=== PATIENT | male | born 1965 | race Caucasian/White ===

== ENCOUNTER → 2020-05-03 14:05 | Outpatient (BNVA) | payer OTHER, SELFPAY | PROVIDERS: PCP Internal Medicine; Visit Provider Internal Medicine Pulmonary Disease | DX: J44.9 Chronic obstructive pulmonary disease, unspecified (principal); R06.00 Dyspnea, unspecified | CPT/HCPCS: 99202 ==

== ENCOUNTER → 2020-05-24 13:16 | Outpatient (BNVA) | payer OTHER, SELFPAY | PROVIDERS: PCP Internal Medicine; Visit Provider Internal Medicine Pulmonary Disease ==

== ENCOUNTER 2020-05-26 11:11 | Inpatient (IN) | payer OTHER, SELFPAY ==
[2020-05-26] VITALS (12 sets, daily range): BP systolic 114–168; BP diastolic 70–89; PULSE 123–139; RESP 18–25; TEMP 36.4–36.7; O2SAT 94–95; BMI 34.8
--- NOTE | ~2020-05-26 | XR_ITS ---
EXAMINATION: XR CHEST CLINICAL INFORMATION: Shortness of breath COMPARISON: US radiograph from 11/28/2019 TECHNIQUE: Frontal view of the chest was obtained. FINDINGS: Bibasilar atelectasis versus scarring. Very mild prominence of the pulmonary vasculature. There is no pneumothorax. Trachea is midline. Cardiomediastinal silhouette is stable. Aorta demonstrates tortuosity. There is no pleural effusion. Degenerative changes of the thoracolumbar spine and glenohumeral joint. XR/XR chest 1V IMPRESSION: 1. Bibasilar atelectasis versus scarring. 2. Very mild prominence of the pulmonary vasculature.
[2020-05-26] MEDS: Adenosine 6 MG/2 ML VIAL IVPUSH (11:20)
[2020-05-26] MEDS: Adenosine 6 MG/2 ML VIAL 12 MG IVPUSH (11:30)
[2020-05-26] MEDS: dilTIAZem HCL 50 MG/10 ML VIAL 20 MG IVPUSH ×2 (11:35→11:52)
--- NOTE | 2020-05-26 11:48 | ECG_ITS ---
Test Reason : tachycardia Blood Pressure : / mmHG Vent. Rate : 261 BPM Atrial Rate : 258 BPM P-R Int : 000 ms QRS Dur : 166 ms QT Int : 162 ms P-R-T Axes : 000 121 000 degrees QTc Int : 337 ms Atrial flutter with 1:[address] depression, consider subendocardial injury or digitalis effect Anterolateral infarct , age undetermined Abnormal ECG When compared with ECG of 22-FEB-2019 15:31, Atrial flutter with 1:1 conduction has replaced Sinus rhythm Vent. rate has increased BY 161 BPM Referred By: Emanuel Bojorquez Electronically Signed By:ELLY LENNON MD
[2020-05-26] MEDS: 0.9 % Sodium Chloride 1,000 ML 999 ML IVCONT (11:50)
[2020-05-26 12:10] LABS: MANUAL DIFF FLAG NO
--- NOTE | 2020-05-26 12:11 | ED_ITS ---
HPI - Arrhythmia/Palpitations General Chief Complaint: Arrhythmia/Palpitations Stated Complaint: CHEST PAIN Time Seen by Provider: 05/26/20 11:28 Source: patient Mode of arrival: ambulatory Limitations: no limitations History of Present Illness HPI narrative: 54-year-old male walked into the emergency department for evaluation of shortness of breath and rapid heartbeat. Patient initially did not look well with diaphoresis and apparent difficulty breathing patient was taken to room 1., heart rate was above 240s, patient was diaphoretic and tachypneic satting 98% on room air, after trying Valsalva maneuver, patient was given adenosine 6 mg/6 mg/12 mg with no effect. Patient started to become more diaphoretic blood pressure started to drop down and patient became hypotensive, at this point I considered to cardiovert the patient since a showing sign of instability, then of the sudden heart rate drop down to 139 per minutes, and patient's symptoms start to improve, and and blood pressure normalized. Patient stated that his difficulty breathing is getting better. Related Data Home Medications Medication Instructions Recorded Confirmed albuterol sulfate 90 mcg/actuation 2 puff INHALATION Q6H PRN 03/14/20 05/26/20 aerosol inhaler Previous Rx's Medication Instructions Recorded fluticasone fur. 100 mcg-umeclid 1 inh INHALATION DAILY 30 Days #1 05/03/20 62.5 mcg-vilant 25 mcg ea inhalat.powder furosemide 40 mg tablet 40 mg PO DAILY 30 Days #30 tab 05/03/20 umeclidinium 62.5 mcg/actuation 1 inh INHALATION DAILY 30 Days #1 05/11/20 blister powder for inhalation ea Allergies Allergy/AdvReac Type Severity Reaction Status Date / Time No Known Allergies Allergy Verified 05/07/20 07:57 Review of Systems 2 Review of Systems: All other systems are reviewed and are negative Constitutional: Reports as per HPI and Reports no additional constitutional complaints Eyes: Reports as per HPI and Reports no additional eye complaints Reports system reviewed and no additional complaints, except as documented Cardiovascular: Reports as per HPI and Reports no additional cardiovascular complaints Respiratory: Reports as per HPI and Reports no additional respiratory complaints Gastrointestinal: Reports as per HPI and Reports no additional gastrointestinal complaints Genitourinary: Reports no additional female genitourinary complaints Musculoskeletal: Reports no additional musculoskeletal complaints Skin/Breast: Reports system reviewed and no additional complaints, except as docu Psychiatric: Reports no additional psychiatric complaints Endocrine: Reports no additional endocrine complaints Hematologic/Lymphatic: Reports no additional hematologic/lymphatic complaints Allergic/Immunologic: Reports no additional allergic/immunologic complaints Reports system reviewed and no additional complaints, except as documented and Reports Abnormal speech present [facility] Past Medical History Medical History (Updated 05/26/20 @ 15:05 by Emanuel Bojorquez MD) Atrial flutter with rapid ventricular response COPD (chronic obstructive pulmonary disease) HTN (hypertension) Surgical History No pertinent past surgical history Family History Family History Father Cancer Mother Diabetes Hypertension Brother In good health Sister In good health Son In good health Daughter In good health Social History Social History Alcohol intake: current Alcohol intake frequency: 3 or more drinks per day Alcohol type: beer Smoking Status: Current every day smoker Smoked in Last 30 Days: Yes Use of substances other than those prescribed or required for medical reasons: Yes Substance Use Type: Marijuana Substance Use Frequency: Daily Advance Directives: No Advance Directives Information Provided: No Physical Exam Vital Signs: Vital Signs: Last Vital Signs Temp 98.0 F 05/26/20 11:54 Pulse 137 H 05/26/20 14:00 Resp 19 05/26/20 14:00 BP 136/89 05/26/20 14:00 Pulse Ox 94 05/26/20 14:00 Body Mass Index 34.8 Vital signs have been reviewed as appeared to be correct. Blood pressure normal. Heart rate normal. Respiration rate normal. Temperature normal. Oxygen saturation normal. Appearance: Alert. Oriented X3. Mild acute respiratory distress. Appear anxious Head: Normal external exam. Normocephalic. Atraumatic. No Hartman signs noted. No raccoon eyes noted Eyes: PERRLA. EOMI. Conjunctiva and sclera normal. Eyelids normal. ENT: TM's Normal. Pharynx normal. Uvula midline. Moist mucous membranes. No trismus noted. No drooling noted. No muffled voice noted. Neck: Normal inspection. Neck supple. FROM. No adenopathy. Thyroid Normal. No meningeal signs. No neck mass noted. CVS: Rapid heart rate and rhythm. Heart sound normal. No murmurs noted. Pulses normal throughout. Respiratory: Mild respiratory distress. Painless inspiration. Breath sounds normal. No wheezes/rales/rhonchi noted. Chest nontender. No accessory muscle usage noted or decreased air movement noted. Abdomen: Soft and nontender. Bowel sounds normal in all 4 quadrants. No distention noted. No organomegaly noted. No visible injury noted. Back: No CVA tenderness. Full range of motion noted. Skin: Skin warm and dry. Normal skin color. Normal skin turgor. No rashes/lesions/lacerations noted. Extremities: No lower extremity edema. Extremities exhibit normal range of motion. Extremities nontender. Neuro: Oriented X 3. No motor deficit. No sensory deficit. Reflexes normal. Course Course Course Narrative: Assessment and plan. 54-year-old male came in with rapid SVT, with shortness of breath, at some point was hypotensive, patient was about to get cardioverted in the emerged department, but likely patient's heart rate slowed down its own and symptoms improved, Dr. Waddell cardiology consult was requested in the ED patient was seen and evaluated by Dr. Waddell. Reevaluation(s) Reevaluation #1: Patient appeared more stable on Cardizem drip heart rate is 138 patient now is asymptomatic. Time: 14:12 Reevaluation #2: Patient appear stable, heart rate is 138 per minute, patient remained asymptomatic, Dr. Waddell was reviewing the echocardiogram with decrease LV F, will DC Cardizem drip, load him up with digoxin, and start on amiodarone drip IV. Patient is known every day alcohol drinker started to have some symptoms of withdrawal will start the patient on phenobarb protocol. MDM - Arrhythmia/Palpitations Lab Data Attestation: I reviewed the patient's lab results. Result diagrams: 05/26/20 12:04 05/26/20 12:04 Labs: Lab Results 05/26/20 05/26/20 05/26/20 Range/Units 12:02 12:04 12:04 WBC 7.4 (4.8-10.8) X10*3/uL RBC 4.53 L (4.60-5.80) X10*6/uL Hgb 14.3 (14.0-18.0) g/dl Hct 43.5 (42-52) % MCV 96.0 (80-98) fL MCH 31.6 (27.0-33.0) pg MCHC 32.9 (31.0-36.0) g/dl RDW 13.1 (11.0-16.0) % Plt Count 208 (160-400) X10*3/uL MPV 9.4 (9.4-12.4) fL Immature Gran % (Auto) 0.9 H (0.0-0.4) % Neut % (Auto) 64.9 (45-73) % Lymph % (Auto) 26.9 (20-40) % Ventura % (Auto) 6.2 (2-11) % Eos % (Auto) 0.7 (0-4) % Baso % (Auto) 0.4 (0-2) % Lymph # (Auto) 2.0 (1.2-4.9) X10*3/uL Ventura # (Auto) 0.5 (0.1-1.2) X10*3/uL Eos # (Auto) 0.1 (0.0-0.4) X10*3/uL Baso # (Auto) 0.0 (0.0-0.2) X10*3/uL Abs Immat Gran (auto) 0.07 H (0.00-0.03) X10*3/uL Absolute Neuts (auto) 4.8 (2.0-8.3) X10*3/uL Absolute Nucleated RBC 0.000 (0.0-0.012) X10*3/uL Nucleated RBC % (auto) 0.0 (0.0-0.2) /100WBC PT (10.8-13.0) SEC INR (0.9-1.1) APTT (24.1-38.0) SEC Hold Blue Top Sodium 139 (135-145) mmol/L Potassium 4.5 (3.3-5.1) mmol/L Chloride 101 (96-108) mmol/L Carbon Dioxide 24 (22-29) mmol/L Anion Gap 19 (12-20) BUN 12 (9-16) mg/dL Creatinine 1.20 (0.5-1.4) mg/dL Estim Creat Clear Calc 90.1 Estimated GFR > 60 Random Glucose 280 H (60-115) mg/dL Calcium 8.8 (8.4-10.2) mg/dL Phosphorus 4.3 (2.7-4.5) mg/dL Magnesium 1.8 (1.6-2.6) mg/dL Total Bilirubin 0.6 (0.0-1.0) mg/dL Direct Bilirubin 0.5 (0.0-0.5) mg/dL AST 194 H (5-37) U/L ALT 231 H (0-40) U/L Alkaline Phosphatase 117 (39-117) U/L Troponin I High Sens (<3.5-35.0) ng/L B-Natriuretic Peptide (<100) pg/mL Total Protein 6.4 L (6.5-8.0) g/dL Albumin 4.0 (3.5-5.0) g/dL Lipase 26 (8-78) U/L COVID-19 ([facility]) Negative (Negative) COVID-19 Clin Com See Note 05/26/20 05/26/20 Range/Units 12:04 12:05 WBC (4.8-10.8) X10*3/uL RBC (4.60-5.80) X10*6/uL Hgb (14.0-18.0) g/dl Hct (42-52) % MCV (80-98) fL MCH (27.0-33.0) pg MCHC (31.0-36.0) g/dl RDW (11.0-16.0) % Plt Count (160-400) X10*3/uL MPV (9.4-12.4) fL Immature Gran % (Auto) (0.0-0.4) % Neut % (Auto) (45-73) % Lymph % (Auto) (20-40) % Ventura % (Auto) (2-11) % Eos % (Auto) (0-4) % Baso % (Auto) (0-2) % Lymph # (Auto) (1.2-4.9) X10*3/uL Ventura # (Auto) (0.1-1.2) X10*3/uL Eos # (Auto) (0.0-0.4) X10*3/uL Baso # (Auto) (0.0-0.2) X10*3/uL Abs Immat Gran (auto) (0.00-0.03) X10*3/uL Absolute Neuts (auto) (2.0-8.3) X10*3/uL Absolute Nucleated RBC (0.0-0.012) X10*3/uL Nucleated RBC % (auto) (0.0-0.2) /100WBC PT 11.2 (10.8-13.0) SEC INR 0.9 (0.9-1.1) APTT 39.0 H (24.1-38.0) SEC Hold Blue Top SEE NOTE Sodium (135-145) mmol/L Potassium (3.3-5.1) mmol/L Chloride (96-108) mmol/L Carbon Dioxide (22-29) mmol/L Anion Gap (12-20) BUN (9-16) mg/dL Creatinine (0.5-1.4) mg/dL Estim Creat Clear Calc Estimated GFR Random Glucose (60-115) mg/dL Calcium (8.4-10.2) mg/dL Phosphorus (2.7-4.5) mg/dL Magnesium (1.6-2.6) mg/dL Total Bilirubin (0.0-1.0) mg/dL Direct Bilirubin (0.0-0.5) mg/dL AST (5-37) U/L ALT (0-40) U/L Alkaline Phosphatase (39-117) U/L Troponin I High Sens 15.6 (<3.5-35.0) ng/L B-Natriuretic Peptide 322 H (<100) pg/mL Total Protein (6.5-8.0) g/dL Albumin (3.5-5.0) g/dL Lipase (8-78) U/L COVID-19 ([facility]) (Negative) COVID-19 Clin Com Imaging Data Chest x-ray: Radiologist's impression: 1. Bibasilar atelectasis versus scarring. 2. Very mild prominence of the pulmonary vasculature. ECG Data Interpretation: EKG 1. SVT at 240/m with narrow QRS complex. EKG 2. Atrial flutter at 138 beats per minutes with 2-1 av conduction, otherwise unremarkable intervals, ST segment depression in the inferior leads concern of ischemia. Critical Care Time Critical Care Time Total Critical Care Time: 60 Attestation: I spent 60 minutes providing critical care service to the patient, this including time spent at the bedside to evaluate the patient, reassess the patient, monitoring vital signs, review labs, and radiographic studies, counseling the patient/family, discussing the case with consultants, disposition the patient. Discharge Plan Discharge Clinical Impression: COPD (chronic obstructive pulmonary disease), Atrial flutter with rapid ventricular response, Alcohol withdrawal Patient Disposition: Admitted As Inpatient
--- NOTE | 2020-05-26 12:13 | CA_ITS ---
Transthoracic Echocardiogram Patient (Last, First, Middle): Magdi Carson, Gender: Male Date of : 1965 Age: 54 Procedure Date: 05/26/2020 Procedure Type: Transthoracic Echocardiogram Location: ER Height: 180.34 cm Weight: 113.4 kg BSA: 2.32 m2 Heart Rate: bpm BP: 114 / 84 mmHg Shell Sorter: Referring MD: Greyson Waddell MD Carbonating Stone Cleaner: Greyson Waddell MD Symptoms: Atrial flutter, chest pain Study Quality: Technically Difficult ECG Rhythm: Atrial flutter Conclusions: - 1. Severe LV systolic dysfunction with LVEF of 25-30%, with mild LVH 2. Moderate RV enlargement with low normal RV systolic pressure 3. Moderately enlarged left atrium 4. Normal cardiac valvular Doppler 5. Normal calculated RV systolic pressure 6. No gross pericardial effusion Findings Procedure Information Contrast agent, definity, is being given per protocol without apparent complications. Left Ventricle Normal left ventricular cavity size. There is mildly increased left ventricular wall thickness. The left ventricular systolic function is severely decreased. The visually estimated ejection fraction is between 25 30%. Diastolic function is indeterminate on the basis of available data. Right Ventricle Moderately increased right ventricular cavity size. There is mildly decreased right ventricular systolic function. Atria The left atrium is moderately dilated. Interatrial shunt cannot be excluded. The right atrium was not well visualized. Aortic Valve The aortic valve structure and function is likely normal. There is no aortic valve stenosis. There is no aortic valve regurgitation. Mitral Valve Likely normal mitral valve structure and function. There is no mitral valve regurgitation. There is no mitral valve stenosis. Pulmonic Valve The pulmonic valve was not well visualized. Tricuspid Valve The tricuspid valve was not well visualized. There is trace tricuspid valve regurgitation. The right ventricular systolic pressure is normal. Great Vessels The aorta was not well visualized. The pulmonary artery was not well visualized. Venous The inferior vena cava was not well visualized. Pericardium/Pleural There is no evidence of pericardial effusion. Prior Study Comparison No prior study available for comparison. Measurements 2D Linear Measurements IVSd: 1.28 0.6-0.9/0.6-1.0 cm LVIDd: 6.18 3.9-5.3/4.2-5.9 cm LVIDd Index: 2.66 2.4-3.2/2.2-3.1 cm/m2 LVIDs: 5.19 2.0-3.6 cm LVPWd: 1.27 0.7-1.1 cm Ao Root: 3.80 2.1-3.5 cm LA Diam: 4.60 2.7-3.8/3.0-4.0 cm LAIDs Index: 1.98 1.5-2.3 cm/m2 LV Mass: 446.48 67-162/88-224 g LV Mass Index: 192.45 43-95/49-115 g/m2 LVOT Diam: 2.00 3.0+(-)1.3 cm 2D Systolic Function EF 4C: 33.20 >55% EF 2C: 12.70 >55% EF BiP: 25.80 >55% Mitral Valve MV Pk E: 0.93 MV Decel Time: 113.00 E'Lateral: 7.16 E'Medial: 3.96 E/E' Med: 23.40 E/E' Lat: 12.90 PHT: 33.00 MVA PHT: 6.67 Decel [place]: 8.22 Aortic Valve AoV Pk Dawit: 0.94 AoV Mn Dawit: 0.67 AoV VTI: 0.16 AoV Pk Grad: 4.00 Aov Mn Grad: 2.00 LANCE Cont.VTI: 2.39 LVOT LVOT Pk Dawit: 0.78 LVOT Mn Dawit: 0.54 LVOT VTI: 0.12 LVOT Pk Grad: 2.00 LVOT Mn Grad: 1.00 LVOT Diam: 2.00 LVOT Area: 3.14 Diastolic Function MV Pk E: 0.93 E'Medial: 3.96 E/E' Med: 23.40 E' Laterial: 7.16 E/E' Lat: 12.90 Tricuspid Valve TR Pk Dawit: 2.08 TR Pk Grad: 17.00 RA Press: 3.00 RVSP: 20.00 Great Vessels Aorta Ao Root-2D: 3.80 2.0-3.7 cm Ao Asc: 3.70 2.1-3.4 cm Pulmonary Valve PV Pk Dawit: 0.79 Peak PV Grad: 2.00 Updated in Other Vendor System with Status of Final Greyson Waddell MD electronically signed on 05/26/2020 3:04:06 PM with status of Final
[2020-05-26 12:15] LABS: Basophils Percent Auto 0.4 % (0-2); Eosinophils Absolute Auto 0.1 X10*3/uL (0.0-0.4); Eosinophils Percent Auto 0.7 % (0-4); Hematocrit 43.5 % (42-52); Hemoglobin 14.3 g/dl (14.0-18.0); Imm Gran Abs Auto 0.07 X10*3/uL (0.00-0.03); Imm Gran Pct Auto 0.9 % (0.0-0.4); Lymphocytes Percent Auto 26.9 % (20-40); Mean Corpuscular HGB Conc 32.9 g/dl (31.0-36.0); Mean Corpuscular Hemoglobin 31.6 pg (27.0-33.0); Mean Platelet Volume 9.4 fL (9.4-12.4); Monocytes Absolute Auto 0.5 X10*3/uL (0.1-1.2); Monocytes Percent Auto 6.2 % (2-11); Neutrophils Absolute Auto 4.8 X10*3/uL (2.0-8.3); Neutrophils Percent Auto 64.9 % (45-73); Platelet Count 208 X10*3/uL (160-400); Red Blood Count 4.53 X10*6/uL (4.60-5.80); Red Cell Distribution Width 13.1 % (11.0-16.0); White Blood Count 7.4 X10*3/uL (4.8-10.8)
--- NOTE | 2020-05-26 12:19 | PM.CNCAR ---
History of Present Illness History of Present Illness Date of Service: 05/26/20 Requesting physician: Emanuel Bojorquez Consult reason: other (Atrial flutter) Chief complaint: CHEST PAIN Narrative: We were asked to see Magdi in cardiology consultation today for rapid hemodynamically unstable tachyarrhythmia. Initially when he presented he was noted to be in narrow complex tachycardia at about 270 beats per minute with marked ST T wave changes. Initially given adenosine x3 and subsequently Cardizem. He was hypertensive, diaphoretic and very short of breath with chest discomfort. Plan was to perform an urgent cardioversion, however patient slow down and revealed that he was in atrial flutter with 1 is to 1 conduction initially and now atrial flutter with 2 is to 1 conduction. His blood pressure is improved now. He is feeling a lot better. Not diaphoretic. Not having any chest tightness. No significant ST depression at this point time. Lab work is pending. Symptoms started this [place] Prior to that he was feeling fine he his usual shortness of breath related to COPD. By the time he got to the car he started noticing significantly sudden onset severe shortness of breath, lightheadedness and chest tightness and started getting diaphoretic. He then said inside the car turned on his AC and said that he felt better and started driving to go home, however he said that he continued to feel poorly and therefore came to the emergency room. He has never had prior episodes like these in the past. 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 Garcia. He takes inhalers. He also has history of hypertension but currently not on any treatment. He drinks about 10 beers a day. Also continues to smoke. Not on any home oxygen at this point in time. Review of Systems Constitutional: Constitutional: Denies chills, Denies fever(s), Denies lethargy and Denies malaise Cardiovascular: Cardiovascular: Reports chest pain, Reports diaphoresis, Reports lightheadedness, Reports palpitations, Reports dyspnea and Reports dyspnea on exertion (Chronically) Respiratory: Respiratory: Reports dyspnea, Reports dyspnea on exertion (Chronically) and Reports wheezing (Chronically) Gastrointestinal: Gastrointestinal: Reports no additional gastrointestinal complaints Genitourinary: Genitourinary: Reports no additional male genitourinary complaints Musculoskeletal: Musculoskeletal: Reports no additional musculoskeletal complaints Integumentary/Breasts: Skin/Breast: Reports system reviewed and no additional complaints, except as docu Neurologic: Reports system reviewed and no additional complaints, except as documented Psychiatric: Psychiatric: Reports no additional psychiatric complaints Endocrine: Endocrine: Reports no additional endocrine complaints and Reports palpitations Allergic/Immunologic: Allergic/Immunologic: Reports wheezing (Chronically) [facility] Past Medical History Medical History (Updated 05/26/20 @ 12:25 by Greyson Waddell MD) Atrial flutter with rapid ventricular response COPD (chronic obstructive pulmonary disease) HTN (hypertension) Family History Family History Father Cancer Mother Diabetes Hypertension Brother In good health Sister In good health Son In good health Daughter In good health Surgical History Surgical History No pertinent past surgical history Social History Social History Alcohol intake: current Alcohol intake frequency: 3 or more drinks per day Alcohol type: beer Smoking Status: Current every day smoker Smoked in Last 30 Days: Yes Use of substances other than those prescribed or required for medical reasons: Yes Substance Use Type: Marijuana Substance Use Frequency: Daily Meds Allergies Allergy/AdvReac Type Severity Reaction Status Date / Time No Known Allergies Allergy Verified 05/07/20 07:57 Active Medications: Current Medications Generic Name Dose Route Start Last Admin Trade Name Freq PRN Reason Stop Dose Admin Sodium Chloride 1,000 mls @ 999 mls/hr 05/26/20 11:45 Ns IVCONT 05/26/20 12:45 .[id number] [facility] Home Medications Medication Instructions Recorded Confirmed Last Taken Type albuterol sulfate 90 mcg/actuation 2 puff INHALATION Q6H PRN 03/14/20 Unknown History aerosol inhaler Physical Exam Vital Signs: Vital Signs: Last Vital Signs Temp 98.0 F 05/26/20 11:54 Pulse 138 H 05/26/20 11:35 Resp 19 05/26/20 11:35 BP 114/84 05/26/20 11:35 Pulse Ox 95 05/26/20 11:35 Body Mass Index 34.8 Const: General: cooperative, alert, awake and acute distress mild and respiratory Nutritional Appearance: obese Orientation/consciousness: patient oriented x3 HENMT: Head: Yes normocephalic and Yes atraumatic Neck: Neck: Yes trachea midline, Yes supple and Yes no JVD Resp: Effort & Inspection: normal respiratory effort Auscultation: no rales, wheezes and diminished lung sounds Cardio: Rate: tachycardic Rhythm: regular rhythm Heart sounds: S1 normal heart sound present and S2 normal heart sound present GI: Inspection: Yes obesity Auscultation: normal bowel sounds Skin: General skin exam: no rashes or lesions noted Neuro: General: patient oriented x3 and no focal motor deficits Extrem: General: Yes no clubbing, cyanosis or edema Psych: Appearance: grossly normal Results Labs and Meds Result diagrams: 05/26/20 12:04 05/26/20 12:04 Lab results: Laboratory Results - last 24 hr 05/26/20 12:05 Hold Blue Top SEE NOTE EKG initially shows rapid narrow complex tachycardia at about 270 beats per minute with marked ST T wave changes suggestive of rate-related ischemia, appears to be atrial flutter with one-to-one conduction, no evidence of pre-excitation 2. EKG repeat shows atrial flutter with 2 is to 1 conduction at 138 beats per minute with much improved ST T wave changes with no pre-excitation Assessment and Plan (1) Atrial flutter with rapid ventricular response: Status: Acute Extremely rapid atrial flutter with one-to-one conduction without pre-excitation with hemodynamic compromise on presentation. With rate control his hemodynamics and symptoms have significantly improved. At this point time given that his atrial flutter is of very recent onset this morning and he has no prior history of any arrhythmias or similar symptoms in the past can try to do chemical cardioversion if his labs are within normal limits. Will check potassium magnesium and troponins. If these are within acceptable limits will pursue flecainide 150 mg p.o.. Start IV Cardizem drip and maximized to control his heart rate to below 100 beats per minute. Also anticoagulate him with 1 milligram/kg subQ q.12 hours of Lovenox. Will obtain echocardiogram later today. He is strongly recommend to abstain from alcohol and smoking. He shows understanding. He is also currently diffusely wheezing and should consider bronchodilator treatment with Xopenex. He will require hospitalization. If his rate remains difficult to control and he does not chemically cardiovert by tomorrow, will pursue elective synchronized cardioversion. This was discussed with him. Will continue to follow with the patient.
[2020-05-26] MEDS: Enoxaparin Sodium 100 MG/ML SYRINGE 70 MG SUBCUT (12:20)
[2020-05-26 12:23] LABS: INTERNATIONAL NORM RATIO 0.9 (0.9-1.1); Prothrombin Time 11.2 SEC (10.8-13.0)
[2020-05-26 12:36] LABS: Alanine Aminotransferase 231 U/L (0-40); Alkaline Phosphatase 117 U/L (39-117); Anion Gap 19 (12-20); Aspartate Amino Transferase 194 U/L (5-37); B Type Natriuretic Peptide 322 pg/mL (<100); Bilirubin Direct 0.5 mg/dL (0.0-0.5); Bilirubin Total 0.6 mg/dL (0.0-1.0); Blood Urea Nitrogen 12 mg/dL (9-16); Calcium 8.8 mg/dL (8.4-10.2); Carbon Dioxide 24 mmol/L (22-29); Chloride 101 mmol/L (96-108); Creatinine Clr Calc Pharmacy 90.1; Estimated Glomerular Filt Rate > 60; Glucose Random 280 mg/dL (60-115); Lipase 26 U/L (8-78); Potassium 4.5 mmol/L (3.3-5.1); Sodium 139 mmol/L (135-145); Total Protein 6.4 g/dL (6.5-8.0); Troponin-I High Sensitivity 15.6 ng/L (<3.5-35.0)
[2020-05-26 12:39] LABS: COVID-19 Test Negative (Negative); IDNOW Serial# 9DD0AD1C
[2020-05-26] MEDS: dilTIAZem HCL 125 MG in 0.9 % Sodium Chloride 100 ML 10 MG IVCONT (12:40)
[2020-05-26 12:45] LABS: Magnesium 1.8 mg/dL (1.6-2.6); Phosphorus 4.3 mg/dL (2.7-4.5)
--- NOTE | 2020-05-26 13:46 | PC.NURSE ---
Pt states he doesn't like hospitals...I'm not going to stay overnight . Pt advised on risks associated and possible if he leaves, verbalized understanding. Dr. Bojorquez aware.
--- NOTE | 2020-05-26 13:56 | PC.NURSE ---
Dr. Bojorquez at bedside- pt agreeable to admission. Echo at bedside.
--- NOTE | 2020-05-26 15:05 | PC.NURSE ---
Per Dr. Maryellen marte/ross mayes at this time.
--- NOTE | 2020-05-26 15:15 | P.HPHOSP_ITS ---
History of Present Illness Chief Complaint: Chest pain [place] and as he was walking out felt dizzy, sweaty and shaky. He had shortness of breath with chest tightness. He leaned against a car and rested and then proceeded to walk to his car and drove himself home. His symptoms persisted and he drove himself to the [facility] [facility] Medical History (Updated 05/26/20 @ 15:05 by Emanuel Bojorquez MD) Atrial flutter with rapid ventricular response COPD (chronic obstructive pulmonary disease) HTN (hypertension) Family History Father Cancer Mother Diabetes Hypertension Brother In good health Sister In good health Son In good health Daughter In good health Surgical History No pertinent past surgical history Social History (Updated 05/26/20 @ 15:18 by Linda Morton NP) Alcohol intake: current Alcohol intake frequency: 3 or more drinks per day Alcohol type: beer Smoking Status: Current every day smoker Smoked in Last 30 Days: Yes Use of substances other than those prescribed or required for medical reasons: Yes Substance Use Type: Marijuana Substance Use Frequency: Daily Advance Directives: No Advance Directives Information Provided: No Meds Allergies Allergy/AdvReac Type Severity Reaction Status Date / Time No Known Allergies Allergy Verified 05/07/20 07:57 Active Medications: Current Medications Generic Name Dose Route Start Last Admin Trade Name Freq PRN Reason Stop Dose Admin Diltiazem HCl 125 mg/ Sodium 125 mls @ 0 mls/hr 05/26/20 12:30 05/26/20 15:05 Chloride IVCONT 0 mg/hr .Q0M KELSEA 0 mls/hr Titration Protocol Per Protocol Pharmacy Consult 1 each 05/26/20 14:02 Consult Rx Perform Med Rec MISCELLANE ONCE PRN Consult order Pharmacy Consult 1 each 05/26/20 15:05 Consult Rx Etoh Phenob Dosing MISCELLANE 05/26/20 15:06 ONCE ONE Protocol Home Medications Medication Instructions Recorded Confirmed Last Taken Type albuterol sulfate 90 mcg/actuation 2 puff INHALATION Q6H PRN 03/14/20 05/26/20 05/26/20 10:30 History aerosol inhaler Physical Exam Vital Signs and Narrative: Vital Signs: Last Vital Signs Temp 98.0 F 05/26/20 11:54 Pulse 137 H 05/26/20 14:00 Resp 19 05/26/20 14:00 BP 136/89 05/26/20 14:00 Pulse Ox 94 05/26/20 14:00 Body Mass Index 34.8 Appearing in no acute distress head is normocephalic atraumatic eyes pupils are PERRLA sclera is anicteric mouth throat mucous membranes are intact and moist neck is supple no lymphadenopathy, no JVD noted lung sounds are clear to auscultation heart regular rate rhythm, clear S1, S2 positive bowel sounds, abdomen is soft, nontender neuro patient is alert x3, no focal deficits Results Labs CBC and Chem 7: 05/26/20 12:04 05/26/20 12:04 Labs: Laboratory Results - last 24 hr 05/26/20 05/26/20 05/26/20 12:02 12:04 12:04 MCV 96.0 MCH 31.6 MCHC 32.9 RDW 13.1 Plt Count 208 MPV 9.4 Immature Gran % (Auto) 0.9 H Neut % (Auto) 64.9 Lymph % (Auto) 26.9 [place] % (Auto) 6.2 Eos % (Auto) 0.7 Baso % (Auto) 0.4 Lymph # (Auto) 2.0 [place] # (Auto) 0.5 Eos # (Auto) 0.1 Baso # (Auto) 0.0 Abs Immat Gran (auto) 0.07 H Absolute Neuts (auto) 4.8 Absolute Nucleated RBC 0.000 Nucleated RBC % (auto) 0.0 PT INR APTT Hold Blue Top Anion Gap 19 Estim Creat Clear Calc 90.1 Estimated GFR > 60 Random Glucose 280 H Calcium 8.8 Phosphorus 4.3 Magnesium 1.8 Total Bilirubin 0.6 Direct Bilirubin 0.5 AST 194 H ALT 231 H Alkaline Phosphatase 117 Troponin I High Sens B-Natriuretic Peptide Total Protein 6.4 L Albumin 4.0 Lipase 26 COVID-19 ([facility]Y) Negative COVID-19 Clin Com See Note 05/26/20 05/26/20 12:04 12:05 MCV MCH MCHC RDW Plt Count MPV Immature Gran % (Auto) Neut % (Auto) Lymph % (Auto) [place] % (Auto) Eos % (Auto) Baso % (Auto) Lymph # (Auto) [place] # (Auto) Eos # (Auto) Baso # (Auto) Abs Immat Gran (auto) Absolute Neuts (auto) Absolute Nucleated RBC Nucleated RBC % (auto) PT 11.2 INR 0.9 APTT 39.0 H Hold Blue Top SEE NOTE Anion Gap Estim Creat Clear Calc Estimated GFR Random Glucose Calcium Phosphorus Magnesium Total Bilirubin Direct Bilirubin AST ALT Alkaline Phosphatase Troponin I High Sens 15.6 B-Natriuretic Peptide 322 H Total Protein Albumin Lipase COVID-19 (SHERRY) COVID-19 Clin Com Imaging Radiologist's Impressions: Impressions Chest X-Ray 05/26/20 12:00 IMPRESSION: 1. Bibasilar atelectasis versus scarring. 2. Very mild prominence of the pulmonary vasculature. Assessment and Plan (1) Alcohol withdrawal: Status: Acute (2) Atrial flutter with rapid ventricular response: Status: Acute Atrial flutter Amiodarone, digoxin, Lovenox. May need cardioversion Alcoholic cardiomyoapthy -Phenobarbitol protocol -SWAT team -Thiamine, folic acid, MVI COPD. Levalbuterol as needed. DVT prophylaxis with Lovenox.
[2020-05-26] MEDS: Digoxin 0.5 MG/2 ML AMPUL IVPUSH (15:21)
--- NOTE | 2020-05-26 15:25 | PM.EVENT ---
Event Note Date of Service: 05/26/20 Event Note: Patient seen and examined independently and was present during boles portion of E/M service. Agree with midlevel's history, physical, assessment, and plan. 54M presented with sob and chest pain aflutter with rvr complicated by alcohol withdrawl and cardiomyopathy lovenox, amio, dig, cardio following phenobarb
--- NOTE | 2020-05-26 15:58 | PC.NURSE ---
verified with pharmacy ok to give lovonox 2nd dose- states it is approrpriate for pt weight
[2020-05-26] MEDS: Flecainide Acetate 50 MG TABLET 100 MG PO (16:04)
[2020-05-26] MEDS: PHENobarbitaL sodium 130 MG/ML VIAL 360 MG IM (16:47)
[2020-05-26] MEDS: Enoxaparin Sodium 60 MG/0.6 ML SYRINGE 45 MG SUBCUT (16:47)
[2020-05-26 17:54] LABS: Glucose Urine UA 100 MG/DL (NEG); Leukocyte Esterase Urine NEG (NEG); Nitrite Urine NEG (NEG); Specific Gravity - Urine 1.025 (1.005-1.025); Urine Blood 1+ (NEG); Urine Ketones NEG (NEG); Urine Protein NEG (NEG-TRACE)
[2020-05-26 17:56] LABS: Appearance Urine CLEAR; Color Urine YELLOW
[2020-05-26 18:45] LABS: Mucus Urine 2+ /LPF; Squamous Epithelial Cell Urine TRACE /LPF; WBC Urine 0-2 /HPF (0-4)
--- NOTE | 2020-05-26 19:39 | PC.NURSE ---
Pt verbalized he was upset about not being able to smoke- pt offered and declined patch and nicotine gum. Approx 20 mins later pt emerged from room asking this rn to remove his IV or ill take it out myself , attempted to encourage pt to stay, quickly discussed risks and possible if leaving ama.Pt verbalized understanding. Pt refuses to stay and wait for hospitalst. Hospitalist notified. Pt ambulated out of ED w/ steady, aguirre gait, skin pale/warm/dry, rr even and unlabored
--- NOTE | 2020-05-27 09:12 | PM.DS ---
DS: Providers Provider Date of Service: 05/27/20 Date of admission: 05/26/20 16:31 Primary care physician: Manny Randolph MD Consults: 05/26/20 11:52 Consult to Cardiology Stat Consulting Provider: Greyson Waddell Reason for consultation: unstable tachycardia 05/26/20 15:20 Consult to Cardiology Routine Consulting Provider: Greyson Waddell Reason for consultation: aflutter Has provider been notified: No DS: Diagnosis Discharge Diagnosis (1) Alcohol withdrawal: Status: Acute (2) Atrial flutter with rapid ventricular response: Status: Acute DS: Medications Discharge Medications Home Medications: Home Medications Medication Instructions Recorded Confirmed albuterol sulfate 90 mcg/actuation 2 puff INHALATION Q6H PRN 03/14/20 05/26/20 aerosol inhaler budesonide-formoterol 2 puff INHALATION DAILY 05/27/20 05/27/20 Previous Rx's Medication Instructions Recorded furosemide 40 mg tablet 40 mg PO DAILY 30 Days #30 tab 05/03/20 umeclidinium 62.5 mcg/actuation 1 inh INHALATION DAILY 30 Days #1 05/11/20 blister powder for inhalation ea DS: Summary Hospital Course Hospital Course: Patient was admitted for a flutter, alcoholic cardiomyopathy, alcohol withdrawal. Plan was for cardioversion. However, was informed that overnight patient decided to leave against medical advice. Time Spent with Patient Time attestation: Total time spent providing and/or coordinating discharge services: Discharge coordination time: Greater than 30 minutes Physical Exam Vital Signs: Vital Signs: Last Vital Signs Temp 97.6 F 05/26/20 17:45 Pulse 123 H 05/26/20 17:45 Resp 22 H 05/26/20 17:45 BP 130/88 05/26/20 17:45 Pulse Ox 95 05/26/20 17:45 Body Mass Index 34.8 General: AO X 3, no acute distress Resp: CTA bilateral CVS: S1,S2,irregular rapid GI: soft, non tender, non distended Neuro: motor grossly intact Psych: appropriate affect DS: Data Data Completed and Pending Labs on day of discharge: Laboratory Results - last 24 hr 05/26/20 05/26/20 05/26/20 12:02 12:04 12:04 WBC 7.4 RBC 4.53 L Hgb 14.3 Hct 43.5 MCV 96.0 MCH 31.6 MCHC 32.9 RDW 13.1 Plt Count 208 MPV 9.4 Immature Gran % (Auto) 0.9 H Neut % (Auto) 64.9 Lymph % (Auto) 26.9 [place] % (Auto) 6.2 Eos % (Auto) 0.7 Baso % (Auto) 0.4 Lymph # (Auto) 2.0 [place] # (Auto) 0.5 Eos # (Auto) 0.1 Baso # (Auto) 0.0 Abs Immat Gran (auto) 0.07 H Absolute Neuts (auto) 4.8 Absolute Nucleated RBC 0.000 Nucleated RBC % (auto) 0.0 PT INR APTT Hold Blue Top Sodium 139 Potassium 4.5 Chloride 101 Carbon Dioxide 24 Anion Gap 19 BUN 12 Creatinine 1.20 Estim Creat Clear Calc 90.1 Estimated GFR > 60 Random Glucose 280 H Calcium 8.8 Phosphorus 4.3 Magnesium 1.8 Total Bilirubin 0.6 Direct Bilirubin 0.5 AST 194 H ALT 231 H Alkaline Phosphatase 117 Troponin I High Sens B-Natriuretic Peptide Total Protein 6.4 L Albumin 4.0 Lipase 26 Urine Color Urine Appearance Urine pH Ur Specific [place] Urine Protein Urine Glucose (UA) Urine Ketones Urine Blood Urine Nitrite Ur Leukocyte Esterase Urine RBC Urine WBC Ur Squamous Epith Cells Urine Bacteria Urine Mucus COVID-19 ([facility]Y) Negative COVID-19 Clin Com See Note 05/26/20 05/26/20 05/26/20 12:04 12:05 17:47 WBC RBC Hgb Hct MCV MCH MCHC RDW Plt Count MPV Immature Gran % (Auto) Neut % (Auto) Lymph % (Auto) [place] % (Auto) Eos % (Auto) Baso % (Auto) Lymph # (Auto) [place] # (Auto) Eos # (Auto) Baso # (Auto) Abs Immat Gran (auto) Absolute Neuts (auto) Absolute Nucleated RBC Nucleated RBC % (auto) PT 11.2 INR 0.9 APTT 39.0 H Hold Blue Top SEE NOTE Sodium Potassium Chloride Carbon Dioxide Anion Gap BUN Creatinine Estim Creat Clear Calc Estimated GFR Random Glucose Calcium Phosphorus Magnesium Total Bilirubin Direct Bilirubin AST ALT Alkaline Phosphatase Troponin I High Sens 15.6 B-Natriuretic Peptide 322 H Total Protein Albumin Lipase Urine Color YELLOW Urine Appearance CLEAR Urine pH 6.0 Ur Specific [place] 1.025 Urine Protein NEG Urine Glucose (UA) 100 H Urine Ketones NEG Urine Blood 1+ H Urine Nitrite NEG Ur Leukocyte Esterase NEG Urine RBC 5-9 H Urine WBC 0-2 Ur Squamous Epith Cells TRACE Urine Bacteria NONE Urine Mucus 2+ COVID-19 ([facility]) COVID-19 Clin Com Discharge Plan Discharge Patient Disposition: Left Against Medical Advice Referrals: Manny Randolph MD [Primary Care Provider] - Discharge Medications: No Action Incruse Ellipta 62.5 mcg/actuation blister with device 1 inh inhalation DAILY 30 Days Qty: 1 RF: 6 budesonide-formoterol 160-4.5 mcg/actuation HFA aerosol inhaler 2 puff inhalation DAILY RF: 0 furosemide [Lasix] 40 mg tablet 40 mg PO DAILY 30 Days Qty: 30 RF: 0 Discharge Orders: Discharge Order (Routine); Ordered 05/27/20 Ordered By: Marc Orellana Care Plan Goals: recovery Health Concerns: aflutter, etoh Plan of Treatment: come back to hospital
--- NOTE | 2020-05-28 | ECG_ITS ---
Test Reason : tachycardia Blood Pressure : / mmHG Vent. Rate : 138 BPM Atrial Rate : 276 BPM P-R Int : 000 ms QRS Dur : 084 ms QT Int : 368 ms P-R-T Axes : 260 084 226 degrees QTc Int : 557 ms Artifact in tracing Atrial flutter with 2:1 A-V conduction cannot exclude Septal infarct , age undetermined Abnormal ECG When compared with ECG of 26-MAY-2020 11:19, Vent. rate has decreased BY 123 BPM Referred By: Emanuel Bojorquez Electronically Signed By:MAULIK MOHAMUD
--- NOTE | 2020-05-28 13:47 | HP_ITS ---
DATE OF SERVICE: 05/26/2020 CHIEF COMPLAINT: Palpitations. HISTORY OF PRESENT ILLNESS: A 54-year-old man presenting to the ER after having an episode of rapid heart rate and diaphoresis. He [place] and as he was [place], he started to feel his heart rapidly beating. He felt sweaty and short of breath. He leaned his hands on his knees on to a car and rested up enough until he was able to go, get into his car. The air conditioner, he reports he felt a little bit better, however, continued to feel unwell and decided to come to the ER to be further evaluated. In the ER, EKG showed narrow complex tachycardia at 270 beats per minute with ST change abnormalities. Initially, he was given adenosine x3 and then started on IV Cardizem drip. The patient's heart rate did slow and showed atrial flutter with 1:1 and then converted to 2:1. His symptoms did improve and he did feel better and denied any chest tightness at that time. He does report history of heavy drinking, 8 to 10 beers a day. He also smokes cigarettes. In the ER, besides the adenosine and IV Cardizem, he was also given a dose of digoxin and flecainide. He will be admitted for further management and treatment of new onset symptomatic atrial flutter. PAST MEDICAL HISTORY: 1. Alcohol abuse. 2. COPD. 3. Leg edema. FAMILY HISTORY: Father had cancer. Mother had diabetes and hypertension. SURGICAL HISTORY: Denies. SOCIAL HISTORY: Smokes cigarettes. Drinks 8 to 10 beers a day. Denies any illicit drug use. LABORATORY DATA: WBC 7.4, hemoglobin 14.3, hematocrit 43.5, platelets 208. Sodium is 139, potassium is 4.5, chloride is 101, bicarb is 24, BUN is 12, creatinine is 1.20. AST is 194, ALT is 231. BNP is 322. REVIEW OF SYSTEMS: CONSTITUTIONAL: Denies recent fever, chills, decrease in appetite. RESPIRATORY: See HPI. CARDIOVASCULAR: See HPI. GASTROINTESTINAL: Denies any dysphagia, abdominal pain, nausea, vomiting, or diarrhea. GENITOURINARY: Denies any dysuria, frequency, hematuria. MUSCULOSKELETAL: Denies any joint pain or swelling. NEUROPSYCH: Denies any weakness or seizures. All other systems are reviewed and are negative. PHYSICAL EXAMINATION: CONSTITUTIONAL: Resting in bed. No acute distress. VITAL SIGNS: 97.6, 132, 22, , 95% on room air. SKIN: Intact without rash or open sores. HEENT: Head is normocephalic, atraumatic. Eyes, pupils are PERRLA. Sclerae anicteric. Mouth and Throat: Mucous membranes are intact and moist. NECK: Supple. No lymphadenopathy. No JVD noted. CHEST: Clear to auscultation without wheezes, rhonchi, or rales. HEART: Irregularly irregular. ABDOMEN: Positive bowel sounds. NEURO: Patient is alert and oriented x3. Cranial nerves II through XII are grossly intact without focal deficits. ASSESSMENT AND PLAN: A 54-year-old man admitted with new onset atrial flutter with initial heart rate of 270s, treated with adenosine, then showed to be in atrial flutter. He was initially to have an emergent cardioversion, however, heart rate did slow down and the patient did have some relief. He does have history of heavy alcohol drinking, which is likely what exacerbated this issue. His echocardiogram showed ejection fraction of 25% to 30% with left ventricular hypertrophy, moderate right ventricular enlargement. 1. New onset atrial flutter with rapid response. Likely exacerbated by heavy alcohol drinking and minimal sleep. a. Cardiology to follow, echocardiogram done, may need cardioversion. b. Anticoagulation, amiodarone 400 b.i.d., digoxin. 2. Alcohol abuse. a. Explained that the atrial flutter was likely exacerbated by his alcohol use. b. consultation, encouraged to attempt to cessate from alcohol. 3. Chronic obstructive pulmonary disease. No exacerbation. Nebs as needed. 4. Transaminitis. Likely related to alcohol abuse. a. Trend LFTs. 5. DVT prophylaxis. Lovenox. 6. Attending, . 7. Full code. NYLA King MD JR/MAGGIL / [id number]
[2020-05-30 16:43] LABS: Amiodarone, Serum <0.1 mcg/mL (1.5-2.5)
== END 2020-05-26 19:52 | disposition left against medical advice (07) | DRG 201 ==
LOC: HO.ED 15:05 → HO.EDOVER 16:39 → HO.IMC 19:05 → HO.EDOVER 05-27 09:15
PROVIDERS: Internal Medicine Cardiovascular Disease; Nurse Practitioner Acute Care; Admitting Provider Internal Medicine; Emergency Provider Emergency Medicine; PCP Internal Medicine; Visit Provider Internal Medicine
DX: I48.92 Unspecified atrial flutter (principal); I42.6 Alcoholic cardiomyopathy; F10.139 Alcohol abuse with withdrawal, unspecified; F17.210 Nicotine dependence, cigarettes, uncomplicated; J44.9 Chronic obstructive pulmonary disease, unspecified; Z71.6 Tobacco abuse counseling; Z20.822 Contact with and (suspected) exposure to COVID-19; Z79.899 Other long term (current) drug therapy
CPT/HCPCS: 36415; 71045; 80048; 80076; 80151; 81001; 83690; 83735; 83880; 84100; 84484; 85025; 85610; 85730; 87635; 93005; 93306; 96372; 96374; 96375; 99285; 99291; J0153; J1160; J1650; J2560; Q9957

== ENCOUNTER 2020-06-07 14:24 | Inpatient (IN) | payer OTHER, SELFPAY ==
[2020-06-07] VITALS (7 sets, daily range): BP systolic 113–142; BP diastolic 75–99; PULSE 82–102; RESP 14–18; TEMP 36.2–36.6; O2SAT 93–99; BMI 36.1
--- NOTE | 2020-06-07 | ECG_ITS ---
Test Reason : POST CARDIOVESION Blood Pressure : / mmHG Vent. Rate : 100 BPM Atrial Rate : 100 BPM P-R Int : 162 ms QRS Dur : 088 ms QT Int : 372 ms P-R-T Axes : 000 144 151 degrees QTc Int : 479 ms Suspect limb lead reversal, interpretation assumes no reversal Normal sinus rhythm Lateral infarct , age undetermined Abnormal ECG When compared with ECG of 26-MAY-2020 11:32, Sinus rhythm has replaced Atrial flutter Lateral infarct is now Present ST no longer depressed in Inferior leads ST no longer depressed in Lateral leads Nonspecific T wave abnormality has replaced inverted T waves in Inferior leads Please repeat EKG with correct lead positioning Referred By: Tyshawn Davila Electronically Signed By:ELLY LENNON MD
--- NOTE | ~2020-06-07 | XR_ITS ---
EXAMINATION: XR CHEST CLINICAL INFORMATION: Chest pain. Rhonchi. Rule out pneumonia. COMPARISON: 05/26/2020 TECHNIQUE: Frontal view of the chest was obtained. FINDINGS: Cardiac leads overlie the chest. Left chest wall defibrillator. The lungs are well expanded. There is no focal consolidation, edema, or effusion. Mild bronchial wall thickening. No pneumothorax. The cardiomediastinal silhouette is within normal limits. No acute osseous abnormality. XR/XR chest 1V IMPRESSION: No dense consolidation. Bronchial wall thickening can be seen with a small airways process such as asthma or atypical/viral infection.
--- NOTE | 2020-06-07 14:44 | ECG_ITS ---
Test Reason : POST CARDIOVERION Blood Pressure : / mmHG Vent. Rate : 098 BPM Atrial Rate : 098 BPM P-R Int : 170 ms QRS Dur : 084 ms QT Int : 382 ms P-R-T Axes : 065 074 087 degrees QTc Int : 487 ms Normal sinus rhythm Possible Left atrial enlargement Septal infarct , age undetermined Abnormal ECG When compared with ECG of 07-JUN-2020 14:40, Nonspecific T wave abnormality no longer evident in Inferior leads Referred By: Tyshawn Davila Electronically Signed By:ELLY LENNON MD
[2020-06-07] MEDS: Nicotine 21 MG PATCH.TD24 TRANSDERMA (15:41)
[2020-06-07] MEDS: LORazepam 1 MG TABLET 2 MG PO (15:42)
[2020-06-07] MEDS: dilTIAZem HCL CD 180 MG CAP.ER.24H PO (15:43)
[2020-06-07 15:44] LABS: MANUAL DIFF FLAG NO
[2020-06-07 15:47] LABS: Basophils Percent Auto 0.3 % (0-2); Eosinophils Percent Auto 0.3 % (0-4); Hematocrit 43.8 % (42-52); Hemoglobin 14.5 g/dl (14.0-18.0); Imm Gran Abs Auto 0.08 X10*3/uL (0.00-0.03); Imm Gran Pct Auto 0.8 % (0.0-0.4); Lymphocytes Absolute Auto 1.2 X10*3/uL (1.2-4.9); Lymphocytes Percent Auto 11.8 % (20-40); Mean Corpuscular HGB Conc 33.1 g/dl (31.0-36.0); Mean Corpuscular Hemoglobin 31.5 pg (27.0-33.0); Mean Corpuscular Volume 95.2 fL (80-98); Mean Platelet Volume 9.5 fL (9.4-12.4); Monocytes Absolute Auto 0.5 X10*3/uL (0.1-1.2); Monocytes Percent Auto 4.9 % (2-11); Neutrophils Absolute Auto 8.4 X10*3/uL (2.0-8.3); Neutrophils Percent Auto 81.9 % (45-73); Platelet Count 222 X10*3/uL (160-400); Red Cell Distribution Width 13.6 % (11.0-16.0); White Blood Count 10.2 X10*3/uL (4.8-10.8)
[2020-06-07 15:55] LABS: Prothrombin Time 11.8 SEC (10.8-13.0)
[2020-06-07 15:58] LABS: Partial Thromboplastin Time 31.7 SEC (24.1-38.0)
[2020-06-07 16:23] LABS: Ethanol < 10 mg/dL
--- NOTE | 2020-06-07 16:23 | ED_ITS ---
HPI - General Adult General Chief complaint: Arrhythmia/Palpitations Stated complaint: SVT,SOB, HR 260 Time Seen by Provider: 06/07/20 15:13 Source: patient and EMS (Medical control consult prior to arrival) Mode of arrival: EMS Limitations: no limitations History of Present Illness HPI narrative: 54-year-old male who presents emergency department for evaluation of supraventricular tachycardia,, weakness and diaphoresis. The patient states that his son text him and asked for money. Patient states that he was going to meet his son but had to ?run around in his house in order to get things to go meet his son. He states that he then walked 15 yd to his car and when he got to his car he had a sudden onset of shortness of breath. He states that he also became very diaphoretic. The patient states that he sat in his car and turned on his air conditioning, he became diaphoretic, his heart was racing, and he felt weak. The patient's symptoms got worse any as his to call an ambulance. When the paramedics arrived and found the patient to be in an SVT with a rate of 204 beats per minute. The patient was given adenosine 6 mg, 12 mg and 12 mg with no change in his rate. The patient's blood pressure began to drop, he appeared to be weak, became more diaphoretic. The paramedics contacted me for medical control. I ordered Versed 4 mg IV, fentanyl 50 mcg IV and cardioversion with 120 joules. The paramedics gave the patient the medications and cardioverted him and the patient went back into a normal sinus rhythm. The patient states that he had a similar event occur to him on 05/26/2020. He was evaluated in the emergency department for similar SVT which did not respond to 3 doses of adenosine. He then spontaneously converted to what appeared to be in atrial flutter. The patient was admitted to the hospital but he states that he spent 5 hours in the emergency department waiting for a bed any signed out against medical advice. 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 The patient did not leave the hospital with any medications to treat his cardiomyopathy and he did not follow- up with any providers since leaving against medical advice. 1715: I did discuss the patient's presentation with the covering mineral surveying technician, Dr. Hassan. He was able to review the corn chip maker rhythm strips and he felt that the patient may have ventricular tachycardia versus atrial flutter with one-to-one conduction. He stated that calcium channel blockers would not be the 1st drug of choice given his low ejection fraction and he recommended that the patient be started on metoprolol 25 mg twice a day. He recommended admission to the hospital service for further management and treatment. I did discuss this with Dr. Alvarez and the patient will be admitted for further treatment. Related Data Home Medications Medication Instructions Recorded Confirmed albuterol sulfate 90 mcg/actuation 2 puff INHALATION Q6H PRN 03/14/20 06/07/20 aerosol inhaler budesonide-formoterol 2 puff INHALATION BID 05/27/20 06/07/20 Previous Rx's Medication Instructions Recorded umeclidinium 62.5 mcg/actuation 1 inh INHALATION DAILY 30 Days #1 05/11/20 blister powder for inhalation ea furosemide 40 mg tablet 40 mg PO DAILY #30 tab 05/28/20 Allergies Allergy/AdvReac Type Severity Reaction Status Date / Time No Known Allergies Allergy Verified 05/07/20 07:57 Review of Systems Review of Systems: Yes all other systems are reviewed and are negative [facility] Past Medical History [facility], [facility] Narrative: The patient smokes 1/2 pack of cigarettes per day times 34 years, he drinks 12 beers per day, he states that he vapes marijuana 2 to 3 times a day. Medical History Atrial flutter with rapid ventricular response COPD (chronic obstructive pulmonary disease) HTN (hypertension) Surgical History No pertinent past surgical history Family History Family History Father Cancer Mother Diabetes Hypertension Brother In good health Sister In good health Son In good health Daughter In good health Social History Social History Alcohol intake: current Alcohol intake frequency: 3 or more drinks per day Alcohol type: beer Smoking Status: Current every day smoker Smoked in Last 30 Days: Yes Use of substances other than those prescribed or required for medical reasons: Yes Substance Use Type: Marijuana Advance Directives: No Advance Directives Information Provided: Yes Physical Exam Vital Signs: Vital Signs: Last Vital Signs Temp 97.9 F 06/07/20 16:00 Pulse 98 06/07/20 16:00 Resp 18 06/07/20 16:00 BP 142/99 H 06/07/20 16:00 Pulse Ox 99 06/07/20 16:00 Body Mass Index 36.1 Const: General: cooperative Orientation/consciousness: oriented to person and oriented to place Limitations: no limitations HENMT: Head: Yes normal to inspection, Yes normocephalic and Yes atraumatic Ears: external ears normal General nose exam: Normal external nose present Face and sinus: Yes normal facial exam Mouth: Normal oral and palatal mucosa present Throat: Yes posterior oropharynx normal Eyes: Periorbital: periorbital findings normal Eyelids: Yes eyelids normal Conjunctivae: conjunctivae normal Sclerae: sclerae normal Corneas: corneas normal Pupils: Equal, round and reactive pupils present Direct Oph thalmoscopy: normal light reflex Neck: Neck: Yes full ROM, Yes no lymphadenopathy, Yes no meningeal signs, Yes trachea midline and Yes supple Chest: Chest palpation & inspection: normal inspection of the chest and normal palpation of entire chest wall Resp: Effort & Inspection: normal respiratory effort and able to speak in complete sentences Auscultation: clear to auscultation bilaterally Cardio: Rate: tachycardic Rhythm: regular rhythm Heart sounds: S1 normal heart sound present, S2 normal heart sound present and no murmurs GI: Inspection: Yes normal to inspection Palpation (GI): Soft to palpation, nontender, no guarding, not rigid and No hepatosplenomegaly present : General: Yes no CVA tenderness Back/Spine/Pelvis: Back: no CVA tenderness Cervical Spine: normal cervical lordosis Thoracic/Lumbar Spine: thoracic and lumbar spine normal to inspection Skin: Lesions: no lesions Rashes: no rashes Wounds: no wounds Neuro: General: oriented to person, oriented to place and no meningeal signs Cranial nerves: Yes CN's II-XII intact bilaterally and Yes Equal, round and reactive pupils present Cognition (Neuro): normal cognition Motor exam (neuro): 5/5 motor strength present throughout Extrem: General: Yes normal to inspection and Yes full ROM Psych: Appearance: well kempt Mental Status: mental status grossly normal Speech and movement: Normal speech and movement present Affect: normal affect Attitude: cooperative Thought process: Normal thought process present Thought content: Normal thought content present Course Course Course Narrative: 54-year-old male was recently diagnosed with atrial flutter and cardiomyopathy with an LVEF of 25-30% when he presented to the emergency department on 05/26/2020 presents emergency department for evaluation of unstable SVT up to 100 beats per minute, he was cardioverted by the paramedics prior to arrival under my medical control. On examination, the patient does have a tachycardia and is 12 EKG revealed a sinus rhythm with a rate of 98 with poor R-wave progression with no ST segment elevation or depression. I did order a CBC, CMP, troponin, PT/INR, PTT, chest x-ray and EKG on the patient. He was ordered to get Cardizem CD 120 mg orally and Ativan 2 mg orally for possible alcohol withdrawal. 165: The patient's laboratory evaluation did reveal a detectable troponin at 16.8 I ordered a 3 hour troponin to be done at 6:35 p.m. The patient's LFTs are elevated consistent with alcoholic hepatitis, he has had similar elevations in the past. The patient does agree to be admitted to the hospital for further wo rkup and treatment of his cardiomyopathy and SVT/atrial flutter. I did discuss the patient's presentation with the covering hospitalist, Dr. Alvarez. The patient will be placed on the phenobarbital protocol, given his COPD he does have some risk for respiratory suppression therefore he will be treated with the 12 milligrams/kilogram dose. Medical Decision Making Lab Data Result diagrams: 06/07/20 15:34 06/07/20 15:34 Labs: Lab Results 06/07/20 06/07/20 06/07/20 Range/Units 15:34 15:34 15:34 WBC 10.2 (4.8-10.8) X10*3/uL RBC 4.60 (4.60-5.80) X10*6/uL Hgb 14.5 (14.0-18.0) g/dl Hct 43.8 (42-52) % MCV 95.2 (80-98) fL MCH 31.5 (27.0-33.0) pg MCHC 33.1 (31.0-36.0) g/dl RDW 13.6 (11.0-16.0) % Plt Count 222 (160-400) X10*3/uL MPV 9.5 (9.4-12.4) fL Immature Gran % (Auto) 0.8 H (0.0-0.4) % Neut % (Auto) 81.9 H (45-73) % Lymph % (Auto) 11.8 L (20-40) % Cotton % (Auto) 4.9 (2-11) % Eos % (Auto) 0.3 (0-4) % Baso % (Auto) 0.3 (0-2) % Lymph # (Auto) 1.2 (1.2-4.9) X10*3/uL Cotton # (Auto) 0.5 (0.1-1.2) X10*3/uL Eos # (Auto) 0.0 (0.0-0.4) X10*3/uL Baso # (Auto) 0.0 (0.0-0.2) X10*3/uL Abs Immat Gran (auto) 0.08 H (0.00-0.03) X10*3/uL Absolute Neuts (auto) 8.4 H (2.0-8.3) X10*3/uL Absolute Nucleated RBC 0.000 (0.0-0.012) X10*3/uL Nucleated RBC % (auto) 0.0 (0.0-0.2) /100WBC PT 11.8 (10.8-13.0) SEC INR 1.0 (0.9-1.1) APTT 31.7 (24.1-38.0) SEC Sodium 140 (135-145) mmol/L Potassium 4.1 (3.3-5.1) mmol/L Chloride 97 (96-108) mmol/L Carbon Dioxide 34 H (22-29) mmol/L Anion Gap 13 (12-20) BUN 12 (9-16) mg/dL Creatinine 1.12 (0.5-1.4) mg/dL Estim Creat Clear Calc 98.2 Estimated GFR > 60 Random Glucose 185 H (60-115) mg/dL Calcium 8.8 (8.4-10.2) mg/dL Total Bilirubin 0.9 (0.0-1.0) mg/dL AST 155 H (5-37) U/L ALT 197 H (0-40) U/L Alkaline Phosphatase 86 D (39-117) U/L Total Creatine Kinase 105 (38-174) U/L Troponin I High Sens (<3.5-35.0) ng/L Total Protein 6.6 (6.5-8.0) g/dL Albumin 4.1 (3.5-5.0) g/dL Lipase 13 (8-78) U/L Ethyl Alcohol mg/dL 06/07/20 06/07/20 Range/Units 15:34 15:34 WBC (4.8-10.8) X10*3/uL RBC (4.60-5.80) X10*6/uL Hgb (14.0-18.0) g/dl Hct (42-52) % MCV (80-98) fL MCH (27.0-33.0) pg MCHC (31.0-36.0) g/dl RDW (11.0-16.0) % Plt Count (160-400) X10*3/uL MPV (9.4-12.4) fL Immature Gran % (Auto) (0.0-0.4) % Neut % (Auto) (45-73) % Lymph % (Auto) (20-40) % Cotton % (Auto) (2-11) % Eos % (Auto) (0-4) % Baso % (Auto) (0-2) % Lymph # (Auto) (1.2-4.9) X10*3/uL Cotton # (Auto) (0.1-1.2) X10*3/uL Eos # (Auto) (0.0-0.4) X10*3/uL Baso # (Auto) (0.0-0.2) X10*3/uL Abs Immat Gran (auto) (0.00-0.03) X10*3/uL Absolute Neuts (auto) (2.0-8.3) X10*3/uL Absolute Nucleated RBC (0.0-0.012) X10*3/uL Nucleated RBC % (auto) (0.0-0.2) /100WBC PT (10.8-13.0) SEC INR (0.9-1.1) APTT (24.1-38.0) SEC Sodium (135-145) mmol/L Potassium (3.3-5.1) mmol/L Chloride (96-108) mmol/L Carbon Dioxide (22-29) mmol/L Anion Gap (12-20) BUN (9-16) mg/dL Creatinine (0.5-1.4) mg/dL Estim Creat Clear Calc Estimated GFR Random Glucose (60-115) mg/dL Calcium (8.4-10.2) mg/dL Total Bilirubin (0.0-1.0) mg/dL AST (5-37) U/L ALT (0-40) U/L Alkaline Phosphatase (39-117) U/L Total Creatine Kinase (38-174) U/L Troponin I High Sens 16.8 (<3.5-35.0) ng/L Total Protein (6.5-8.0) g/dL Albumin (3.5-5.0) g/dL Lipase (8-78) U/L Ethyl Alcohol < 10 mg/dL ECG Data Interpretation: 1410: Saddle Stitching Machine Operator rhythm strip reveals SVT 256 beats per minute, cardioversion and then the patient returns with a normal sinus rhythm with a rate of 120 beats per minute. 1444: EKG done here in the emergency department revealed a normal sinus rhythm with a rate of 98, prolonged QTC of 487 milliseconds, poor R-wave progression V1 to V2, no ST segment elevation or depression. Critical Care Time Critical Care Time Critical Care Time: Yes Total Critical Care Time: 30 Attestation: Critical Care: The patient was critically ill with a high probability of imminent or life threatening deterioration. I spent greater than 30 minutes of discontinuous time evaluating the patient,delivering critical care at the bedside, discussing and evaluating pertinent data with consultants. Critical care time does not include time spent performing separately billable procedures or teaching. Total time spent performing critical care was 30 minutes. Discharge Plan Discharge Clinical Impression: SVT (supraventricular tachycardia) Patient Disposition: Admitted As Inpatient
[2020-06-07 16:24] LABS: Alanine Aminotransferase 197 U/L (0-40); Albumin Level 4.1 g/dL (3.5-5.0); Alkaline Phosphatase 86 U/L (39-117); Anion Gap 13 (12-20); Aspartate Amino Transferase 155 U/L (5-37); Bilirubin Total 0.9 mg/dL (0.0-1.0); Blood Urea Nitrogen 12 mg/dL (9-16); Calcium 8.8 mg/dL (8.4-10.2); Carbon Dioxide 34 mmol/L (22-29); Chloride 97 mmol/L (96-108); Creatinine Clr Calc Pharmacy 98.2; Estimated Glomerular Filt Rate > 60; Glucose Random 185 mg/dL (60-115); Lipase 13 U/L (8-78); Potassium 4.1 mmol/L (3.3-5.1); Sodium 140 mmol/L (135-145); Total Protein 6.6 g/dL (6.5-8.0)
[2020-06-07 16:30] LABS: Troponin-I High Sensitivity 16.8 ng/L (<3.5-35.0)
[2020-06-07] MEDS: PHENobarbitaL sodium 130 MG/ML VIAL 361 MG IM (17:29)
[2020-06-07 18:14] LABS: Magnesium 1.9 mg/dL (1.6-2.6)
--- NOTE | 2020-06-07 18:34 | PM.IMHP ---
History of Present Illness Date of Service: 06/07/20 Chief Complaint: Shortness of breath, palpitation. 54-year-old male with history of SVT, added flutter, alcohol abuse, COPD: Patient was outside when he he felt like he was feeling lot of short of breath and also palpitations and then she he went back to his car and sat there The patient states that his son text him and asked for money, but when he got to his car he had a sudden onset of shortness of breath. He states that he also became very diaphoretic. Subsequently patient's called the ambulance -as per ED physician: When the paramedics arrived and found the patient to be in an SVT with a rate of 200 beats per minute. The patient was given adenosine 6 mg, 12 mg and 12 mg with no change in his rate. The patient's blood pressure began to drop, he appeared to be weak, became more diaphoretic. Subsequently as per ED physician: Patient also received Versed 4 mg IV, fentanyl 50 mcg IV and cardioversion with 120 joules. And afterward patient went into normal sinus rhythm. As per ED physician: Recently patient was in ED- he had a similar event occur to him on 05/26/2020. He was evaluated in the emergency department for similar SVT which did not respond to 3 doses of adenosine. He then spontaneously converted to what appeared to be in atrial flutter-after admitting the hospital briefly for few hours in ED waiting for a bed any signed out against medical advice. 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 Was on rate control medications in the hospital but left against the medical so advised that time without any medication As per patient. In the ED patient was started on Cardizem butED reviewed the case with manager commission, Dr. Hassan. He was able to review the gate technician rhythm strips and he felt that the patient may have ventricular tachycardia versus atrial flutter . Cardio recommended to use beta-shauna instead of Cardizem. Currently says his palpitation and shortness of breath improved significantly. PAST MEDICAL HISTORY: 1. Alcohol abuse. 2. COPD. 3. Leg edema. FAMILY HISTORY: Father had cancer. Mother had diabetes and hypertension. SURGICAL HISTORY: Denies. SOCIAL HISTORY: Smokes cigarettes-still smokes half pack a day used to smoke 1 and half pack for last. Drinks 8 to 10 beers a day. Uses marijuana, denies any illicit other drug use. Review of Systems Review of Systems: CONSTITUTIONAL: Denies recent fever, chills, decrease in appetite. RESPIRATORY: Short of breath says initially but improving significantly after converted back to the sinus. CARDIOVASCULAR: Denies any chest pain or palpitation currently. GASTROINTESTINAL: Denies any dysphagia, abdominal pain, nausea, vomiting, or diarrhea. GENITOURINARY: Denies any dysuria, frequency, hematuria. MUSCULOSKELETAL: Denies any joint pain or swelling. NEUROPSYCH: Denies any weakness or seizures. [facility] Medical History Atrial flutter with rapid ventricular response COPD (chronic obstructive pulmonary disease) HTN (hypertension) Family History Father Cancer Mother Diabetes Hypertension Brother In good health Sister In good health Son In good health Daughter In good health Surgical History No pertinent past surgical history Social History Household Members: Family Housing: House Alcohol intake: current Alcohol intake frequency: 3 or more drinks per day Alcohol type: beer Smoking Status: Current every day smoker Tobacco Type: Cigarette Packs Per Day: 0.5 Cigarettes Per Day: 10.0 Second Hand Smoke Exposure: Yes Substance Use Type: Marijuana service: No Meds Allergies Allergy/AdvReac Type Severity Reaction Status Date / Time No Known Allergies Allergy Verified 05/07/20 07:57 Active Medications: Current Medications Generic Name Dose Route Start Last Admin Trade Name Freq PRN Reason Stop Dose Admin Medication 1 each 06/07/20 17:30 No Benzodiazepines MISCELLANE DAILY [facility] Pharmacy Consult 1 each 06/07/20 16:41 Consult Rx Perform Med Rec MISCELLANE ONCE PRN Consult order Phenobarbital 60 mg 06/08/20 09:00 Phenobarbital 30 Mg Tablet PO 06/09/20 21:01 BID [facility] Phenobarbital 30 mg 06/10/20 09:00 Phenobarbital 30 Mg Tablet PO 06/11/20 21:01 BID [facility] Phenobarbital 30 mg 06/12/20 09:00 Phenobarbital 30 Mg Tablet PO 06/13/20 09:01 DAILY [place]ELSEA Phenobarbital Sodium 271 mg 06/07/20 20:00 Phenobarbital Sodium 130 Mg/Ml Vial IM 06/07/20 23:01 Q3H [facility] Home Medications Medication Instructions Recorded Confirmed Last Taken Type albuterol sulfate 90 mcg/actuation 2 puff INHALATION Q6H PRN 03/14/20 06/07/20 06/07/20 History aerosol inhaler budesonide-formoterol 2 puff INHALATION BID 05/27/20 06/07/20 06/07/20 History Physical Exam Vital Signs and Narrative: Vital Signs: Last Vital Signs Temp 97.9 F 06/07/20 16:00 Pulse 98 06/07/20 16:00 Resp 18 06/07/20 16:00 BP 142/99 H 06/07/20 16:00 Pulse Ox 99 06/07/20 16:00 Body Mass Index 36.1 Constitutional: Not in acute distress, shortness of breath seems improving. SKIN: Intact without rash or open sores. HEENT: Head is normocephalic, atraumatic. Eyes, pupils are PERRLA. Sclerae anicteric. Mouth and Throat: Mucous membranes are intact and moist. NECK: Supple. No lymphadenopathy. No JVD noted. CHEST: Clear to auscultation without wheezes or rales. Few rhonchi scattered. HEART: Regular rhythm, S1-S2 heard. ABDOMEN: Positive bowel sounds. NEURO: Patient is alert and oriented x3. Cranial nerves II through XII are grossly intact without focal deficit Seems somewhat anxious and has tremors Results Labs CBC and Chem 7: 06/08/20 06:37 06/09/20 05:39 Labs: Laboratory Results - last 24 hr 06/07/20 06/07/20 06/07/20 15:34 15:34 15:34 MCV 95.2 MCH 31.5 MCHC 33.1 RDW 13.6 Plt Count 222 MPV 9.5 Immature Gran % (Auto) 0.8 H Neut % (Auto) 81.9 H Lymph % (Auto) 11.8 L Hancock % (Auto) 4.9 Eos % (Auto) 0.3 Baso % (Auto) 0.3 Lymph # (Auto) 1.2 Hancock # (Auto) 0.5 Eos # (Auto) 0.0 Baso # (Auto) 0.0 Abs Immat Gran (auto) 0.08 H Absolute Neuts (auto) 8.4 H Absolute Nucleated RBC 0.000 Nucleated RBC % (auto) 0.0 PT 11.8 INR 1.0 APTT 31.7 Anion Gap 13 Estim Creat Clear Calc 98.2 Estimated GFR > 60 Random Glucose 185 H Calcium 8.8 Magnesium 1.9 Total Bilirubin 0.9 AST 155 H ALT 197 H Alkaline Phosphatase 86 D Total Creatine Kinase 105 Troponin I High Sens Total Protein 6.6 Albumin 4.1 Lipase 13 Ethyl Alcohol 06/07/20 06/07/20 15:34 15:34 MCV MCH MCHC RDW Plt Count MPV Immature Gran % (Auto) Neut % (Auto) Lymph % (Auto) Hancock % (Auto) Eos % (Auto) Baso % (Auto) Lymph # (Auto) Hancock # (Auto) Eos # (Auto) Baso # (Auto) Abs Immat Gran (auto) Absolute Neuts (auto) Absolute Nucleated RBC Nucleated RBC % (auto) PT INR APTT Anion Gap Estim Creat Clear Calc Estimated GFR Random Glucose Calcium Magnesium Total Bilirubin AST ALT Alkaline Phosphatase Total Creatine Kinase Troponin I High Sens 16.8 Total Protein Albumin Lipase Ethyl Alcohol < 10 Imaging Radiologist's Impressions: Impressions Chest X-Ray 06/07/20 15:15 IMPRESSION: No dense consolidation. Bronchial wall thickening can be seen with a small airways process such as asthma or atypical/viral infection. Assessment and Plan (1) SVT (supraventricular tachycardia): Status: Acute (2) Alcohol withdrawal: Status: Acute (3) Dyspnea on exertion: Status: Acute 54-year-old man admitted with new onset atrial flutter with initial heart rate of 200's, treated with adenosine, then showed to be in atrial flutter. He was initially to have an emergent cardioversion, however, heart rate did slow down and the patient did have some relief. He does have history of heavy alcohol drinking, which is likely what exacerbated this issue. His echocardiogram showed ejection fraction of 25% to 30% with left ventricular hypertrophy, moderate right ventricular enlargement. 1. svt vs ventricular tachy. Likely exacerbated by heavy alcohol drinking , cardiomyopathy. Patient was initially started on Cardizem, but Cardiology recommended metoprolol. cardio EVAL 2. Alcohol abuse/alcohol withdrawal: Phenobarb protocol started. Folic acid thiamine 3. Chronic obstructive pulmonary disease. Has some bilateral scattered rhonchi We will start him on some Xopenex nebs rodriguez. Continue to monitor. 4. Transaminitis. Likely related to alcohol abuse. Trend LFTs. Probably related to alcohol use 5. DVT prophylaxis. Lovenox.
[2020-06-07 18:46] LABS: COVID-19 Test Negative (Negative)
[2020-06-07 19:03] LABS: Troponin-I High Sensitivity 23.6 ng/L (<3.5-35.0)
--- NOTE | 2020-06-07 19:39 | PC.NURSE ---
per md fisher okrenae to give 7pm meds at 8pm for patient comfort.
--- NOTE | 2020-06-07 19:40 | PC.NURSE ---
1st call placed farooq burgess to take report.
[2020-06-07] MEDS: Metoprolol Tartrate 25 MG TABLET PO (19:59)
[2020-06-07] MEDS: Magnesium Oxide 400 MG TABLET PO (20:00)
[2020-06-07] MEDS: Furosemide 20 MG/2 ML VIAL IVPUSH (20:01)
[2020-06-07] MEDS: Enoxaparin Sodium 40 MG/0.4 ML SYRINGE SUBCUT (20:01)
[2020-06-07] MEDS: Magnesium Sulfate/D5W 1 GM/100 ML PIGGYBACK IV (20:02)
[2020-06-07] MEDS: PHENobarbitaL sodium 130 MG/ML VIAL 271 MG IM ×2 (20:05→23:30)
[2020-06-08] VITALS (12 sets, daily range): BP systolic 121–154; BP diastolic 82–101; PULSE 1–98; RESP 18–24; TEMP 35.9–37; O2SAT 91–159
--- NOTE | 2020-06-08 | ECG_ITS ---
Test Reason : S/P CARDIOVERSION Blood Pressure : / mmHG Vent. Rate : 088 BPM Atrial Rate : 088 BPM P-R Int : 166 ms QRS Dur : 084 ms QT Int : 386 ms P-R-T Axes : 111 077 083 degrees QTc Int : 467 ms Normal sinus rhythm Normal ECG When compared with ECG of 07-JUN-2020 14:44, No significant change was found Referred By: Tyshawn Davila Electronically Signed By:ELLY LENNON MD
[2020-06-08] MEDS: 0.9 % Sodium Chloride Flush 3 ML SYRINGE IVFLUSH ×4 (01:29→23:29)
[2020-06-08 08:06] LABS: Hematocrit 42.6 % (42-52); Mean Corpuscular HGB Conc 32.9 g/dl (31.0-36.0); Mean Corpuscular Hemoglobin 31.6 pg (27.0-33.0); Mean Corpuscular Volume 96.2 fL (80-98); Mean Platelet Volume 10.5 fL (9.4-12.4); Platelet Count 230 X10*3/uL (160-400); Red Blood Count 4.43 X10*6/uL (4.60-5.80); Red Cell Distribution Width 13.8 % (11.0-16.0); White Blood Count 6.7 X10*3/uL (4.8-10.8)
[2020-06-08] MEDS: Fluticasone/Vilanterol 200/25 BLST.W.DEV 1 PUFF INHALE (08:25)
[2020-06-08 08:34] LABS: Anion Gap 13 (12-20); Blood Urea Nitrogen 13 mg/dL (9-16); Calcium 8.8 mg/dL (8.4-10.2); Carbon Dioxide 31 mmol/L (22-29); Chloride 98 mmol/L (96-108); Creatinine Clr Calc Pharmacy 118.3; Estimated Glomerular Filt Rate > 60; Glucose Random 173 mg/dL (60-115); Potassium 4.1 mmol/L (3.3-5.1); Sodium 138 mmol/L (135-145)
[2020-06-08 09:19] LABS: Alanine Aminotransferase 163 U/L (0-40); Alkaline Phosphatase 73 U/L (39-117); Aspartate Amino Transferase 89 U/L (5-37); Bilirubin Direct 0.4 mg/dL (0.0-0.5); Bilirubin Total 0.7 mg/dL (0.0-1.0); Magnesium 2.2 mg/dL (1.6-2.6); Total Protein 6.4 g/dL (6.5-8.0)
--- NOTE | 2020-06-08 09:35 | P.CDIC_ITS ---
CDI Concurrent Query Service Date: 06/08/20 Documentation Clarification: Please clarify if you are treating a proba ble/suspected/likely or confirmed: COPD COPD Exacerbation Please specify if known COPD exacerbation Provider Response: COPD Exacerbation PLEASE DO NOT DELETE/MODIFY EXISTING CONTENT Additional information is needed in order to code to the highest accuracy and appropriate Severity of Illness (SOI). Please clarify the information noted below in your progress notes and discharge summary. Risk Factors/Clinical Indicators/Treatments ED & H&P note history of COPD pt has some bilateral scattered rhonchi Xopenex nebs CENT[place], current everyday smoker RR 24 on 1 liters NC CDS: Mihaela Gleason CCS, CDIS Contact Number: [phone] Please Review the information above and exercise your independent professional judgment in responding to the query. If you concur, pleas document in the PROGRESS NOTES and DISCHARGE SUMMARY. If you do not agree with the query, please document in the query above. THIS QUERY IS PART OF THE PERMANENT MEDICAL RECORD
[2020-06-08] MEDS: PHENobarbitaL 30 MG TABLET 60 MG PO ×2 (10:06→20:08)
[2020-06-08] MEDS: Magnesium Oxide 400 MG TABLET PO ×2 (10:06→20:08)
[2020-06-08] MEDS: Furosemide 40 MG TABLET PO (10:06)
[2020-06-08] MEDS: Folic Acid 1 MG TABLET PO (10:07)
[2020-06-08] MEDS: methylPREDNISolone Sod Succ 40 MG/ML VIAL IVPUSH ×2 (10:07→16:57)
[2020-06-08] MEDS: Metoprolol Tartrate 25 MG TABLET PO ×2 (10:07→20:08)
[2020-06-08] MEDS: Thiamine HCL 100 MG TABLET PO (10:07)
--- NOTE | 2020-06-08 11:50 | P.CONCA_ITS ---
History of Present Illness History of Present Illness Date of Service: 06/08/20 Requesting physician: Tyshawn Davila Chief complaint: Aflutter/Copd Narrative: 54-year-old gentleman who is presenting with wide complex tachycardia and received shock in the field. He has background of alcoholism and was seen recently for atrial flutter with one-to-one conduction. He was also noticed to have cardiomyopathy on echocardiography with EF of 25 30%. He has heavy drinker and has been drinking for long time. He drinks approximately 12 beers every night. 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 It appears he left against medical advise and developed shortness of breath yesterday. The found him out of breath and called the EMS. It appears he was given adenosine without any success. After discussion with the ER the EMS sedated the patient and cardioverted him. I did looked at his rhythm strips and it looks like wide complex tachycardia with AV dyssynchrony and this was likely ventricular tachycardia. He has been on telemetry since then. He has been stable. He is wheezing and as per he wheezes all the time. He is a heavy smoker also. [facility] Past Medical History Medical History Atrial flutter with rapid ventricular response COPD (chronic obstructive pulmonary disease) HTN (hypertension) Family History Family History Father Cancer Mother Diabetes Hypertension Brother In good health Sister In good health Son In good health Daughter In good health Surgical History Surgical History No pertinent past surgical history Social History Social History Household Members: Family Housing: House Do you presently have visiting nurse or other home services: No Alcohol intake: current Alcohol intake frequency: 3 or more drinks per day Alcohol type: beer Smoking Status: Current every day smoker Tobacco Type: Cigarette Packs Per Day: 0.5 Cigarettes Per Day: 10.0 Smoked in Last 30 Days: Yes Patient Interested in Nicotine Replacement: Yes Patient Given Instructions on How to Stop Smoking: Yes Date Education Initiated: 06/07/20 Second Hand Smoke Exposure: Yes Use of substances other than those prescribed or required for medical reasons: Yes Substance Use Type: Marijuana Substance Use Frequency: Daily Last Used Substance: Days (ago) Currently Displaying Signs/Symptoms of Drug Intoxication Withdrawal: No Any prior treatment program specific to substance use: No Have you been hit, kicked, punched, or otherwise hurt by someone within the past year? If so, by whom?: No Do you feel safe in your current relationship?: Yes Is there a partner from a previous relationship who is making you feel unsafe now?: No Are you made to feel afraid or neglected: No Hindu Healthcare Practices: islam Advance Directives: No Advance Directives Information Provided: Yes Do you have thoughts of harming others: None Do you have a plan to hurt others: No Plan Recently lost weight without trying: Unsure Meds Allergies Allergy/AdvReac Type Severity Reaction Status Date / Time No Known Allergies Allergy Verified 05/07/20 07:57 Active Medications: Current Medications Generic Name Dose Route Start Last Admin Trade Name Freq PRN Reason Stop Dose Admin Enoxaparin Sodium 40 mg 06/07/20 19:00 06/07/20 20:01 Enoxaparin Sodium 40 Mg/0.4 Ml Syringe SUBCUT 40 mg Q24H KELSEA Administration Fluticasone/Vilanterol 1 puff 06/08/20 08:00 06/08/20 08:25 Fluticasone/Vilanterol 200/25 Blst.W.Dev INHALE 1 puff RDAILY KELSEA Administration Folic Acid 1 mg 06/08/20 09:00 06/08/20 10:07 Folic Acid 1 Mg Tablet PO 1 mg DAILY KELSEA Administration Furosemide 40 mg 06/08/20 09:00 06/08/20 10:06 Furosemide 40 Mg Tablet PO 40 mg DAILY KELSEA Administration Protocol Doxycycline Hyclate 100 mg/ 250 mls @ 166.67 mls/hr 06/08/20 12:00 Sodium Chloride IV Q12H KELSEA Levalbuterol HCl 1.25 mg 06/07/20 20:00 06/08/20 11:44 Levalbuterol Hcl 1.25 Mg/0.5 Ml Vial.Neb INHALE 1.25 mg RQ4H KELSEA Administration Magnesium Oxide 400 mg 06/07/20 21:00 06/08/20 10:06 Magnesium Oxide 400 Mg Tablet PO 400 mg BID KELSEA Administration Medication 1 each 06/07/20 17:30 No Benzodiazepines MISCELLANE DAILY [facility] Methylprednisolone Sodium Succinate 40 mg 06/08/20 09:00 06/08/20 10:07 Methylprednisolone Sod Succ 40 Mg/Ml Vial IVPUSH 40 mg Q8H [facility] Administration Metoprolol Tartrate 25 mg 06/07/20 21:00 06/08/20 10:07 Metoprolol Tartrate 25 Mg Tablet PO 25 mg BID KELSEA Administration Protocol Pharmacy Consult 1 each 06/07/20 16:41 Consult Rx Perform Med Rec MISCELLANE ONCE PRN Consult order Phenobarbital 60 mg 06/08/20 09:00 06/08/20 10:06 Phenobarbital 30 Mg Tablet PO 06/09/20 21:01 60 mg BID [facility] Administration Phenobarbital 30 mg 06/10/20 09:00 Phenobarbital 30 Mg Tablet PO 06/11/20 21:01 BID [facility] Phenobarbital 30 mg 06/12/20 09:00 Phenobarbital 30 Mg Tablet PO 06/13/20 09:01 DAILY [facility] Sodium Chloride 3 ml 06/08/20 00:00 06/08/20 10:07 0.9 % Sodium Chloride Flush 3 Ml Syringe IVFLUSH 3 ml QSHIFT [facility] Administration Thiamine HCl 100 mg 06/08/20 09:00 06/08/20 10:07 Thiamine Hcl 100 Mg Tablet PO 100 mg DAILY [facility] Administration Tiotropium [place] 1 puff 06/08/20 08:25 06/08/20 08:40 Tiotropium [place] 18 Mcg Cap.W.Dev INHALE 1 puff RDAILY [facility] Administration Home Medications Medication Instructions Recorded Confirmed Last Taken Type albuterol sulfate 90 mcg/actuation 2 puff INHALATION Q6H PRN 03/14/20 06/07/20 06/07/20 History aerosol inhaler budesonide-formoterol 2 puff INHALATION BID 05/27/20 06/07/20 06/07/20 History Physical Exam Vital Signs: Vital Signs: Last Vital Signs Temp 97.4 F 06/08/20 08:00 Pulse 98 06/08/20 11:48 Resp 24 H 06/08/20 08:00 BP 139/95 H 06/08/20 10:07 Pulse Ox 99 06/08/20 08:00 Body Mass Index 36.1 GENERAL APPEARANCE: in no acute distress, well developed, well nourished. HEENT: unremarkable. HEAD: normocephalic, atraumatic. NECK/THYROID: no carotid bruit, no jugular venous distention. SKIN: no suspicious lesions, warm and dry. HEART: no murmurs, regular rate and rhythm, S1, S2 normal. LUNGS: Bilateral wheezes. ABDOMEN: normal, bowel sounds present, soft, nontender, nondistended. EXTREMITIES: no clubbing, cyanosis, or edema. PERIPHERAL PULSES: equal. NEUROLOGIC: nonfocal, alert and oriented. PSYCH: mood/affect full range. Results Labs and Meds Result diagrams: 06/08/20 06:37 06/08/20 06:37 Lab results: Laboratory Results - last 24 hr 06/07/20 06/07/20 06/07/20 15:34 15:34 15:34 WBC 10.2 RBC 4.60 Hgb 14.5 Hct 43.8 MCV 95.2 MCH 31.5 MCHC 33.1 RDW 13.6 Plt Count 222 MPV 9.5 Immature Gran % (Auto) 0.8 H Neut % (Auto) 81.9 H Lymph % (Auto) 11.8 L Lewis % (Auto) 4.9 Eos % (Auto) 0.3 Baso % (Auto) 0.3 Lymph # (Auto) 1.2 Lewis # (Auto) 0.5 Eos # (Auto) 0.0 Baso # (Auto) 0.0 Abs Immat Gran (auto) 0.08 H Absolute Neuts (auto) 8.4 H Absolute Nucleated RBC 0.000 Nucleated RBC % (auto) 0.0 PT 11.8 INR 1.0 APTT 31.7 Sodium 140 Potassium 4.1 Chloride 97 Carbon Dioxide 34 H Anion Gap 13 BUN 12 Creatinine 1.12 Estim Creat Clear Calc 98.2 Estimated GFR > 60 Random Glucose 185 H Calcium 8.8 Magnesium 1.9 Total Bilirubin 0.9 Direct Bilirubin AST 155 H ALT 197 H Alkaline Phosphatase 86 D Total Creatine Kinase 105 Troponin I High Sens Total Protein 6.6 Albumin 4.1 Lipase 13 Ethyl Alcohol COVID-19 ([facility]) COVID-19 Clin Com 06/07/20 06/07/20 06/07/20 15:34 15:34 18:24 WBC RBC Hgb Hct MCV MCH MCHC RDW Plt Count MPV Immature Gran % (Auto) Neut % (Auto) Lymph % (Auto) Lewis % (Auto) Eos % (Auto) Baso % (Auto) Lymph # (Auto) Lewis # (Auto) Eos # (Auto) Baso # (Auto) Abs Immat Gran (auto) Absolute Neuts (auto) Absolute Nucleated RBC Nucleated RBC % (auto) PT INR APTT Sodium Potassium Chloride Carbon Dioxide Anion Gap BUN Creatinine Estim Creat Clear Calc Estimated GFR Random Glucose Calcium Magnesium Total Bilirubin Direct Bilirubin AST ALT Alkaline Phosphatase Total Creatine Kinase Troponin I High Sens 16.8 Total Protein Albumin Lipase Ethyl Alcohol < 10 COVID-19 ([facility]) Negative COVID-19 Clin Com See Note 06/07/20 06/08/20 06/08/20 18:25 06:37 06:37 WBC 6.7 RBC 4.43 L Hgb 14.0 Hct 42.6 MCV 96.2 MCH 31.6 MCHC 32.9 RDW 13.8 Plt Count 230 MPV 10.5 Immature Gran % (Auto) Neut % (Auto) Lymph % (Auto) Lewis % (Auto) Eos % (Auto) Baso % (Auto) Lymph # (Auto) Lewis # (Auto) Eos # (Auto) Baso # (Auto) Abs Immat Gran (auto) Absolute Neuts (auto) Absolute Nucleated RBC 0.000 Nucleated RBC % (auto) 0.0 PT INR APTT Sodium 138 Potassium 4.1 Chloride 98 Carbon Dioxide 31 H Anion Gap 13 BUN 13 Creatinine 0.93 Estim Creat Clear Calc 118.3 Estimated GFR > 60 Random Glucose 173 H Calcium 8.8 Magnesium 2.2 Total Bilirubin 0.7 Direct Bilirubin 0.4 AST 89 H ALT 163 H Alkaline Phosphatase 73 Total Creatine Kinase Troponin I High Sens 23.6 Total Protein 6.4 L Albumin 4.0 Lipase Ethyl Alcohol COVID-19 ([facility]) COVID-19 Clin Com Imaging Radiologist's impression: Impressions Chest X-Ray 06/07/20 15:15 IMPRESSION: No dense consolidation. Bronchial wall thickening can be seen with a small airways process such as asthma or atypical/viral infection. Assessment and Plan (1) Cardiomyopathy: Status: Acute (2) Ventricular tachycardia: Status: Acute [age] year gentleman with alcoholism and cardiomyopathy. The cardiomyopathy is likely secondary to alcohol use. His EF is 25-30%. He was recently admitted for atrial flutter with one-to-one conduction. Now presented with wide complex tachycardia with AV dyssynchrony on the rhythm strips likely pointing to heard ventricular tachycardia. It is not unusual with his cardiomyopathy that he developed VT. He continues to drink approximately 12 beers per night. Currently stable on telemetry. Metoprolol has been added and should be titrated based on his response. He should be treated for COPD and potentially should get prednisone and inhalers. He will withdraw from alcohol which may increase his risk of arrhythmia and this should be monitored closely and treated. If he develops recurrent arrhythmia then amiodarone is an option. He has mildly abnormal LFTs due to alcohol use. This is not the 1st line drug to use but may have to be used if required. I have discussed with him and the that the cardiomyopathy and his to presentations are likely due to alcoholism and he needs to really think about his habits and stop drinking. We will revisit this at follow-up. Thank you for allowing me to participate in the care of your patient. Please feel free to contact me if you have any questions.
[2020-06-08] MEDS: Doxycycline Hyclate 100 MG in 0.9 % Sodium Chloride 250 ML 166.67 MG IV ×2 (11:59→23:21)
--- NOTE | 2020-06-08 12:15 | MHC.CM.PN ---
met with pt and his filed hcp dc plan home no services
--- NOTE | 2020-06-08 13:38 | HO.PM.IMPN ---
Subjective Subjective Date of Service: 06/08/20 <TJ Santoro - Last Filed: 06/08/20 13:57> 06/08/20 <Tyshawn Davila MD - Last Filed: 06/08/20 16:15> Interval History: Follow up COPD exacerbation, tachyarrhythmia ?vtach vs aflutter Reports shortness breath, denies cough, fever, chills <TJ Santoro - Last Filed: 06/08/20 13:57> Review of Systems Review of Systems: Yes all other systems are reviewed and are negative <TJ Santoro - Last Filed: 06/08/20 13:57> Constitutional Constitutional: Denies chills and Denies fever(s) <TJ Santoro - Last Filed: 06/08/20 13:57> Cardiovascular Cardiovascular: Denies chest pain <TJ Santoro - Last Filed: 06/08/20 13:57> Respiratory Respiratory: Denies cough <TJ Santoro - Last Filed: 06/08/20 13:57> Gastrointestinal Gastrointestinal: Denies abdominal pain <TJ Santoro - Last Filed: 06/08/20 13:57> Physical Exam Vital Signs: Vital Signs: Last Vital Signs Temp 96.6 F L 06/08/20 12:00 Pulse 1 L 06/08/20 12:00 Resp 24 H 06/08/20 12:00 BP 136/88 06/08/20 12:00 Pulse Ox 91 L 06/08/20 12:00 Body Mass Index 36.1 <TJ Santoro - Last Filed: 06/08/20 13:57> Const: General: alert and awake <TJ Santoro - Last Filed: 06/08/20 13:57> Nutritional Appearance: well nourished <TJ Santoro - Last Filed: 06/08/20 13:57> Orientation/consciousness: patient oriented x3 <TJ Santoro - Last Filed: 06/08/20 13:57> HENMT: Head: Yes normocephalic and Yes atraumatic <TJ Santoro - Last Filed: 06/08/20 13:57> Eyes: Sclerae: sclerae normal <TJ Santoro - Last Filed: 06/08/20 13:57> Chest: Chest palpation & inspection: normal inspection of the chest <TJ Santoro - Last Filed: 06/08/20 13:57> Resp: Other: Diffuse wheezing <TJ Santoro - Last Filed: 06/08/20 13:57> Effort & Inspection: normal respiratory effort and no respiratory distress <TJ Santoro - Last Filed: 06/08/20 13:57> Cardio: Rate: regular rate <TJ Santoro - Last Filed: 06/08/20 13:57> Rhythm: regular rhythm <TJ Santoro - Last Filed: 06/08/20 13:57> GI: Palpation (GI): Soft to palpation and nontender <TJ Santoro - Last Filed: 06/08/20 13:57> Neuro: General: patient oriented x3 <TJ Santoro - Last Filed: 06/08/20 13:57> Cranial nerves: Yes CN's II-XII intact bilaterally and Yes Bilaterally intact EOM present <TJ Santoro - Last Filed: 06/08/20 13:57> Extrem: General: Yes normal to inspection <TJ Santoro - Last Filed: 06/08/20 13:57> Objective Data Current Medications Generic Name Dose Route Start Last Admin Trade Name Liseth PRN Reason Stop Dose Admin Enoxaparin Sodium 40 mg 06/07/20 19:00 06/07/20 20:01 Enoxaparin Sodium 40 Mg/0.4 Ml Syringe SUBCUT 40 mg Q24H KELSEA Administration Fluticasone/Vilanterol 1 puff 06/08/20 08:00 06/08/20 08:25 Fluticasone/Vilanterol 200/25 Blst.W.Dev INHALE 1 puff RDAILY KELSEA Administration Folic Acid 1 mg 06/08/20 09:00 06/08/20 10:07 Folic Acid 1 Mg Tablet PO 1 mg DAILY KELSEA Administration Furosemide 40 mg 06/08/20 09:00 06/08/20 10:06 Furosemide 40 Mg Tablet PO 40 mg DAILY KELSEA Administration Protocol Doxycycline Hyclate 100 mg/ 250 mls @ 166.67 mls/hr 06/08/20 12:00 06/08/20 11:59 Sodium Chloride IV 166.67 mls/hr Q12H KELSEA Administration Levalbuterol HCl 1.25 mg 06/07/20 20:00 06/08/20 11:44 Levalbuterol Hcl 1.25 Mg/0.5 Ml Vial.Neb INHALE 1.25 mg RQ4H KELSEA Administration Magnesium Oxide 400 mg 06/07/20 21:00 06/08/20 10:06 Magnesium Oxide 400 Mg Tablet PO 400 mg BID KELSEA Administration Medication 1 each 06/07/20 17:30 No Benzodiazepines MISCELLANE DAILY [facility] Methylprednisolone Sodium Succinate 40 mg 06/08/20 09:00 06/08/20 10:07 Methylprednisolone Sod Succ 40 Mg/Ml Vial IVPUSH 40 mg Q8H KELSEA Administration Metoprolol Tartrate 25 mg 06/07/20 21:00 06/08/20 10:07 Metoprolol Tartrate 25 Mg Tablet PO 25 mg BID KELSEA Administration Protocol Pharmacy Consult 1 each 06/07/20 16:41 Consult Rx Perform Med Rec MISCELLANE ONCE PRN Consult order Phenobarbital 60 mg 06/08/20 09:00 06/08/20 10:06 Phenobarbital 30 Mg Tablet PO 06/09/20 21:01 60 mg BID KELSEA Administration Phenobarbital 30 mg 06/10/20 09:00 Phenobarbital 30 Mg Tablet PO 06/11/20 21:01 BID KELSEA Phenobarbital 30 mg 06/12/20 09:00 Phenobarbital 30 Mg Tablet PO 06/13/20 09:01 DAILY [facility] Sodium Chloride 3 ml 06/08/20 00:00 06/08/20 10:07 0.9 % Sodium Chloride Flush 3 Ml Syringe IVFLUSH 3 ml QSHIFT KELSEA Administration Thiamine HCl 100 mg 06/08/20 09:00 06/08/20 10:07 Thiamine Hcl 100 Mg Tablet PO 100 mg DAILY KELSEA Administration Tiotropium [place] 1 puff 06/08/20 08:25 06/08/20 08:40 Tiotropium [place] 18 Mcg Cap.W.Dev INHALE 1 puff RDAILY KELSEA Administration <TJ Santoro - Last Filed: 06/08/20 13:57> Labs CBC & Chem 7: : 06/08/20 06:37 06/08/20 06:37 <TJ Santoro - Last Filed: 06/08/20 13:57> Assessment and Plan (1) Ventricular tachycardia: Status: Acute <TJ Santoro - Last Filed: 06/08/20 13:57> (2) Cardiomyopathy: Status: Acute <TJ Santoro - Last Filed: 06/08/20 13:57> (3) Alcohol withdrawal: Status: Acute <TJ Santoro - Last Filed: 06/08/20 13:57> Assessment and Plan: 54-year-old man with history of COPD, alcohol abuse, cardiomyopathy with EF of 25-30% brought to the ED with ?vtach with initial heart rate of 200's s/p emergent cardioversion by EMS found to be in alcohol withdrawal vtach status post emergent CV In the setting of alcohol abuse, cardiomyopathy with EF 25-30% No overnight events on telemetry -started on beta-shauna -evaluated by Cardiology, recommend abstinence from alcohol. -tele monitoring -Monitor electrolytes CM Related to alcohol abuse -continue Lasix Alcohol abuse/alcohol withdrawal: Phenobarb protocol started. Folic acid thiamine Chronic obstructive pulmonary disease. -IV Solu-Medrol -breathing treatments Transaminitis. Likely related to alcohol abuse. LFTs trending down DVT prophylaxis. Lovenox. <TJ Santoro - Last Filed: 06/08/20 13:57> Patient seen and examined independently and I was present during boles portion of E/M service. Agree with TJ Garcia's history, physical, assessment, and plan. Strips reviewed by cardiology and deemded likely VT prior to hospital arrival, fortunately in sinus after shock by paramedics. Now with audible wheezing and congested cough. Is a heavy smoker. Start treatment for acute COPD exacerbation - IV steroids, abx, updrafts Betablockers for his VT. Monitor lytes. High Risk for withdrawal and is on phenobarb per protocol. Complete cessation has been advised. <Tyshawn Davila MD - Last Filed: 06/08/20 16:15>
[2020-06-08 16:41] LABS: Glucose, Whole Blood 293 mg/dL (60-115)
[2020-06-08] MEDS: Enoxaparin Sodium 40 MG/0.4 ML SYRINGE SUBCUT (20:08)
[2020-06-08 20:32] LABS: Glucose, Whole Blood 333 mg/dL (60-115)
[2020-06-09] VITALS (7 sets, daily range): BP systolic 135–150; BP diastolic 92–98; PULSE 76–94; RESP 18–20; TEMP 36.4–36.8; O2SAT 94–97
[2020-06-09] MEDS: methylPREDNISolone Sod Succ 40 MG/ML VIAL IVPUSH (00:15)
[2020-06-09 06:38] LABS: Anion Gap 11 (12-20); Blood Urea Nitrogen 12 mg/dL (9-16); Calcium 9.1 mg/dL (8.4-10.2); Carbon Dioxide 31 mmol/L (22-29); Chloride 99 mmol/L (96-108); Creatinine Clr Calc Pharmacy 129.4; Estimated Glomerular Filt Rate > 60; Glucose Random 202 mg/dL (60-115); Potassium 4.4 mmol/L (3.3-5.1); Sodium 137 mmol/L (135-145)
[2020-06-09] MEDS: Fluticasone/Vilanterol 200/25 BLST.W.DEV 1 PUFF INHALE (07:49)
[2020-06-09] MEDS: PHENobarbitaL 30 MG TABLET 60 MG PO (08:35)
[2020-06-09] MEDS: Metoprolol Tartrate 25 MG TABLET PO (08:35)
[2020-06-09] MEDS: Thiamine HCL 100 MG TABLET PO (08:35)
[2020-06-09] MEDS: Furosemide 40 MG TABLET PO (08:37)
[2020-06-09] MEDS: Magnesium Oxide 400 MG TABLET PO (08:37)
[2020-06-09] MEDS: Folic Acid 1 MG TABLET PO (08:37)
[2020-06-09 08:50] LABS: Estimated Average Glucose 163 mg/dL; Hemoglobin A1c % 7.3 %
--- NOTE | 2020-06-09 10:55 | PM.DS ---
DS: Providers Provider Date of Service: 06/09/20 <Linda Morton NP - Last Filed: 06/09/20 11:15> 06/10/20 <Bryce Marcum MD - Last Filed: 06/10/20 08:01> Date of admission: 06/07/20 18:58 <Linda Morton NP - Last Filed: 06/09/20 11:15> Date of discharge: 06/09/20 <Linda Morton NP - Last Filed: 06/09/20 11:15> Primary care physician: Unknown Physician <Linda Morton NP - Last Filed: 06/09/20 11:15> Admitting clinician: Zach Alvarez <Linda Morton NP - Last Filed: 06/09/20 11:15> Attending physician on admission: Zach Alvarez <Linda Morton NP - Last Filed: 06/09/20 11:15> Consults: 06/07/20 19:02 Consult to Cardiology Routine Consulting Provider: Bobby Hassan Reason for consultation: Cardiomyopathy, a flutter versus V-tach Has provider been notified: No <Linda Morton NP - Last Filed: 06/09/20 11:15> Attending physician on discharge: Bryce Marcum <Linda Morton NP - Last Filed: 06/09/20 11:15> Discharging clinician: Linda Morton <Linda Morton NP - Last Filed: 06/09/20 11:15> DS: Diagnosis Discharge Diagnosis (1) Ventricular tachycardia: Status: Acute <Linda Morton NP - Last Filed: 06/09/20 11:15> DS: Medications Discharge Medications Home Medications: Home Medications Medication Instructions Recorded Confirmed albuterol sulfate 90 mcg/actuation 2 puff INHALATION Q6H PRN 03/14/20 06/07/20 aerosol inhaler budesonide-formoterol 2 puff INHALATION BID 05/27/20 06/07/20 Previous Rx's Medication Instructions Recorded umeclidinium 62.5 mcg/actuation 1 inh INHALATION DAILY 30 Days #1 05/11/20 blister powder for inhalation ea furosemide 40 mg tablet 40 mg PO DAILY #30 tab 05/28/20 doxycycline hyclate 100 mg PO BID #10 tab 06/09/20 metoprolol tartrate 25 mg PO BID #60 tab 06/09/20 prednisone 40 mg PO DAILY #10 tab 06/09/20 <Linda Morton NP - Last Filed: 06/09/20 11:15> DS: Summary Hospital Course Hospital Course: HP as per admitting provider 54-year-old male with history of SVT, a flutter, alcohol abuse, COPD: Patient was outside when he he felt like he was feeling lot of short of breath and also palpitations and then she he went back to his car and sat there The patient states that his son text him and asked for money, but when he got to his car he had a sudden onset of shortness of breath. He states that he also became very diaphoretic. Subsequently patient's called the ambulance -as per ED physician: When the paramedics arrived and found the patient to be in an SVT with a rate of 200 beats per minute. The patient was given adenosine 6 mg, 12 mg and 12 mg with no change in his rate. The patient's blood pressure began to drop, he appeared to be weak, became more diaphoretic. Subsequently as per ED physician: Patient also received Versed 4 mg IV, fentanyl 50 mcg IV and cardioversion with 120 joules. And afterward patient went into normal sinus rhythm. As per ED physician: Recently patient was in ED- he had a similar event occur to him on 05/26/2020. He was evaluated in the emergency department for similar SVT which did not respond to 3 doses of adenosine. He then spontaneously converted to what appeared to be in atrial flutter-after admitting the hospital briefly for few hours in ED waiting for a bed any signed out against medical advice. 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 Was on rate control medications in the hospital but left against the medical so advised that time without any medication As per patient. In the ED patient was started on Cardizem butED reviewed the case with clock and watch hands dipper, Dr. Hassan. He was able to review the archeologist rhythm strips and he felt that the patient may have ventricular tachycardia versus atrial flutter . Cardio recommended to use beta-shauna instead of Cardizem. Currently says his palpitation and shortness of breath improved significantly . Wide complex tachycardia. Ventricular tachycardia. Secondary to cardiomyopathy, last echocardiogram showed EF of 25-30%, likely alcohol related. He was initially treated with adenosine without success and he was subsequently cardioverted. He has had no further episodes of ventricular tachycardia or atrial flutter. He will continue Metoprolol at home and should follow up with cardiology as outpatient. He was also educated on the importance of remaining alcohol free as this is likely causing his symptoms. COPD exacerbation. Treated with IV steroids and scheduled Xopenex. Will send home with prednisone and Doxycycline. He may continue his regular inhalers and educated to avoid overuse of albuterol. New onset Diabetes. A1C 7.3. Will send home with Metformin 500mg BID. He should follow up with his primary care provider for further management of diabetes. Hypertension. Elevated blood pressure throughout admission. Will add low dose manjinder inhibitor, Lisinopril 2.5mg daily. Alcohol abuse. Heavy alcohol intake of at least 12 beers daily. He was encouraged to stop drinking alcohol. He was treated with Phenobarbitol for alcohol withdrawal symptoms. Attending. Dr. Marcum Addendum to documentation by midlevel I indepently saw and examined the patient and participated in the boles portion of the E/M service and discussed discharge plan with FABRIC AND ACCESSORIES ESTIMATOR. I agree with the history, clinical course and discharge plan as outline in this document. Patient with alcohol dependency, and presented with SVT, COPD and required cardioversion. He is advised to seriously stay away from alcohol as this is having serious health effect including cardiomyopathy/ <Linda Morton NP - Last Filed: 06/09/20 11:15> Time Spent with Patient Time attestation: Total time spent providing and/or coordinating discharge services: <Linda Morton NP - Last Filed: 06/09/20 11:15> Discharge coordination time: Greater than 30 minutes <Linda Morton NP - Last Filed: 06/09/20 11:15> Physical Exam Vital Signs: Vital Signs: Last Vital Signs Temp 97.5 F 06/09/20 07:17 Pulse 94 06/09/20 08:35 Resp 20 06/09/20 07:17 BP 150/98 H 06/09/20 07:17 Pulse Ox 97 06/09/20 07:17 Body Mass Index 36.1 <Linda Morton NP - Last Filed: 06/09/20 11:15> Appearing in no acute distress head is normocephalic atraumatic eyes pupils are PERRLA sclera is anicteric mouth throat mucous membranes are intact and moist lungs normal expansion heart regular rate rhythm, clear S1, S2 positive bowel sounds, abdomen is soft, nontender neuro patient is alert x3, no focal deficits <Linda Morotn NP - Last Filed: 06/09/20 11:15> DS: Data Data Completed and Pending Completed studies during hospitalization [Text1]: Procedures Detoxification Services for Substance Abuse Treatment (05/26/20) <Linda Morton NP - Last Filed: 06/09/20 11:15> Labs on day of discharge: Laboratory Results - last 24 hr 06/08/20 06/08/20 06/08/20 06:37 16:13 20:19 Sodium Potassium Chloride Carbon Dioxide Anion Gap BUN Creatinine Estim Creat Clear Calc Estimated GFR POC Glucose 293 H 333 H Random Glucose Estimat Average Glucose 163 Hemoglobin A1c % 7.3 Calcium 06/09/20 05:39 Sodium 137 Potassium 4.4 Chloride 99 Carbon Dioxide 31 H Anion Gap 11 L BUN 12 Creatinine 0.85 Estim Creat Clear Calc 129.4 Estimated GFR > 60 POC Glucose Random Glucose 202 H Estimat Average Glucose Hemoglobin A1c % Calcium 9.1 <Linda Morton NP - Last Filed: 06/09/20 11:15> Discharge Plan Discharge Anticipated Discharge Date/Time: 06/09/20 10:44 <Linda Morton NP - Last Filed: 06/09/20 11:15> Patient Disposition: Home, Self-Care <Linda Morton NP - Last Filed: 06/09/20 11:15> Referrals: Manny Randolph MD [Physician] - 1 Week (06/19/2020 2:30) <Linda Morton NP - Last Filed: 06/09/20 11:15> Discharge Medications: New metoprolol tartrate 25 mg Tablet 25 mg PO BID Qty: 60 RF: 0 prednisone 20 mg tablet 40 mg PO DAILY Qty: 10 RF: 0 doxycycline hyclate 100 mg tablet 100 mg PO BID Qty: 10 RF: 0 metformin 500 mg tablet 500 mg PO BID Qty: 60 RF: 0 lisinopril 2.5 mg tablet 2.5 mg PO DAILY Qty: 30 RF: 0 Continued Incruse Ellipta 62.5 mcg/actuation blister with device 1 inh inhalation DAILY 30 Days Qty: 1 RF: 6 furosemide 40 mg tablet 40 mg PO DAILY Qty: 30 RF: 0 budesonide-formoterol 160-4.5 mcg/actuation HFA aerosol inhaler 2 puff inhalation BID RF: 0 <Linda Morton NP - Last Filed: 06/09/20 11:15> Discharge Orders: Discharge Order (Routine); Ordered 06/09/20 Ordered By: Linda Morton <Linda Morton NP - Last Filed: 06/09/20 11:15> Diet: advance to usual diet <Linda Morton NP - Last Filed: 06/09/20 11:15> advance to usual diet <Bryce Marcum MD - Last Filed: 06/10/20 08:01> Activity on Discharge: As tolerated <Linda Morton NP - Last Filed: 06/09/20 11:15> As tolerated <Bryce Marcum MD - Last Filed: 06/10/20 08:01> Stand Alone Forms: Patient Portal Discharge page <Linda Morton NP - Last Filed: 06/09/20 11:15> Care Plan Goals: Stop drinking alcohol No arrythmia Resolution of COPD exacerbation <Linda Morton NP - Last Filed: 06/09/20 11:15> Health Concerns: Alcohol abuse Arrythmia, ventricular tachycardia COPD exacerbation <Linda Morton NP - Last Filed: 06/09/20 11:15> Plan of Treatment: Follow up with primary care provider as needed Follow up with cardiology [facility] [phone] Continue new medications as prescribed Only use albuterol inhaler as prescribed <Linda Morton NP - Last Filed: 06/09/20 11:15> Discharge Date/Time: 06/09/20 12:04 <Linda Morton NP - Last Filed: 06/09/20 11:15>
--- NOTE | 2020-06-09 11:07 | MHC.CM.PN ---
PT CLEARED TO DC TODAY, HOME WITH NO SERVICES. FAMILY TO TRANSPORT
--- NOTE | 2020-06-09 11:12 | PM.PNCARD ---
Subjective Subjective Date of Service: 06/09/20 Principal diagnosis: Cardiomyopathy, VT Interval history: Feeling better. No more arrhythmia. He is going home today. BP is high. Physical Exam Vital Signs: Last Vital Signs Temp 97.5 F 06/09/20 07:17 Pulse 94 06/09/20 08:35 Resp 20 06/09/20 07:17 BP 150/98 H 06/09/20 07:17 Pulse Ox 97 06/09/20 07:17 Body Mass Index 36.1 GENERAL APPEARANCE: in no acute distress, well developed, well nourished. HEENT: unremarkable. HEAD: normocephalic, atraumatic. NECK/THYROID: no carotid bruit, no jugular venous distention. SKIN: no suspicious lesions, warm and dry. HEART: no murmurs, regular rate and rhythm, S1, S2 normal. LUNGS: Bilateral wheezes-less pronounced today. ABDOMEN: normal, bowel sounds present, soft, nontender, nondistended. EXTREMITIES: no clubbing, cyanosis, or edema. PERIPHERAL PULSES: equal. NEUROLOGIC: nonfocal, alert and oriented. PSYCH: mood/affect full range. Results Labs and Meds Result diagrams: 06/08/20 06:37 06/09/20 05:39 Lab results: Laboratory Results - last 24 hr 06/08/20 06/08/20 06/08/20 06:37 16:13 20:19 Sodium Potassium Chloride Carbon Dioxide Anion Gap BUN Creatinine Estim Creat Clear Calc Estimated GFR POC Glucose 293 H 333 H Random Glucose Estimat Average Glucose 163 Hemoglobin A1c % 7.3 Calcium 06/09/20 05:39 Sodium 137 Potassium 4.4 Chloride 99 Carbon Dioxide 31 H Anion Gap 11 L BUN 12 Creatinine 0.85 Estim Creat Clear Calc 129.4 Estimated GFR > 60 POC Glucose Random Glucose 202 H Estimat Average Glucose Hemoglobin A1c % Calcium 9.1 Progress Note: A&P Assessment and plan (1) Ventricular tachycardia: Status: Acute (2) Cardiomyopathy: Status: Acute Assessment and Plan: 54 male with cardiomyopathy EF 25-30% on background of alcohol abuse. Likely cause his alcohol abuse. Also remote background of cocaine use. Admitted for VT. He is being discharged home. BP is high. Giving 2.5 mg Lisinopril. If tolerates the dose then should go home with that along with the metoprolol. He should see us back in office. Again discussed about alcohol cessation. Fall Risk Details Current Medications: Current Medications Generic Name Dose Route Start Last Admin Trade Name Liseth PRN Reason Stop Dose Admin Enoxaparin Sodium 40 mg 06/07/20 19:00 06/08/20 20:08 Enoxaparin Sodium 40 Mg/0.4 Ml Syringe SUBCUT 40 mg Q24H KELSEA Administration Fluticasone/Vilanterol 1 puff 06/08/20 08:00 06/09/20 07:49 Fluticasone/Vilanterol 200/25 Blst.W.Dev INHALE 1 puff RDAILY KELSEA Administration Folic Acid 1 mg 06/08/20 09:00 06/09/20 08:37 Folic Acid 1 Mg Tablet PO 1 mg DAILY KELSEA Administration Furosemide 40 mg 06/08/20 09:00 06/09/20 08:37 Furosemide 40 Mg Tablet PO 40 mg DAILY KELSEA Administration Protocol Doxycycline Hyclate 100 mg/ 250 mls @ 166.67 mls/hr 06/08/20 12:00 06/09/20 00:57 Sodium Chloride IV Infused Q12H KELSEA Infusion Levalbuterol HCl 1.25 mg 06/07/20 20:00 06/09/20 07:47 Levalbuterol Hcl 1.25 Mg/0.5 Ml Vial.Neb INHALE 1.25 mg RQ4H KELSEA Administration Lisinopril 2.5 mg 06/09/20 11:11 Lisinopril 2.5 Mg Tablet PO 06/09/20 11:12 ONCE ONE Protocol Magnesium Oxide 400 mg 06/07/20 21:00 06/09/20 08:37 Magnesium Oxide 400 Mg Tablet PO 400 mg BID KELSEA Administration Medication 1 each 06/07/20 17:30 No Benzodiazepines MISCELLANE DAILY [facility] Methylprednisolone Sodium Succinate 40 mg 06/08/20 09:00 06/09/20 08:42 Methylprednisolone Sod Succ 40 Mg/Ml Vial IVPUSH Not Given Q8H [facility] Metoprolol Tartrate 25 mg 06/07/20 21:00 06/09/20 08:35 Metoprolol Tartrate 25 Mg Tablet PO 25 mg BID KELSEA Administration Protocol Nicotine 14 mg 06/09/20 09:00 06/09/20 08:42 Nicotine 14 Mg Patch.Td24 TRANSDERMA Not Given DAILY [facility] Pharmacy Consult 1 each 06/07/20 16:41 Consult Rx Perform Med Rec MISCELLANE ONCE PRN Consult order Phenobarbital 60 mg 06/08/20 09:00 06/09/20 08:35 Phenobarbital 30 Mg Tablet PO 06/09/20 21:01 60 mg BID KELSEA Administration Phenobarbital 30 mg 06/10/20 09:00 Phenobarbital 30 Mg Tablet PO 06/11/20 21:01 BID KELSEA Phenobarbital 30 mg 06/12/20 09:00 Phenobarbital 30 Mg Tablet PO 06/13/20 09:01 DAILY [facility] Sodium Chloride 3 ml 06/08/20 00:00 06/09/20 08:42 0.9 % Sodium Chloride Flush 3 Ml Syringe IVFLUSH Not Given QSHIFT [facility] Thiamine HCl 100 mg 06/08/20 09:00 06/09/20 08:35 Thiamine Hcl 100 Mg Tablet PO 100 mg DAILY [facility] Administration Tiotropium [place] 1 puff 06/08/20 08:25 06/08/20 08:40 Tiotropium [place] 18 Mcg Cap.W.Dev INHALE 1 puff RDAILY KELSEA Administration Time Spent With Patient Time: Total time spent is greater than 50% in coordination of care (as documented) at patient's floor/unit and/or counseling patient: Time with patient: 15 - 24 minutes
[2020-06-09] MEDS: lisinopriL 2.5 MG TABLET PO (11:17)
== END 2020-06-09 12:04 | disposition home or self-care (01) | DRG 205 ==
LOC: HO.ED 16:58 → HO.EDOVER 19:18 → HO.IMC 19:36
PROVIDERS: Internal Medicine; Physician Assistant Medical; Admitting Provider Internal Medicine; Emergency Provider Emergency Medicine Emergency Medical Services; PCP Internal Medicine; Visit Provider Family Medicine
DX: I42.6 Alcoholic cardiomyopathy (principal); J44.1 Chronic obstructive pulmonary disease with (acute) exacerbation; I47.1 Supraventricular tachycardia; E11.9 Type 2 diabetes mellitus without complications; F17.210 Nicotine dependence, cigarettes, uncomplicated; F10.239 Alcohol dependence with withdrawal, unspecified; Z71.6 Tobacco abuse counseling; Z20.822 Contact with and (suspected) exposure to COVID-19; R74.01 Elevation of levels of liver transaminase levels; Z79.899 Other long term (current) drug therapy
CPT/HCPCS: 36415; 71045; 80048; 80053; 80076; 80320; 82550; 82947; 83036; 83690; 83735; 84484; 85025; 85027; 85610; 85730; 87635; 93005; 94640; 96372; 99285; 99291; J1650; J1940; J2560; J2920; J3475

== ENCOUNTER → 2020-07-04 10:46 | Outpatient (BNVA) | payer OTHER, SELFPAY | PROVIDERS: PCP Internal Medicine; Visit Provider Internal Medicine | DX: I42.9 Cardiomyopathy, unspecified (principal) | CPT/HCPCS: 93005; 99212 ==

== ENCOUNTER → 2020-07-05 15:19 | Outpatient (BNVA) | payer OTHER, SELFPAY | PROVIDERS: PCP Internal Medicine; Visit Provider Internal Medicine Pulmonary Disease | DX: R06.00 Dyspnea, unspecified (principal); J44.1 Chronic obstructive pulmonary disease with (acute) exacerbation | CPT/HCPCS: 99212 ==

== ENCOUNTER → 2020-10-03 15:46 | Outpatient (BNVA) | payer OTHER, SELFPAY | PROVIDERS: PCP Internal Medicine; Visit Provider Internal Medicine Pulmonary Disease | DX: J44.1 Chronic obstructive pulmonary disease with (acute) exacerbation (principal); R06.00 Dyspnea, unspecified | CPT/HCPCS: 99212 ==

== ENCOUNTER → 2021-01-08 12:43 | Outpatient (BNVA) | payer OTHER, SELFPAY | PROVIDERS: PCP Internal Medicine; Visit Provider Internal Medicine Pulmonary Disease | DX: J44.1 Chronic obstructive pulmonary disease with (acute) exacerbation (principal); R06.00 Dyspnea, unspecified | CPT/HCPCS: 90686; 99212 ==

== ENCOUNTER → 2021-02-12 14:50 | Outpatient (BNVA) | payer OTHER, SELFPAY | PROVIDERS: PCP Internal Medicine; Referring Provider Internal Medicine; Visit Provider Internal Medicine Cardiovascular Disease | DX: I42.9 Cardiomyopathy, unspecified (principal); I48.92 Unspecified atrial flutter; R06.00 Dyspnea, unspecified; J44.1 Chronic obstructive pulmonary disease with (acute) exacerbation; F10.10 Alcohol abuse, uncomplicated; F12.90 Cannabis use, unspecified, uncomplicated; F17.210 Nicotine dependence, cigarettes, uncomplicated | CPT/HCPCS: 99212 ==

== ENCOUNTER 2021-02-28 11:29 | Outpatient (REF) | payer OTHER, SELFPAY ==
[2021-02-28 11:41] LABS: MANUAL DIFF FLAG NO
[2021-02-28 12:54] LABS: Basophils Percent Auto 0.7 % (0-2); Eosinophils Absolute Auto 0.1 X10*3/uL (0.0-0.4); Eosinophils Percent Auto 2.3 % (0-4); Hematocrit 44.6 % (42.0-52.0); Hemoglobin 16.1 g/dl (14.0-18.0); Imm Gran Abs Auto 0.06 X10*3/uL (0.00-0.03); Lymphocytes Absolute Auto 2.8 X10*3/uL (1.2-4.9); Mean Corpuscular HGB Conc 36.1 g/dl (31.0-36.0); Mean Corpuscular Hemoglobin 32.7 pg (27.0-33.0); Mean Corpuscular Volume 90.5 fL (80.0-98.0); Mean Platelet Volume 9.5 fL (9.4-12.4); Monocytes Absolute Auto 0.6 X10*3/uL (0.1-1.2); Monocytes Percent Auto 9.5 % (2-11); Neutrophils Absolute Auto 2.5 x10*3/uL (2.0-8.3); Neutrophils Percent Auto 40.5 % (45-73); Platelet Count 262 X10*3/uL (160-400); Red Blood Count 4.93 X10*6/uL (4.60-5.80); Red Cell Distribution Width 11.8 % (11.0-16.0); White Blood Count 6.1 X10*3/uL (4.8-10.8)
[2021-02-28 13:02] LABS: INTERNATIONAL NORM RATIO 0.9 (0.9-1.1); Prothrombin Time 10.5 SEC (9.9-13.0)
[2021-02-28 13:20] LABS: Anion Gap 14 (12-20); Blood Urea Nitrogen 7 mg/dL (9-16); Calcium 10.3 mg/dL (8.4-10.2); Carbon Dioxide 29 mmol/L (22-29); Chloride 94 mmol/L (96-108); Estimated Glomerular Filt Rate > 60; Glucose Random 124 mg/dL (60-115); Potassium 5.1 mmol/L (3.3-5.1); Sodium 132 mmol/L (135-145)
== END 2021-02-28 11:30 | disposition home or self-care (01) ==
LOC: HO.LAB 11:29
PROVIDERS: Visit Provider Nurse Practitioner Family
DX: I42.9 Cardiomyopathy, unspecified (principal)
CPT/HCPCS: 36415; 80048; 85025; 85610

== ENCOUNTER → 2021-06-04 15:12 | Outpatient (BNVA) | payer OTHER, SELFPAY | PROVIDERS: PCP Internal Medicine; Visit Provider Internal Medicine Pulmonary Disease | DX: R05.9 Cough, unspecified (principal); R06.00 Dyspnea, unspecified; J44.9 Chronic obstructive pulmonary disease, unspecified; J44.1 Chronic obstructive pulmonary disease with (acute) exacerbation; I11.0 Hypertensive heart disease with heart failure; I50.23 Acute on chronic systolic (congestive) heart failure; I48.92 Unspecified atrial flutter; F17.210 Nicotine dependence, cigarettes, uncomplicated; F10.20 Alcohol dependence, uncomplicated; Z98.890 Other specified postprocedural states | CPT/HCPCS: 99212 ==

== ENCOUNTER → 2021-06-25 14:33 | Outpatient (REF) | payer OTHER, SELFPAY ==
--- NOTE | 2021-06-25 14:35 | CA_ITS ---
Transthoracic Echocardiogram Patient (Last, First, Middle): Magdi Carson, Gender: Male Date of : 1965 Age: 55 Procedure Date: 06/25/2021 Procedure Type: Transthoracic Echocardiogram Location: OP Height: 180.34 cm Weight: 111.13 kg BSA: 2.30 m2 Heart Rate: bpm BP: 130 / 78 mmHg Pool Coordinator: JACOBO Referring MD: Sameera Meza METAL STAMPING MACHINE OPERATOR-C Waiter: Greyson Waddell MD Symptoms: I42.9 - Cardiomyopathy, unspecified Study Quality: Fair ECG Rhythm: Sinus Conclusions: - Normal LV systolic function Findings Left Ventricle Normal left ventricular size and systolic function. There is mildly increased left ventricular wall thickness. The visually estimated ejection fraction is between 55-60%. Spectral Doppler is indicative of an impaired relaxation filling pattern. Prior Study Comparison Changes noted compared to prior study dated: 05/26/2020. LV systolic function has normalized Measurements 2D Linear Measurements IVSd: 1.34 0.6-0.9/0.6-1.0 cm LVIDd: 5.10 3.9-5.3/4.2-5.9 cm LVIDd Index: 2.22 2.4-3.2/2.2-3.1 cm/m2 LVIDs: 3.11 2.0-3.6 cm LVPWd: 1.23 0.7-1.1 cm LA Diam: 3.80 2.7-3.8/3.0-4.0 cm LAIDs Index: 1.65 1.5-2.3 cm/m2 LV Mass: 331.31 67-162/88-224 g LV Mass Index: 144.05 43-95/49-115 g/m2 LVOT Diam: 2.20 3.0+(-)1.3 cm 2D Systolic Function EF 4C: 53.00 >55% EF 2C: 59.80 >55% EF BiP: 56.30 >55% Mitral Valve MV Pk E: 0.83 MV PK A: 0.93 MV Decel Time: 199.00 E/A: 0.90 E'Lateral: 9.90 E'Medial: 7.62 E/E' Med: 10.90 E/E' Lat: 8.40 PHT: 58.00 MVA PHT: 3.79 Decel Wilcox: 4.18 Aortic Valve AoV Pk Dawit: 1.37 AoV Mn Dawit: 0.98 AoV VTI: 0.26 AoV Pk Grad: 8.00 Aov Mn Grad: 4.00 LANCE Cont.VTI: 3.09 LVOT LVOT Pk Dawit: 1.07 LVOT Mn Dawit: 0.71 LVOT VTI: 0.21 LVOT Pk Grad: 5.00 LVOT Mn Grad: 2.00 LVOT Diam: 2.20 LVOT Area: 3.80 Diastolic Function MV Pk E: 0.83 MV Pk A: 0.93 E/A: 0.90 E'Medial: 7.62 E/E' Med: 10.90 E' Laterial: 9.90 E/E' Lat: 8.40 Right Ventricle TAPSE (mm): 2.44 TVS' Dawit: 15.10 Tricuspid Valve TR Pk Dawit: 1.34 TR Pk Grad: 7.00 RA Press: 3.00 RVSP: 10.00 Great Vessels Aorta Sinus of Valsalva: 3.60 2.0-3.[address] [place]: 3.15 1.7-3.4 cm Ao Asc: 3.70 2.1-3.4 cm Updated in Other Vendor System with Status of Final Greyson Waddell MD electronically signed on 06/26/2021 8:57:50 AM with status of Final
== END ==
LOC: HO.CARD 14:33
PROVIDERS: Visit Provider Nurse Practitioner Family
DX: I42.9 Cardiomyopathy, unspecified (principal)
CPT/HCPCS: 93306; Q9957

== ENCOUNTER → 2021-07-04 13:39 | Outpatient (BNVA) | payer OTHER, SELFPAY | PROVIDERS: PCP Internal Medicine; Referring Provider Internal Medicine; Visit Provider Nurse Practitioner Family | DX: I42.9 Cardiomyopathy, unspecified (principal); I48.92 Unspecified atrial flutter; R06.00 Dyspnea, unspecified; J44.1 Chronic obstructive pulmonary disease with (acute) exacerbation; F10.10 Alcohol abuse, uncomplicated; F17.210 Nicotine dependence, cigarettes, uncomplicated; Z98.890 Other specified postprocedural states | CPT/HCPCS: 93005; 99212 ==

== ENCOUNTER 2021-08-27 14:28 | Outpatient (REF) | payer OTHER, SELFPAY ==
--- NOTE | ~2021-08-27 | XR_ITS ---
EXAMINATION: THORACIC AND LUMBAR SPINE X-RAY CLINICAL INFORMATION: Pain COMPARISON: None TECHNIQUE: 3 views of the thoracic spine and 3 views of the lumbar spine FINDINGS: Thoracic spine: There is multilevel degenerative spondylosis is seen throughout the thoracic spine greatest in the lower thoracic spine. No fracture or dislocation is seen. Paraspinal soft tissues are normal. Lumbar spine: Bone alignment is normal. No fracture or dislocation is seen. There is multilevel degenerative spondylosis greatest at L3-L4 and L4-L5. Disc spaces are normal. There is mild lower lumbar spine facet arthritis. There is evidence of atherosclerotic disease. XR/XR lumbar spine 2-3V IMPRESSION: Multilevel degenerative changes. No fracture seen.
--- NOTE | ~2021-08-27 | XR_ITS ---
EXAMINATION: THORACIC AND LUMBAR SPINE X-RAY CLINICAL INFORMATION: Pain COMPARISON: None TECHNIQUE: 3 views of the thoracic spine and 3 views of the lumbar spine FINDINGS: Thoracic spine: There is multilevel degenerative spondylosis is seen throughout the thoracic spine greatest in the lower thoracic spine. No fracture or dislocation is seen. Paraspinal soft tissues are normal. Lumbar spine: Bone alignment is normal. No fracture or dislocation is seen. There is multilevel degenerative spondylosis greatest at L3-L4 and L4-L5. Disc spaces are normal. There is mild lower lumbar spine facet arthritis. There is evidence of atherosclerotic disease. XR/XR thoracic spine 2V IMPRESSION: Multilevel degenerative changes. No fracture seen.
== END 2021-08-27 14:29 | disposition home or self-care (01) ==
LOC: HO.XRAY 14:28
PROVIDERS: PCP Internal Medicine; Visit Provider Nurse Practitioner Family
DX: M54.50 Low back pain, unspecified (principal); M62.838 Other muscle spasm; M54.9 Dorsalgia, unspecified
CPT/HCPCS: 72070; 72100

== ENCOUNTER → 2021-12-12 15:15 | Outpatient (BNVA) | payer OTHER, SELFPAY | PROVIDERS: PCP Internal Medicine; Visit Provider Internal Medicine Pulmonary Disease | DX: R06.00 Dyspnea, unspecified (principal); J44.1 Chronic obstructive pulmonary disease with (acute) exacerbation | CPT/HCPCS: 99212 ==

== ENCOUNTER 2021-12-13 13:35 | Emergency (ER) | payer OTHER, SELFPAY ==
--- NOTE | ~2021-12-13 | XR_ITS ---
EXAMINATION: XR FOOT, RIGHT CLINICAL INFORMATION: Dislocation COMPARISON: None TECHNIQUE: AP, lateral, and oblique views of the right foot. FINDINGS: Bone alignment is normal. No fracture or dislocation is seen. There is arthritis at the first MTP joint and metatarsal tarsal joints with joint space narrowing and osteophyte formation. There are small calcaneal spurs. There is a radiopaque soft tissue foreign body in the plantar foot adjacent to the second MTP joint. XR/XR foot RT 2V IMPRESSION: No fracture or dislocation. Degenerative changes. Soft tissue foreign body in the plantar foot adjacent to the second MTP joint. Calcaneal spurs.
[2021-12-13 14:19] VITALS: BP 148/84; PULSE 88; RESP 16; TEMP 36.9; O2SAT 96; BMI 34.0
[2021-12-13 19:39] VITALS: BP 150/69; PULSE 74; RESP 16; TEMP 36.7; O2SAT 98
--- OUTSIDE RECORDS SUMMARY | 2021-12-13 19:51 | XMS_ITS ---
:1965 Author PROBLEMS Unknown Problems ALLERGIES No Information ENCOUNTERS Encounter Location Date Diagnosis [facility] - [address] [place], [place] [id number] IMMUNIZATIONS No Known Immunizations SOCIAL HISTORY Never Assessed REASON FOR REFERRAL FUNCTIONAL STATUS PLAN OF CARE Activity Details Pending Test XR CHEST 2 VW VITAL SIGNS MEDICATIONS Unknown Medications PROCEDURES No Known procedures RESULTS No Results REASON FOR VISIT Insurance Providers [facility] Patient Patient Patient Patient Patient Subscriber Subscriber Subscriber Group Insurance Plan Plan Plan Plan ID Relationship Address Phone Name Date of ID Name Date of No Type Insurance Insurance Insurance Coverage to Subscriber Address Phone Name Dates Medicaid [phone] Medicaid self Magdi [id number] [facility] [id number] [facility] [place] [address] [facility] [place] [id number] [facility]
[2021-12-13 20:45] LABS: MANUAL DIFF FLAG NO
[2021-12-13 20:47] LABS: Basophils Percent Auto 0.7 % (0-2); Eosinophils Absolute Auto 0.2 X10*3/uL (0.0-0.4); Eosinophils Percent Auto 3.3 % (0-4); Hematocrit 45.5 % (42.0-52.0); Hemoglobin 16.1 g/dl (14.0-18.0); Imm Gran Abs Auto 0.02 X10*3/uL (0.00-0.03); Imm Gran Pct Auto 0.4 % (0.0-0.4); Lymphocytes Absolute Auto 1.7 X10*3/uL (1.2-4.9); Lymphocytes Percent Auto 31.8 % (20-40); Mean Corpuscular HGB Conc 35.4 g/dl (31.0-36.0); Mean Corpuscular Hemoglobin 33.4 pg (27.0-33.0); Mean Corpuscular Volume 94.4 fL (80.0-98.0); Mean Platelet Volume 8.8 fL (9.4-12.4); Monocytes Absolute Auto 0.6 X10*3/uL (0.1-1.2); Monocytes Percent Auto 11.6 % (2-11); Neutrophils Absolute Auto 2.8 x10*3/uL (2.0-8.3); Neutrophils Percent Auto 52.2 % (45-73); Platelet Count 210 X10*3/uL (160-400); Red Blood Count 4.82 X10*6/uL (4.60-5.80); Red Cell Distribution Width 12.6 % (11.0-16.0); White Blood Count 5.4 X10*3/uL (4.8-10.8)
--- NOTE | 2021-12-13 21:03 | ED.GENADULT ---
HPI - General Adult General Chief complaint: Skin/Abscess/Foreign Body Stated complaint: R pinkie toe is black/diabetic Time Seen by Provider: 12/13/21 19:39 Source: patient Mode of arrival: ambulatory Limitations: no limitations History of Present Illness HPI narrative: Patient comes to the emergency room complaining that his toes in his right foot are turning purple. Patient states that they are very painful especially the 1st 1 which became purple approximately 3 days ago. Patient states that today he noticed that his greater toe is starting to change color as well. Patient states it does not hurt yet. Patient denies fever or chills. Patient went to see his primary care physician, he was instructed to come to the emergency room for further evaluation and treatment. Related Data Previous Rx's Medication Instructions Recorded furosemide 40 mg tablet 40 mg PO .daily #90 tabs 10/12/20 fluticasone fur. 100 mcg-umeclid 1 inh inhalation DAILY 30 days #1 06/13/21 62.5 mcg-vilant 25 mcg ea inhalat.powder (Trelegy Ellipta) acetaminophen 500 mg tablet 500 - 1,000 mg PO Q6H PRN pain #30 09/02/21 tabs lisinopril 5 mg tablet 5 mg PO DAILY #90 tabs 09/02/21 metformin 500 mg tablet 500 mg PO BID for diabetes 10/04/21 mellitus #180 tabs albuterol sulfate 90 mcg/actuation 2 puff inhalation Q6H PRN dyspnea 11/04/21 aerosol inhaler (ProAir HFA) 30 days #1 ea metoprolol succinate 50 mg 50 mg PO BID #180 tabs 11/25/21 tablet,extended release 24 hr Anoro Ellipta 62.5 mcg-25 1 inh inhalation DAILY 30 days #1 12/05/21 mcg/actuation powder for ea inhalation (umeclidinium-vilanterol) azithromycin 250 mg tablet See Rx Instructions PO .COMPLEX 5 12/12/21 days #6 tabs blood pressure monitor #1 ea 12/12/21 nicotine 21 mg/24 hr daily 1 patch transdermal DAILY #28 ea 12/12/21 transdermal patch prednisone 20 mg tablet 40 mg PO DAILY 5 days #10 tabs 12/12/21 aspirin 325 mg tablet 325 mg PO DAILY #30 tabs 12/13/21 clopidogrel 75 mg tablet (Plavix) 75 mg PO DAILY #30 tabs 12/13/21 Allergies Allergy/AdvReac Type Severity Reaction Status Date / Time No Known Allergies Allergy Verified 12/12/21 15:27 Review of Systems Review of Systems: Constitutional : No Weight loss, No Fever, No Chills, No Night Sweats, No Fatigue, No Malaise ENT/Mouth : No Hearing loss, No Ear Pain, No Nasal Congestion, No Sinus Pain, No Hoarseness, No sore throat, No Rhinorrhea, No Swallowing Difficulty Eyes: No Eye Pain, No Swelling, No Redness, No Foreign Body, No Discharge, No Vision Changes Cardiovascular : No Chest Pain, No SOB, No Dyspnea on Exertion, No Orthopnea, No Edema, No Palpitations Respiratory : No Cough, No Sputum, No Wheezing, No Smoke Exposure, No Dyspnea Gastrointestinal : No Nausea, No Vomiting, No Diarrhea, No Constipation, No abdominal Pain, No Hematochezia, No Melena Genitourinary : no irregular bleeding, No Dysuria, No Urinary Frequency, No Hematuria, No Urinary Incontinence, No Urgency, No Flank Pain, No Urinary Flow Changes, No Hesitancy Musculoskeletal : No joint pain, No Myalgias, No Joint Swelling Skin : No Skin Lesions, No rash, complaining that his toes in his right further started to turn blue/purple Neuro : No Weakness, No Numbness, No Paresthesias, No Loss of Consciousness, No Dizziness, No Headache Psych : No Anxiety/Panic, No Depression, No SI/HI/AH/VH, No Social Issues, Heme/Lymph: No Bruising, No Bleeding,No Lymphadenopathy Endocrine : No Polyuria, No Polydipsia, No Temperature Intolerance [facility] Past Medical History Medical History Alcohol abuse Atrial flutter with rapid ventricular response COPD (chronic obstructive pulmonary disease) HTN (hypertension) Smoking Surgical History No pertinent past surgical history Family History Family History Father Cancer Mother Diabetes Hypertension Brother In good health Sister In good health Son In good health Daughter In good health Social History Social History Household Members: Family Housing: House Do you presently have visiting nurse or other home services: No Alcohol intake: current Alcohol intake frequency: 3 or more drinks per day Alcohol type: beer Patient Tobacco Use Status: Current everyday Tobacco user Tobacco use type: Cigarette Cigarette Packs Per Day: 1 Cigarettes Per Day: 20 e-Cigarette/Vaping Use: Never Used Second Hand Smoke Exposure: Yes Use of substances other than those prescribed or required for medical reasons: Yes Substance Use Type: Marijuana Advance Directives: Yes Advance Directives on File: Yes Advance Directives Date on File: 06/11/20 service: No Current occupational status: retired and disabled Cognitive needs: No Hearing needs: No Vision needs: Yes (reading glasses) Physical Exam ED Vital Signs: Vital Signs - 24 hr 12/13/21 14:19 12/13/21 19:39 12/13/21 22:00 Temperature 98.4 F 98.1 F 98.3 F Pulse Rate 88 74 74 Respiratory Rate 16 16 16 Blood Pressure 148/84 H 150/69 H 149/80 H Pulse Oximetry 96 98 98 Oxygen Delivery Method Room Air Room Air Room Air BMI result Body Mass Index 34.0 Const Other: Appearance: Alert. Oriented X3. No acute distress. Eyes: Pupils equal, round and reactive to light. ENT: Pharynx normal. Neck: Normal inspection. Neck supple. No lymph nodes noted. No crepitus CVS: Normal heart rate and rhythm. Pulses normal. Normal S1 and S2 Respiratory: No respiratory distress. Breath sounds normal. No Wheezing. No rales Abdomen: Soft and nontender. No rigidity. No distention. Skin: Skin warm and dry. Normal skin color. Normal skin turgor. Extremities: No lower extremity edema. Fifth toe in the right foot is purplish, painful to touch. The 1st great toe is starting to turn purple at the very tip. Patient has good pedal pulses, warm to touch. Neuro: Oriented X 3. No motor deficit. No sensory deficit. Moving all extremities. No slurred speech. CN 2 through 12 grossly intact Psych: calm, cooperative, normal affect Course Course Course Narrative: Patient's labs and duplex ultrasound are pending I discussed the patient with Dr. Davis, at this time, no need for admission. recomendations: pt will go home with asa and plavix Medical Decision Making Lab Data Result diagrams: 12/13/21 20:39 12/13/21 20:39 Labs: Lab Results 12/13/21 12/13/21 12/13/21 Range/Units 20:38 20:39 20:39 WBC 5.4 (4.8-10.8) X10*3/uL RBC 4.82 (4.60-5.80) X10*6/uL Hgb 16.1 (14.0-18.0) g/dl Hct 45.5 (42.0-52.0) % MCV 94.4 (80.0-98.0) fL MCH 33.4 H (27.0-33.0) pg MCHC 35.4 (31.0-36.0) g/dl RDW 12.6 (11.0-16.0) % Plt Count 210 (160-400) X10*3/uL MPV 8.8 L (9.4-12.4) fL Immature Gran % (Auto) 0.4 (0.0-0.4) % Neut % (Auto) 52.2 (45-73) % Lymph % (Auto) 31.8 (20-40) % [place] % (Auto) 11.6 H (2-11) % Eos % (Auto) 3.3 (0-4) % Baso % (Auto) 0.7 (0-2) % Lymph # (Auto) 1.7 (1.2-4.9) X10*3/uL [place] # (Auto) 0.6 (0.1-1.2) X10*3/uL Eos # (Auto) 0.2 (0.0-0.4) X10*3/uL Baso # (Auto) 0.0 (0.0-0.2) X10*3/uL Abs Immat Gran (auto) 0.02 (0.00-0.03) X10*3/uL Absolute Neuts (auto) 2.8 (2.0-8.3) x10*3/uL Absolute Nucleated RBC 0.000 (0.0-0.012) X10*3/uL Nucleated RBC % (auto) 0.0 (0.0-0.2) /100WBC Sodium 140 (135-145) mmol/L Potassium 4.1 (3.3-5.1) mmol/L Chloride 101 (96-108) mmol/L Carbon Dioxide 27 (22-29) mmol/L Anion Gap 16 (12-20) BUN 8 L (9-16) mg/dL Creatinine 0.86 (0.5-1.4) mg/dL Estim Creat Clear Calc 121.3 Estimated GFR > 60 Random Glucose 139 H (60-115) mg/dL Lactic Acid 1.4 (0.5-2.0) mmol/L Calcium 9.1 D (8.4-10.2) mg/dL Magnesium 1.7 (1.6-2.6) mg/dL Total Bilirubin 0.5 (0.0-1.0) mg/dL Direct Bilirubin 0.3 (0.0-0.5) mg/dL AST 16 D (5-37) U/L ALT 19 (0-40) U/L Alkaline Phosphatase 84 (39-117) U/L Total Protein 7.1 (6.5-8.0) g/dL Albumin 4.3 (3.5-5.0) g/dL Imaging Data If the scan of lower extremity artery: Radiologist's impression: ECHNIQUE: Right leg duplex Doppler techniques with wave form analysis and measurement of velocities in the common femoral, profunda femoral, superficial femoral, popliteal and tibial arteries. The study was performed only at rest. COMPARISON: None FINDINGS: a) AT REST: RIGHT LEG: Right direct duplex Doppler findings: There is severe atherosclerotic disease. There is significant plaque and luminal narrowing of the right common femoral artery. There is plaque and luminal narrowing of the distal SFA. *? Common femoral artery: 611 cm/s, Diastolic flow reversal: No. Monophasic. *? Superficial femoral artery (proximal, mid, distal): 133, 59 and 52 cm/s, Diastolic flow reversal: No. Monophasic to biphasic. *? Popliteal artery: 36 cm/s, Diastolic flow reversal: Yes. Biphasic. *? Posterior tibial artery: 53 cm/s, Diastolic flow reversal: No. Monophasic. Discharge Plan Discharge Clinical Impression: Femoral-popliteal artery atherosclerosis Patient Disposition: Home, Self-Care Additional Instructions: Please follow-up with Dr. Davis on Thursday. Please follow-up with your primary care physician tomorrow. If you have any worsening or new symptoms, please return to the emergency room or call 911 Prescriptions: New clopidogrel [Plavix] 75 mg tablet 75 mg PO DAILY Qty: 30 0RF aspirin 325 mg tablet 325 mg PO DAILY Qty: 30 0RF No Action furosemide 40 mg tablet 40 mg PO .daily Qty: 90 4RF Trelegy Ellipta 100-62.5-25 mcg blister with device 1 inh inhalation DAILY 30 Days Qty: 1 6RF lisinopril 5 mg tablet 5 mg PO DAILY Qty: 90 1RF acetaminophen 500 mg tablet 500 - 1,000 mg PO Q6H PRN (Reason: pain) Qty: 30 0RF metformin 500 mg tablet 500 mg PO BID Qty: 180 0RF albuterol sulfate [ProAir HFA] 90 mcg/actuation HFA aerosol inhaler 2 puff inhalation Q6H PRN (Reason: dyspnea) 30 Days Qty: 1 6RF metoprolol succinate 50 mg tablet extended release 24 hr 50 mg PO BID Qty: 180 1RF Anoro Ellipta 62.5-25 mcg/actuation blister with device 1 inh inhalation DAILY 30 Days Qty: 1 3RF prednisone 20 mg tablet 40 mg PO DAILY 5 Days Qty: 10 0RF nicotine 21 mg/24 hr patch 24 hour 1 patch transdermal DAILY Qty: 28 2RF (DME) blood pressure monitor Kit See Rx Instructions .Route Qty: 1 0RF Rx Instructions: As directed azithromycin 250 mg tablet See Rx Instructions PO .COMPLEX 5 Days Qty: 6 0RF Rx Instructions: For 250 mg dose pack: take 500 mg today (day 1), then 250 mg for 4 days (days 2-5) PO Referrals: Bonifacio Davis MD [Physician] - 12/16/21
[2021-12-13 21:07] LABS: Lactic Acid 1.4 mmol/L (0.5-2.0)
[2021-12-13 21:10] LABS: Alanine Aminotransferase 19 U/L (0-40); Albumin Level 4.3 g/dL (3.5-5.0); Alkaline Phosphatase 84 U/L (39-117); Anion Gap 16 (12-20); Aspartate Amino Transferase 16 U/L (5-37); Bilirubin Direct 0.3 mg/dL (0.0-0.5); Bilirubin Total 0.5 mg/dL (0.0-1.0); Blood Urea Nitrogen 8 mg/dL (9-16); Calcium 9.1 mg/dL (8.4-10.2); Carbon Dioxide 27 mmol/L (22-29); Chloride 101 mmol/L (96-108); Creatinine Clr Calc Pharmacy 121.3; Estimated Glomerular Filt Rate > 60; Glucose Random 139 mg/dL (60-115); Magnesium 1.7 mg/dL (1.6-2.6); Potassium 4.1 mmol/L (3.3-5.1); Sodium 140 mmol/L (135-145); Total Protein 7.1 g/dL (6.5-8.0)
--- NOTE | 2021-12-13 21:51 | PC.NURSE ---
right great toe and 5th toe are discolored but not cool to touch. no open wound. foot is warm. pt states i don't want to stay overnght because I don't want to withdraw from alcohol . states he has never had sz. fine tremor noted. skin pwd. alert. radial pulse in the 80's. last drink was last night. awaits ultrasound.
[2021-12-13 22:00] VITALS: BP 149/80; PULSE 74; RESP 16; TEMP 36.8; O2SAT 98
== END 2021-12-13 23:29 | disposition home or self-care (01) ==
PROVIDERS: Physician Assistant; Emergency Provider Emergency Medicine; PCP Internal Medicine
DX: I70.201 Unspecified atherosclerosis of native arteries of extremities, right leg (principal); R60.0 Localized edema; M79.672 Pain in left foot; E11.9 Type 2 diabetes mellitus without complications; F17.210 Nicotine dependence, cigarettes, uncomplicated; Z71.6 Tobacco abuse counseling; Z79.899 Other long term (current) drug therapy; Z79.84 Long term (current) use of oral hypoglycemic drugs
CPT/HCPCS: 36415; 73620; 80048; 80076; 83605; 83735; 85025; 87040; 93926; 99284

== ENCOUNTER → 2021-12-19 10:47 | Outpatient (BNVA) | payer OTHER, SELFPAY | PROVIDERS: PCP Internal Medicine; Visit Provider Surgery Vascular Surgery | DX: I73.9 Peripheral vascular disease, unspecified (principal); I77.9 Disorder of arteries and arterioles, unspecified | CPT/HCPCS: 99202 ==

== ENCOUNTER → 2022-01-02 12:38 | Outpatient (BNVA) | payer OTHER, SELFPAY | PROVIDERS: PCP Internal Medicine; Referring Provider Internal Medicine; Visit Provider Internal Medicine Cardiovascular Disease | DX: I11.0 Hypertensive heart disease with heart failure (principal); I50.9 Heart failure, unspecified; I77.9 Disorder of arteries and arterioles, unspecified; I73.9 Peripheral vascular disease, unspecified; Z79.02 Long term (current) use of antithrombotics/antiplatelets; Z79.82 Long term (current) use of aspirin | CPT/HCPCS: 99212 ==

== ENCOUNTER 2022-02-14 12:53 | Outpatient (REF) | payer MEDICAID, SELFPAY ==
[2022-02-14 14:21] LABS: COVID-19 Test Positive (Negative); IDNOW Serial# 16C4AD1C
== END 2022-02-14 12:54 | disposition home or self-care (01) ==
LOC: HO.LAB 12:53
PROVIDERS: Visit Provider Internal Medicine
DX: Z20.822 Contact with and (suspected) exposure to COVID-19 (principal)
CPT/HCPCS: 87635; C9803

== ENCOUNTER → 2022-05-13 14:50 | Outpatient (BNVA) | payer MEDICAID, SELFPAY | PROVIDERS: PCP Internal Medicine; Visit Provider Internal Medicine Pulmonary Disease | DX: J44.1 Chronic obstructive pulmonary disease with (acute) exacerbation (principal); R06.00 Dyspnea, unspecified; R05.9 Cough, unspecified; I50.20 Unspecified systolic (congestive) heart failure; I10 Essential (primary) hypertension; I48.92 Unspecified atrial flutter; F17.210 Nicotine dependence, cigarettes, uncomplicated; Z98.890 Other specified postprocedural states | CPT/HCPCS: 99212 ==

== ENCOUNTER 2022-07-17 07:49 | Inpatient (IN) | payer MEDICARE, MEDICAID, SELFPAY ==
[2022-07-17] VITALS (10 sets, daily range): BP systolic 101–146; BP diastolic 65–98; PULSE 62–160; RESP 18–30; TEMP 36.3–37.1; O2SAT 90–97; BMI 32.8
--- NOTE | ~2022-07-17 | XR_ITS ---
EXAMINATION: XR RIBS, RIGHT CLINICAL INFORMATION: Right posterior rib pain. COMPARISON: Chest radiograph performed 06/07/2020. TECHNIQUE: 3 views of the right ribs were obtained. FINDINGS: Normal appearance of the cardiomediastinal silhouette. Focal airspace opacities in the medial aspect of the right lower lung. No pleural effusion or pneumothorax. Chronic appearing deformity of the right anterolateral 10th rib with callus formation. No acute appearing displaced rib fractures. XR/XR ribs RT min 3V w CXR1V IMPRESSION: 1. Focal airspace opacities in the medial aspect of the right lower lung suspicious for aspiration or pneumonia in the appropriate clinical context. Recommend a follow-up imaging to ensure resolution after treatment. 2. Chronic appearing deformity of the right 10th rib. Correlate with point tenderness.
--- NOTE | ~2022-07-17 | CT_ITS ---
EXAMINATION: CT ANGIOGRAM OF THE CHEST WITH AND WITHOUT CONTRAST (CT PULMONARY ANGIOGRAM FOR PE) CLINICAL INFORMATION: Reason for Exam chest pain, hypoxia COMPARISON: 03/17/2016 TECHNIQUE: Prior to contrast administration, noncontrast localization images were obtained. Subsequently, multidetector volumetric imaging was performed from the thoracic inlet to below the diaphragms following the administration of 65 mL Omnipaque 350 intravenous contrast. No contrast reaction reported Sagittal, coronal, and MIP oblique sagittal reformatted images were obtained on the CT workstation, uploaded to PACS, and reviewed. This CT examination was performed using dose optimization techniques as appropriate, variously including the following: *Automated exposure control *Adjustment of mA and/or kV according to patient size (this includes techniques or standardized protocols for targeted exams where dose is matched to indication/reason for exam; i.e. extremities or head) *Use of iterative reconstruction technique Total exam dose-length product 887 mGy-cm FINDINGS: QUALITY OF STUDY/CONTRAST BOLUS; bolus quality is within normal limits but motion in the peripheral lung zones especially at the bases degrades imaging and therefore a peripheral embolism cannot be excluded. Given this there is no evidence for central embolism. The thoracic inlet is felt to be within normal limits. The axillary regions are unremarkable. Partially visualized upper abdominal structures do demonstrate some reflux of contrast into the liver. The heart size is prominent. Increasing compared to previous exam. There is no bowing of the septum. Centrally once again some mildly prominent nodes are noted here. The hilar regions are felt to be comparable. Mild coronary calcifications Imaging the lung maloney. Right lung; Again motion degrades imaging. There is a small effusion. Right middle lobe atelectasis is noted. Left lung; Again motion degrades imaging. Small groundglass area of nodularity on image 25 measures 4 mm. Review of the bone windows does not demonstrate evidence for a suspicious bony lesion. CT/CT angio chest PE protocol IMPRESSION: Motion degrades this exam. For that reason reason a peripheral embolism cannot be excluded especially at the bases however no central embolism is seen on this study. Note is made to cardiac prominence here and reflux of contrast into the hepatic veins which could reflect cardiac status. There is no bowing of the septum. Small right-sided lung effusion is noted. Atelectasis in the right middle lobe. Small left lung nodule. Recommend low-dose noncontrast study in one year for continued evaluation VTE: indeterminate
--- NOTE | 2022-07-17 08:04 | ED.GENADULT ---
HPI - General Adult General Chief complaint: Fall Stated complaint: broken ribs? Time Seen by Provider: 07/17/22 07:58 Source: patient and RN notes reviewed Mode of arrival: ambulatory Limitations: no limitations History of Present Illness HPI narrative: This is a 56-year-old male, with a past medical history of SVT, a flutter with RVR, diabetes, alcohol abuse, COPD, and HTN, who presents to the emergency department today with complaints of right-sided back pain since 3:00 a.m. this morning. Patient reports that he accidentally tripped over an extension cord and the right side of his back hit one of his dressers. Patient reports he did not his head or lose consciousness. He reports that he is experiencing right-sided back pain and feels as though his heart is racing. He denies any chest pain or shortness of breath. Denies any headaches, dizziness, weakness numbness, abdominal pain, nausea, vomiting, or diarrhea. He is a current smoker, smokes 1.5ppd for the last 40 years. Reports that he has a cough but this is typical of him. He reports that he has a history of atrial fibrillation, currently on metoprolol as well as Plavix and aspirin. Patient reports that he drinks alcohol daily typically drinks around 10 beers and at times will drink several nips of hard alcohol, last drink at 10:00 p.m. last night. She has a history of the shakes with alcohol withdrawal, denies feeling as though he is in alcohol withdrawal at this time. No other complaints or concerns at this time. MD complaint: Back Pain, Tachycardia Onset (ago): hour(s) Location: back Radiation: back Severity: severe Quality: stabbing Pain Consistency: constant Relieving factors: rest Exacerbating factors: movement Associated symptoms: denies other symptoms Treatments prior to arrival: none Related Data Previous Rx's Medication Instructions Recorded metoprolol succinate 50 mg 50 mg PO BID #180 tabs 11/25/21 tablet,extended release 24 hr blood pressure monitor #1 ea 12/12/21 aspirin 81 mg tablet,delayed 81 mg PO DAILY #90 tabs 01/02/22 release (Adult Aspirin Regimen) lisinopril 5 mg tablet 5 mg PO DAILY #90 tabs 03/04/22 bumetanide 1 mg tablet 1 mg PO BID 30 days #60 tabs 05/13/22 metformin 500 mg tablet 500 mg PO BID for diabetes 06/13/22 mellitus #180 tabs albuterol sulfate 90 mcg/actuation 2 puff inhalation Q6H PRN dyspnea 06/24/22 aerosol inhaler 30 days #1 ea fluticasone fur. 200 mcg-umeclid 1 inh inhalation DAILY 30 days #1 06/24/22 62.5 mcg-vilant 25 mcg ea inhalat.powder (Trelegy Ellipta) clopidogrel 75 mg tablet (Plavix) 75 mg PO DAILY #90 tabs 07/07/22 Allergies Allergy/AdvReac Type Severity Reaction Status Date / Time No Known Allergies Allergy Verified 06/25/22 15:25 Review of Systems Review of Systems: Constitutional: No Weight loss, No Fever, No Chills, No Night Sweats, No Fatigue, No Malaise ENT/Mouth: No Hearing loss, No Ear Pain, No Nasal Congestion, No Sinus Pain, No Hoarseness, No sore throat, No Rhinorrhea, No Swallowing Difficulty Eyes: No Eye Pain, No Swelling, No Redness, No Foreign Body, No Discharge, No Vision Changes Cardiovascular: No Chest Pain, No SOB, No Dyspnea on Exertion, No Orthopnea, No Edema, No Palpitations Respiratory: + Chronic Cough, No Sputum, No Wheezing, No Smoke Exposure, No Dyspnea Gastrointestinal: No Nausea, No Vomiting, No Diarrhea, No Constipation, No Abdominal pain, No Hematochezia, No Melena Genitourinary: No irregular bleeding, No Dysuria, No Urinary Frequency, No Hematuria, No Urinary Incontinence/retention, No Urgency, No Flank Pain, No Urinary Flow Changes, No Hesitancy Musculoskeletal: No joint pain, No Myalgias, No Joint Swelling Skin: No Skin Lesions, No rash Neuro: No Weakness, No Numbness, No Paresthesias, No Loss of Consciousness, No Dizziness, No Headache Psych: No Anxiety/Panic, No Depression, No SI/HI/AH/VH, No Social Issues, Heme/Lymph: No Bruising, No Bleeding,No Lymphadenopathy Endocrine: No Polyuria, No Polydipsia, No Temperature Intolerance Yes all other systems are reviewed and are negative Constitutional: Constitutional: Reports as per [facility] Past Medical History Medical History Alcohol abuse Atrial flutter with rapid ventricular response COPD (chronic obstructive pulmonary disease) Diabetes mellitus HTN (hypertension) Obesity (BMI 30-39.9) Smoking Surgical History No pertinent past surgical history Family History Family History Father Cancer Mother Diabetes Hypertension Brother In good health Sister In good health Son In good health Daughter In good health Social History Social History Household Members: None Housing: Apartment Do you presently have visiting nurse or other home services: No Alcohol intake: current Alcohol intake frequency: 3 or more drinks per day Alcohol type: beer Patient Tobacco Use Status: Current everyday Tobacco user Tobacco use type: Cigarette Cigarette Packs Per Day: 1.5 Cigarettes Per Day: 25 Years Smoked: 40 +/- e-Cigarette/Vaping Use: Never Used Second Hand Smoke Exposure: Yes Substance Use Type: Marijuana Advance Directives Date on File: 06/11/20 service: No Current occupational status: retired and disabled Cognitive needs: No Hearing needs: No Vision needs: Yes (reading glasses) Physical Exam ED Vital Signs: Vital Signs - 24 hr 07/17/22 09:30 07/17/22 10:00 07/17/22 10:47 Pulse Rate 147 H 160 H 102 H Respiratory Rate 18 27 H 20 Blood Pressure 117/98 H 101/79 Pulse Oximetry 96 93 Oxygen Delivery Method Room Air Room Air 07/17/22 13:01 Pulse Rate 86 Respiratory Rate 23 H Blood Pressure 104/73 Pulse Oximetry 90 L Oxygen Delivery Method Room Air BMI result Body Mass Index 32.8 Const Other: Appears uncomfortable secondary to right sided back pain. Splinting right side of back. General: cooperative and other Orientation/consciousness: patient oriented x3 Limitations: no limitations [facility] Head: Yes normal to inspection, Yes normocephalic and Yes atraumatic Ears: hearing grossly normal bilaterally General nose exam: Normal external nose present Face and sinus: Yes normal facial exam Mouth: Normal oral and palatal mucosa present, oropharynx normal and moist mucous membranes Throat: Yes posterior oropharynx normal Eyes General: appearance normal, both eyes and all related structures Eyelids: Yes eyelids normal Conjunctivae: conjunctivae normal Sclerae: sclerae normal Pupils: Equal, round and reactive pupils present EOM: EOMs intact bilaterally Neck Neck: Yes normal visual inspection, Yes full ROM and Yes no lymphadenopathy Lymphatic: no lymphadenopathy noted Chest Chest palpation & inspection: normal inspection of the chest Resp Other: Lung maloney with coarse crackles throughout, mild expiratory wheeze in the left lower base. Frequent coarse cough Effort & Inspection: normal respiratory effort and able to speak in complete sentences Cardio Rate: regular rate Rhythm: regular rhythm Heart sounds: S1 normal heart sound present and S2 normal heart sound present GI Inspection: Yes normal to inspection General: Yes no CVA tenderness Back/Spine/Pelvis Other: Right posterior back with TTP overlying the right posteriolateral ribs approximately rib 9-10 Back: no CVA tenderness Skin General skin exam: no rashes or lesions noted Trauma: no lacerations or abrasions Wounds: no wounds Neuro General: patient oriented x3 and moves all extremities Cranial nerves: Yes Equal, round and reactive pupils present Extrem General: Yes normal to inspection Right upper extremity: normal to inspection Left upper extremity: normal to inspection Right lower extremity: normal to inspection Left lower extremity: normal to inspection Course Reevaluation(s) Reevaluation #1: 09 - chest x-ray revealing focal airspace opacities in the medial aspect of the right lower lobe suspicious for aspiration or pneumonia in the appropriate clinical context. Chronic appearing deformity of the right tenth rib. Reevaluation #2: Blood pressure 117/98, patient still in atrial fibrillation and sinus tachycardia between 145-160s, after receiving metoprolol 10 mg IV. Diltiazem 20mg IV ordered. Tachycardia is likely multifactorial, history of atrial fibrillation, suspected pneumonia on chest x-ray, ?etoh withdrawal, and pain. Pt O2 saturation 88-92%. The patient is afebrile. Given hypoxia and tachycardia, CTA chest ordered to r/o PE vs underlying injury secondary to trauma. WBC 5.7, BNP 1190, Bumex 1g IV ordered. Critical lactic 2.5. Patient already receiving 250 cc IV fluid, Zosyn 4.5g IV. Time: 10:07 Reevaluation #3: patient's rate in the 130-140s. Discussed case with Dr. Portillo who suggests pushing diltazem and starting cardizem drip. Pt's HR down to 70s-80s. CT revealing no PE. Note is made to cardiac prominence here and reflux of contrast into the hepatic veins which could reflect cardiac status. There is no bowing of the septum. Small right-sided lung effusion is noted. Atelectasis in the right middle lobe. Small left lung nodule. Phenobarbital protocol initiated. Time: 12:05 Additional Reevaluation(s): 7497 - Discussed case with hospitalist, Dr. Matamoros. Transfer to medicine initiated. Medications Administered Discontinued Medications Generic Name Dose Route Start Last Admin Trade Name Freq PRN Reason Stop Dose Admin Acetaminophen 650 mg 07/17/22 15:55 07/18/22 02:01 Acetaminophen 325 Mg Tablet PO 650 mg Q6H PRN Administration Pain, Mild (Pain Scale 1-3) Albuterol Sulfate 2 puff 07/17/22 16:19 07/17/22 18:28 Albuterol Sulfate 90 Mcg 8 Gm Inhaler INHALE 2 puff Q6H PRN Administration dyspnea Albuterol/Ipratropium 3 ml 07/17/22 20:00 07/18/22 20:12 Albuterol/Iprat 2.5/0.5mg 3 Ml Ampul.Neb INHALE 3 ml RQ4H WHILE AWAKE KELSEA Administration Apixaban 5 mg 07/17/22 21:00 07/18/22 08:38 Apixaban 5 Mg Tablet PO 5 mg BID KELSEA Administration Aspirin 81 mg 07/18/22 09:00 07/18/22 08:38 Aspirin Enteric Coated 81 Mg Tablet. PO 81 mg DAILY KELSEA Administration Bumetanide 1 mg 07/17/22 10:22 07/17/22 10:46 Bumetanide 1 Mg/4 Ml Vial IVPUSH 07/17/22 10:23 1 mg ONCE ONE Administration Protocol Bumetanide 1 mg 07/17/22 17:00 07/18/22 16:21 Bumetanide 1 Mg Tablet PO 1 mg BID@0800,1700 KELSEA Administration Protocol Clopidogrel Bisulfate 75 mg 07/18/22 09:00 07/18/22 08:38 Clopidogrel Bisulfate 75 Mg Tablet PO 75 mg DAILY KELSEA Administration Diltiazem HCl 20 mg 07/17/22 09:45 07/17/22 10:05 Diltiazem Hcl 50 Mg/10 Ml Vial IVPUSH 07/17/22 09:46 20 mg ONCE ONE Administration Diltiazem HCl 25 mg 07/17/22 11:54 07/17/22 12:11 Diltiazem Hcl 50 Mg/10 Ml Vial IVPUSH 07/17/22 11:55 25 mg STAT STA Administration Diltiazem HCl 60 mg 07/18/22 13:00 07/18/22 21:13 Diltiazem Hcl 60 Mg Tablet PO Not Given QID [facility] Protocol Famotidine 20 mg 07/17/22 21:00 07/18/22 21:13 Famotidine 20 Mg Tablet PO Not Given BID KELSEA Fentanyl 50 mcg 07/17/22 08:30 07/17/22 08:44 Fentanyl Citrate/Pf 100 Mcg/2 Ml Vial IVPUSH 07/17/22 08:31 50 mcg ONCE ONE Administration Protocol Fluticasone/Vilanterol 1 puff 07/18/22 08:00 07/18/22 08:06 Fluticasone/Vilanterol 200/25 Blst.W.Dev INHALE 1 puff RDAILY KELSEA Administration Folic Acid 1 mg 07/17/22 16:45 07/18/22 08:38 Folic Acid 1 Mg Tablet PO 07/20/22 16:44 1 mg DAILY KELSEA Administration Sodium Chloride 250 mls @ 999 mls/hr 07/17/22 09:54 07/17/22 12:59 Ns IVCONT 07/17/22 10:09 Infused .Q16M ONE Infusion Piperacillin Sod/Tazobactam 100 mls @ 200 mls/hr 07/17/22 09:54 07/17/22 12:59 Sod 4.5 gm/ Sodium Chloride IV 07/17/22 10:23 Infused ONCE ONE Infusion Diltiazem HCl 125 mg/ Sodium 125 mls @ 0 mls/hr 07/17/22 12:15 07/18/22 14:29 Chloride IVCONT Infused .Q0M [facility] Titration Protocol Per Protocol Magnesium Sulfate 2 gm in 50 mls @ 25 mls/hr 07/17/22 16:00 07/17/22 18:35 Magnesium Sulfate/H2o IV 07/17/22 17:59 Infused ONCE ONE Infusion Insulin Human Lispro 0 unit 07/17/22 16:30 07/18/22 21:13 Insulin Lispro 100 Unit/Ml 3 Ml Vial SUBCUT Not Given QIDACHS [facility] Protocol Iohexol 100 ml 07/17/22 10:41 07/17/22 10:42 Iohexol 350 Mg/Ml 100 Ml Infus..Btl IV 07/17/22 10:42 65 ml ONCE ONE Administration Levalbuterol HCl 1.25 mg 07/17/22 09:16 07/17/22 09:29 Levalbuterol Hcl 1.25 Mg/3 Ml Vial.Neb INHALE 07/17/22 09:17 1.25 mg ONCE ONE Administration Lisinopril 5 mg 07/18/22 09:00 07/18/22 08:38 Lisinopril 5 Mg Tablet PO 5 mg DAILY KELSEA Administration Protocol Lorazepam 1 mg 07/17/22 09:54 07/17/22 10:06 Lorazepam 2 Mg/Ml Vial IVPUSH 07/17/22 09:55 1 mg ONCE ONE Administration Melatonin 6 mg 07/17/22 22:12 07/17/22 23:08 Melatonin 3 Mg Tablet PO 6 mg BEDTIME PRN Administration Insomnia Methylprednisolone Sodium Succinate 40 mg 07/17/22 16:30 07/18/22 16:20 Methylprednisolone Sod Succ 40 Mg/Ml Vial IVPUSH 40 mg Q12H KELSEA Administration Metoprolol Succinate 50 mg 07/17/22 21:00 07/18/22 08:38 Metoprolol Succinate Er 50 Mg Tab.Er.24h PO 50 mg BID KELSEA Administration Protocol Metoprolol Tartrate 5 mg 07/17/22 08:19 07/17/22 08:45 Metoprolol Tartrate 5 Mg/5 Ml Vial IVPUSH 07/17/22 08:20 5 mg ONCE ONE Administration Metoprolol Tartrate 5 mg 07/17/22 09:16 07/17/22 09:33 Metoprolol Tartrate 5 Mg/5 Ml Vial IVPUSH 07/17/22 09:17 5 mg ONCE ONE Administration Multivitamins/Vitamin C 1 tab 07/17/22 16:45 07/18/22 08:38 Multivitamin Tablet PO 07/20/22 16:44 1 tab DAILY KELSEA Administration Nicotine 21 mg 07/17/22 16:30 07/18/22 08:39 Nicotine 21 Mg Patch.Td24 TRANSDERMA 21 mg DAILY KELSEA Administration Oxycodone HCl 5 mg 07/17/22 09:16 07/17/22 09:33 Oxycodone Hcl Immed Release 5 Mg Tablet PO 07/17/22 09:17 5 mg ONCE ONE Administration Oxycodone HCl 5 mg 07/17/22 16:32 07/17/22 18:16 Oxycodone Hcl Immed Release 5 Mg Tablet PO 5 mg Q4H PRN Administration Pain, Severe (Pain Scale 7-10) Phenobarbital 60 mg 07/18/22 09:00 07/18/22 21:14 Phenobarbital 30 Mg Tablet PO 07/19/22 21:01 Not Given BID KELSEA Protocol Phenobarbital Sodium 300 mg 07/17/22 12:30 07/17/22 12:54 Phenobarbital Sodium 130 Mg/Ml Im Once IM 07/17/22 12:31 300 mg ONCE ONE Administration Protocol Phenobarbital Sodium 226 mg 07/17/22 15:30 07/17/22 18:14 Phenobarbital Sodium 130 Mg/Ml Vial Im Q3hx2 IM 07/17/22 18:31 226 mg Q3H KELSEA Administration Protocol Sodium Chloride 3 ml 07/17/22 16:00 07/18/22 16:22 0.9 % Sodium Chloride Flush 3 Ml Syringe IVFLUSH 3 ml QSHIFT KELSEA Administration Thiamine HCl 100 mg 07/17/22 16:45 07/18/22 08:37 Thiamine Hcl 100 Mg Tablet PO 07/20/22 16:44 100 mg DAILY KELSEA Administration Tiotropium [place] 1 puff 07/18/22 08:00 07/18/22 08:06 Tiotropium [place] 18 Mcg Cap.W.Dev INHALE 1 puff RDAILY KELSEA Administration Medical Decision Making Medical Decision Making [facility] Narrative: 56-year-old male, with a past medical history of SVT, a flutter with RVR, diabetes, alcohol abuse, COPD, and HTN, who presents to the emergency department with complaints of right-sided back pain status post mechanical fall which occurred today at 0300. Patient states that he accidentally tripped on an extension cord, and landed onto the left side of his back. Patient denies hitting his head or LOC. on arrival, patient is in atrial fibrillation with rapid ventricular response with premature ventricular complexes, blood pressure 117/98, respirations 18, oxygen saturation 96% on room air. Plan: Chest x-ray with ribs, EKG Differential Diagnosis Differential Diagnoses: The differential diagnosis associated with the presentation includes Rib fracture, pneumothorax, CHF, PE, a. fib, etoh withdrawal, Admission/Observation Consideration of admission/observation: Escalation of care including admission/observation considered Lab Data [facility] Lab Attestation statement: I reviewed the patient's lab results. 07/17/22 08:35 07/17/22 08:35 Labs: Lab Results 07/17/22 07/17/22 07/17/22 Range/Units 08:35 08:35 08:35 WBC 5.7 (4.8-10.8) X10*3/uL RBC 4.34 L (4.60-5.80) X10*6/uL Hgb 13.8 L (14.0-18.0) g/dl Hct 38.6 L (42.0-52.0) % MCV 88.9 (80.0-98.0) fL MCH 31.8 (27.0-33.0) pg MCHC 35.8 (31.0-36.0) g/dl RDW 13.4 (11.0-16.0) % Plt Count 108 L D (160-400) X10*3/uL MPV 10.9 (9.4-12.4) fL Immature Gran % (Auto) 0.5 H (0.0-0.4) % Neut % (Auto) 61.9 (45-73) % Lymph % (Auto) 27.8 (20-40) % Maries % (Auto) 9.0 (2-11) % Eos % (Auto) 0.4 (0-4) % Baso % (Auto) 0.4 (0-2) % Lymph # (Auto) 1.6 (1.2-4.9) X10*3/uL Maries # (Auto) 0.5 (0.1-1.2) X10*3/uL Eos # (Auto) 0.0 (0.0-0.4) X10*3/uL Baso # (Auto) 0.0 (0.0-0.2) X10*3/uL Abs Immat Gran (auto) 0.03 (0.00-0.03) X10*3/uL Absolute Neuts (auto) 3.5 (2.0-8.3) x10*3/uL Absolute Nucleated RBC 0.020 H (0.0-0.012) X10*3/uL Nucleated RBC % (auto) 0.4 H (0.0-0.2) /100WBC PT 11.8 (10.0-13.1) SEC INR 1.0 (0.9-1.1) APTT 29.6 (26.0-36.4) SEC Sodium 133 L (135-145) mmol/L Potassium 4.2 (3.3-5.1) mmol/L Chloride 91 L (96-108) mmol/L Carbon Dioxide 29 (22-29) mmol/L Anion Gap 17 (12-20) BUN 18 H (9-16) mg/dL Creatinine 1.17 (0.5-1.4) mg/dL Estim Creat Clear Calc 87.5 Estimated GFR > 60 Random Glucose 121 H (60-115) mg/dL Lactic Acid (0.5-2.0) mmol/L Lactic Acid F/U @ 2Hr (0.5-2.0) mmol/L Lactic Acid F/U @ 4Hr (0.5-2.0) mmol/L Calcium 8.8 (8.4-10.2) mg/dL Magnesium 1.5 L (1.6-2.6) mg/dL Total Bilirubin 1.0 (0.0-1.0) mg/dL Direct Bilirubin 0.4 (0.0-0.5) mg/dL AST 40 H (5-37) U/L ALT 57 H (0-40) U/L Alkaline Phosphatase 99 (39-117) U/L Troponin I High Sens (<3.5-35.0) ng/L B-Natriuretic Peptide (<100) pg/mL Total Protein 5.8 L (6.5-8.0) g/dL Albumin 3.6 (3.5-5.0) g/dL Lipase 13 (8-78) U/L Urine Color Urine Appearance Urine pH (5.0-9.0) Ur Specific [place] (1.005-1.025) Urine Protein (Neg-Trace) mg/dL Urine Glucose (UA) (Negative) mg/dL Urine Ketones (Negative) mg/dL Urine Blood (Negative) Urine Nitrite (Negative) Ur Leukocyte Esterase (Negative) Urine Opiates Screen (Not Detect) Urine Fentanyl Screen (Not Detect) Ur Barbiturates Screen (Not Detect) Ur Phencyclidine Scrn (Not Detect) Ur Amphetamines Screen (Not Detect) U Benzodiazepines Scrn (Not Detect) Urine Cocaine Screen (Not Detect) U Marijuana (THC) Screen (Not Detect) Ethyl Alcohol mg/dL 07/17/22 07/17/22 07/17/22 Range/Units 08:35 08:35 09:09 WBC (4.8-10.8) X10*3/uL RBC (4.60-5.80) X10*6/uL Hgb (14.0-18.0) g/dl Hct (42.0-52.0) % MCV (80.0-98.0) fL MCH (27.0-33.0) pg MCHC (31.0-36.0) g/dl RDW (11.0-16.0) % Plt Count (160-400) X10*3/uL MPV (9.4-12.4) fL Immature Gran % (Auto) (0.0-0.4) % Neut % (Auto) (45-73) % Lymph % (Auto) (20-40) % Maries % (Auto) (2-11) % Eos % (Auto) (0-4) % Baso % (Auto) (0-2) % Lymph # (Auto) (1.2-4.9) X10*3/uL Maries # (Auto) (0.1-1.2) X10*3/uL Eos # (Auto) (0.0-0.4) X10*3/uL Baso # (Auto) (0.0-0.2) X10*3/uL Abs Immat Gran (auto) (0.00-0.03) X10*3/uL Absolute Neuts (auto) (2.0-8.3) x10*3/uL Absolute Nucleated RBC (0.0-0.012) X10*3/uL Nucleated RBC % (auto) (0.0-0.2) /100WBC PT (10.0-13.1) SEC INR (0.9-1.1) APTT (26.0-36.4) SEC Sodium (135-145) mmol/L Potassium (3.3-5.1) mmol/L Chloride (96-108) mmol/L Carbon Dioxide (22-29) mmol/L Anion Gap (12-20) BUN (9-16) mg/dL Creatinine (0.5-1.4) mg/dL Estim Creat Clear Calc Estimated GFR Random Glucose (60-115) mg/dL Lactic Acid (0.5-2.0) mmol/L Lactic Acid F/U @ 2Hr (0.5-2.0) mmol/L Lactic Acid F/U @ 4Hr (0.5-2.0) mmol/L Calcium (8.4-10.2) mg/dL Magnesium (1.6-2.6) mg/dL Total Bilirubin (0.0-1.0) mg/dL Direct Bilirubin (0.0-0.5) mg/dL AST (5-37) U/L ALT (0-40) U/L Alkaline Phosphatase (39-117) U/L Troponin I High Sens 18.1 (<3.5-35.0) ng/L B-Natriuretic Peptide 1190 H (<100) pg/mL Total Protein (6.5-8.0) g/dL Albumin (3.5-5.0) g/dL Lipase (8-78) U/L Urine Color Urine Appearance Urine pH (5.0-9.0) Ur Specific [place] (1.005-1.025) Urine Protein (Neg-Trace) mg/dL Urine Glucose (UA) (Negative) mg/dL Urine Ketones (Negative) mg/dL Urine Blood (Negative) Urine Nitrite (Negative) Ur Leukocyte Esterase (Negative) Urine Opiates Screen (Not Detect) Urine Fentanyl Screen (Not Detect) Ur Barbiturates Screen (Not Detect) Ur Phencyclidine Scrn (Not Detect) Ur Amphetamines Screen (Not Detect) U Benzodiazepines Scrn (Not Detect) Urine Cocaine Screen (Not Detect) U Marijuana (THC) Screen (Not Detect) Ethyl Alcohol 104 mg/dL 07/17/22 07/17/22 07/17/22 Range/Units 09:53 12:11 13:01 WBC (4.8-10.8) X10*3/uL RBC (4.60-5.80) X10*6/uL Hgb (14.0-18.0) g/dl Hct (42.0-52.0) % MCV (80.0-98.0) fL MCH (27.0-33.0) pg MCHC (31.0-36.0) g/dl RDW (11.0-16.0) % Plt Count (160-400) X10*3/uL MPV (9.4-12.4) fL Immature Gran % (Auto) (0.0-0.4) % Neut % (Auto) (45-73) % Lymph % (Auto) (20-40) % Maries % (Auto) (2-11) % Eos % (Auto) (0-4) % Baso % (Auto) (0-2) % Lymph # (Auto) (1.2-4.9) X10*3/uL Maries # (Auto) (0.1-1.2) X10*3/uL Eos # (Auto) (0.0-0.4) X10*3/uL Baso # (Auto) (0.0-0.2) X10*3/uL Abs Immat Gran (auto) (0.00-0.03) X10*3/uL Absolute Neuts (auto) (2.0-8.3) x10*3/uL Absolute Nucleated RBC (0.0-0.012) X10*3/uL Nucleated RBC % (auto) (0.0-0.2) /100WBC PT (10.0-13.1) SEC INR (0.9-1.1) APTT (26.0-36.4) SEC Sodium (135-145) mmol/L Potassium (3.3-5.1) mmol/L Chloride (96-108) mmol/L Carbon Dioxide (22-29) mmol/L Anion Gap (12-20) BUN (9-16) mg/dL Creatinine (0.5-1.4) mg/dL Estim Creat Clear Calc Estimated GFR Random Glucose (60-115) mg/dL Lactic Acid 2.5 H* (0.5-2.0) mmol/L Lactic Acid F/U @ 2Hr 3.2 H* (0.5-2.0) mmol/L Lactic Acid F/U @ 4Hr (0.5-2.0) mmol/L Calcium (8.4-10.2) mg/dL Magnesium (1.6-2.6) mg/dL Total Bilirubin (0.0-1.0) mg/dL Direct Bilirubin (0.0-0.5) mg/dL AST (5-37) U/L ALT (0-40) U/L Alkaline Phosphatase (39-117) U/L Troponin I High Sens (<3.5-35.0) ng/L B-Natriuretic Peptide (<100) pg/mL Total Protein (6.5-8.0) g/dL Albumin (3.5-5.0) g/dL Lipase (8-78) U/L Urine Color Urine Appearance Urine pH (5.0-9.0) Ur Specific [place] (1.005-1.025) Urine Protein (Neg-Trace) mg/dL Urine Glucose (UA) (Negative) mg/dL Urine Ketones (Negative) mg/dL Urine Blood (Negative) Urine Nitrite (Negative) Ur Leukocyte Esterase (Negative) Urine Opiates Screen Not Detected (Not Detect) Urine Fentanyl Screen POSITIVE H (Not Detect) Ur Barbiturates Screen Not Detected (Not Detect) Ur Phencyclidine Scrn Not Detected (Not Detect) Ur Amphetamines Screen Not Detected (Not Detect) U Benzodiazepines Scrn Not Detected (Not Detect) Urine Cocaine Screen Not Detected (Not Detect) U Marijuana (THC) Screen POSITIVE H (Not Detect) Ethyl Alcohol mg/dL 07/17/22 07/17/22 Range/Units 13:01 14:45 WBC (4.8-10.8) X10*3/uL RBC (4.60-5.80) X10*6/uL Hgb (14.0-18.0) g/dl Hct (42.0-52.0) % MCV (80.0-98.0) fL MCH (27.0-33.0) pg MCHC (31.0-36.0) g/dl RDW (11.0-16.0) % Plt Count (160-400) X10*3/uL MPV (9.4-12.4) fL Immature Gran % (Auto) (0.0-0.4) % Neut % (Auto) (45-73) % Lymph % (Auto) (20-40) % Maries % (Auto) (2-11) % Eos % (Auto) (0-4) % Baso % (Auto) (0-2) % Lymph # (Auto) (1.2-4.9) X10*3/uL Maries # (Auto) (0.1-1.2) X10*3/uL Eos # (Auto) (0.0-0.4) X10*3/uL Baso # (Auto) (0.0-0.2) X10*3/uL Abs Immat Gran (auto) (0.00-0.03) X10*3/uL Absolute Neuts (auto) (2.0-8.3) x10*3/uL Absolute Nucleated RBC (0.0-0.012) X10*3/uL Nucleated RBC % (auto) (0.0-0.2) /100WBC PT (10.0-13.1) SEC INR (0.9-1.1) APTT (26.0-36.4) SEC Sodium (135-145) mmol/L Potassium (3.3-5.1) mmol/L Chloride (96-108) mmol/L Carbon Dioxide (22-29) mmol/L Anion Gap (12-20) BUN (9-16) mg/dL Creatinine (0.5-1.4) mg/dL Estim Creat Clear Calc Estimated GFR Random Glucose (60-115) mg/dL Lactic Acid (0.5-2.0) mmol/L Lactic Acid F/U @ 2Hr (0.5-2.0) mmol/L Lactic Acid F/U @ 4Hr 3.1 H* (0.5-2.0) mmol/L Calcium (8.4-10.2) mg/dL Magnesium (1.6-2.6) mg/dL Total Bilirubin (0.0-1.0) mg/dL Direct Bilirubin (0.0-0.5) mg/dL AST (5-37) U/L ALT (0-40) U/L Alkaline Phosphatase (39-117) U/L Troponin I High Sens (<3.5-35.0) ng/L B-Natriuretic Peptide (<100) pg/mL Total Protein (6.5-8.0) g/dL Albumin (3.5-5.0) g/dL Lipase (8-78) U/L Urine Color Yellow Urine Appearance Clear Urine pH 6.0 (5.0-9.0) Ur Specific [place] 1.015 (1.005-1.025) Urine Protein Trace (Neg-Trace) mg/dL Urine Glucose (UA) Negative (Negative) mg/dL Urine Ketones Negative (Negative) mg/dL Urine Blood Negative (Negative) Urine Nitrite Negative (Negative) Ur Leukocyte Esterase Negative (Negative) Urine Opiates Screen (Not Detect) Urine Fentanyl Screen (Not Detect) Ur Barbiturates Screen (Not Detect) Ur Phencyclidine Scrn (Not Detect) Ur Amphetamines Screen (Not Detect) U Benzodiazepines Scrn (Not Detect) Urine Cocaine Screen (Not Detect) U Marijuana (THC) Screen (Not Detect) Ethyl Alcohol mg/dL Independent Interpretation I performed an independent interpretation of an: Rhythm Strip Interpretation: Vent. Rate : 162 BPM ? ? Atrial Rate : 000 BPM ?? P-R Int : 000 ms? QRS Dur : 080 ms ? ? QT Int : 282 ms ? ? ? P-R-T Axes : 000 103 267 degrees ?? QTc Int : 462 ms ? Atrial fibrillation with rapid ventricular response with premature ventricularor aberrantly conducted complexes Rightward axis Radiology Impression Discussion of test interpretation with radiology: I have reviewed the radiologist's reading. Radiologist Impression: EXAMINATION: XR RIBS, RIGHT CLINICAL INFORMATION: Right posterior rib pain. COMPARISON: Chest radiograph performed 06/07/2020. TECHNIQUE: 3 views of the right ribs were obtained. FINDINGS: Normal appearance of the cardiomediastinal silhouette. Focal airspace opacities in the medial aspect of the right lower lung. No pleural effusion or pneumothorax. Chronic appearing deformity of the right anterolateral 10th rib with callus formation. No acute appearing displaced rib fractures. XR/XR ribs RT min 3V w CXR1V IMPRESSION: 1.? Focal airspace opacities in the medial aspect of the right lower lung suspicious for aspiration or pneumonia in the appropriate clinical context. Recommend a follow-up imaging to ensure resolution after treatment. 2.? Chronic appearing deformity of the right 10th rib. Correlate with point tenderness. ? Dictated By: Kenisha Vergara Signed By: <Electronically signed by Kenisha? Ursula in [place]> 07/17/22925 DD/ 2 TD/TT:? [employer]: External Record Review External record reviewed: Inpatient record, Office record, Outpatient record, Prior outpatient labs, Prior outpatient radiology, Primary care record and Outside ED record Critical Care Time Critical Care Time Critical Care Time: Yes Total Critical Care Time: 60 Attestation: I have personally provided critical care time exclusive of time spent on separately billable procedures. Time includes review of lab data, radiology results, discussion with consultants, and monitoring for potential decompensation. Intervention performed as documented. Discharge Plan Discharge Clinical Impression: Atrial fibrillation with RVR, CHF (congestive heart failure) Patient Disposition: Admitted As Inpatient Interventions: Admission Worksheet (ED) Last Done: 07/17/22 17:45 Discharge Date/Time: 07/17/22 17:46
--- NOTE | 2022-07-17 08:05 | ECG_ITS ---
Test Reason : tachy Blood Pressure : / mmHG Vent. Rate : 162 BPM Atrial Rate : 000 BPM P-R Int : 000 ms QRS Dur : 080 ms QT Int : 282 ms P-R-T Axes : 000 103 267 degrees QTc Int : 462 ms Atrial fibrillation with rapid ventricular response with premature ventricular or aberrantly conducted complexes Rightward axis Septal infarct , age undetermined ST & T wave abnormality, consider inferolateral ischemia Abnormal ECG When compared with ECG of 08-JUN-2020 07:24, Significant changes have occurred Referred By: Fred Lema Electronically Signed By:MAULIK MOHAMUD
[2022-07-17 08:44] LABS: MANUAL DIFF FLAG NO
[2022-07-17] MEDS: fentaNYL citrate/PF 100 MCG/2 ML VIAL 50 MCG IVPUSH (08:44)
[2022-07-17] MEDS: Metoprolol Tartrate 5 MG/5 ML VIAL IVPUSH ×2 (08:45→09:33)
[2022-07-17 08:52] LABS: Basophils Percent Auto 0.4 % (0-2); Eosinophils Percent Auto 0.4 % (0-4); Hematocrit 38.6 % (42.0-52.0); Hemoglobin 13.8 g/dl (14.0-18.0); Imm Gran Abs Auto 0.03 X10*3/uL (0.00-0.03); Imm Gran Pct Auto 0.5 % (0.0-0.4); Lymphocytes Absolute Auto 1.6 X10*3/uL (1.2-4.9); Lymphocytes Percent Auto 27.8 % (20-40); Mean Corpuscular HGB Conc 35.8 g/dl (31.0-36.0); Mean Corpuscular Hemoglobin 31.8 pg (27.0-33.0); Mean Corpuscular Volume 88.9 fL (80.0-98.0); Monocytes Absolute Auto 0.5 X10*3/uL (0.1-1.2); NRBC Pct Auto 0.4 /100WBC (0.0-0.2); Neutrophils Absolute Auto 3.5 x10*3/uL (2.0-8.3); Neutrophils Percent Auto 61.9 % (45-73); Prothrombin Time 11.8 SEC (10.0-13.1); Red Blood Count 4.34 X10*6/uL (4.60-5.80); Red Cell Distribution Width 13.4 % (11.0-16.0); White Blood Count 5.7 X10*3/uL (4.8-10.8)
[2022-07-17 08:54] LABS: Partial Thromboplastin Time 29.6 SEC (26.0-36.4)
[2022-07-17 09:00] LABS: Ethanol 104 mg/dL
[2022-07-17 09:04] LABS: Alanine Aminotransferase 57 U/L (0-40); Albumin Level 3.6 g/dL (3.5-5.0); Alkaline Phosphatase 99 U/L (39-117); Anion Gap 17 (12-20); Aspartate Amino Transferase 40 U/L (5-37); Bilirubin Direct 0.4 mg/dL (0.0-0.5); Blood Urea Nitrogen 18 mg/dL (9-16); Calcium 8.8 mg/dL (8.4-10.2); Carbon Dioxide 29 mmol/L (22-29); Chloride 91 mmol/L (96-108); Creatinine Clr Calc Pharmacy 87.5; Estimated Glomerular Filt Rate > 60; Glucose Random 121 mg/dL (60-115); Lipase 13 U/L (8-78); Magnesium 1.5 mg/dL (1.6-2.6); Potassium 4.2 mmol/L (3.3-5.1); Sodium 133 mmol/L (135-145); Total Protein 5.8 g/dL (6.5-8.0)
[2022-07-17 09:09] LABS: Mean Platelet Volume 10.9 fL (9.4-12.4); Platelet Count 108 X10*3/uL (160-400)
[2022-07-17 09:10] LABS: Troponin-I High Sensitivity 18.1 ng/L (<3.5-35.0)
[2022-07-17] MEDS: levalbuterol HCL 1.25 MG/3 ML VIAL.NEB INHALE (09:29)
[2022-07-17] MEDS: oxyCODONE HCl Immed Release 5 MG TABLET PO ×2 (09:33→18:16)
[2022-07-17 09:38] LABS: B Type Natriuretic Peptide 1190 pg/mL (<100)
[2022-07-17] MEDS: Piperacillin Sodium/Tazobactam 4.5 GM in 0.9 % Sodium Chloride 100 ML IV (10:04)
[2022-07-17] MEDS: dilTIAZem HCL 50 MG/10 ML VIAL 20 MG IVPUSH (10:05)
[2022-07-17] MEDS: 0.9 % Sodium Chloride 250 ML 999 ML IVCONT (10:05)
[2022-07-17] MEDS: LORazepam 2 MG/ML VIAL 1 MG IVPUSH (10:06)
[2022-07-17 10:23] LABS: Lactic Acid 2.5 mmol/L (0.5-2.0)
[2022-07-17] MEDS: iohexoL 350 MG/ML 100 ML INFUS..BTL IV (10:42)
[2022-07-17] MEDS: Bumetanide 1 MG/4 ML VIAL IVPUSH (10:46)
[2022-07-17 11:57] LABS: Reflex Lactate? Lactic Acid Added
[2022-07-17] MEDS: dilTIAZem HCL 50 MG/10 ML VIAL 25 MG IVPUSH (12:11)
[2022-07-17] MEDS: dilTIAZem HCL 125 MG in 0.9 % Sodium Chloride 100 ML 10 MG IVCONT (12:26)
[2022-07-17 12:30] LABS: ~Lactic Acid-LAB USE ONLY 3.2 mmol/L (0.5-2.0)
[2022-07-17] MEDS: PHENobarbitaL sodium 130 MG/ML IM ONCE 300 MG IM (12:54)
[2022-07-17 13:15] LABS: Appearance Urine Clear; Color Urine Yellow; Glucose Urine UA Negative (Negative); Leukocyte Esterase Urine Negative (Negative); Nitrite Urine Negative (Negative); Specific Gravity - Urine 1.015 (1.005-1.025); Urine Blood Negative (Negative); Urine Ketones Negative (Negative); Urine Protein Trace mg/dL (Neg-Trace)
[2022-07-17 13:27] LABS: Amphetamine Screen Urine Not Detected (Not Detect); Barbiturates, Urine Not Detected (Not Detect); Benzodiazepines Screen Urine Not Detected (Not Detect); Cannabinoid Screen Urine POSITIVE (Not Detect); Cocaine Screen Urine Not Detected (Not Detect); Fentanyl, urine POSITIVE (Not Detect); Opiate Screen Urine Not Detected (Not Detect); Phencyclidine Screen Urine Not Detected (Not Detect)
[2022-07-17 14:13] LABS: Reflex Lactate? 2 Y
--- NOTE | 2022-07-17 14:46 | PHA.MEDREC ---
Pharmacy Consult ? Medication Reconciliation Pharmacy has completed the medication reconciliation. Reports he is only on one water pill; bumetandine. Reports no longer taking furosemide. Va Millan, PharmD
--- NOTE | 2022-07-17 14:50 | PM.IMHP ---
History of Present Illness Date of Service: 07/17/22 Attending physician on admission: [facility] Chief Complaint: Palpitations, right-sided back pain s/p fall Pt is a 56-year-old male with a PMH significant for?SVT, paroxysmal AFib not on anticoagulation, alcohol abuse with a hx of withdrawal, non insulin-dependent diabetes type 2, COPD, and current smoker of 1 and half packs per day who presents to the ED with?right sided back pain after a mechanical fall at home. Patient states he got up to use the bathroom at 03:00 this morning and tripped over a treadmill he had just set the night prior when he was returning to bed. Patient fell, hitting his back on his dresser. Patient denies head strike or LOC, lightheadedness or dizziness. In the ED pt was noted to be in AFib with RVR up to 160s, eventually started on a diltiazem drip after IV push x2 failed at rate control. Patient states that he has been occasionally feeling his heart racing, especially going up stairs. Patient says he has also been experiencing shortness of breath the past 5-6 days, denies orthopnea or increased swelling in his lower extremities. Says he has been adherent to all of his medications including his water pill. Has had a productive cough. Denies fever, chills, nausea, vomiting, abdominal pain. Patient notes he has drinks 10 or more drinks every day, alternating between beer in booze. Last drink was last night 930-10. He denies headache, diaphoresis, auditory or visual hallucinations. Has noted some shakes of his hands. In the ED was tachycardic up to 160 and tachypneic up to 27, satting at 90% O2 on RA. Labs were significant for no leukocytosis, sodium of 133, chloride 91, lactic acid of 2.5 with repeat of 3.2, magnesium 1.5, AST 40, ALT 57, BNP 1190. UA negative for UTI. Tox screen positive for fentanyl and marijuana, ethyl alcohol 104. X-ray of the ribs showed focal airspace opacities in the medial aspect of the right lower lung suspicious for aspiration or pneumonia. CTA with motion degradation, but did not show any central embolism. CTA did show small right-sided lung effusion with atelectasis in the right middle lobe and a small left lung nodule recommended for 1 year follow-up. ?EKG demonstrated AFib with RVR of 162. Pt was treated with Cardizem 20 mg IV, Cardizem 25 mg IV, placed on Cardizem drip, started on phenobarb protocol, and covered with Zosyn. Pt will be admitted to the hospital for treatment for evaluation of AFib with RVR, acute CHF exacerbation, and alcohol withdrawal. Review of Systems Review of Systems: Right upper lateral and back pain Mechanical fall Shortness of breath Productive cough Occasional palpitations Denies lightheadedness/dizziness Denies lower leg edema No fever, chills, nausea, vomiting, abdominal pain No chest pain/pressure Yes all other systems are reviewed and are negative [facility] Medical History Alcohol abuse Atrial flutter with rapid ventricular response COPD (chronic obstructive pulmonary disease) Diabetes mellitus HTN (hypertension) Obesity (BMI 30-39.9) Smoking Family History Father Cancer Mother Diabetes Hypertension Brother In good health Sister In good health Son In good health Daughter In good health Surgical History No pertinent past surgical history Social History Household Members: None Housing: Apartment Do you presently have visiting nurse or other home services: No Alcohol intake: current Alcohol intake frequency: 3 or more drinks per day Alcohol type: beer Patient Tobacco Use Status: Current everyday Tobacco user Tobacco use type: Cigarette Cigarette Packs Per Day: 1.5 Cigarettes Per Day: 25 Years Smoked: 40 +/- Smoked in Last 30 Days: Yes e-Cigarette/Vaping Use: Never Used Patient Interested in Nicotine Replacement: Yes Second Hand Smoke Exposure: Yes Use of substances other than those prescribed or required for medical reasons: Yes Substance Use Type: Marijuana Substance Use Frequency: Occasionally Currently Displaying Signs/Symptoms of Drug Intoxication Withdrawal: No Have you been hit, kicked, punched, or otherwise hurt by someone within the past year? If so, by whom?: No Do you feel safe in your current relationship?: Yes Is there a partner from a previous relationship who is making you feel unsafe now?: No Are you made to feel afraid or neglected: No Advance Directives: Yes Advance Directives on File: Yes Advance Directives Date on File: 06/11/20 Do you have thoughts of harming others: None Do you have a plan to hurt others: No Plan Recently lost weight without trying: No Nutrition Risks: No Nutritional Risk Poor oral hygiene: No service: No Current occupational status: retired and disabled Cognitive needs: No Hearing needs: No Vision needs: Yes (reading glasses) Meds Allergies Allergy/AdvReac Type Severity Reaction Status Date / Time No Known Allergies Allergy Verified 06/25/22 15:25 Active Medications: Current Medications Diltiazem HCl 125 mg/ Sodium (Chloride) 125 mls @ 0 mls/hr IVCONT .Q0M [facility]; Protocol Last Admin: 07/17/22 12:26 Dose: 10 mg/hr, 10 mls/hr Pharmacy Consult (Consult Rx Etoh Phenob Im/Po) 1 each MISCELLANE ONCE PRN; Protocol PRN Reason: Consult order Pharmacy Consult (Consult Rx Perform Med Rec) 1 each MISCELLANE ONCE PRN PRN Reason: Consult order Phenobarbital (Phenobarbital 30 Mg Tablet) 60 mg PO BID [facility]; Protocol Stop: 07/19/22 21:01 Phenobarbital (Phenobarbital 30 Mg Tablet) 30 mg PO BID [facility]; Protocol Stop: 07/21/22 21:01 Phenobarbital (Phenobarbital 30 Mg Tablet) 30 mg PO DAILY [facility] Stop: 07/23/22 09:01 Phenobarbital Sodium (Phenobarbital Sodium 130 Mg/Ml Vial Im Q3hx2) 226 mg IM Q3H [facility]; Protocol Stop: 07/17/22 18:31 Physical Exam Vital Signs and Narrative: Vital Signs: Last Vital Signs Pulse 86 07/17/22 13:01 Resp 23 H 07/17/22 13:01 BP 104/73 07/17/22 13:01 Pulse Ox 90 L 07/17/22 13:01 O2 Del Method Room Air 07/17/22 13:01 BMI result Body Mass Index 32.8 Constitutional: Alert, drowsy, in no acute distress. Mild tremors of upper extremities noted Mental Status: Oriented to person, place and time. Eyes: Pupils are equal, round, and reactive to light. Ear, Nose, and Throat: Oropharynx clear, mucous membranes moist. Ears and nose without deformities. Trachea midline. Respiratory: Diffuse inspiratory and expiratory rhonchi bilaterally, diffuse expiratory wheezing bilaterally. Occasional wet sounding cough noted. Cardiovascular: Irregularly regular rhythm. No murmurs, rubs, or gallops. Gastrointestinal: Abdomen soft, non-tender, non-distended. Normal bowel sounds. Neurologic: Cranial nerves II-XII are grossly intact bilaterally. No focal neurological deficits. Moves all extremities spontaneously. Skin: No rashes or lesions noted. Musculoskeletal: Tenderness to right upper side and back. No ecchymosis noted. Extremities: 1+ pitting edema on right lower extremity. Trace edema of left lower extremity. Psychiatric: Normal mood and affect. Results Labs 07/17/22 08:35 07/17/22 08:35 Labs: Laboratory Results - last 24 hr 07/17/22 07/17/22 07/17/22 08:35 08:35 08:35 MCV 88.9 MCH 31.8 MCHC 35.8 RDW 13.4 Plt Count 108 L D MPV 10.9 Immature Gran % (Auto) 0.5 H Neut % (Auto) 61.9 Lymph % (Auto) 27.8 Hendricks % (Auto) 9.0 Eos % (Auto) 0.4 Baso % (Auto) 0.4 Lymph # (Auto) 1.6 Hendricks # (Auto) 0.5 Eos # (Auto) 0.0 Baso # (Auto) 0.0 Abs Immat Gran (auto) 0.03 Absolute Neuts (auto) 3.5 Absolute Nucleated RBC 0.020 H Nucleated RBC % (auto) 0.4 H PT 11.8 INR 1.0 APTT 29.6 Anion Gap 17 Estim Creat Clear Calc 87.5 Estimated GFR > 60 Random Glucose 121 H Lactic Acid Lactic Acid F/U @ 2Hr Calcium 8.8 Magnesium 1.5 L Total Bilirubin 1.0 Direct Bilirubin 0.4 AST 40 H ALT 57 H Alkaline Phosphatase 99 Troponin I High Sens B-Natriuretic Peptide Total Protein 5.8 L Albumin 3.6 Lipase 13 Urine Color Urine Appearance Urine pH Ur Specific [place] Urine Protein Urine Glucose (UA) Urine Ketones Urine Blood Urine Nitrite Ur Leukocyte Esterase Urine Opiates Screen Urine Fentanyl Screen Ur Barbiturates Screen Ur Phencyclidine Scrn Ur Amphetamines Screen U Benzodiazepines Scrn Urine Cocaine Screen U Marijuana (THC) Screen Ethyl Alcohol 07/17/22 07/17/22 07/17/22 08:35 08:35 09:09 MCV MCH MCHC RDW Plt Count MPV Immature Gran % (Auto) Neut % (Auto) Lymph % (Auto) Hendricks % (Auto) Eos % (Auto) Baso % (Auto) Lymph # (Auto) Hendricks # (Auto) Eos # (Auto) Baso # (Auto) Abs Immat Gran (auto) Absolute Neuts (auto) Absolute Nucleated RBC Nucleated RBC % (auto) PT INR APTT Anion Gap Estim Creat Clear Calc Estimated GFR Random Glucose Lactic Acid Lactic Acid F/U @ 2Hr Calcium Magnesium Total Bilirubin Direct Bilirubin AST ALT Alkaline Phosphatase Troponin I High Sens 18.1 B-Natriuretic Peptide 1190 H Total Protein Albumin Lipase Urine Color Urine Appearance Urine pH Ur Specific [place] Urine Protein Urine Glucose (UA) Urine Ketones Urine Blood Urine Nitrite Ur Leukocyte Esterase Urine Opiates Screen Urine Fentanyl Screen Ur Barbiturates Screen Ur Phencyclidine Scrn Ur Amphetamines Screen U Benzodiazepines Scrn Urine Cocaine Screen U Marijuana (THC) Screen Ethyl Alcohol 104 07/17/22 07/17/22 07/17/22 09:53 12:11 13:01 MCV MCH MCHC RDW Plt Count MPV Immature Gran % (Auto) Neut % (Auto) Lymph % (Auto) Hendricks % (Auto) Eos % (Auto) Baso % (Auto) Lymph # (Auto) Hendricks # (Auto) Eos # (Auto) Baso # (Auto) Abs Immat Gran (auto) Absolute Neuts (auto) Absolute Nucleated RBC Nucleated RBC % (auto) PT INR APTT Anion Gap Estim Creat Clear Calc Estimated GFR Random Glucose Lactic Acid 2.5 H* Lactic Acid F/U @ 2Hr 3.2 H* Calcium Magnesium Total Bilirubin Direct Bilirubin AST ALT Alkaline Phosphatase Troponin I High Sens B-Natriuretic Peptide Total Protein Albumin Lipase Urine Color Urine Appearance Urine pH Ur Specific [place] Urine Protein Urine Glucose (UA) Urine Ketones Urine Blood Urine Nitrite Ur Leukocyte Esterase Urine Opiates Screen Not Detected Urine Fentanyl Screen POSITIVE H Ur Barbiturates Screen Not Detected Ur Phencyclidine Scrn Not Detected Ur Amphetamines Screen Not Detected U Benzodiazepines Scrn Not Detected Urine Cocaine Screen Not Detected U Marijuana (THC) Screen POSITIVE H Ethyl Alcohol 07/17/22 13:01 MCV MCH MCHC RDW Plt Count MPV Immature Gran % (Auto) Neut % (Auto) Lymph % (Auto) Hendricks % (Auto) Eos % (Auto) Baso % (Auto) Lymph # (Auto) Hendricks # (Auto) Eos # (Auto) Baso # (Auto) Abs Immat Gran (auto) Absolute Neuts (auto) Absolute Nucleated RBC Nucleated RBC % (auto) PT INR APTT Anion Gap Estim Creat Clear Calc Estimated GFR Random Glucose Lactic Acid Lactic Acid F/U @ 2Hr Calcium Magnesium Total Bilirubin Direct Bilirubin AST ALT Alkaline Phosphatase Troponin I High Sens B-Natriuretic Peptide Total Protein Albumin Lipase Urine Color Yellow Urine Appearance Clear Urine pH 6.0 Ur Specific [place] 1.015 Urine Protein Trace Urine Glucose (UA) Negative Urine Ketones Negative Urine Blood Negative Urine Nitrite Negative Ur Leukocyte Esterase Negative Urine Opiates Screen Urine Fentanyl Screen Ur Barbiturates Screen Ur Phencyclidine Scrn Ur Amphetamines Screen U Benzodiazepines Scrn Urine Cocaine Screen U Marijuana (THC) Screen Ethyl Alcohol Imaging Radiologist's Impressions: Impressions Ribs X-Ray 07/17/22 09:03 IMPRESSION: 1. Focal airspace opacities in the medial aspect of the right lower lung suspicious for aspiration or pneumonia in the appropriate clinical context. Recommend a follow-up imaging to ensure resolution after treatment. 2. Chronic appearing deformity of the right 10th rib. Correlate with point tenderness. Chest CTA 07/17/22 10:42 IMPRESSION: Motion degrades this exam. For that reason reason a peripheral embolism cannot be excluded especially at the bases however no central embolism is seen on this study. Note is made to cardiac prominence here and reflux of contrast into the hepatic veins which could reflect cardiac status. There is no bowing of the septum. Small right-sided lung effusion is noted. Atelectasis in the right middle lobe. Small left lung nodule. Recommend low-dose noncontrast study in one year for continued evaluation VTE: indeterminate Assessment and Plan (1) Atrial fibrillation with RVR: Status: Acute (2) CHF (congestive heart failure): Status: Acute Plan Pt is a 56-year-old male with a PMH significant for?SVT, paroxysmal AFib not on anticoagulation, alcohol abuse with a hx of withdrawal, non insulin-dependent diabetes type 2, COPD, and current smoker of 1 and half packs per day who presents to the ED with?right sided back pain after a mechanical fall at home. AFib with RVR Patient with SOB, palpitations, EKG showed AFib with RVR of 160 Current heart rate in the 80s to 100s Continue diltiazem drip Continue metoprolol Start Eliquis 5 mg b.i.d. Cardiology consult Monitor on telemetry Tachycardia due to AFib with RVR, not sepsis HFpEF Last echo was on 06/25/2021 Patient with shortness of breath, lungs with rhonchi, CTA showing pleural effusion, elevated BNP Bumetanide 1 mg IV b.i.d. Follow lytes, mg, I/O Daily weights, low-salt diet Echocardiogram Cardiology consult Monitor on telemetry Alcohol withdrawal Mild shakiness, no hallucinations Continue phenobarb protocol Daily multivitamin, folic acid, thiamine Follow lytes, Mag, BMP CIWA scale Addiction Medicine consult Monitor on telemetry Lactic acidosis Patient lactic acid 2.5 at time of presentation with repeats of 3.2 and 3.1 Lactic acidosis not d/t sepsis Likely secondary to AFib with RVR and alcohol withdrawal Back pain Imaging showed no acute fractures No bruising on physical exam Analgesics for pain management Hypomagnesemia Patient given 2 g IV Mag Follow Mag [id number] diabetes Hold metformin Sliding-scale insulin Diabetic diet Left lung nodule CTA showed small left lung nodule Recommendation to follow-up in 1 year with low-dose noncontrast study Nicotine dependence Patient currently smokes 1 and half packs per day Nicotine replacement therapy: Patch Smoking cessation counseled HTN Continue home meds Full Code Attending:?Dr. Marcum DVT Prophylaxis: On Eliquis Pt will require a hospitalization of at least two nights for treatment of?AFib with RVR, acute CHF, and alcohol withdrawal. Time Spent With Patient Time: Total time managing care of this patient today ____ minutes. Quality Stroke Does the patient have a stroke diagnosis?: No VTE Prior VTE?: No VTE Risk Level:: Medical - moderate - high VTE Device Contraindication: Treatment Not Indicated VTE Drug Contraindication: N/A - Med Ordered
[2022-07-17 15:21] LABS: ~Lactic Acid-LAB USE ONLY 3.1 mmol/L (0.5-2.0)
[2022-07-17] MEDS: PHENobarbitaL sodium 130 MG/ML VIAL IM Q3Hx2 226 MG IM ×2 (15:26→18:14)
[2022-07-17] MEDS: Bumetanide 1 MG TABLET PO (16:40)
[2022-07-17] MEDS: methylPREDNISolone Sod Succ 40 MG/ML VIAL IVPUSH (16:40)
[2022-07-17] MEDS: Nicotine 21 MG PATCH.TD24 TRANSDERMA (16:40)
[2022-07-17] MEDS: Magnesium Sulfate/H2O 2 GM/50 ML PIGGYBACK IV (16:40)
[2022-07-17] MEDS: Folic Acid 1 MG TABLET PO (16:49)
[2022-07-17] MEDS: Thiamine HCL 100 MG TABLET PO (16:49)
[2022-07-17] MEDS: Multivitamin TABLET 1 TAB PO (16:49)
[2022-07-17 18:09] LABS: Glucose, Whole Blood 144 mg/dL (60-115)
[2022-07-17 18:18] LABS: Glucose, Whole Blood 130 mg/dL (60-115)
[2022-07-17 18:21] LABS: Cancel Lactic Acid Canceled
[2022-07-17] MEDS: Albuterol Sulfate 90 MCG 8 GM INHALER 2 PUFF INHALE (18:28)
[2022-07-17] MEDS: Albuterol/Iprat 2.5/0.5MG 3 ML AMPUL.NEB INHALE (19:34)
[2022-07-17 20:02] LABS: Glucose, Whole Blood 192 mg/dL (60-115)
[2022-07-17] MEDS: Famotidine 20 MG TABLET PO (20:18)
[2022-07-17] MEDS: Metoprolol Succinate ER 50 MG TAB.ER.24H PO (20:18)
[2022-07-17] MEDS: Insulin Lispro 100 UNIT/ML 3 ML VIAL SUBCUT (20:19)
[2022-07-17] MEDS: Apixaban 5 MG TABLET PO (20:19)
[2022-07-17] MEDS: Melatonin 3 MG TABLET 6 MG PO (23:08)
[2022-07-18] VITALS (10 sets, daily range): BP systolic 128–166; BP diastolic 76–119; PULSE 84–106; RESP 16–20; TEMP 36.3–37.2; O2SAT 84–98
[2022-07-18] MEDS: dilTIAZem HCL 125 MG in 0.9 % Sodium Chloride 100 ML IVCONT (00:45)
[2022-07-18] MEDS: 0.9 % Sodium Chloride Flush 3 ML SYRINGE IVFLUSH ×3 (00:49→16:22)
[2022-07-18] MEDS: Acetaminophen 325 MG TABLET 650 MG PO (02:01)
[2022-07-18] MEDS: methylPREDNISolone Sod Succ 40 MG/ML VIAL IVPUSH ×2 (04:40→16:20)
[2022-07-18 06:57] LABS: Hematocrit 37.5 % (42.0-52.0); Hemoglobin 13.3 g/dl (14.0-18.0); Mean Corpuscular HGB Conc 35.5 g/dl (31.0-36.0); Mean Corpuscular Hemoglobin 31.6 pg (27.0-33.0); Mean Corpuscular Volume 89.1 fL (80.0-98.0); Mean Platelet Volume 12.1 fL (9.4-12.4); Platelet Count 100 X10*3/uL (160-400); Red Blood Count 4.21 X10*6/uL (4.60-5.80); Red Cell Distribution Width 13.5 % (11.0-16.0); White Blood Count 3.7 X10*3/uL (4.8-10.8)
[2022-07-18 06:58] LABS: NRBC Pct Auto 1.1 /100WBC (0.0-0.2)
--- NOTE | 2022-07-18 07:00 | CA_ITS ---
Transthoracic Echocardiogram Patient (Last, First, Middle): Magdi Carson H Gender: Male Date of : 1965 Age: 56 Procedure Date: 07/18/2022 Procedure Type: Transthoracic [place]ogram [place] [facility] [place]: 180.34 cm Weight: 106.6 kg BSA: 2.26 m2 Heart Rate: bpm BP: 166 / 86 mmHg Microbiological Lab Technician: Referring MD: Jesus SPENCER Symptoms: AFib w RVR, CHF Study Quality: Adequate ECG Rhythm: Atrial Fibrillation Conclusions: - The left ventricular systolic function is moderately decreased. The visually estimated ejection fraction is between 30-35%. Findings Procedure Information Contrast agent, definity, is being given per protocol without apparent complications. Left Ventricle Mildly increased left ventricular cavity size. There is mildly increased left ventricular wall thickness. The left ventricular systolic function is moderately decreased. The visually estimated ejection fraction is between 30 35%. There is moderate global hypokinesis. Diastolic function is indeterminate on the basis of available data. Right Ventricle Mildly increased right ventricular cavity size. There is low normal right ventricular systolic function. Atria Moderate biatrial enlargement. Aortic Valve There is a normal trileaflet aortic valve. There is no aortic valve stenosis. There is no aortic valve regurgitation. Mitral Valve The mitral valve appears normal. There is no mitral valve regurgitation. There is no mitral valve stenosis. Pulmonic Valve The pulmonic valve is likely normal. Tricuspid Valve There is trace tricuspid valve regurgitation. Mild pulmonary hypertension is present. Great Vessels The asc aorta is normal in size. Venous The inferior vena cava is dilated and collapses greater than 50% with inspiration. Pericardium/Pleural There is no evidence of pericardial effusion. Prior Study Comparison Changes noted compared to prior study dated: 06/25/2021. Decrease in LVEF. Measurements 2D Linear Measurements IVSd: 1.10 0.6-0.9/0.6-1.0 cm LVIDd: 5.58 3.9-5.3/4.2-5.9 cm LVIDd Index: 2.47 2.4-3.2/2.2-3.1 cm/m2 LVIDs: 4.53 2.0-3.6 cm LVPWd: 1.09 0.7-1.1 cm Ao Root: 3.50 2.1-3.5 cm LA Diam: 4.20 2.7-3.8/3.0-4.0 cm LAIDs Index: 1.86 1.5-2.3 cm/m2 LV Mass: 307.17 67-162/88-224 g LV Mass Index: 135.92 43-95/49-115 g/m2 LVOT Diam: 2.10 3.0+(-)1.3 cm 2D Systolic Function EF 4C: 50.70 >55% EF 2C: 16.50 >55% EF BiP: 32.80 >55% Mitral Valve MV Pk E: 0.92 MV Decel Time: 135.00 E'Lateral: 10.00 E'Medial: 5.87 E/E' Med: 15.70 E/E' Lat: 9.20 PHT: 39.00 MVA PHT: 5.64 Decel [place]: 6.86 Aortic Valve AoV Pk Dawit: 0.95 AoV Mn Dawit: 0.60 AoV VTI: 0.17 AoV Pk Grad: 4.00 Aov Mn Grad: 2.00 LANCE Cont.VTI: 2.83 LVOT LVOT Pk Dawit: 0.73 LVOT Mn Dawit: 0.47 LVOT VTI: 0.14 LVOT Pk Grad: 2.00 LVOT Mn Grad: 1.00 LVOT Diam: 2.10 LVOT Area: 3.46 Diastolic Function MV Pk E: 0.92 E'Medial: 5.87 E/E' Med: 15.70 E' Laterial: 10.00 E/E' Lat: 9.20 Right Ventricle TAPSE (mm): 17.00 TVS' Dawit: 9.00 Tricuspid Valve TR Pk Dawit: 2.95 TR Pk Grad: 35.00 RA Press: 8.00 RVSP: 43.00 Great Vessels Aorta Ao Root-2D: 3.50 2.0-3.7 cm Ao Asc: 3.50 2.1-3.4 cm Pulmonary Valve PV Pk Dawit: 0.67 Peak PV Grad: 2.00 Updated in Other Vendor System with Status of Final Edi Portillo MD electronically signed on 07/18/2022 3:55:36 PM with status of Final
[2022-07-18 07:13] LABS: Anion Gap 20 (12-20); Blood Urea Nitrogen 22 mg/dL (9-16); Calcium 8.8 mg/dL (8.4-10.2); Carbon Dioxide 28 mmol/L (22-29); Chloride 91 mmol/L (96-108); Creatinine Clr Calc Pharmacy 80.6; Estimated Glomerular Filt Rate 59; Glucose Random 181 mg/dL (60-115); Magnesium 1.7 mg/dL (1.6-2.6); Potassium 4.5 mmol/L (3.3-5.1); Sodium 134 mmol/L (135-145)
[2022-07-18 07:38] LABS: Glucose, Whole Blood 204 mg/dL (60-115)
[2022-07-18] MEDS: Fluticasone/Vilanterol 200/25 BLST.W.DEV 1 PUFF INHALE (08:06)
[2022-07-18] MEDS: Albuterol/Iprat 2.5/0.5MG 3 ML AMPUL.NEB INHALE ×4 (08:06→20:12)
[2022-07-18] MEDS: Insulin Lispro 100 UNIT/ML 3 ML VIAL SUBCUT ×3 (08:36→16:21)
[2022-07-18] MEDS: Thiamine HCL 100 MG TABLET PO (08:37)
[2022-07-18] MEDS: PHENobarbitaL 30 MG TABLET 60 MG PO (08:37)
[2022-07-18] MEDS: Bumetanide 1 MG TABLET PO ×2 (08:38→16:21)
[2022-07-18] MEDS: lisinopriL 5 MG TABLET PO (08:38)
[2022-07-18] MEDS: Metoprolol Succinate ER 50 MG TAB.ER.24H PO (08:38)
[2022-07-18] MEDS: Aspirin Enteric Coated 81 MG TABLET.DR PO (08:38)
[2022-07-18] MEDS: Folic Acid 1 MG TABLET PO (08:38)
[2022-07-18] MEDS: Famotidine 20 MG TABLET PO (08:38)
[2022-07-18] MEDS: Apixaban 5 MG TABLET PO (08:38)
[2022-07-18] MEDS: Multivitamin TABLET 1 TAB PO (08:38)
[2022-07-18] MEDS: Clopidogrel Bisulfate 75 MG TABLET PO (08:38)
[2022-07-18] MEDS: Nicotine 21 MG PATCH.TD24 TRANSDERMA (08:39)
--- NOTE | 2022-07-18 08:51 | MHC.CM.PN ---
CM ATTEMPTED TO MEET W/PT HOWEVER PT W/HOSPITALIST, WHEN CM RETURNED PT W/ANGER CONTROL COUNSELOR, CM TO REVISIT.
--- NOTE | 2022-07-18 10:21 | P.CONCA_ITS ---
History of Present Illness History of Present Illness Date of Service: 07/18/22 Chief complaint: AFIB w/ RVR Narrative: This is a cardiology consultation regarding atrial fibrillation rapid rate. Patient is generally seen by Dr. Hassan in the clinic. It seems that he has a history of smoking as well as excessive alcohol use. Apparently, drinks as much as 12 beers a day. He has significant cardiomyopathy with diminished LVEF and thought to be from alcohol excess. Current admissions mainly for falling down which seems mechanical fall. In that context, he was found to be in atri alFibrillation rapid rate. In the H and P, it states that there is a history of paroxysmal AFib but not on anticoagulation. Otherwise, patient leads a fairly unhealthy lifestyle with excessive smoking. Also excessive alcohol use as there is a history of drinking 12 beers every day. There is also remote history of cocaine use as mentioned in the last cardiology note. Review of Systems Review of Systems: Yes all other systems are reviewed and are negative Constitutional: Constitutional: Reports as per HPI and Reports no additional constitutional complaints Eyes: Eyes: Reports as per HPI and Denies no additional eye complaints ENT: Denies system reviewed and no additional complaints, except as documented and Reports as per HPI Cardiovascular: Cardiovascular: Reports as per HPI, Reports no additional cardiovascular complaints, Denies acrocyanosis, Denies cool extremities, Denies chest pain, Denies leg edema, Denies lightheadedness, Denies palpitations and Reports dyspnea Respiratory: Respiratory: Reports as per HPI, Denies no additional respiratory complaints and Reports dyspnea Gastrointestinal: Gastrointestinal: Reports as per HPI and Denies no additional gastrointestinal complaints Genitourinary: Genitourinary: Reports no additional male genitourinary complaints and Reports as per HPI Musculoskeletal: Musculoskeletal: Reports no additional musculoskeletal complaints and Reports as per HPI Integumentary/Breasts: Skin/Breast: Reports system reviewed and no additional complaints, except as docu Neurologic: Reports system reviewed and no additional complaints, except as documented and Reports as per HPI Psychiatric: Psychiatric: Reports no additional psychiatric complaints and Reports as per HPI Endocrine: Endocrine: Reports no additional endocrine complaints, Reports as per HPI and Denies palpitations Hematologic/Lymphatic: Hematologic/Lymphatic: Reports no additional hematologic/lymphatic complaints and Reports as per HPI Allergic/Immunologic: Allergic/Immunologic: Reports no additional allergic/immunologic complaints and Reports as per HPI PMFSH Past Medical History Medical History Alcohol abuse Atrial flutter with rapid ventricular response COPD (chronic obstructive pulmonary disease) Diabetes mellitus HTN (hypertension) Obesity (BMI 30-39.9) Smoking Family History Family History Father Cancer Mother Diabetes Hypertension Brother In good health Sister In good health Son In good health Daughter In good health Surgical History Surgical History No pertinent past surgical history Social History Social History Household Members: None Housing: Apartment Do you presently have visiting nurse or other home services: No Alcohol intake: current Alcohol intake frequency: 3 or more drinks per day Alcohol type: beer Patient Tobacco Use Status: Current everyday Tobacco user Tobacco use type: Cigarette Cigarette Packs Per Day: 1.5 Cigarettes Per Day: 25 Years Smoked: 40 +/- Smoked in Last 30 Days: Yes e-Cigarette/Vaping Use: Never Used Patient Interested in Nicotine Replacement: Yes Second Hand Smoke Exposure: Yes Use of substances other than those prescribed or required for medical reasons: Yes Substance Use Type: Marijuana Substance Use Frequency: Occasionally Currently Displaying Signs/Symptoms of Drug Intoxication Withdrawal: No Have you been hit, kicked, punched, or otherwise hurt by someone within the past year? If so, by whom?: No Do you feel safe in your current relationship?: Yes Is there a partner from a previous relationship who is making you feel unsafe now?: No Are you made to feel afraid or neglected: No Advance Directives: Yes Advance Directives on File: Yes Advance Directives Date on File: 06/11/20 Do you have thoughts of harming others: None Do you have a plan to hurt others: No Plan Recently lost weight without trying: No Nutrition Risks: No Nutritional Risk Poor oral hygiene: No service: No Current occupational status: retired and disabled Cognitive needs: No Hearing needs: No Vision needs: Yes (reading glasses) Meds Allergies Allergy/AdvReac Type Severity Reaction Status Date / Time No Known Allergies Allergy Verified 06/25/22 15:25 Active Medications: Current Medications Acetaminophen (Acetaminophen 325 Mg Tablet) 650 mg PO Q6H PRN PRN Reason: Pain, Mild (Pain Scale 1-3) Last Admin: 07/18/22 02:01 Dose: 650 mg Albuterol Sulfate (Albuterol Sulfate 90 Mcg 8 Gm Inhaler) 2 puff INHALE Q6H PRN PRN Reason: dyspnea Last Admin: 07/17/22 18:28 Dose: 2 puff Albuterol/Ipratropium (Albuterol/Iprat 2.5/0.5mg 3 Ml Ampul.Neb) 3 ml INHALE RQ4H WHILE AWAKE [facility] Last Admin: 07/18/22 08:06 Dose: 3 ml Apixaban (Apixaban 5 Mg Tablet) 5 mg PO BID [facility] Last Admin: 07/18/22 08:38 Dose: 5 mg Aspirin (Aspirin Enteric Coated 81 Mg Tablet.Dr) 81 mg PO DAILY [facility] Last Admin: 07/18/22 08:38 Dose: 81 mg Bumetanide (Bumetanide 1 Mg Tablet) 1 mg PO BID@0800,1700 [facility]; Protocol Last Admin: 07/18/22 08:38 Dose: 1 mg Clopidogrel Bisulfate (Clopidogrel Bisulfate 75 Mg Tablet) 75 mg PO DAILY [facility] Last Admin: 07/18/22 08:38 Dose: 75 mg Docusate Sodium (Docusate Sodium 100 Mg Capsule) 100 mg PO DAILY PRN PRN Reason: Constipation Famotidine (Famotidine 20 Mg Tablet) 20 mg PO BID [facility] Last Admin: 07/18/22 08:38 Dose: 20 mg Fluticasone/Vilanterol (Fluticasone/Vilanterol 200/25 Blst.W.Dev) 1 puff INHALE RDAILY [facility] Last Admin: 07/18/22 08:06 Dose: 1 puff Folic Acid (Folic Acid 1 Mg Tablet) 1 mg PO DAILY [facility] Stop: 07/20/22 16:44 Last Admin: 07/18/22 08:38 Dose: 1 mg Glucose (Glucose Gel 15 Gm Gel..Gram.) 15 gm PO Q15M PRN; Protocol PRN Reason: per Hypoglycemia Standing Ord. Diltiazem HCl 125 mg/ Sodium (Chloride) 125 mls @ 0 mls/hr IVCONT .Q0M [facility]; Protocol Last Titration: 07/18/22 03:34 Dose: 10 mg/hr, 10 mls/hr Dextrose (D10) 250 mls @ 750 mls/hr IV Q15M PRN; Protocol PRN Reason: per Hypoglycemia Standing Ord. Insulin Human Lispro (Insulin Lispro 100 Unit/Ml 3 Ml Vial) 0 unit SUBCUT QIDACHS [facility]; Protocol Last Admin: 07/18/22 08:36 Dose: 4 unit Lisinopril (Lisinopril 5 Mg Tablet) 5 mg PO DAILY [facility]; Protocol Last Admin: 07/18/22 08:38 Dose: 5 mg Melatonin (Melatonin 3 Mg Tablet) 6 mg PO BEDTIME PRN PRN Reason: Insomnia Last Admin: 07/17/22 23:08 Dose: 6 mg Methylprednisolone Sodium Succinate (Methylprednisolone Sod Succ 40 Mg/Ml Vial) 40 mg IVPUSH Q12H [facility] Last Admin: 07/18/22 04:40 Dose: 40 mg Metoprolol Succinate (Metoprolol Succinate Er 50 Mg Tab.Er.24h) 50 mg PO BID [facility]; Protocol Last Admin: 07/18/22 08:38 Dose: 50 mg Multivitamins/Vitamin C (Multivitamin Tablet) 1 tab PO DAILY [facility] Stop: 07/20/22 16:44 Last Admin: 07/18/22 08:38 Dose: 1 tab Nicotine (Nicotine 21 Mg Patch.Td24) 21 mg TRANSDERMA DAILY [facility] Last Admin: 07/18/22 08:39 Dose: 21 mg Ondansetron HCl (Ondansetron Hcl 4 Mg/2 Ml Vial) 4 mg IVPUSH Q8H PRN PRN Reason: Nausea and Vomiting Oxycodone HCl (Oxycodone Hcl Immed Release 5 Mg Tablet) 5 mg PO Q4H PRN PRN Reason: Pain, Severe (Pain Scale 7-10) Last Admin: 07/17/22 18:16 Dose: 5 mg Pharmacy Consult (Consult Rx Etoh Phenob Im/Po) 1 each MISCELLANE ONCE PRN; Protocol PRN Reason: Consult order Pharmacy Consult (Consult Rx Perform Med Rec) 1 each MISCELLANE ONCE PRN PRN Reason: Consult order Phenobarbital (Phenobarbital 30 Mg Tablet) 60 mg PO BID [facility]; Protocol Stop: 07/19/22 21:01 Last Admin: 07/18/22 08:37 Dose: 60 mg Phenobarbital (Phenobarbital 30 Mg Tablet) 30 mg PO BID [facility]; Protocol Stop: 07/21/22 21:01 Phenobarbital (Phenobarbital 30 Mg Tablet) 30 mg PO DAILY [facility] Stop: 07/23/22 09:01 Sodium Chloride (0.9 % Sodium Chloride Flush 3 Ml Syringe) 3 ml IVFLUSH QSHIFT [facility] Last Admin: 07/18/22 08:39 Dose: 3 ml Thiamine HCl (Thiamine Hcl 100 Mg Tablet) 100 mg PO DAILY [facility] Stop: 07/20/22 16:44 Last Admin: 07/18/22 08:37 Dose: 100 mg Tiotropium [place] (Tiotropium [place] 18 Mcg Cap.W.Dev) 1 puff INHALE RDAILY [facility] Last Admin: 07/18/22 08:06 Dose: 1 puff Physical Exam Vital Signs: Vital Signs: Last Vital Signs Temp 97.7 F 07/18/22 07:49 Pulse 84 07/18/22 08:08 Resp 18 07/18/22 08:08 BP 148/98 H 07/18/22 07:49 Pulse Ox 94 07/18/22 07:49 O2 Del Method Room Air 07/18/22 07:49 BMI result Body Mass Index 32.8 Const: General: comfortable and no acute distress Orientation/consciousness: patient oriented x3 HEENT: Other: Unremarkable Head: Yes normal to inspection Neck: Neck: Yes normal visual inspection Chest: Chest palpation & inspection: normal inspection of the chest Resp: Auscultation: rhonchi, wheezes and diminished lung sounds Cardio: Palpation: normal PMI Heart sounds: S1 normal heart sound present, S2 normal heart sound present, no gallops, no murmurs and no rubs GI: Palpation (GI): Soft to palpation Back/Spine/Pelvis: Other: unremarkable Skin: General skin exam: no rashes or lesions noted Neuro: General: patient oriented x3 Extrem: General: Yes normal to inspection Psych: Mental Status: mental status grossly normal Objective Labs and Meds 07/18/22 06:22 07/18/22 06:22 Lab results: Laboratory Results - last 24 hr 07/17/22 07/17/22 07/17/22 09:53 12:11 13:01 WBC RBC Hgb Hct MCV MCH MCHC RDW Plt Count MPV Absolute Nucleated RBC Nucleated RBC % (auto) Sodium Potassium Chloride Carbon Dioxide Anion Gap BUN Creatinine Estim Creat Clear Calc Estimated GFR POC Glucose Random Glucose Lactic Acid 2.5 H* Lactic Acid F/U @ 2Hr 3.2 H* Lactic Acid F/U @ 4Hr Calcium Magnesium Urine Color Urine Appearance Urine pH Ur Specific Blount Urine Protein Urine Glucose (UA) Urine Ketones Urine Blood Urine Nitrite Ur Leukocyte Esterase Urine Opiates Screen Not Detected Urine Fentanyl Screen POSITIVE H Ur Barbiturates Screen Not Detected Ur Phencyclidine Scrn Not Detected Ur Amphetamines Screen Not Detected U Benzodiazepines Scrn Not Detected Urine Cocaine Screen Not Detected U Marijuana (THC) Screen POSITIVE H 07/17/22 07/17/22 07/17/22 13:01 14:45 17:24 WBC RBC Hgb Hct MCV MCH MCHC RDW Plt Count MPV Absolute Nucleated RBC Nucleated RBC % (auto) Sodium Potassium Chloride Carbon Dioxide Anion Gap BUN Creatinine Estim Creat Clear Calc Estimated GFR POC Glucose 130 H Random Glucose Lactic Acid Lactic Acid F/U @ 2Hr Lactic Acid F/U @ 4Hr 3.1 H* Calcium Magnesium Urine Color Yellow Urine Appearance Clear Urine pH 6.0 Ur Specific Blount 1.015 Urine Protein Trace Urine Glucose (UA) Negative Urine Ketones Negative Urine Blood Negative Urine Nitrite Negative Ur Leukocyte Esterase Negative Urine Opiates Screen Urine Fentanyl Screen Ur Barbiturates Screen Ur Phencyclidine Scrn Ur Amphetamines Screen U Benzodiazepines Scrn Urine Cocaine Screen U Marijuana (THC) Screen 07/17/22 07/17/22 07/18/22 18:05 19:53 06:22 WBC 3.7 L RBC 4.21 L Hgb 13.3 L Hct 37.5 L MCV 89.1 MCH 31.6 MCHC 35.5 RDW 13.5 Plt Count 100 L MPV 12.1 Absolute Nucleated RBC 0.040 H Nucleated RBC % (auto) 1.1 H Sodium Potassium Chloride Carbon Dioxide Anion Gap BUN Creatinine Estim Creat Clear Calc Estimated GFR POC Glucose 144 H 192 H Random Glucose Lactic Acid Lactic Acid F/U @ 2Hr Lactic Acid F/U @ 4Hr Calcium Magnesium Urine Color Urine Appearance Urine pH Ur Specific [place]ount Urine Protein Urine Glucose (UA) Urine Ketones Urine Blood Urine Nitrite Ur Leukocyte Esterase Urine Opiates Screen Urine Fentanyl Screen Ur Barbiturates Screen Ur Phencyclidine Scrn Ur Amphetamines Screen U Benzodiazepines Scrn Urine Cocaine Screen U Marijuana (THC) Screen 07/18/22 07/18/22 06:22 07:21 WBC RBC Hgb Hct MCV MCH MCHC RDW Plt Count MPV Absolute Nucleated RBC Nucleated RBC % (auto) Sodium 134 L Potassium 4.5 Chloride 91 L Carbon Dioxide 28 Anion Gap 20 BUN 22 H Creatinine 1.27 Estim Creat Clear Calc 80.6 Estimated GFR 59 POC Glucose 204 H Random Glucose 181 H Lactic Acid Lactic Acid F/U @ 2Hr Lactic Acid F/U @ 4Hr Calcium 8.8 Magnesium 1.7 Urine Color Urine Appearance Urine pH Ur Specific Blount Urine Protein Urine Glucose (UA) Urine Ketones Urine Blood Urine Nitrite Ur Leukocyte Esterase Urine Opiates Screen Urine Fentanyl Screen Ur Barbiturates Screen Ur Phencyclidine Scrn Ur Amphetamines Screen U Benzodiazepines Scrn Urine Cocaine Screen U Marijuana (THC) Screen ECG Interpretation: EKG with atrial fibrillation rapid rate at 162/Min. Lateral ST depression. Imaging Radiologist's impression: Impressions Chest CTA 07/17/22 10:42 IMPRESSION: Motion degrades this exam. For that reason reason a peripheral embolism cannot be excluded especially at the bases however no central embolism is seen on this study. Note is made to cardiac prominence here and reflux of contrast into the hepatic veins which could reflect cardiac status. There is no bowing of the septum. Small right-sided lung effusion is noted. Atelectasis in the right middle lobe. Small left lung nodule. Recommend low-dose noncontrast study in one year for continued evaluation VTE: indeterminate Assessment and Plan (1) Atrial fibrillation with RVR: Status: Acute (2) Alcohol abuse: Status: Acute Plan In the most recent echocardiogram, LVEF 55-60%. Cardiac catheterization shows normal coronary arteries. Atrial fibrillation rapid rate likely related to alcohol abuse. He is also quite wheezy and could be having COPD exacerbation. We can probably just use diltiazem for rate control and try to wean off the drip . If necessary, add digoxin. He is not an ideal candidate for anticoagulation as he drinks excessively and also falls frequently. He states he fell 3 times in the last month. Hence not a good candidate for cardioversion either. Mainly needs lifestyle changes. Otherwise, there is a definite risk of if he continues to behave this way. I explained this directly to patient as well as significant other. It seems as well understands but not the patient. Discussed with Dr. Marcum. Time Spent With Patient Time: Total time managing care of this patient today ____ minutes. Procedures Date of Service Date of Service: 07/18/22
--- NOTE | 2022-07-18 11:21 | P.PNIM_ITS ---
Subjective Subjective Date of Service: 07/18/22 Interval History: f/u on afib with rvr, fall still in rvr hr in 120, no sob, less sweling in the less, no overt alcohol withdrawal--drinks 12 beers a da Physical Exam Vital Signs: Vital Signs: Last Vital Signs Temp 97.7 F 07/18/22 07:49 Pulse 87 07/18/22 11:08 Resp 18 07/18/22 11:08 BP 148/98 H 07/18/22 07:49 Pulse Ox 94 07/18/22 07:49 O2 Del Method Room Air 07/18/22 07:49 BMI result Body Mass Index 32.8 Objective Data Active Medications Acetaminophen (Acetaminophen 325 Mg Tablet) 650 mg PO Q6H PRN PRN Reason: Pain, Mild (Pain Scale 1-3) Last Admin: 07/18/22 02:01 Dose: 650 mg Documented By: AV Albuterol Sulfate (Albuterol Sulfate 90 Mcg 8 Gm Inhaler) 2 puff INHALE Q6H PRN PRN Reason: dyspnea Last Admin: 07/17/22 18:28 Dose: 2 puff Documented By: TERESA Albuterol/Ipratropium (Albuterol/Iprat 2.5/0.5mg 3 Ml Ampul.Neb) 3 ml INHALE RQ4H WHILE AWAKE [facility] Last Admin: 07/18/22 11:06 Dose: 3 ml Documented By: CARSON Aspirin (Aspirin Enteric Coated 81 Mg Tablet.Dr) 81 mg PO DAILY [facility] Last Admin: 07/18/22 08:38 Dose: 81 mg Documented By: GAUARNG Bumetanide (Bumetanide 1 Mg Tablet) 1 mg PO BID@0800,1700 [facility]; Protocol Last Admin: 07/18/22 08:38 Dose: 1 mg Documented By: GAURANG Clopidogrel Bisulfate (Clopidogrel Bisulfate 75 Mg Tablet) 75 mg PO DAILY [facility] Last Admin: 07/18/22 08:38 Dose: 75 mg Documented By: GAURANG Diltiazem HCl (Diltiazem Hcl 60 Mg Tablet) 60 mg PO QID [facility]; Protocol Docusate Sodium (Docusate Sodium 100 Mg Capsule) 100 mg PO DAILY PRN PRN Reason: Constipation Famotidine (Famotidine 20 Mg Tablet) 20 mg PO BID [facility] Last Admin: 07/18/22 08:38 Dose: 20 mg Documented By: GAURANG Fluticasone/Vilanterol (Fluticasone/Vilanterol 200/25 Blst.W.Dev) 1 puff INHALE RDAILY [facility] Last Admin: 07/18/22 08:06 Dose: 1 puff Documented By: CARSON Folic Acid (Folic Acid 1 Mg Tablet) 1 mg PO DAILY [facility] Stop: 07/20/22 16:44 Last Admin: 07/18/22 08:38 Dose: 1 mg Documented By: GAURANG Glucose (Glucose Gel 15 Gm Gel..Gram.) 15 gm PO Q15M PRN; Protocol PRN Reason: per Hypoglycemia Standing Ord. Diltiazem HCl 125 mg/ Sodium (Chloride) 125 mls @ 0 mls/hr IVCONT .Q0M [facility]; Protocol Last Titration: 07/18/22 03:34 Dose: 10 mg/hr, 10 mls/hr Documented By: AV Dextrose (D10) 250 mls @ 750 mls/hr IV Q15M PRN; Protocol PRN Reason: per Hypoglycemia Standing Ord. Insulin Human Lispro (Insulin Lispro 100 Unit/Ml 3 Ml Vial) 0 unit SUBCUT QIDACHS [facility]; Protocol Last Admin: 07/18/22 08:36 Dose: 4 unit Documented By: GAURANG Lisinopril (Lisinopril 5 Mg Tablet) 5 mg PO DAILY [facility]; Protocol Last Admin: 07/18/22 08:38 Dose: 5 mg Documented By: GAURANG Melatonin (Melatonin 3 Mg Tablet) 6 mg PO BEDTIME PRN PRN Reason: Insomnia Last Admin: 07/17/22 23:08 Dose: 6 mg Documented By: AV Methylprednisolone Sodium Succinate (Methylprednisolone Sod Succ 40 Mg/Ml Vial) 40 mg IVPUSH Q12H [facility] Last Admin: 07/18/22 04:40 Dose: 40 mg Documented By: AV Multivitamins/Vitamin C (Multivitamin Tablet) 1 tab PO DAILY [facility] Stop: 07/20/22 16:44 Last Admin: 07/18/22 08:38 Dose: 1 tab Documented By: GAURANG Nicotine (Nicotine 21 Mg Patch.Td24) 21 mg TRANSDERMA DAILY [facility] Last Admin: 07/18/22 08:39 Dose: 21 mg Documented By: GAURANG Ondansetron HCl (Ondansetron Hcl 4 Mg/2 Ml Vial) 4 mg IVPUSH Q8H PRN PRN Reason: Nausea and Vomiting Oxycodone HCl (Oxycodone Hcl Immed Release 5 Mg Tablet) 5 mg PO Q4H PRN PRN Reason: Pain, Severe (Pain Scale 7-10) Last Admin: 07/17/22 18:16 Dose: 5 mg Documented By: JERRY Pharmacy Consult (Consult Rx Etoh Phenob Im/Po) 1 each MISCELLANE ONCE PRN; Protocol PRN Reason: Consult order Pharmacy Consult (Consult Rx Perform Med Rec) 1 each MISCELLANE ONCE PRN PRN Reason: Consult order Phenobarbital (Phenobarbital 30 Mg Tablet) 60 mg PO BID [facility]; Protocol Stop: 07/19/22 21:01 Last Admin: 07/18/22 08:37 Dose: 60 mg Documented By: GAURANG Phenobarbital (Phenobarbital 30 Mg Tablet) 30 mg PO BID [facility]; Protocol Stop: 07/21/22 21:01 Phenobarbital (Phenobarbital 30 Mg Tablet) 30 mg PO DAILY [facility] Stop: 07/23/22 09:01 Sodium Chloride (0.9 % Sodium Chloride Flush 3 Ml Syringe) 3 ml IVFLUSH QSHIFT [facility] Last Admin: 07/18/22 08:39 Dose: 3 ml Documented By: GAURANG Thiamine HCl (Thiamine Hcl 100 Mg Tablet) 100 mg PO DAILY [facility] Stop: 07/20/22 16:44 Last Admin: 07/18/22 08:37 Dose: 100 mg Documented By: GAURANG Tiotropium Hope (Tiotropium Hope 18 Mcg Cap.W.Dev) 1 puff INHALE RDAILY [facility] Last Admin: 07/18/22 08:06 Dose: 1 puff Documented By: ROBBIEIB Labs 07/18/22 06:22 07/18/22 06:22 Labs: Laboratory Results - last 24 hr 07/17/22 07/17/22 07/17/22 12:11 13:01 13:01 MCV MCH MCHC RDW Plt Count MPV Absolute Nucleated RBC Nucleated RBC % (auto) Anion Gap Estim Creat Clear Calc Estimated GFR POC Glucose Random Glucose Lactic Acid F/U @ 2Hr 3.2 H* Lactic Acid F/U @ 4Hr Calcium Magnesium Urine Color Yellow Urine Appearance Clear Urine pH 6.0 Ur Specific [place] 1.015 Urine Protein Trace Urine Glucose (UA) Negative Urine Ketones Negative Urine Blood Negative Urine Nitrite Negative Ur Leukocyte Esterase Negative Urine Opiates Screen Not Detected Urine Fentanyl Screen POSITIVE H Ur Barbiturates Screen Not Detected Ur Phencyclidine Scrn Not Detected Ur Amphetamines Screen Not Detected U Benzodiazepines Scrn Not Detected Urine Cocaine Screen Not Detected U Marijuana (THC) Screen POSITIVE H 07/17/22 07/17/22 07/17/22 14:45 17:24 18:05 MCV MCH MCHC RDW Plt Count MPV Absolute Nucleated RBC Nucleated RBC % (auto) Anion Gap Estim Creat Clear Calc Estimated GFR POC Glucose 130 H 144 H Random Glucose Lactic Acid F/U @ 2Hr Lactic Acid F/U @ 4Hr 3.1 H* Calcium Magnesium Urine Color Urine Appearance Urine pH Ur Specific [place] Urine Protein Urine Glucose (UA) Urine Ketones Urine Blood Urine Nitrite Ur Leukocyte Esterase Urine Opiates Screen Urine Fentanyl Screen Ur Barbiturates Screen Ur Phencyclidine Scrn Ur Amphetamines Screen U Benzodiazepines Scrn Urine Cocaine Screen U Marijuana (THC) Screen 07/17/22 07/18/22 07/18/22 19:53 06:22 06:22 MCV 89.1 MCH 31.6 MCHC 35.5 RDW 13.5 Plt Count 100 L MPV 12.1 Absolute Nucleated RBC 0.040 H Nucleated RBC % (auto) 1.1 H Anion Gap 20 Estim Creat Clear Calc 80.6 Estimated GFR 59 POC Glucose 192 H Random Glucose 181 H Lactic Acid F/U @ 2Hr Lactic Acid F/U @ 4Hr Calcium 8.8 Magnesium 1.7 Urine Color Urine Appearance Urine pH Ur Specific [place] Urine Protein Urine Glucose (UA) Urine Ketones Urine Blood Urine Nitrite Ur Leukocyte Esterase Urine Opiates Screen Urine Fentanyl Screen Ur Barbiturates Screen Ur Phencyclidine Scrn Ur Amphetamines Screen U Benzodiazepines Scrn Urine Cocaine Screen U Marijuana (THC) Screen 07/18/22 07:21 MCV MCH MCHC RDW Plt Count MPV Absolute Nucleated RBC Nucleated RBC % (auto) Anion Gap Estim Creat Clear Calc Estimated GFR POC Glucose 204 H Random Glucose Lactic Acid F/U @ 2Hr Lactic Acid F/U @ 4Hr Calcium Magnesium Urine Color Urine Appearance Urine pH Ur Specific [place] Urine Protein Urine Glucose (UA) Urine Ketones Urine Blood Urine Nitrite Ur Leukocyte Esterase Urine Opiates Screen Urine Fentanyl Screen Ur Barbiturates Screen Ur Phencyclidine Scrn Ur Amphetamines Screen U Benzodiazepines Scrn Urine Cocaine Screen U Marijuana (THC) Screen Assessment and Plan (1) Atrial fibrillation with RVR: Status: Acute Plan Pt is a 56-year-old male with a PMH significant for?SVT, paroxysmal AFib not on anticoagulation, alcohol abuse with a hx of withdrawal, non insulin-dependent diabetes type 2, COPD, and current smoker of 1 and half packs per day who presents to the ED with?right sided back pain after a mechanical fall at home. Paroxysmal AFib with RVR--better with IV cardizem -add oral cardizem 60 qid, stop metoprolol, stop eliquis d/t ongoing alcohol use and multiple falls. Echo today HFpEF--probably precidpated by afib, continue bumex, overall better, echo Alcohol withdrawal--no overt symtoms, continue Phenobarbital, cessation discussed. Hypomagnesemia--replaced Acute Lactic acidosis NOT due to sepisis afib, alcohol with, heart failure Back pain--no freacture, pain management Cir-[id number] diabetes Hold metformin Sliding-scale insulin Diabetic diet Left lung nodule on CTA Recommendation to follow-up in 1 year with low-dose noncontrast study Nicotine dependence Patient currently smokes 1 and half packs per day Nicotine replacement therapy: Patch Smoking cessation counseled HTN--cardizem as above, stop metoprolol obesity--weight loss advised Full Code DVT Prophylaxis: On Eliqucelia Need for inpatient: AFIB with rvr Time Spent With Patient Time: Total time managing care of this patient today ____ minutes. Quality Stroke Does the patient have a stroke diagnosis?: No VTE Prior VTE?: No VTE Risk Level:: Medical - moderate - high VTE Device Contraindication: Treatment Not Indicated VTE Drug Contraindication: N/A - Med Ordered
[2022-07-18 11:29] LABS: Glucose, Whole Blood 237 mg/dL (60-115)
--- NOTE | 2022-07-18 12:14 | MHC.CM.PN ---
IMM 07/18/22 DELIVERED TO BEDSIDE, EMR REVIEWED, PT ADMITTED W/AFIB W/RVR AND CHF EXAC, CM MET W/PT WHO REPORTS HE LIVES W/, IS INDEP W/ALL CARE, HAS A NEBULIZER FOR DME AND DENIES HOME SERVICES, PT CURRENTLY DENIES NEED FOR SERVICES/VNA ON D/C. PT VERIFIES PCP IS SUMAN CABALLERO, MIKELA X3 AND HCP IS LORRAINE MCWILLIAMS, COPY ON FILE FROM PREVIOUS ADMIT. D/C PLAN: HOME NO SERVICES, PT'S VEHICLE IN LOT AND PT REPORTS WILL TRANSPORT
[2022-07-18] MEDS: dilTIAZem HCL 60 MG TABLET PO ×2 (12:56→16:21)
[2022-07-18 15:29] LABS: Glucose, Whole Blood 238 mg/dL (60-115)
[2022-07-18 20:52] LABS: Glucose, Whole Blood 240 mg/dL (60-115)
--- NOTE | 2022-07-18 21:08 | PM.EVENT ---
Event Note Date of Service: 07/18/22 Event Note: I was told by the nurse that patient wanted to leave AMA. As per the nurse, patient was alert and oriented and understood the risks of leaving including . Patient left before I could talk to him. Signed AMA paperwork. Time Spent With Patient Time: Total time managing care of this patient today ____ minutes.
--- NOTE | 2022-07-18 21:15 | PC.NURSE ---
2100 Arrived in patient room to give Meds he told me he would like to stand for a minute, I went to [facility] to get a med not available on [facility] next thing the Aide told me patient was getting dressed to leave , he told me to get the paperwork he was leaving AMA,I notified th patient of the risk of leaving against medical advice , he stated I don't care I need to get out of here Dr Stevenson notified and [address] Reporter Katherine notified., AMA paperwork signed and witnessed by this RN and Renetta Dumont RN.
--- NOTE | 2022-08-20 11:55 | PM.DS ---
DS: Providers Provider Date of Service: 07/18/22 Date of admission: 07/17/22 15:57 Primary care physician: Tamir Lutz MD Consults: 07/17/22 16:00 Consult to Cardiology Routine Consulting Provider: [facility] [place] [facility] Reason for consultation: AFib with RVR, CHF 07/17/22 16:37 Addiction Medicine Routine Consulting Provider: Addiction Covering Reason for consultation: Alcohol withdrawal DS: Diagnosis Discharge Diagnosis (1) Atrial fibrillation with RVR: Status: Acute DS: Summary Hospital Course Hospital Course: Pt is a 56-year-old male with a PMH significant for?SVT, paroxysmal AFib not on anticoagulation, alcohol abuse with a hx of withdrawal, non insulin-dependent diabetes type 2, COPD, and current smoker of 1 and half packs per day who presents to the ED with?right sided back pain after a mechanical fall at home. He was noted to be in AFIB with RVR, acute exacerbation of HFpEF, low magnesiujm and alcohol withdrawal while been treated for these issues and medication been adjusted, he left AMA as discussed elsewhere. Paroxysmal AFib with RVR--better with IV cardizem -add oral cardizem 60 qid, stop metoprolol, stop eliquis d/t ongoing alcohol use and multiple falls. Echo today HFpEF--probably precidpated by afib, continue bumex, overall better, echo Alcohol withdrawal--no overt symtoms, continue Phenobarbital, cessation discussed. Hypomagnesemia--replaced Acute Lactic acidosis NOT due to sepisis afib, alcohol with, heart failure Back pain--no freacture, pain management Jcs-wedbtyr-eleuqlsbe diabetes Hold metformin Sliding-scale insulin Diabetic diet Left lung nodule on CTA Recommendation to follow-up in 1 year with low-dose noncontrast study Nicotine dependence Patient currently smokes 1 and half packs per day Nicotine replacement therapy: Patch Smoking cessation counseled HTN--cardizem as above, stop metoprolol obesity--weight loss advised final diagnoses: Permanaent AFIB with RVR HFpEF with acute exacerbation Alcohol withdrawal Hypomangesemia acute lactic acidosis Back pain' diabetes tobacco use desorder HTN Obesity Time Spent with Patient Time attestation: Total time managing care of this patient today ____ minutes. Discharge coordination time: Less than 30 minutes Quality: Safe Use of Opioids Does Pt have an Active Cancer Diagnosis on the Problem List?: No Quality: Stroke Does the patient have a stroke diagnosis?: No Physical Exam Vital Signs: Vital Signs: Last Vital Signs Temp 98 F 07/18/22 19:20 Pulse 106 H 07/18/22 20:12 Resp 16 07/18/22 20:12 BP 128/81 07/18/22 19:20 Pulse Ox 96 07/18/22 19:20 O2 Del Method Room Air 07/18/22 19:20 BMI result Body Mass Index 32.8 DS: Data Data Completed and Pending Completed studies during hospitalization [Text1]: Procedures Detoxification Services for Substance Abuse Treatment (07/17/22) Discharge Plan Discharge Anticipated Discharge Date/Time: 07/18/22 11:54 Patient Disposition: Left Against Medical Advice Discharge Diagnosis: Acute on chronic heart failure Referrals: Physician,Unknown J [Physician] - 1 Week Discharge Medications: No Action lisinopril 5 mg tablet 5 mg PO DAILY Qty: 90 3RF metformin 500 mg tablet 500 mg PO BID Qty: 180 0RF clopidogrel [Plavix] 75 mg tablet 75 mg PO DAILY Qty: 90 3RF Trelegy Ellipta 200-62.5-25 mcg blister with device 1 inh inhalation DAILY 30 Days Qty: 1 6RF albuterol sulfate 90 mcg/actuation HFA aerosol inhaler 2 puff inhalation Q6H PRN (Reason: dyspnea) 30 Days Qty: 1 6RF metoprolol succinate 50 mg tablet extended release 24 hr 50 mg PO BID Qty: 180 1RF (DME) blood pressure monitor Kit See Rx Instructions .Route Qty: 1 0RF Rx Instructions: As directed aspirin [Adult Aspirin Regimen] 81 mg tablet,delayed release (DR/EC) 81 mg PO DAILY Qty: 90 5RF bumetanide 1 mg tablet 1 mg PO BID 30 Days Qty: 60 6RF Discharge Orders: Discharge Order (Routine); Ordered 07/18/22 Ordered By: Kelton Stevenson Care Plan Goals: left AMA Health Concerns: left AMA Plan of Treatment: left AMA Assessment: left AMA Discharge Date/Time: 07/18/22 21:47
== END 2022-07-18 21:47 | disposition left against medical advice (07) | DRG 309 ==
LOC: HO.ED 13:38 → HO.EDOVER 16:22 → HO.IMC 17:04
PROVIDERS: Physician Assistant Medical; Admitting Provider Student in an Organized Health Care Education/Training Program; Emergency Provider Emergency Medicine; PCP Internal Medicine; Visit Provider Internal Medicine
DX: I48.0 Paroxysmal atrial fibrillation (principal); E87.20 Acidosis, unspecified; F10.139 Alcohol abuse with withdrawal, unspecified; J44.1 Chronic obstructive pulmonary disease with (acute) exacerbation; I50.30 Unspecified diastolic (congestive) heart failure; I42.6 Alcoholic cardiomyopathy; I11.0 Hypertensive heart disease with heart failure; E83.42 Hypomagnesemia; F17.210 Nicotine dependence, cigarettes, uncomplicated; M54.9 Dorsalgia, unspecified; R91.1 Solitary pulmonary nodule; E66.9 Obesity, unspecified; Z68.32 Body mass index [BMI] 32.0-32.9, adult; Y90.5 Blood alcohol level of 100-119 mg/100 ml; Z71.6 Tobacco abuse counseling; Z79.02 Long term (current) use of antithrombotics/antiplatelets; Z79.51 Long term (current) use of inhaled steroids; Z79.82 Long term (current) use of aspirin; Z79.84 Long term (current) use of oral hypoglycemic drugs; Z79.899 Other long term (current) drug therapy
CPT/HCPCS: 36415; 71101; 71275; 80048; 80076; 80307; 81003; 82947; 83605; 83690; 83735; 83880; 84484; 85025; 85027; 85610; 85730; 87040; 92950; 93005; 93306; 94640; 99285; J2060; J2543; J2560; J2920; J3010; J3475; Q9957; Q9967

== ENCOUNTER 2022-07-24 10:02 | Outpatient (REF) | payer MEDICARE, MEDICAID, SELFPAY ==
--- NOTE | ~2022-07-24 | CT_ITS ---
EXAMINATION: CT ANGIOGRAM ABDOMEN AND PELVIS WITH RUN-OFF CLINICAL INFORMATION: Peripheral vascular disease with ischemic changes of the right foot. COMPARISON: Arterial ultrasound from 12/13/[address] chest from 07/17/2022 TECHNIQUE: Multiple axial images were obtained through the abdomen, pelvis, and lower extremities following the administration of 80 mL of Omnipaque 350 intravenous contrast. Sagittal, coronal, and MIP oblique sagittal reformatted images were obtained on the CT workstation, uploaded to PACS, and reviewed. Images were evaluated on independent dedicated 3-D workstation and 3-D images were reconstructed with concurrent radiologist supervision and subsequently interpreted. This CT examination was performed using dose optimization techniques as appropriate, variously including the following: *Automated exposure control *Adjustment of mA and/or kV according to patient size (this includes techniques or standardized protocols for targeted exams where dose is matched to indication/reason for exam; i.e. extremities or head) *Use of iterative reconstruction technique DLP: 977 mGy-cm FINDINGS: VASCULATURE: Aorta: Normal in caliber. Scattered calcified plaque without significant stenosis. Celiac axis, superior mesenteric artery, inferior mesenteric artery and bilateral renal arteries are patent without significant stenosis. Right iliac arteries: Common iliac, external iliac and internal iliac arteries demonstrate scattered calcified plaque without significant stenosis. Left iliac arteries: Common iliac, external iliac and internal iliac arteries demonstrate scattered calcified plaque without significant stenosis. Right lower extremity: Common femoral artery demonstrates heavily calcified atherosclerotic plaque with a severe stenosis. Superficial femoral artery is patent with mild calcified plaque at the adductor canal without significant stenosis. Popliteal artery is patent without significant stenosis. The below-knee runoff vessels are extremely small in size but appear patent. Small amount of calcified plaque is seen in the proximal posterior tibial artery. Left lower extremity: Common femoral artery demonstrates atherosclerotic plaque without significant stenosis. Superficial femoral artery is patent without significant stenosis. Popliteal artery is patent without significant stenosis. Below knee runoff demonstrates patent flow in the anterior tibial artery, posterior tibial artery and peroneal artery without significant stenosis. Small amount of calcified plaque is seen in the mid to posterior tibial artery NONVASCULAR: There is a small right pleural effusion with bibasilar atelectasis.. Trace perihepatic ascites is seen. The liver is diffusely decreased in attenuation consistent with hepatic steatosis Solid abdominal organs are unremarkable. Bowel loops are unremarkable. No free fluid seen in the abdomen and pelvis. Urinary bladder is unremarkable. No pathologic lymphadenopathy or mass lesion seen in the abdomen and pelvis. Osseous structures are intact. Degenerative changes seen in the lumbar spine and bilateral sacroiliac joints CT/CT angio abd aorta runoff IMPRESSION: 1. Heavily calcified plaque in the right common femoral artery with a severe stenosis. The right superficial femoral and popliteal arteries are patent without significant stenosis. The below-knee runoff vessels are extremely small in size but appear patent. 2. Scattered calcified plaque in the left common femoral, superficial femoral and popliteal arteries without significant stenosis. Three-vessel runoff is seen below the knee as described above. 3. Small right pleural effusion with bibasilar atelectasis. Trace perihepatic ascites. Hepatic steatosis.
[2022-07-24] MEDS: iohexoL 350 MG/ML 100 ML INFUS..BTL 80 ML IV (11:25)
== END 2022-07-24 10:03 | disposition home or self-care (01) ==
LOC: HO.CT 10:02
PROVIDERS: PCP Internal Medicine; Visit Provider Surgery Vascular Surgery
DX: I70.213 Atherosclerosis of native arteries of extremities with intermittent claudication, bilateral legs (principal)
CPT/HCPCS: 75635; Q9967

== ENCOUNTER → 2022-08-21 15:23 | Outpatient (BNVA) | payer MEDICAID, SELFPAY | PROVIDERS: PCP Internal Medicine; Referring Provider Internal Medicine; Visit Provider Nurse Practitioner Family ==

== ENCOUNTER 2022-08-21 16:12 | Inpatient (IN) | payer MEDICARE, MEDICAID, SELFPAY ==
[2022-08-21] VITALS (9 sets, daily range): BP systolic 96–114; BP diastolic 67–79; PULSE 16–153; RESP 14–25; TEMP 36.7–37.2; O2SAT 88–97; BMI 29.1
--- NOTE | ~2022-08-21 | XR_ITS ---
EXAMINATION: XR CHEST CLINICAL INFORMATION: SOB COMPARISON: None available. TECHNIQUE: Frontal view of the chest was obtained. FINDINGS: No significant abnormality is noted involving the heart, lungs, mediastinum, bony thorax or soft tissues. XR/XR chest 1V IMPRESSION: Unremarkable chest examination.
--- NOTE | ~2022-08-21 | XR_ITS ---
EXAMINATION: XR CHEST CLINICAL INFORMATION: Shortness of breath, wheezing, rule out cardiac heart failure and pneumonia. COMPARISON: CTA chest 07/17/2022. Chest radiograph 06/07/2020. TECHNIQUE: Frontal view of the chest was obtained. FINDINGS: Stable prominence of the cardiomediastinal silhouette. Equivocal focal airspace opacity versus summation artifact in the right lower lobe. No pleural effusion or pneumothorax. No radiographic evidence of pulmonary edema. Subcentimeter left lung nodule described on CT from 07/17/2022 is not well seen in this examination due to small size. No acute osseous abnormalities. XR/XR chest 1V IMPRESSION: 1. Equivocal early infiltrate in the right lower lobe versus summation artifact from bronchovascular markings. 2. Subcentimeter left lung nodule described on CT from 07/17/2022 is not well seen in this examination due to small size.
--- NOTE | 2022-08-21 16:13 | ECG_ITS ---
Test Reason : afib Blood Pressure : / mmHG Vent. Rate : 138 BPM Atrial Rate : 000 BPM P-R Int : 000 ms QRS Dur : 078 ms QT Int : 322 ms P-R-T Axes : 000 108 -82 degrees QTc Int : 487 ms Atrial fibrillation with rapid ventricular response Rightward axis Septal infarct (cited on or before 17-JUL-2022) Abnormal ECG When compared with ECG of 17-JUL-2022 08:07, No significant change was found Referred By: Gladys Buckley Electronically Signed By:ELLY LENNON MD
--- NOTE | 2022-08-21 16:55 | ED_ITS ---
HPI - Arrhythmia/Palpitations General Chief Complaint: Arrhythmia/Palpitations Stated Complaint: Afib sent from cardiology Time Seen by Provider: 08/21/22 16:29 Source: patient Mode of arrival: ambulatory Limitations: no limitations History of Present Illness HPI narrative: 56-year-old male who presents emergency department for evaluation of atrial fibrillation with a rapid ventricular response. Patient states that he was at his technical illustrations map inker's office for routine follow-up visit from recent admission and was noted to be in atrial fibrillation with a rapid ventricular response. He states that he had no significant symptoms. Denied chest pain, jaw pain, neck pain, arm pain or back pain. He states that he feels short of breath and has dyspnea on exertion but this is chronic. Patient was sent to the emergency department for evaluation. The patient was admitted on 07/17/2022 for evaluation of palpitations, right- sided back pain and fall. Patient was noted to be in atrial fibrillation with rapid ventricular response with a rate in the 160s. He was given diltiazem boluses and diltiazem drip. Patient was found to be CHF and his echocardiogram revealed an EF of 30-35%. Patient was drinking heavily and was also in alcohol withdrawal which was treated during the admission. States he has not been d rinking since discharge. Related Data Previous Rx's Medication Instructions Recorded blood pressure monitor #1 ea 12/12/21 aspirin 81 mg tablet,delayed 81 mg PO DAILY #90 tabs 01/02/22 release (Adult Aspirin Regimen) lisinopril 5 mg tablet 5 mg PO DAILY #90 tabs 03/04/22 metformin 500 mg tablet 500 mg PO BID for diabetes 06/13/22 mellitus #180 tabs clopidogrel 75 mg tablet (Plavix) 75 mg PO DAILY #90 tabs 07/07/22 albuterol sulfate 90 mcg/actuation 2 puff inhalation Q6H PRN dyspnea 07/22/22 aerosol inhaler 30 days #1 ea fluticasone fur. 200 mcg-umeclid 1 inh inhalation DAILY 30 days #1 07/22/22 62.5 mcg-vilant 25 mcg ea inhalat.powder (Trelegy Ellipta) metoprolol succinate 50 mg 50 mg PO BID #180 tabs 08/20/22 tablet,extended release 24 hr Allergies Allergy/AdvReac Type Severity Reaction Status Date / Time No Known Allergies Allergy Verified 08/21/22 15:35 Review of Systems Review of Systems: Yes all other systems are reviewed and are negative [facility] Past Medical History [facility] Narrative: Social history: He smokes 1 pack of cigarettes per day times 36 years. States he has had no alcohol to drink since being discharged from the hospital. Medical History Alcohol abuse Atrial flutter with rapid ventricular response COPD (chronic obstructive pulmonary disease) Diabetes mellitus HTN (hypertension) Obesity (BMI 30-39.9) Smoking Surgical History No pertinent past surgical history Family History Family History Father Cancer Mother Diabetes Hypertension Brother In good health Sister In good health Son In good health Daughter In good health Social History Social History Household Members: None Housing: Apartment Do you presently have visiting nurse or other home services: No Alcohol intake: current Alcohol intake frequency: a few times a month Alcohol type: beer Patient Tobacco Use Status: Current everyday Tobacco user Tobacco use type: Cigarette Cigarette Packs Per Day: 1.5 Cigarettes Per Day: 25 Years Smoked: 40 +/- Smoked in Last 30 Days: Yes e-Cigarette/Vaping Use: Never Used Second Hand Smoke Exposure: Yes Use of substances other than those prescribed or required for medical reasons: No Substance Use Type: Marijuana Advance Directives: Yes Advance Directives on File: Yes Advance Directives Date on File: 06/11/20 service: No Current occupational status: retired and disabled Cognitive needs: No Hearing needs: No Vision needs: Yes (reading glasses) Physical Exam Vital Signs: Vital Signs: Last Vital Signs Temp 98.2 F 08/21/22 16:27 Pulse 124 H 08/21/22 19:23 Resp 18 08/21/22 19:23 BP 105/72 08/21/22 19:23 Pulse Ox 92 08/21/22 19:23 O2 Del Method Room Air 08/21/22 19:23 BMI result Body Mass Index 29.1 Const: General: cooperative and no acute distress Orientation/consciousness: oriented to person and oriented to place Limitations: no limitations HEENT: Head: Yes normal to inspection, Yes normocephalic and Yes atraumatic Ears: external ears normal General nose exam: Normal external nose present Face and sinus: Yes normal facial exam Mouth: Normal oral and palatal mucosa present Throat: Yes posterior oropharynx normal Eyes: General: appearance normal, both eyes and all related structures Pupils: Equal, round and reactive pupils present Neck: Neck: Yes normal visual inspection, Yes no lymphadenopathy, Yes trachea midline and Yes supple Chest: Chest palpation & inspection: normal inspection of the chest and normal palpation of entire chest wall Resp: Other: Patient's breath sounds symmetric, he has diffuse wheezing with rales at the bases Cardio: Other: Irregular irregular rhythm, rapid rate, normal S1-S2, no murmurs rubs or gallops GI: Inspection: Yes normal to inspection Palpation (GI): Soft to palpation, nontender and no guarding Auscultation: normal bowel sounds : General: Yes no CVA tenderness Back/Spine/Pelvis: Back: no CVA tenderness Skin: General skin exam: no rashes or lesions noted Neuro: General: oriented to person and oriented to place Cranial nerves: Yes CN's II-XII intact bilaterally and Yes Equal, round and reactive pupils present Cognition (Neuro): normal cognition Motor exam (neuro): 5/5 motor strength present throughout Extrem: Other: Trace, symmetric, pitting edema Psych: Appearance: grossly normal Speech and movement: Normal speech and movement present Affect: normal affect Attitude: cooperative Thought process: Normal thought process present Thought content: Normal thought content present Medications Administered Discontinued Medications Generic Name Dose Route Start Last Admin Trade Name Freq PRN Reason Stop Dose Admin Diltiazem HCl 20 mg 08/21/22 16:50 08/21/22 17:16 Diltiazem Hcl 50 Mg/10 Ml Vial IVPUSH 08/21/22 16:51 20 mg STAT STA Administration Medical Decision Making Medical Decision Making [facility] Narrative: 56-year-old male with a known history of atrial fibrillation who states that he was following up with his technical illustrations map inker today and was found to be in atrial fibrillation with a rapid ventricular rate of 160. He was sent to the emergency department for evaluation. He denied chest pain, arm pain, neck pain, jaw pain or back pain. Patient states that he has chronic shortness of breath dyspnea on exertion secondary to his COPD. Vital signs revealed an elevated heart rate of 150-160 beats per minute, blood pressure was 102/68 114/79. Lung exam revealed diffuse wheezing with rales at the bases, heart exam revealed an rapid, irregularly irregular heart sounds with no murmurs rubs gallops. Patient has trace pitting edema which is symmetric. I ordered a laboratory evaluation inc olena CBC, CMP, BNP, lipase, PT/INR, PTT, troponin. EKG and 1-view chest x-ray was also ordered. Patient will be treated with diltiazem 20 mg IV to see if this slows his rate down. 193: My interpretation the patient's pertinent labs are as follows: CBC was normal. Coags were normal. BMP was elevated 986. High sensitive troponin I was detectable but not elevated at 5.5. Chest x-ray revealed no congestive heart failure. Patient usually had a good response with diltiazem 20 mg IV however his heart rate went up again and he was given another dose of diltiazem 20 mg IV. I will discuss the patient's presentation with the covering technical illustrations map inker, Dr. Waddell and the cover hospitalist Dr. Garcia. 1946: Dr. Waddell recommended treating the patient's rapid ventricular rate with metoprolol and with digoxin IV, therefore I did order digoxin 0.25 mg IV push. I did discuss the patient's presentation with Dr. Garcia and she accepted the admission Differential Diagnosis Differential diagnosis includes was not limited to atrial fibrillation, co ngestive heart failure, myocardial infarction, pneumonia, electrolyte abnormalities, noncompliance with medications. Admission/Observation Consideration of admission/observation: Escalation of care including admission/observation considered Lab Data MDM Lab Attestation statement: I reviewed the patient's lab results. 08/21/22 17:03 08/21/22 16:51 Labs: Lab Results 08/21/22 08/21/22 08/21/22 Range/Units 16:51 16:51 16:51 WBC (4.8-10.8) X10*3/uL RBC (4.60-5.80) X10*6/uL Hgb (14.0-18.0) g/dl Hct (42.0-52.0) % MCV (80.0-98.0) fL MCH (27.0-33.0) pg MCHC (31.0-36.0) g/dl RDW (11.0-16.0) % Plt Count (160-400) X10*3/uL MPV (9.4-12.4) fL Immature Gran % (Auto) (0.0-0.4) % Neut % (Auto) (45-73) % Lymph % (Auto) (20-40) % [place] % (Auto) (2-11) % Eos % (Auto) (0-4) % Baso % (Auto) (0-2) % Lymph # (Auto) (1.2-4.9) X10*3/uL [place] # (Auto) (0.1-1.2) X10*3/uL Eos # (Auto) (0.0-0.4) X10*3/uL Baso # (Auto) (0.0-0.2) X10*3/uL Abs Immat Gran (auto) (0.00-0.03) X10*3/uL Absolute Neuts (auto) (2.0-8.3) x10*3/uL Absolute Nucleated RBC (0.0-0.012) X10*3/uL Nucleated RBC % (auto) (0.0-0.2) /100WBC PT 11.8 (10.0-13.1) SEC INR 1.0 (0.9-1.1) APTT 32.8 (26.0-36.4) SEC Sodium 136 (135-145) mmol/L Potassium 4.5 (3.3-5.1) mmol/L Chloride 95 L (96-108) mmol/L Carbon Dioxide 29 (22-29) mmol/L Anion Gap 17 (12-20) BUN 15 (9-16) mg/dL Creatinine 1.21 (0.5-1.4) mg/dL Estim Creat Clear Calc 80.1 Estimated GFR > 60 Random Glucose 131 H (60-115) mg/dL Calcium 10.2 D (8.4-10.2) mg/dL Magnesium 1.7 (1.6-2.6) mg/dL Total Bilirubin 1.1 H (0.0-1.0) mg/dL AST 12 (5-37) U/L ALT 10 (0-40) U/L Alkaline Phosphatase 83 (39-117) U/L Troponin I High Sens 5.5 D (<3.5-35.0) ng/L B-Natriuretic Peptide (<100) pg/mL Total Protein 7.2 (6.5-8.0) g/dL Albumin 3.9 (3.5-5.0) g/dL Lipase 41 (8-78) U/L 08/21/22 08/21/22 Range/Units 16:51 17:03 WBC 9.1 (4.8-10.8) X10*3/uL RBC 4.66 (4.60-5.80) X10*6/uL Hgb 14.3 (14.0-18.0) g/dl Hct 42.5 (42.0-52.0) % MCV 91.2 (80.0-98.0) fL MCH 30.7 (27.0-33.0) pg MCHC 33.6 (31.0-36.0) g/dl RDW 13.7 (11.0-16.0) % Plt Count 210 D (160-400) X10*3/uL MPV 9.4 (9.4-12.4) fL Immature Gran % (Auto) 0.2 (0.0-0.4) % Neut % (Auto) 65.2 (45-73) % Lymph % (Auto) 26.6 (20-40) % [place] % (Auto) 7.3 (2-11) % Eos % (Auto) 0.4 (0-4) % Baso % (Auto) 0.3 (0-2) % Lymph # (Auto) 2.4 (1.2-4.9) X10*3/uL [place] # (Auto) 0.7 (0.1-1.2) X10*3/uL Eos # (Auto) 0.0 (0.0-0.4) X10*3/uL Baso # (Auto) 0.0 (0.0-0.2) X10*3/uL Abs Immat Gran (auto) 0.02 (0.00-0.03) X10*3/uL Absolute Neuts (auto) 5.9 (2.0-8.3) x10*3/uL Absolute Nucleated RBC 0.000 (0.0-0.012) X10*3/uL Nucleated RBC % (auto) 0.0 (0.0-0.2) /100WBC PT (10.0-13.1) SEC INR (0.9-1.1) APTT (26.0-36.4) SEC Sodium (135-145) mmol/L Potassium (3.3-5.1) mmol/L Chloride (96-108) mmol/L Carbon Dioxide (22-29) mmol/L Anion Gap (12-20) BUN (9-16) mg/dL Creatinine (0.5-1.4) mg/dL Estim Creat Clear Calc Estimated GFR Random Glucose (60-115) mg/dL Calcium (8.4-10.2) mg/dL Magnesium (1.6-2.6) mg/dL Total Bilirubin (0.0-1.0) mg/dL AST (5-37) U/L ALT (0-40) U/L Alkaline Phosphatase (39-117) U/L Troponin I High Sens (<3.5-35.0) ng/L B-Natriuretic Peptide 986 H (<100) pg/mL Total Protein (6.5-8.0) g/dL Albumin (3.5-5.0) g/dL Lipase (8-78) U/L Independent Interpretation I performed an independent interpretation of an: EKG and Plain X-Ray Interpretation: My independent interpretation of the patient's one-view chest x-ray is as follows: No CHF, no pneumonia My independent interpretation patient's 12 EKG done at 16:13 hours is as follows: Atrial fibrillation with a rapid ventricular response of 138 beats per minute, no ST segment elevation, less than [address] segment depression V4, V5 and V6, there are Q-waves in V1 and V2, no significant T-wave abnormalities. Compared to EKG dated 07/17/2022 the Q waves in V1 and V2 are old, ST segment depressions are also old. Radiology Impression Discussion of test interpretation with radiology: I have reviewed the radiologist's reading. Radiologist Impression: XR chest 1V IMPRESSION: 1. Equivocal early infiltrate in the right lower lobe versus summation artifact from bronchovascular markings. 2. Subcentimeter left lung nodule described on CT from 07/17/2022 is not well seen in this examination due to small size. Dictated By:Phoenix Vergaragned By:<Electronically signed by Kenisha Vergara in OV>08/21/22 1721 External Record Review External record reviewed: Inpatient record Critical Care Time Critical Care Time Critical Care Time: Yes Total Critical Care Time: 45 Attestation: Critical Care: The patient was critically ill with a high probability of imminent or life threatening deterioration. I spent greater than 30 minutes of discontinuous time evaluating the patient,delivering critical care at the bedside, discussing and evaluating pertinent data with consultants. Critical care time does not include time spent performing separately billable procedures or teaching. Total time spent performing critical care was 45 minutes. Discharge Plan Discharge Clinical Impression: Atrial fibrillation with rapid ventricular response Patient Disposition: Admitted As Inpatient
[2022-08-21 17:07] LABS: MANUAL DIFF FLAG NO
[2022-08-21 17:10] LABS: Basophils Percent Auto 0.3 % (0-2); Eosinophils Percent Auto 0.4 % (0-4); Hematocrit 42.5 % (42.0-52.0); Hemoglobin 14.3 g/dl (14.0-18.0); Imm Gran Abs Auto 0.02 X10*3/uL (0.00-0.03); Imm Gran Pct Auto 0.2 % (0.0-0.4); Lymphocytes Absolute Auto 2.4 X10*3/uL (1.2-4.9); Lymphocytes Percent Auto 26.6 % (20-40); Mean Corpuscular HGB Conc 33.6 g/dl (31.0-36.0); Mean Corpuscular Hemoglobin 30.7 pg (27.0-33.0); Mean Corpuscular Volume 91.2 fL (80.0-98.0); Mean Platelet Volume 9.4 fL (9.4-12.4); Monocytes Absolute Auto 0.7 X10*3/uL (0.1-1.2); Monocytes Percent Auto 7.3 % (2-11); Neutrophils Absolute Auto 5.9 x10*3/uL (2.0-8.3); Neutrophils Percent Auto 65.2 % (45-73); Platelet Count 210 X10*3/uL (160-400); Red Blood Count 4.66 X10*6/uL (4.60-5.80); Red Cell Distribution Width 13.7 % (11.0-16.0); White Blood Count 9.1 X10*3/uL (4.8-10.8)
[2022-08-21 17:15] LABS: Prothrombin Time 11.8 SEC (10.0-13.1)
[2022-08-21] MEDS: dilTIAZem HCL 50 MG/10 ML VIAL 20 MG IVPUSH (17:16)
[2022-08-21 17:18] LABS: Partial Thromboplastin Time 32.8 SEC (26.0-36.4)
[2022-08-21 17:26] LABS: Alanine Aminotransferase 10 U/L (0-40); Albumin Level 3.9 g/dL (3.5-5.0); Alkaline Phosphatase 83 U/L (39-117); Anion Gap 17 (12-20); Aspartate Amino Transferase 12 U/L (5-37); Bilirubin Total 1.1 mg/dL (0.0-1.0); Blood Urea Nitrogen 15 mg/dL (9-16); Calcium 10.2 mg/dL (8.4-10.2); Carbon Dioxide 29 mmol/L (22-29); Chloride 95 mmol/L (96-108); Creatinine Clr Calc Pharmacy 80.1; Estimated Glomerular Filt Rate > 60; Glucose Random 131 mg/dL (60-115); Lipase 41 U/L (8-78); Magnesium 1.7 mg/dL (1.6-2.6); Potassium 4.5 mmol/L (3.3-5.1); Sodium 136 mmol/L (135-145); Total Protein 7.2 g/dL (6.5-8.0)
[2022-08-21 17:30] LABS: B Type Natriuretic Peptide 986 pg/mL (<100)
[2022-08-21 17:31] LABS: Troponin-I High Sensitivity 5.5 ng/L (<3.5-35.0)
--- NOTE | 2022-08-21 18:49 | PHA.MEDREC ---
Pharmacy Consult ? Medication Reconciliation Pharmacy has completed the medication reconciliation. Patient knew medications and said he is not taking bumetanide 1 mg bid
--- NOTE | 2022-08-21 19:25 | PC.NURSE ---
Assumed care of pt. Pt lying on stretcher. at bedside to confirm plan of care to admit pt for cardiac monitoring, control of AFIB rate. Pt upset with POC but cooperative. [lpan to administer additional medications given rate increase as documented, Cardiology consult, pt requesting PO. WCTM
--- NOTE | 2022-08-21 19:50 | P.HPHOSP_ITS ---
patient seen and examined at bedside. Has AFib with RVR. case was discussed with Cardiology by ED physician, recommended digoxin metoprolol. Blood pressure is not tolerating, also patient continues to have tachycardia despite 2 doses of digoxin. Will monitor closely. If remains tachycardic we may require diltiazem drip. Continue digoxin, metoprolol, blood pressure permitting. For full H&P please see below patient will also be placed on all withdrawal watch with CIWA History of Present Illness Date of Service: 08/21/22 Attending physician on admission: Nelia Garcia Chief Complaint: AFib with RVR Pt is a 56-year-old male with a PMH significant for?SVT, paroxysmal AFib not on anticoagulation, alcohol abuse with a hx of withdrawal, non insulin-dependent diabetes type 2, COPD, HFrEF, and current smoker of 1 and half packs per day who presents to the ED from Cardiology office for evaluation of AFib with RVR. Patient was recently admitted to the hospital here on 07/17/2022 through 07/18/2022 for similar issues and was treated for AFib with RVR, HFrEF, and alc ohol withdrawal. Today patient was at a follow-up visit with Cardiology when he was noted to be in AFib with RVR in the 140s. Was sent to the emergency department for further evaluation, where he was noted to be still be in AFib with RVR in 150s. Patient was largely asymptomatic: Denies chest pa in/pressure, palpitations. Chronic shortness of breath, no worse than at baseline. Denies lower leg edema, PND, orthopnea. No fever, chills, nausea, vomiting, abdominal pain. Patient was treated with diltiazem 20 mg IV, digoxin 0.25 mg IV x2 doses, and diltiazem 10 mg IV. Patient's HR continue to remain elevated in the 130s to 140s. Patient then placed on diltiazem drip. Of note patient has not been on anticoagulation secondary to being a high bleeding risk from falling secondary to alcohol use disorder. However, patient states that he has not drank alcohol since last admission some 33 days ago. In the ED patient was afebrile, tachycardic up to 153, tachypneic to 25, satting at 93% O2 on RA, BP a little soft as low as 96/67. Labs were significant for elevated BNP of 986. H&H stable. Electrolytes largely WNL. Renal function at baseline. Hepatic function at baseline. CXR showed equivocal early infiltrate in the right lower lobe versus summation artifact from bronchovascular markings. No evidence of pleural effusions. EKG demonstrated AFib with RVR of [address] elevations or depressions. Pt will be admitted to the hospital under observation on telemetry for further evaluation and treatment of AFib with RVR. Review of Systems Review of Systems: Chronic cough, at baseline Chronic SOB, at baseline Pt has no acute complaints Denies PND, orthopnea No chest pain/pressure, palpitations No lightheadedness or dizziness Yes all other systems are reviewed and are negative [facility] Medical History Alcohol abuse Atrial flutter with rapid ventricular response COPD (chronic obstructive pulmonary disease) Diabetes mellitus HTN (hypertension) Obesity (BMI 30-39.9) Smoking Family History Father Cancer Mother Diabetes Hypertension Brother In good health Sister In good health Son In good health Daughter In good health Surgical History No pertinent past surgical history Social History Household Members: None Housing: Apartment Do you presently have visiting nurse or other home services: No Alcohol intake: current Alcohol intake frequency: a few times a month Alcohol type: beer Patient Tobacco Use Status: Current everyday Tobacco user Tobacco use type: Cigarette Cigarette Packs Per Day: 1.5 Cigarettes Per Day: 25 Years Smoked: 40 +/- Smoked in Last 30 Days: Yes e-Cigarette/Vaping Use: Never Used Second Hand Smoke Exposure: Yes Use of substances other than those prescribed or required for medical reasons: No Substance Use Type: Marijuana Advance Directives: Yes Advance Directives on File: Yes Advance Directives Date on File: 06/11/20 service: No Current occupational status: retired and disabled Cognitive needs: No Hearing needs: No Vision needs: Yes (reading glasses) Meds Allergies Allergy/AdvReac Type Severity Reaction Status Date / Time No Known Allergies Allergy Verified 08/21/22 15:35 Active Medications: Current Medications Pharmacy Consult (Consult Rx Perform Med Rec) 1 each MISCELLANE ONCE PRN PRN Reason: Consult order Home Medications Medication Instructions Recorded Confirmed Last Taken Type bumetanide 1 mg tablet 1 mg PO BID 08/21/22 08/21/22 08/21/22 History Physical Exam Vital Signs and Narrative: Vital Signs: Last Vital Signs Temp 98.2 F 08/21/22 16:27 Pulse 124 H 08/21/22 19:23 Resp 18 08/21/22 19:23 BP 105/72 08/21/22 19:23 Pulse Ox 92 08/21/22 19:23 O2 Del Method Room Air 08/21/22 19:23 BMI result Body Mass Index 29.1 Constitutional: Alert, in no acute distress. Mental Status: Oriented to person, place and time. Eyes: Pupils are equal, round, and reactive to light. Ear, Nose, and Throat: Oropharynx clear, mucous membranes moist. Ears and nose without deformities. Trachea midline. Respiratory: Diffuse expiratory wheezes and rales. Cardiovascular: Irregularly irregular rhythym, tachycardic. Gastrointestinal: Abdomen soft, non-tender, non-distended. Normal bowel sounds. Neurologic: Cranial nerves II-XII are grossly intact bilaterally. No focal ne urological deficits. Moves all extremities spontaneously. Skin: Warm, dry. Musculoskeletal: No cyanosis or clubbing. Extremities: No significant edema of lower extremities. Psychiatric: Normal mood and affect. Results Labs 08/21/22 17:03 08/21/22 16:51 Labs: Laboratory Results - last 24 hr 08/21/22 08/21/22 08/21/22 16:51 16:51 16:51 MCV MCH MCHC RDW Plt Count MPV Immature Gran % (Auto) Neut % (Auto) Lymph % (Auto) [place] % (Auto) Eos % (Auto) Baso % (Auto) Lymph # (Auto) [place] # (Auto) Eos # (Auto) Baso # (Auto) Abs Immat Gran (auto) Absolute Neuts (auto) Absolute Nucleated RBC Nucleated RBC % (auto) PT 11.8 INR 1.0 APTT 32.8 Anion Gap 17 Estim Creat Clear Calc 80.1 Estimated GFR > 60 Random Glucose 131 H Calcium 10.2 D Magnesium 1.7 Total Bilirubin 1.1 H AST 12 ALT 10 Alkaline Phosphatase 83 Troponin I High Sens 5.5 D B-Natriuretic Peptide Total Protein 7.2 Albumin 3.9 Lipase 41 08/21/22 08/21/22 16:51 17:03 MCV 91.2 MCH 30.7 MCHC 33.6 RDW 13.7 Plt Count 210 D MPV 9.4 Immature Gran % (Auto) 0.2 Neut % (Auto) 65.2 Lymph % (Auto) 26.6 [place] % (Auto) 7.3 Eos % (Auto) 0.4 Baso % (Auto) 0.3 Lymph # (Auto) 2.4 [place] # (Auto) 0.7 Eos # (Auto) 0.0 Baso # (Auto) 0.0 Abs Immat Gran (auto) 0.02 Absolute Neuts (auto) 5.9 Absolute Nucleated RBC 0.000 Nucleated RBC % (auto) 0.0 PT INR APTT Anion Gap Estim Creat Clear Calc Estimated GFR Random Glucose Calcium Magnesium Total Bilirubin AST ALT Alkaline Phosphatase Troponin I High Sens B-Natriuretic Peptide 986 H Total Protein Albumin Lipase Imaging Radiologist's Impressions: Impressions Chest X-Ray 08/21/22 16:55 IMPRESSION: 1. Equivocal early infiltrate in the right lower lobe versus summation artifact from bronchovascular markings. 2. Subcentimeter left lung nodule described on CT from 07/17/2022 is not well seen in this examination due to small size. Assessment and Plan (1) Atrial fibrillation with rapid ventricular response: Status: Acute Plan Pt is a 56-year-old male with a PMH significant for?SVT, paroxysmal AFib not on anticoagulation, alcohol abuse with a hx of withdrawal, non insulin-dependent diabetes type 2, COPD, HFrEF, and current smoker of 1 and half packs per day who presents to the ED from Cardiology office for evaluation of AFib with RVR. Pt will be admitted to the hospital under observation on telemetry for further evaluation and treatment of AFib with RVR. AFib with RVR Pt noted to be in AFib with RVR in 140s-150s at cardiology appointment Patient asymptomatic: no palpitations, no worsening SOB Pt given diltiazem 20 mg IV, digoxin 0.25 mg IV x2 doses, and diltiazem 10 mg IV Current heart rate still in 130s-140s Pt will be placed on a diltiazem drip Hold home metoprolol d/t soft BP Cardiology consult Monitor on telemetry Tachycardia due to AFib with RVR, not sepsis HFrEF Echocardiogram on 07/18/2022 found EF of 30-35% with moderate global hypokinesis Patient today with elevated BNP 986, lower than previous on 07/17/2022 of 1190 Likely not in acute exacerbation: pt no worsening SOB, denies orthopnea, PND, CXR negative for pulmonary edema, no significant lower leg edema Will continue home bumetanide Monitor volume status COPD Pt with chronic SOB and occasional cough, says no worse than normal, not on supplemental O2 Diffuse wheezing and rales upon auscultation Likely not in acute exacaerbation Continue home inhalers Duonebs prn Nicotine dependence Patient currently smokes 1 and half packs per day Nicotine replacement therapy: Patch Smoking cessation counseled Ydg-oknhanr-mvxryynba diabetes Hold metformin Sliding-scale insulin Diabetic diet Alcohol use disorder Pt with history of alcohol withdrawal Says hasn't had a drink since last admission, 33 days ago No agitation, tremors CIWA scale HTN Hold home meds d/t soft BP Full Code Attending:?Dr. Chavez DVT Prophylaxis: Lovenox Pt will be admitted to the hospital under observation on telemetry for treatment further evaluation of AFib with RVR. Time Spent With Patient Time: Total time managing care of this patient today ____ minutes. Quality Stroke Does the patient have a stroke diagnosis?: No VTE Prior VTE?: No VTE Risk Level:: Medical - moderate - high VTE Device Contraindication: Treatment Not Indicated VTE Drug Contraindication: N/A - Med Ordered
[2022-08-21] MEDS: Digoxin 0.5 MG/2 ML AMPUL 0.25 MG IVPUSH ×2 (20:25→21:03)
[2022-08-21 20:34] LABS: Troponin-I High Sensitivity 5.4 ng/L (<3.5-35.0)
[2022-08-21] MEDS: Nicotine 21 MG PATCH.TD24 TRANSDERMA (21:04)
[2022-08-21] MEDS: Enoxaparin Sodium 40 MG/0.4 ML SYRINGE SUBCUT (21:31)
[2022-08-21] MEDS: dilTIAZem HCL 50 MG/10 ML VIAL 10 MG IVPUSH (21:32)
[2022-08-21] MEDS: dilTIAZem HCL 125 MG in 0.9 % Sodium Chloride 100 ML 10 MG IVCONT (21:40)
--- NOTE | 2022-08-21 21:46 | PC.NURSE ---
Pt did not respond positively to Digoxin IVP, returned to Diltiazem IV push + drip per orders. Will reassess vitals in 15 minutes for effectiveness. No acute distress of pt.
--- NOTE | 2022-08-21 22:01 | MHC.CM.PN ---
Addendum entered by Jacqueline Rodarte 08/21/22 22:04: PCP: Dr. Lutz. Original Note: [facility] 08/21. A&Ox4. Lives alone. from . HCP on file. No DME/services. No . [employer] x3. D/C plan: Home without services. Pt drove himself to ED. Plans to drive himself home. CM will follow for any discharge planning.
[2022-08-21] MEDS: Bumetanide 1 MG TABLET PO (22:15)
[2022-08-21] MEDS: 0.9 % Sodium Chloride Flush 3 ML SYRINGE IVFLUSH (23:10)
[2022-08-22] VITALS (10 sets, daily range): BP systolic 102–129; BP diastolic 65–86; PULSE 73–131; RESP 16–20; TEMP 36.3–36.8; O2SAT 92–95
[2022-08-22 06:44] LABS: Hematocrit 40.4 % (42.0-52.0); Hemoglobin 13.4 g/dl (14.0-18.0); Mean Corpuscular HGB Conc 33.2 g/dl (31.0-36.0); Mean Corpuscular Hemoglobin 30.4 pg (27.0-33.0); Mean Corpuscular Volume 91.6 fL (80.0-98.0); Platelet Count 202 X10*3/uL (160-400); Red Blood Count 4.41 X10*6/uL (4.60-5.80); Red Cell Distribution Width 13.6 % (11.0-16.0); White Blood Count 7.1 X10*3/uL (4.8-10.8)
[2022-08-22 07:07] LABS: Anion Gap 13 (12-20); Blood Urea Nitrogen 13 mg/dL (9-16); Calcium 9.2 mg/dL (8.4-10.2); Carbon Dioxide 30 mmol/L (22-29); Chloride 98 mmol/L (96-108); Creatinine Clr Calc Pharmacy 88.9; Estimated Glomerular Filt Rate > 60; Glucose Random 123 mg/dL (60-115); Potassium 4.1 mmol/L (3.3-5.1); Sodium 137 mmol/L (135-145)
[2022-08-22 07:47] LABS: Glucose, Whole Blood 139 mg/dL (60-115)
[2022-08-22] MEDS: Bumetanide 1 MG TABLET PO (07:50)
[2022-08-22] MEDS: Aspirin Enteric Coated 81 MG TABLET.DR PO (07:50)
[2022-08-22] MEDS: Multivitamin TABLET 1 TAB PO (07:51)
[2022-08-22] MEDS: Nicotine 21 MG PATCH.TD24 TRANSDERMA (07:51)
[2022-08-22] MEDS: Clopidogrel Bisulfate 75 MG TABLET PO (07:51)
[2022-08-22] MEDS: dilTIAZem HCL 125 MG in 0.9 % Sodium Chloride 100 ML 10 MG IVCONT (10:50)
[2022-08-22] MEDS: Albuterol/Iprat 2.5/0.5MG 3 ML AMPUL.NEB INHALE (10:58)
[2022-08-22 11:41] LABS: Glucose, Whole Blood 274 mg/dL (60-115)
[2022-08-22] MEDS: methylPREDNISolone Sod Succ 40 MG/ML VIAL IVPUSH ×2 (12:12→23:47)
[2022-08-22] MEDS: Insulin Lispro 100 UNIT/ML 3 ML VIAL SUBCUT ×2 (12:12→21:35)
[2022-08-22] MEDS: Metoprolol Succinate ER 50 MG TAB.ER.24H PO (12:12)
[2022-08-22] MEDS: Bumetanide 1 MG/4 ML VIAL IVPUSH ×2 (12:13→17:14)
--- NOTE | 2022-08-22 13:14 | PM.CNCAR ---
History of Present Illness History of Present Illness Date of Service: 08/22/22 Requesting physician: Danyelle Garner Consult reason: atrial fibrillation and congestive heart failure Chief complaint: Afib w/ RVR Narrative: I was consulted to see Magdi in cardiology consultation today as he was brought to the emergency room from the office yesterday. He came to the office yesterday for follow-up and sought Sameera and was noted to be in atrial fibrillation with rapid ventricular response and was having trouble breathing with wheezing. He was therefore referred to the emergency room. In the emergency remained atrial fibrillation rapid ventricular response and was given Cardizem bolus and digoxin and was put on Cardizem drip. He has known LVEF of 30-35%. I discussed with ED yesterday to start him on metoprolol and digoxin history of Cardizem given his low ejection fraction. This morning patient remains in normal sinus rhythm. I had a long discussion with him and he said he has stopped drinking 33 days ago and is currently not drinking but continues to smoke but not as much as before. He is having some trouble breathing. He denies any palpitation lightheadedness does not really know that he is in atrial fibrillation said yesterday was feeling well. He denies any chest pain, lightheadedness, syncope. He has been taking all his medications as per him, currently not on any blood thinners, with prior history of alcohol abuse who felt not a good candidate for the same although he is on dual antiplatelet therapy for peripheral vascular disease. He has never had prior myocardial infarction. He had a cardiac catheterization the past for cardiomyopathy which had shown normal coronary arteries. He has prior history of paroxysmal atrial fibrillation 1 time was in normal rhythm and his LV systolic function at improved. But since then he is back in atrial fibrillation and currently he has moderate to severe LV systolic dysfunction. His BNP is elevated Review of Systems Constitutional: Constitutional: Reports no additional constitutional complaints Cardiovascular: Cardiovascular: Denies chest pain, Denies syncope, Denies leg edema, Denies lightheadedness, Denies palpitations, Reports dyspnea and Reports dyspnea on exertion Respiratory: Respiratory: Reports dyspnea, Reports dyspnea on exertion and Reports wheezing Gastrointestinal: Gastrointestinal: Reports no additional gastrointestinal complaints Musculoskeletal: Musculoskeletal: Reports no additional musculoskeletal complaints Integumentary/Breasts: Skin/Breast: Reports system reviewed and no additional complaints, except as docu Neurologic: Denies syncope Psychiatric: Psychiatric: Reports no additional psychiatric complaints Endocrine: Endocrine: Denies palpitations Allergic/Immunologic: Allergic/Immunologic: Reports wheezing PMFSH Past Medical History Medical History Alcohol abuse Atrial flutter with rapid ventricular response COPD (chronic obstructive pulmonary disease) Diabetes mellitus HTN (hypertension) Obesity (BMI 30-39.9) Smoking Family History Family History Father Cancer Mother Diabetes Hypertension Brother In good health Sister In good health Son In good health Daughter In good health Surgical History Surgical History No pertinent past surgical history Social History Social History Household Members: None Housing: Apartment Do you presently have visiting nurse or other home services: No Alcohol intake: current Alcohol intake frequency: a few times a month Alcohol type: beer Patient Tobacco Use Status: Current everyday Tobacco user Tobacco use type: Cigarette Cigarette Packs Per Day: 1 Cigarettes Per Day: 20.0 Years Smoked: 40 +/- Smoked in Last 30 Days: Yes e-Cigarette/Vaping Use: Never Used Patient Interested in Nicotine Replacement: Yes Second Hand Smoke Exposure: Yes Use of substances other than those prescribed or required for medical reasons: No Substance Use Type: Marijuana Advance Directives: Yes Advance Directives on File: Yes Advance Directives Date on File: 06/11/20 service: No Current occupational status: retired and disabled Cognitive needs: No Hearing needs: No Vision needs: Yes (reading glasses) Meds Allergies Allergy/AdvReac Type Severity Reaction Status Date / Time No Known Allergies Allergy Verified 08/21/22 15:35 Active Medications: Current Medications Acetaminophen (Acetaminophen 325 Mg Tablet) 650 mg PO Q6H PRN PRN Reason: Pain, Mild (Pain Scale 1-3) Albuterol Sulfate (Albuterol Sulfate 90 Mcg 8 Gm Inhaler) 2 puff INHALE Q6H PRN PRN Reason: dyspnea Albuterol/Ipratropium (Albuterol/Iprat 2.5/0.5mg 3 Ml Ampul.Neb) 3 ml INHALE RQ4H WHILE AWAKE PRN PRN Reason: Shortness of Breath/Wheezing Last Admin: 08/22/22 10:58 Dose: 3 ml Apixaban (Apixaban 5 Mg Tablet) 5 mg PO BID [facility] Bumetanide (Bumetanide 1 Mg/4 Ml Vial) 1 mg IVPUSH BID@0900,1700 [facility]; Protocol Last Admin: 08/22/22 12:13 Dose: 1 mg Docusate Sodium (Docusate Sodium 100 Mg Capsule) 100 mg PO DAILY PRN PRN Reason: Constipation Glucose (Glucose Gel 15 Gm Gel..Gram.) 15 gm PO Q15M PRN; Protocol PRN Reason: per Hypoglycemia Standing Ord. Diltiazem HCl 125 mg/ Sodium (Chloride) 125 mls @ 0 mls/hr IVCONT .Q0M [facility]; Protocol Last Titration: 08/22/22 12:44 Dose: 5 mg/hr, 5 mls/hr Dextrose (D10) 250 mls @ 750 mls/hr IV Q15M PRN; Protocol PRN Reason: per Hypoglycemia Standing Ord. Insulin Human Lispro (Insulin Lispro 100 Unit/Ml 3 Ml Vial) 0 unit SUBCUT QIDACHS [facility]; Protocol Last Admin: 08/22/22 12:12 Dose: 6 unit Methylprednisolone Sodium Succinate (Methylprednisolone Sod Succ 40 Mg/Ml Vial) 40 mg IVPUSH Q12H [facility] Last Admin: 08/22/22 12:12 Dose: 40 mg Metoprolol Succinate (Metoprolol Succinate Er 50 Mg Tab.Er.24h) 50 mg PO BID [facility]; Protocol Last Admin: 08/22/22 12:12 Dose: 50 mg Multivitamins/Vitamin C (Multivitamin Tablet) 1 tab PO DAILY [facility] Last Admin: 08/22/22 07:51 Dose: 1 tab Nicotine (Nicotine 21 Mg Patch.Td24) 21 mg TRANSDERMA DAILY [facility] Last Admin: 08/22/22 07:51 Dose: 21 mg Non-Formulary Medication (Fgievzayain-Txczxfowf-Zchonddj [Trelegy Ellipta]) 1 inhalation INHALE DAILY [facility] Ondansetron HCl (Ondansetron Hcl 4 Mg/2 Ml Vial) 4 mg IVPUSH Q8H PRN PRN Reason: Nausea and Vomiting Pharmacy Consult (Consult Rx Perform Med Rec) 1 each MISCELLANE ONCE PRN PRN Reason: Consult order Sacubitril/Valsartan (Sacubitril/Valsartan 1 Tab Tablet) 1 tab PO BID [facility]; Protocol Sodium Chloride (0.9 % Sodium Chloride Flush 3 Ml Syringe) 3 ml IVFLUSH QSHIFT [facility] Last Admin: 08/22/22 07:48 Dose: Not Given Home Medications Medication Instructions Recorded Confirmed Last Taken Type bumetanide 1 mg tablet 1 mg PO BID 08/21/22 08/21/22 08/21/22 History Physical Exam Vital Signs: Vital Signs: Last Vital Signs Temp 97.6 F 08/22/22 11:20 Pulse 89 08/22/22 12:43 Resp 18 08/22/22 11:20 BP 109/70 08/22/22 11:20 Pulse Ox 95 08/22/22 11:20 O2 Del Method Room Air 08/22/22 11:20 BMI result Body Mass Index 29.1 Const: General: cooperative, alert, awake and in distress mild and respiratory Nutritional Appearance: overweight Orientation/consciousness: patient oriented x3 Limitations: no limitations HEENT: Head: Yes normocephalic and Yes atraumatic Neck: Neck: Yes trachea midline, Yes supple and Yes JVD Resp: Effort & Inspection: normal respiratory effort Auscultation: wheezes scattered wheezes Cardio: Jugular venous distension: JVD Rhythm: abnormal rhythm Heart sounds: S1 normal heart sound present, S2 normal heart sound present, no click, no gallops, no murmurs and no rubs GI: Auscultation: normal bowel sounds Skin: General skin exam: no rashes or lesions noted Neuro: General: patient oriented x3 and no focal motor deficits Extrem: General: No clubbing, No cyanosis and Yes edema Psych: Appearance: grossly normal Objective Labs and Meds 08/22/22 06:16 08/22/22 06:16 Lab results: Laboratory Results - last 24 hr 08/21/22 08/21/22 08/21/22 16:51 16:51 16:51 WBC RBC Hgb Hct MCV MCH MCHC RDW Plt Count MPV Immature Gran % (Auto) Neut % (Auto) Lymph % (Auto) [place] % (Auto) Eos % (Auto) Baso % (Auto) Lymph # (Auto) [place] # (Auto) Eos # (Auto) Baso # (Auto) Abs Immat Gran (auto) Absolute Neuts (auto) Absolute Nucleated RBC Nucleated RBC % (auto) PT 11.8 INR 1.0 APTT 32.8 Sodium 136 Potassium 4.5 Chloride 95 L Carbon Dioxide 29 Anion Gap 17 BUN 15 Creatinine 1.21 Estim Creat Clear Calc 80.1 Estimated GFR > 60 POC Glucose Random Glucose 131 H Calcium 10.2 D Magnesium 1.7 Total Bilirubin 1.1 H AST 12 ALT 10 Alkaline Phosphatase 83 Troponin I High Sens 5.5 D B-Natriuretic Peptide Total Protein 7.2 Albumin 3.9 Lipase 41 08/21/22 08/21/22 08/21/22 16:51 17:03 20:08 WBC 9.1 RBC 4.66 Hgb 14.3 Hct 42.5 MCV 91.2 MCH 30.7 MCHC 33.6 RDW 13.7 Plt Count 210 D MPV 9.4 Immature Gran % (Auto) 0.2 Neut % (Auto) 65.2 Lymph % (Auto) 26.6 [place] % (Auto) 7.3 Eos % (Auto) 0.4 Baso % (Auto) 0.3 Lymph # (Auto) 2.4 [place] # (Auto) 0.7 Eos # (Auto) 0.0 Baso # (Auto) 0.0 Abs Immat Gran (auto) 0.02 Absolute Neuts (auto) 5.9 Absolute Nucleated RBC 0.000 Nucleated RBC % (auto) 0.0 PT INR APTT Sodium Potassium Chloride Carbon Dioxide Anion Gap BUN Creatinine Estim Creat Clear Calc Estimated GFR POC Glucose Random Glucose Calcium Magnesium Total Bilirubin AST ALT Alkaline Phosphatase Troponin I High Sens 5.4 B-Natriuretic Peptide 986 H Total Protein Albumin Lipase 08/22/22 08/22/22 08/22/22 06:16 06:16 07:40 WBC 7.1 RBC 4.41 L Hgb 13.4 L Hct 40.4 L MCV 91.6 MCH 30.4 MCHC 33.2 RDW 13.6 Plt Count 202 MPV 10.0 Immature Gran % (Auto) Neut % (Auto) Lymph % (Auto) [place] % (Auto) Eos % (Auto) Baso % (Auto) Lymph # (Auto) [place] # (Auto) Eos # (Auto) Baso # (Auto) Abs Immat Gran (auto) Absolute Neuts (auto) Absolute Nucleated RBC 0.000 Nucleated RBC % (auto) 0.0 PT INR APTT Sodium 137 Potassium 4.1 Chloride 98 Carbon Dioxide 30 H Anion Gap 13 BUN 13 Creatinine 1.09 Estim Creat Clear Calc 88.9 Estimated GFR > 60 POC Glucose 139 H Random Glucose 123 H Calcium 9.2 D Magnesium Total Bilirubin AST ALT Alkaline Phosphatase Troponin I High Sens B-Natriuretic Peptide Total Protein Albumin Lipase 08/22/22 11:19 WBC RBC Hgb Hct MCV MCH MCHC RDW Plt Count MPV Immature Gran % (Auto) Neut % (Auto) Lymph % (Auto) [place] % (Auto) Eos % (Auto) Baso % (Auto) Lymph # (Auto) [place] # (Auto) Eos # (Auto) Baso # (Auto) Abs Immat Gran (auto) Absolute Neuts (auto) Absolute Nucleated RBC Nucleated RBC % (auto) PT INR APTT Sodium Potassium Chloride Carbon Dioxide Anion Gap BUN Creatinine Estim Creat Clear Calc Estimated GFR POC Glucose 274 H Random Glucose Calcium Magnesium Total Bilirubin AST ALT Alkaline Phosphatase Troponin I High Sens B-Natriuretic Peptide Total Protein Albumin Lipase Imaging Radiologist's impression: Impressions Chest X-Ray 08/21/22 16:55 IMPRESSION: 1. Equivocal early infiltrate in the right lower lobe versus summation artifact from bronchovascular markings. 2. Subcentimeter left lung nodule described on CT from 07/17/2022 is not well seen in this examination due to small size. Assessment and Plan (1) CHF exacerbation: Status: Acute Patient wheezing and shortness of breath with elevated BNP in the setting of known LV systolic dysfunction. Appears to be secondary COPD exacerbation with a component of congestive heart failure. Would diurese him Lasix 20 mg IV b.i.d.. Strict intake and output chart needs to be pursued. Continue rate control are however would discontinue Cardizem therapy given his LV systolic dysfunction and switch him to digoxin and metoprolol therapy. Will also start him on neurohormonal modulation with Entresto and low-dose Aldactone therapy. Discussed with him the details about his overall cardiac condition and the risk associated with it. He understands any is agreeing that he will completely discontinue alcohol use and he said he is already not drinking for 33 days. Also importance of managing his atrial fibrillation was discussed. Continue management of his bronchospastic airway disease as per your care and would switch him to Xopenex for bronchodilation (2) Atrial fibrillation with rapid ventricular response: Status: Acute Atrial fibrillation with rapid ventricular response. As mentioned above switch to digoxin metoprolol therapy and maximize metoprolol therapy. May eventually require rhythm control approach although this can be pursued as an outpatient given his prior history. Will start him on oral anticoagulation therapy with Eliquis at 5 mg b.i.d. and hold his dual antiplatelet therapy given that he has vascular disease is stable. May eventually need additional antiplatelet therapy in addition to his oral anticoagulation therapy if intervention is planned on his vascular disease. Complete smoking cessation was advised. High-intensity statin therapy to be pursued. Will continue to follow with you Time Spent With Patient Time: Total time managing care of this patient today ____ minutes. Procedures Date of Service Date of Service: 08/22/22
--- NOTE | 2022-08-22 13:46 | HO.PM.IMPN ---
Subjective Subjective Date of Service: 08/22/22 Interval History: seen and examined this morning follow up for afib denies chest pain or palpitations reports shortness of breath is unchanged, intermittent dry cough Review of Systems Review of Systems: Yes all other systems are reviewed and are negative Constitutional Constitutional: Denies chills and Denies fever(s) ENT Ears, Nose, Mouth, and Throat: Denies dizziness Cardiovascular Cardiovascular: Denies chest pain, Denies palpitations and Reports dyspnea Respiratory Respiratory: Reports cough and Reports dyspnea Neurologic Neurologic: Denies dizziness Endocrine Endocrine: Denies palpitations Physical Exam Vital Signs: Vital Signs: Last Vital Signs Temp 97.6 F 08/22/22 11:20 Pulse 89 08/22/22 12:43 Resp 18 08/22/22 11:20 BP 109/70 08/22/22 11:20 Pulse Ox 95 08/22/22 11:20 O2 Del Method Room Air 08/22/22 11:20 BMI result Body Mass Index 29.1 Const: General: cooperative, comfortable, alert and awake Nutritional Appearance: average body habitus Orientation/consciousness: patient oriented x3 Resp: Other: bilateral wheezing Effort & Inspection: able to speak in complete sentences, no respiratory distress and no use of accessory muscles Cardio: Rate: tachycardic Heart sounds: S1 normal heart sound present and S2 normal heart sound present GI: Inspection: No distended Palpation (GI): Soft to palpation and nontender Skin: Other: warm and dry Neuro: General: patient oriented x3, moves all extremities and CN's II-XI intact bilaterally Extrem: General: Yes no pedal edema Objective Data Active Medications Acetaminophen (Acetaminophen 325 Mg Tablet) 650 mg PO Q6H PRN PRN Reason: Pain, Mild (Pain Scale 1-3) Albuterol Sulfate (Albuterol Sulfate 90 Mcg 8 Gm Inhaler) 2 puff INHALE Q6H PRN PRN Reason: dyspnea Albuterol/Ipratropium (Albuterol/Iprat 2.5/0.5mg 3 Ml Ampul.Neb) 3 ml INHALE RQ4H WHILE AWAKE PRN PRN Reason: Shortness of Breath/Wheezing Last Admin: 08/22/22 10:58 Dose: 3 ml Documented By: BRENDON Apixaban (Apixaban 5 Mg Tablet) 5 mg PO BID [facility] Bumetanide (Bumetanide 1 Mg/4 Ml Vial) 1 mg IVPUSH BID@0900,1700 [facility]; Protocol Last Admin: 08/22/22 12:13 Dose: 1 mg Documented By: MADELAINE Docusate Sodium (Docusate Sodium 100 Mg Capsule) 100 mg PO DAILY PRN PRN Reason: Constipation Glucose (Glucose Gel 15 Gm Gel..Gram.) 15 gm PO Q15M PRN; Protocol PRN Reason: per Hypoglycemia Standing Ord. Diltiazem HCl 125 mg/ Sodium (Chloride) 125 mls @ 0 mls/hr IVCONT .Q0M [facility]; Protocol Last Titration: 08/22/22 12:44 Dose: 5 mg/hr, 5 mls/hr Documented By: MADELAINE Dextrose (D10) 250 mls @ 750 mls/hr IV Q15M PRN; Protocol PRN Reason: per Hypoglycemia Standing Ord. Insulin Human Lispro (Insulin Lispro 100 Unit/Ml 3 Ml Vial) 0 unit SUBCUT QIDACHS [facility]; Protocol Last Admin: 08/22/22 12:12 Dose: 6 unit Documented By: MADELAINE Methylprednisolone Sodium Succinate (Methylprednisolone Sod Succ 40 Mg/Ml Vial) 40 mg IVPUSH Q12H [facility] Last Admin: 08/22/22 12:12 Dose: 40 mg Documented By: MADELAINE Metoprolol Succinate (Metoprolol Succinate Er 50 Mg Tab.Er.24h) 50 mg PO BID [facility]; Protocol Last Admin: 08/22/22 12:12 Dose: 50 mg Documented By: MADELAINE Multivitamins/Vitamin C (Multivitamin Tablet) 1 tab PO DAILY [facility] Last Admin: 08/22/22 07:51 Dose: 1 tab Documented By: MADELAINE Nicotine (Nicotine 21 Mg Patch.Td24) 21 mg TRANSDERMA DAILY [facility] Last Admin: 08/22/22 07:51 Dose: 21 mg Documented By: MADELAINE Non-Formulary Medication (Apxtnikguuw-Uwnhdclph-Zdewrnqf [Trelegy Ellipta]) 1 inhalation INHALE DAILY [facility] Ondansetron HCl (Ondansetron Hcl 4 Mg/2 Ml Vial) 4 mg IVPUSH Q8H PRN PRN Reason: Nausea and Vomiting Pharmacy Consult (Consult Rx Perform Med Rec) 1 each MISCELLANE ONCE PRN PRN Reason: Consult order Sacubitril/Valsartan (Sacubitril/Valsartan 1 Tab Tablet) 1 tab PO BID [facility]; Protocol Sodium Chloride (0.9 % Sodium Chloride Flush 3 Ml Syringe) 3 ml IVFLUSH QSHIFT [facility] Last Admin: 08/22/22 07:48 Dose: Not Given Documented By: MADELAINE Non-Admin Reason: IV Running Labs 08/22/22 06:16 08/22/22 06:16 Labs: Laboratory Results - last 24 hr 08/21/22 08/21/22 08/21/22 16:51 16:51 16:51 MCV MCH MCHC RDW Plt Count MPV Immature Gran % (Auto) Neut % (Auto) Lymph % (Auto) [place] % (Auto) Eos % (Auto) Baso % (Auto) Lymph # (Auto) [place] # (Auto) Eos # (Auto) Baso # (Auto) Abs Immat Gran (auto) Absolute Neuts (auto) Absolute Nucleated RBC Nucleated RBC % (auto) PT 11.8 INR 1.0 APTT 32.8 Anion Gap 17 Estim Creat Clear Calc 80.1 Estimated GFR > 60 POC Glucose Random Glucose 131 H Calcium 10.2 D Magnesium 1.7 Total Bilirubin 1.1 H AST 12 ALT 10 Alkaline Phosphatase 83 Troponin I High Sens 5.5 D B-Natriuretic Peptide Total Protein 7.2 Albumin 3.9 Lipase 41 08/21/22 08/21/22 08/21/22 16:51 17:03 20:08 MCV 91.2 MCH 30.7 MCHC 33.6 RDW 13.7 Plt Count 210 D MPV 9.4 Immature Gran % (Auto) 0.2 Neut % (Auto) 65.2 Lymph % (Auto) 26.6 [place] % (Auto) 7.3 Eos % (Auto) 0.4 Baso % (Auto) 0.3 Lymph # (Auto) 2.4 [place] # (Auto) 0.7 Eos # (Auto) 0.0 Baso # (Auto) 0.0 Abs Immat Gran (auto) 0.02 Absolute Neuts (auto) 5.9 Absolute Nucleated RBC 0.000 Nucleated RBC % (auto) 0.0 PT INR APTT Anion Gap Estim Creat Clear Calc Estimated GFR POC Glucose Random Glucose Calcium Magnesium Total Bilirubin AST ALT Alkaline Phosphatase Troponin I High Sens 5.4 B-Natriuretic Peptide 986 H Total Protein Albumin Lipase 08/22/22 08/22/22 08/22/22 06:16 06:16 07:40 MCV 91.6 MCH 30.4 MCHC 33.2 RDW 13.6 Plt Count 202 MPV 10.0 Immature Gran % (Auto) Neut % (Auto) Lymph % (Auto) [place] % (Auto) Eos % (Auto) Baso % (Auto) Lymph # (Auto) [place] # (Auto) Eos # (Auto) Baso # (Auto) Abs Immat Gran (auto) Absolute Neuts (auto) Absolute Nucleated RBC 0.000 Nucleated RBC % (auto) 0.0 PT INR APTT Anion Gap 13 Estim Creat Clear Calc 88.9 Estimated GFR > 60 POC Glucose 139 H Random Glucose 123 H Calcium 9.2 D Magnesium Total Bilirubin AST ALT Alkaline Phosphatase Troponin I High Sens B-Natriuretic Peptide Total Protein Albumin Lipase 08/22/22 11:19 MCV MCH MCHC RDW Plt Count MPV Immature Gran % (Auto) Neut % (Auto) Lymph % (Auto) [place] % (Auto) Eos % (Auto) Baso % (Auto) Lymph # (Auto) [place] # (Auto) Eos # (Auto) Baso # (Auto) Abs Immat Gran (auto) Absolute Neuts (auto) Absolute Nucleated RBC Nucleated RBC % (auto) PT INR APTT Anion Gap Estim Creat Clear Calc Estimated GFR POC Glucose 274 H Random Glucose Calcium Magnesium Total Bilirubin AST ALT Alkaline Phosphatase Troponin I High Sens B-Natriuretic Peptide Total Protein Albumin Lipase Assessment and Plan (1) Atrial fibrillation with rapid ventricular response: Status: Acute (2) CHF exacerbation: Status: Acute Plan Pt is a 56-year-old male with a PMH significant for?SVT, paroxysmal AFib not on anticoagulation, alcohol abuse with a hx of withdrawal, non insulin-dependent diabetes type 2, COPD, HFrEF, and current smoker of 1 and half packs per day who presents to the ED from Cardiology office for evaluation of AFib with RVR. Pt will be admitted to the hospital under observation on telemetry for further evaluation and treatment of AFib with RVR. AFib with RVR HR uncontrolled resume home dose of metoprolol and wean off cardizem drip start digoxin, got two doses IV dig in ED, will give third IV dose and then po maintenance not previously on AC due to etoh, will start Eliquis - will stop aspirin, plavix Cardiology following acute on chronic HFrEF Echocardiogram on 07/18/2022 found EF of 30-35% with moderate global hypokinesis will switch po to IV bumex start entreso start aldactone follow Is&Os Acute exacerbation of COPD continue formulary equivalent for trelegy start solu-medrol xopenex scheduled and prn Nicotine dependence Patient currently smokes 1 and half packs per day continue NRT Smoking cessation advised Wua-iizgqwq-nywqgdent diabetes Hold metformin Sliding-scale insulin Diabetic diet Alcohol use disorder Pt with history of alcohol withdrawal Says hasn't had a drink since last admission, 33 days ago no evidence of acute alcohol withdrawal at this time CIWA 0 HTN continue metoprolol hold lisinopril Full Code Attending:?Dr. Davila DVT Prophylaxis: Jodi patient requires ongoing inpatient hospitalization for management of atrial fibrillation with rapid ventricular response, IV diuresis for CHF and IV steroids for COPD exacerbation Time Spent With Patient Time: Total time managing care of this patient today ____ minutes. Quality Stroke Does the patient have a stroke diagnosis?: No VTE Prior VTE?: No VTE Risk Level:: Medical - moderate - high VTE Device Contraindication: Treatment Not Indicated VTE Drug Contraindication: N/A - Med Ordered
[2022-08-22] MEDS: Digoxin 0.5 MG/2 ML AMPUL 0.25 MG IVPUSH (14:23)
[2022-08-22] MEDS: 0.9 % Sodium Chloride Flush 3 ML SYRINGE IVFLUSH ×2 (14:24→21:36)
[2022-08-22 15:36] LABS: Glucose, Whole Blood 138 mg/dL (60-115)
[2022-08-22] MEDS: Metoprolol Tartrate 25 MG TABLET PO ×2 (17:14→23:47)
[2022-08-22] MEDS: levalbuterol HCL 1.25 MG/3 ML VIAL.NEB INHALE (18:14)
[2022-08-22 20:15] LABS: Glucose, Whole Blood 384 mg/dL (60-115)
[2022-08-22] MEDS: Metoprolol Tartrate 5 MG/5 ML VIAL IVPUSH (21:35)
[2022-08-22] MEDS: Apixaban 5 MG TABLET PO (21:35)
[2022-08-22] MEDS: Sacubitril/Valsartan 24/26 1 TAB TABLET PO (21:35)
[2022-08-23] VITALS (7 sets, daily range): BP systolic 92–123; BP diastolic 68–82; PULSE 89–123; RESP 16–20; TEMP 35.9–36.9; O2SAT 93–95
[2022-08-23] MEDS: levalbuterol HCL 1.25 MG/3 ML VIAL.NEB INHALE ×2 (00:04→11:28)
[2022-08-23] MEDS: dilTIAZem HCL 125 MG in 0.9 % Sodium Chloride 100 ML IVCONT (04:17)
[2022-08-23] MEDS: Metoprolol Tartrate 25 MG TABLET PO (05:19)
[2022-08-23 06:32] LABS: Anion Gap 16 (12-20); Blood Urea Nitrogen 16 mg/dL (9-16); Carbon Dioxide 24 mmol/L (22-29); Chloride 99 mmol/L (96-108); Creatinine Clr Calc Pharmacy 98.9; Estimated Glomerular Filt Rate > 60; Glucose Random 272 mg/dL (60-115); Magnesium 1.7 mg/dL (1.6-2.6); Potassium 4.1 mmol/L (3.3-5.1); Sodium 135 mmol/L (135-145)
[2022-08-23 07:32] LABS: Glucose, Whole Blood 258 mg/dL (60-115)
[2022-08-23] MEDS: Insulin Lispro 100 UNIT/ML 3 ML VIAL SUBCUT ×4 (07:40→21:15)
[2022-08-23] MEDS: Sacubitril/Valsartan 24/26 1 TAB TABLET PO ×2 (07:41→21:15)
[2022-08-23] MEDS: Spironolactone 25 MG TABLET 12.5 MG PO (07:41)
[2022-08-23] MEDS: Digoxin 0.125 MG TABLET PO ×2 (07:41→11:42)
[2022-08-23] MEDS: Apixaban 5 MG TABLET PO ×2 (07:42→21:15)
[2022-08-23] MEDS: Nicotine 21 MG PATCH.TD24 TRANSDERMA (07:42)
[2022-08-23] MEDS: Multivitamin TABLET 1 TAB PO (07:42)
[2022-08-23] MEDS: Bumetanide 1 MG/4 ML VIAL IVPUSH ×2 (07:43→16:20)
[2022-08-23] MEDS: 0.9 % Sodium Chloride Flush 3 ML SYRINGE IVFLUSH ×3 (07:45→21:16)
--- NOTE | 2022-08-23 10:56 | P.PNCA_ITS ---
Subjective Subjective Date of Service: 08/23/22 Principal diagnosis: CHF, atrial fibrillation Interval history: Patient rate remains difficult control. Overnight was started back on Cardizem drip. His breathing is improved. He is not wheezing as much. Has diuresed although no output recorded again on him. He has developed generalized shakes which is suggestive of alcohol withdrawal but he vehemently denies using alcohol in the last 33 days Review of Systems Constitutional: Reports no additional constitutional complaints Cardiovascular: Reports no additional cardiovascular complaints Genitourinary: Reports no additional male genitourinary complaints Musculoskeletal: Reports no additional musculoskeletal complaints Physical Exam Vital Signs: Last Vital Signs Temp 97.8 F 08/23/22 07:33 Pulse 118 H 08/23/22 07:33 Resp 20 08/23/22 07:33 BP 110/80 08/23/22 07:33 Pulse Ox 93 08/23/22 07:33 O2 Del Method Room Air 08/23/22 07:33 BMI result Body Mass Index 29.1 Const General: cooperative, comfortable, anxious and other (Generalized shakiness) Nutritional Appearance: overweight Orientation/consciousness: patient oriented x3 Neck Neck: Yes trachea midline, Yes supple and Yes no JVD Resp Effort & Inspection: normal respiratory effort Auscultation: clear to auscultation bilaterally Cardio Jugular venous distension: no JVD Rate: tachycardic Rhythm: abnormal rhythm irregularly irregular Heart sounds: S1 normal heart sound present, S2 normal heart sound present, no click, no gallops, no murmurs and no rubs Skin General skin exam: no rashes or lesions noted Neuro General: patient oriented x3 and no focal motor deficits Extrem General: Yes no clubbing, cyanosis or edema Objective Labs and Meds 08/22/22 06:16 08/23/22 06:06 Lab results: Laboratory Results - last 24 hr 08/22/22 08/22/22 08/22/22 11:19 15:30 20:11 Sodium Potassium Chloride Carbon Dioxide Anion Gap BUN Creatinine Estim Creat Clear Calc Estimated GFR POC Glucose 274 H 138 H 384 H* Random Glucose Calcium Magnesium 08/23/22 08/23/22 06:06 07:28 Sodium 135 Potassium 4.1 Chloride 99 Carbon Dioxide 24 Anion Gap 16 BUN 16 Creatinine 0.98 Estim Creat Clear Calc 98.9 Estimated GFR > 60 POC Glucose 258 H Random Glucose 272 H Calcium 9.0 Magnesium 1.7 Progress Note: A&P Assessment and plan (1) CHF exacerbation: Status: Acute Assessment and Plan: CHF exacerbation which is improved with IV diuresis. He has wheezing has impr alex. His breathing is improved. Continue IV diuresis for 1 more day. He has severe LV systolic dysfunction will continue to maximize neurohormonal modulation with Entresto and Aldactone as well as metoprolol therapy. Requires better rate control. 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 Better rate control will be pursued and if not will pursue rhythm control approach. This was discussed with him. Please follow-up BMP and BNP. (2) Atrial fibrillation with rapid ventricular response: Status: Acute Assessment and Plan: Atrial fibrillation rapid ventricular response is difficult control. I would avoid using Cardizem in him. Increase digoxin to 0.25 mg daily and increase metoprolol to 50 mg q.6 hours and continue to maximize it on a daily basis. If rate remains difficult control will pursue rhythm control approach with YOAV guided cardioversion. Continue full oral anticoagulation with Eliquis. Patient needs treatment for his anxiety syndrome. Will continue to follow with you Time Spent With Patient Time: Total time managing care of this patient today ____ minutes. Progress Note: Quality Stroke Does the patient have a stroke diagnosis?: No Procedures Date of Service Date of Service: 08/23/22
[2022-08-23 11:40] LABS: Glucose, Whole Blood 327 mg/dL (60-115)
[2022-08-23] MEDS: LORazepam 1 MG TABLET 2 MG PO (11:42)
[2022-08-23] MEDS: Metoprolol Tartrate 50 MG TABLET PO ×2 (11:43→16:20)
[2022-08-23] MEDS: methylPREDNISolone Sod Succ 40 MG/ML VIAL IVPUSH (11:44)
[2022-08-23] MEDS: LORazepam 1 MG TABLET 0.5 MG PO ×3 (13:42→21:15)
--- NOTE | 2022-08-23 13:52 | P.PNIM_ITS ---
Subjective Subjective Date of Service: 08/23/22 Interval History: seen and examined this morning Follow-up for atrial fibrillation, COPD exacerbation, CHF Patient noted to be tremulous today, admittedly denies drinking alcohol. Denies use of any drugs with the exception of occasional marijuana denies chest pain, palpitations Review of Systems Review of Systems: Yes all other systems are reviewed and are negative Constitutional Constitutional: Denies chills and Denies fever(s) ENT Ears, Nose, Mouth, and Throat: Denies dizziness Cardiovascular Cardiovascular: Denies chest pain, Denies palpitations and Denies dyspnea Respiratory Respiratory: Denies cough and Denies dyspnea Neurologic Neurologic: Denies dizziness Endocrine Endocrine: Denies palpitations Physical Exam Vital Signs: Vital Signs: Last Vital Signs Temp 96.9 F 08/23/22 11:27 Pulse 89 08/23/22 11:27 Resp 18 08/23/22 11:30 BP 100/72 08/23/22 11:27 Pulse Ox 93 08/23/22 11:27 O2 Del Method Room Air 08/23/22 11:27 BMI result Body Mass Index 29.1 Const: Other: tremulous General: alert and awake Nutritional Appearance: overweight Orientation/consciousness: patient oriented x3 Eyes: Pupils: Equal, round and reactive pupils present Resp: Other: bilateral wheezing Effort & Inspection: able to speak in complete sentences, no respiratory distress and no use of accessory muscles Cardio: Rate: tachycardic Heart sounds: S1 normal heart sound present and S2 normal heart sound present GI: Inspection: No distended Palpation (GI): Soft to palpation and nontender Skin: Other: warm and dry Neuro: General: patient oriented x3, moves all extremities and CN's II-XI intact bilaterally Cranial nerves: Yes Equal, round and reactive pupils p resent Extrem: General: Yes no pedal edema Objective Data Active Medications Acetaminophen (Acetaminophen 325 Mg Tablet) 650 mg PO Q6H PRN PRN Reason: Pain, Mild (Pain Scale 1-3) Apixaban (Apixaban 5 Mg Tablet) 5 mg PO BID [facility] Last Admin: 08/23/22 07:42 Dose: 5 mg Documented By: MARQUIS Bumetanide (Bumetanide 1 Mg/4 Ml Vial) 1 mg IVPUSH BID@0900,1700 [facility]; Protocol Last Admin: 08/23/22 07:43 Dose: 1 mg Documented By: MARQUIS Digoxin (Digoxin 0.25 Mg Tablet) 0.25 mg PO DAILY [facility] Docusate Sodium (Docusate Sodium 100 Mg Capsule) 100 mg PO DAILY PRN PRN Reason: Constipation Glucose (Glucose Gel 15 Gm Gel..Gram.) 15 gm PO Q15M PRN; Protocol PRN Reason: per Hypoglycemia Standing Ord. Dextrose (D10) 250 mls @ 750 mls/hr IV Q15M PRN; Protocol PRN Reason: per Hypoglycemia Standing Ord. Insulin Human Lispro (Insulin Lispro 100 Unit/Ml 3 Ml Vial) 0 unit SUBCUT QIDACHS [facility]; Protocol Last Admin: 08/23/22 11:43 Dose: 8 unit Documented By: MARQUIS Levalbuterol HCl (Levalbuterol Hcl 1.25 Mg/3 Ml Vial.Neb) 1.25 mg INHALE RQ4H WHILE AWAKE PRN PRN Reason: Shortness of Breath Levalbuterol HCl (Levalbuterol Hcl 1.25 Mg/3 Ml Vial.Neb) 1.25 mg INHALE RQ6H [facility] Last Admin: 08/23/22 11:28 Dose: 1.25 mg Documented By: BRENDON Lorazepam (Lorazepam 1 Mg Tablet) 1 mg PO Q4H PRN PRN Reason: Breakthrough alcohol withdrawa Stop: 08/27/22 11:06 Lorazepam (Lorazepam 1 Mg Tablet) 1 mg PO Q4H [facility]; Taper Stop: 08/27/22 13:14 Last Admin: 08/23/22 13:42 Dose: 1 mg Documented By: MARQUIS Methylprednisolone Sodium Succinate (Methylprednisolone Sod Succ 40 Mg/Ml Vial) 40 mg IVPUSH Q12H [facility] Last Admin: 08/23/22 11:44 Dose: 40 mg Documented By: MARQUIS Metoprolol Tartrate (Metoprolol Tartrate 50 Mg Tablet) 50 mg PO Q6H [facility]; Protocol Last Admin: 08/23/22 11:43 Dose: 50 mg Documented By: MARQUIS Multivitamins/Vitamin C (Multivitamin Tablet) 1 tab PO DAILY [facility] Last Admin: 08/23/22 07:42 Dose: 1 tab Documented By: MARQUIS Nicotine (Nicotine 21 Mg Patch.Td24) 21 mg TRANSDERMA DAILY [facility] Last Admin: 08/23/22 07:42 Dose: 21 mg Documented By: MARQUIS Non-Formulary Medication (Tfvcufsgoud-Muhwmiplr-Xusevglk [Trelegy Ellipta]) 1 inhalation INHALE DAILY [facility] Ondansetron HCl (Ondansetron Hcl 4 Mg/2 Ml Vial) 4 mg IVPUSH Q8H PRN PRN Reason: Nausea and Vomiting Pharmacy Consult (Consult Rx Perform Med Rec) 1 each MISCELLANE ONCE PRN PRN Reason: Consult order Pharmacy Consult (Consult Rx Etoh Phenob Im/Po) 1 each MISCELLANE ONCE PRN; Protocol PRN Reason: Consult order Sacubitril/Valsartan (Sacubitril/Valsartan 1 Tab Tablet) 1 tab PO BID [facility]; Protocol Last Admin: 08/23/22 07:41 Dose: 1 tab Documented By: MARQUIS Sodium Chloride (0.9 % Sodium Chloride Flush 3 Ml Syringe) 3 ml IVFLUSH QSHIFT [facility] Last Admin: 08/23/22 07:45 Dose: 3 ml Documented By: MARQUIS Spironolactone (Spironolactone 25 Mg Tablet) 12.5 mg PO DAILY [facility]; Protocol Last Admin: 08/23/22 07:41 Dose: 12.5 mg Documented By: MARQUIS Labs 08/22/22 06:16 08/23/22 06:06 Labs: Laboratory Results - last 24 hr 08/22/22 08/22/22 08/23/22 15:30 20:11 06:06 Anion Gap 16 Estim Creat Clear Calc 98.9 Estimated GFR > 60 POC Glucose 138 H 384 H* Random Glucose 272 H Calcium 9.0 Magnesium 1.7 08/23/22 08/23/22 07:28 11:36 Anion Gap Estim Creat Clear Calc Estimated GFR POC Glucose 258 H 327 H Random Glucose Calcium Magnesium Assessment and Plan (1) Atrial fibrillation with rapid ventricular response: Status: Acute (2) CHF exacerbation: Status: Acute Plan Pt is a 56-year-old male with a PMH significant for?SVT, paroxysmal AFib not on anticoagulation, alcohol abuse with a hx of withdrawal, non insulin-dependent diabetes type 2, COPD, HFrEF, and current smoker of 1 and half packs per day who presents to the ED from Cardiology office for evaluation of AFib with RVR. Pt will be admitted to the hospital under observation on telemetry for further evaluation and treatment of AFib with RVR. AFib with RVR HR uncontrolled. resumed on Cardizem drip overnight increase dose of metoprolol and stop cardizem drip, continue digoxin not previously on AC due to etoh, started on Eliquis - will stop aspirin, plavix Cardiology following acute on chronic HFrEF Echocardiogram on 07/18/2022 found EF of 30-35% with moderate global hypokinesis will switch po to IV bumex start entreso start aldactone follow Is&Os, continue low sodium diet possible etoh withdrawal pt adamantly denies etoh use for the past month but appears tremulous, anxious and CIWA trending up refusing phenobarbital, will start ativan protocol Acute exacerbation of COPD continue formulary equivalent for trelegy continue IV solu-medrol xopenex scheduled and prn Nicotine dependence Patient currently smokes 1 and half packs per day continue NRT Smoking cessation advised Auv-[id number] diabetes Hold metformin sugars elevated, will check Hba1c continue Sliding-scale insulin Diabetic diet Alcohol use disorder Pt with history of alcohol withdrawal Says hasn't had a drink since last admission, 33 days ago no evidence of acute alcohol withdrawal at this time CIWA 0 HTN continue metoprolol hold lisinopril Full Code Attending:?Dr. Matamoros DVT Prophylaxis: Jodi patient requires ongoing inpatient hospitalization for management of atrial fibrillation with rapid ventricular response, IV diuresis for CHF and IV steroids for COPD exacerbation Time Spent With Patient Time: Total time managing care of this patient today ____ minutes. Quality Stroke Does the patient have a stroke diagnosis?: No VTE Prior VTE?: No VTE Risk Level:: Medical - moderate - high VTE Device Contraindication: Treatment Not Indicated VTE Drug Contraindication: N/A - Med Ordered
[2022-08-23] MEDS: Magnesium Sulfate/H2O 2 GM/50 ML PIGGYBACK IV (14:33)
[2022-08-23 15:43] LABS: Estimated Average Glucose 143 mg/dL; Hemoglobin A1c % 6.6 %
[2022-08-23 16:05] LABS: Glucose, Whole Blood 252 mg/dL (60-115)
--- NOTE | 2022-08-23 19:18 | PC.NURSE ---
on 08/22 around 20:00 pt's rhythm was Afib with heart rate sustaining in the 130-140s and jumping up to 160s with ambulation. MD ordered metoprolol IV without good effect. Pt was also given oral metoprolol without good effect. Around 3:26am on 08/23 pt's HR was still sustaining in the 140s so per MD the Cardizem drip was restarted at 5ml/hr. Will continue to monitor.
[2022-08-23 20:55] LABS: Glucose, Whole Blood 312 mg/dL (60-115)
[2022-08-24] VITALS (9 sets, daily range): BP systolic 84–127; BP diastolic 62–89; PULSE 102–129; RESP 16–24; TEMP 36.1–36.7; O2SAT 87–98
[2022-08-24] MEDS: methylPREDNISolone Sod Succ 40 MG/ML VIAL IVPUSH ×2 (00:07→12:08)
[2022-08-24] MEDS: LORazepam 1 MG TABLET 0.5 MG PO ×5 (01:46→18:41)
[2022-08-24] MEDS: Metoprolol Tartrate 50 MG TABLET PO ×5 (01:46→22:08)
[2022-08-24] MEDS: levalbuterol HCL 1.25 MG/3 ML VIAL.NEB INHALE ×2 (03:57→11:24)
[2022-08-24 06:36] LABS: MANUAL DIFF FLAG NO
--- NOTE | 2022-08-24 06:43 | PM.EVENT ---
Event Note Date of Service: 08/24/22 Event Note: overnight patient has significant tachycardia with heart rate in the 120s to 150s consistently. At some point patient was hypotensive with BP in the 80s over 40s. after discussion with Cardiology, patient will require cardioversion today. Made NPO Time Spent With Patient Time: Total time managing care of this patient today ____ minutes.
[2022-08-24 06:52] LABS: Basophils Percent Auto 0.1 % (0-2); Hematocrit 48.2 % (42.0-52.0); Hemoglobin 16.2 g/dl (14.0-18.0); Imm Gran Abs Auto 0.13 X10*3/uL (0.00-0.03); Imm Gran Pct Auto 0.7 % (0.0-0.4); Lymphocytes Absolute Auto 1.3 X10*3/uL (1.2-4.9); Lymphocytes Percent Auto 6.7 % (20-40); Mean Corpuscular HGB Conc 33.6 g/dl (31.0-36.0); Mean Corpuscular Hemoglobin 30.4 pg (27.0-33.0); Mean Corpuscular Volume 90.4 fL (80.0-98.0); Mean Platelet Volume 10.3 fL (9.4-12.4); Monocytes Absolute Auto 0.5 X10*3/uL (0.1-1.2); Monocytes Percent Auto 2.5 % (2-11); Neutrophils Absolute Auto 17.2 x10*3/uL (2.0-8.3); Platelet Count 311 X10*3/uL (160-400); Red Blood Count 5.33 X10*6/uL (4.60-5.80); Red Cell Distribution Width 13.7 % (11.0-16.0); White Blood Count 19.1 X10*3/uL (4.8-10.8)
[2022-08-24 06:56] LABS: Anion Gap 14 (12-20); Blood Urea Nitrogen 24 mg/dL (9-16); Carbon Dioxide 26 mmol/L (22-29); Chloride 100 mmol/L (96-108); Estimated Glomerular Filt Rate > 60; Glucose Random 243 mg/dL (60-115); Magnesium 2.1 mg/dL (1.6-2.6); Potassium 3.8 mmol/L (3.3-5.1); Sodium 136 mmol/L (135-145)
[2022-08-24 07:00] LABS: B Type Natriuretic Peptide 1007 pg/mL (<100)
[2022-08-24 07:40] LABS: Glucose, Whole Blood 391 mg/dL (60-115)
[2022-08-24] MEDS: Digoxin 0.25 MG TABLET PO (08:07)
[2022-08-24] MEDS: Insulin Lispro 100 UNIT/ML 3 ML VIAL SUBCUT ×5 (08:07→22:07)
[2022-08-24] MEDS: Multivitamin TABLET 1 TAB PO (08:07)
[2022-08-24] MEDS: Apixaban 5 MG TABLET PO ×2 (08:07→22:08)
[2022-08-24] MEDS: Nicotine 21 MG PATCH.TD24 TRANSDERMA (08:07)
[2022-08-24] MEDS: 0.9 % Sodium Chloride Flush 3 ML SYRINGE IVFLUSH ×3 (08:08→22:09)
[2022-08-24 11:50] LABS: Glucose, Whole Blood 189 mg/dL (60-115)
--- NOTE | 2022-08-24 12:31 | PM.PNCARD ---
Subjective Subjective Date of Service: 08/24/22 Principal diagnosis: CHF, atrial fibrillation Interval history: Patient remains persistently tachycardic despite increasing medication and has developed low blood pressure now. Denies any shortness of breath. Review of Systems Constitutional: Reports no additional constitutional complaints Cardiovascular: Denies chest pain, Reports rapid heart rate, Denies leg edema, Denies lightheadedness, Denies Loss of Consciousness, Reports dyspnea on exertion and Reports other (Low blood pressure) Respiratory: Reports dyspnea on exertion and Denies wheezing Reports system reviewed and no additional complaints, except as documented Psychiatric: Reports no additional psychiatric complaints Allergic/Immunologic: Denies wheezing Physical Exam Vital Signs: Last Vital Signs Temp 98 F 08/24/22 11:27 Pulse 120 H 08/24/22 11:27 Resp 16 08/24/22 11:27 BP 118/62 08/24/22 11:27 Pulse Ox 95 08/24/22 11:27 O2 Del Method Nasal Cannula 08/24/22 11:27 O2 Flow Rate 2 08/24/22 11:27 BMI result Body Mass Index 29.1 Const General: cooperative, comfortable, anxious and other (Generalized shakiness) Nutritional Appearance: overweight Orientation/consciousness: patient oriented x3 Neck Neck: Yes trachea midline, Yes supple and Yes no JVD Resp Effort & Inspection: normal respiratory effort Auscultation: clear to auscultation bilaterally Cardio Jugular venous distension: no JVD Rate: tachycardic Rhythm: abnormal rhythm irregularly irregular Heart sounds: S1 normal heart sound present, S2 normal heart sound present, no click, no gallops, no murmurs and no rubs Skin General skin exam: no rashes or lesions noted Neuro General: patient oriented x3 and no focal motor deficits Extrem General: Yes no clubbing, cyanosis or edema Objective Labs and Meds 08/24/22 05:48 08/24/22 05:47 Lab results: Laboratory Results - last 24 hr 08/23/22 08/23/22 08/23/22 06:16 16:01 20:49 WBC RBC Hgb Hct MCV MCH MCHC RDW Plt Count MPV Immature Gran % (Auto) Neut % (Auto) Lymph % (Auto) [place] % (Auto) Eos % (Auto) Baso % (Auto) Lymph # (Auto) [place] # (Auto) Eos # (Auto) Baso # (Auto) Abs Immat Gran (auto) Absolute Neuts (auto) Absolute Nucleated RBC Nucleated RBC % (auto) Sodium Potassium Chloride Carbon Dioxide Anion Gap BUN Creatinine Estim Creat Clear Calc Estimated GFR POC Glucose 252 H 312 H Random Glucose Estimat Average Glucose 143 Hemoglobin A1c % 6.6 Calcium Magnesium B-Natriuretic Peptide 08/24/22 08/24/22 08/24/22 05:47 05:47 05:48 WBC 19.1 H RBC 5.33 D Hgb 16.2 D Hct 48.2 MCV 90.4 MCH 30.4 MCHC 33.6 RDW 13.7 Plt Count 311 D MPV 10.3 Immature Gran % (Auto) 0.7 H Neut % (Auto) 90.0 H Lymph % (Auto) 6.7 L [place] % (Auto) 2.5 Eos % (Auto) 0.0 Baso % (Auto) 0.1 Lymph # (Auto) 1.3 [place] # (Auto) 0.5 Eos # (Auto) 0.0 Baso # (Auto) 0.0 Abs Immat Gran (auto) 0.13 H Absolute Neuts (auto) 17.2 H Absolute Nucleated RBC 0.000 Nucleated RBC % (auto) 0.0 Sodium 136 Potassium 3.8 Chloride 100 Carbon Dioxide 26 Anion Gap 14 BUN 24 H Creatinine 0.95 Estim Creat Clear Calc 102.0 Estimated GFR > 60 POC Glucose Random Glucose 243 H Estimat Average Glucose Hemoglobin A1c % Calcium 9.0 Magnesium 2.1 B-Natriuretic Peptide 1007 H 08/24/22 08/24/22 07:37 11:39 WBC RBC Hgb Hct MCV MCH MCHC RDW Plt Count MPV Immature Gran % (Auto) Neut % (Auto) Lymph % (Auto) [place] % (Auto) Eos % (Auto) Baso % (Auto) Lymph # (Auto) [place] # (Auto) Eos # (Auto) Baso # (Auto) Abs Immat Gran (auto) Absolute Neuts (auto) Absolute Nucleated RBC Nucleated RBC % (auto) Sodium Potassium Chloride Carbon Dioxide Anion Gap BUN Creatinine Estim Creat Clear Calc Estimated GFR POC Glucose 391 H* 189 H Random Glucose Estimat Average Glucose Hemoglobin A1c % Calcium Magnesium B-Natriuretic Peptide Imaging Radiologist's impression: Impressions Chest X-Ray 08/24/22 07:50 IMPRESSION: Unremarkable chest examination. Progress Note: A&P Assessment and plan (1) Atrial fibrillation with rapid ventricular response: Status: Acute Assessment and Plan: Atrial fibrillation rapid ventricular response despite up titrating medication cannot up titrate anymore due to low blood pressure at this point time. Patient will require YOAV guided cardioversion tomorrow. Please keep him NPO. Continue full oral anticoagulation Eliquis. Management plan was discussed with the patient and strongly advised to completely stop alcohol and he says that he has stopped it already and he is planning to not restart. (2) CHF exacerbation: Status: Acute Assessment and Plan: CHF exacerbation clinically looks better with no overt heart failure. Switch to p.o. Lasix. I think this is probably alcohol induced and/or tachycardia mediated systolic dysfunction. I thing a benefit especially that we not able to control his rate with rhythm control approach. He has developed low blood pressure. Will hold his Aldactone. If blood pressure remains low then would switch is Entresto to Diovan therapy. Continue metoprolol therapy. Continue to monitor strict intake and output chart. Will follow with you. Time Spent With Patient Time: Total time managing care of this patient today ____ minutes. Progress Note: Quality Stroke Does the patient have a stroke diagnosis?: No Procedures Date of Service Date of Service: 08/24/22
--- NOTE | 2022-08-24 13:46 | P.PNIM_ITS ---
Subjective Subjective Date of Service: 08/24/22 Interval History: seen and examined this morning Follow-up for CHF, rapid AFib Patient hypotensive overnight, asymptomatic. Continues with persistent tachycardia Denies chest pain, shortness of breath, palpitations frequently rude to myself and nurses Review of Systems Review of Systems: Yes all other systems are reviewed and are negative Constitutional Constitutional: Denies chills and Denies fever(s) ENT Ears, Nose, Mouth, and Throat: Denies dizziness Cardiovascular Cardiovascular: Denies chest pain, Denies palpitations and Denies dyspnea Respiratory Respiratory: Denies cough and Denies dyspnea Gastrointestinal Gastrointestinal: Denies abdominal pain, Denies nausea and Denies vomiting Neurologic Neurologic: Denies dizziness Endocrine Endocrine: Denies palpitations Physical Exam Vital Signs: Vital Signs: Last Vital Signs Temp 98 F 08/24/22 11:27 Pulse 120 H 08/24/22 11:27 Resp 16 08/24/22 11:27 BP 118/62 08/24/22 11:27 Pulse Ox 95 08/24/22 11:27 O2 Del Method Nasal Cannula 08/24/22 11:27 O2 Flow Rate 2 08/24/22 11:27 BMI result Body Mass Index 29.1 Const: General: alert and awake Nutritional Appearance: average body habitus and overweight Orientation/consciousness: patient oriented x3 Eyes: Pupils: Equal, round and reactive pupils present Resp: Other: bilateral wheezing - somewhat improved from yesterday Effort & Inspection: able to speak in complete sentences, no respiratory distress and no use of accessory muscles Cardio: Rate: tachycardic Heart sounds: S1 normal heart sound present and S2 normal heart sound present GI: Inspection: No distended Palpation (GI): Soft to palpation and nontender Skin: Other: warm and dry Neuro: General: patient oriented x3, moves all extremities and CN's II-XI intact bilaterally Cranial nerves: Yes Equal, round and reactive pupils present Extrem: General: Yes no pedal edema Objective Data Active Medications Acetaminophen (Acetaminophen 325 Mg Tablet) 650 mg PO Q6H PRN PRN Reason: Pain, Mild (Pain Scale 1-3) Apixaban (Apixaban 5 Mg Tablet) 5 mg PO BID KELSEA Last Admin: 08/24/22 08:07 Dose: 5 mg Documented By: MARQUIS Bumetanide (Bumetanide 1 Mg/4 Ml Vial) 1 mg IVPUSH BID@0900,1700 [facility]; Protocol Last Admin: 08/23/22 16:20 Dose: 1 mg Documented By: MARQUIS Digoxin (Digoxin 0.25 Mg Tablet) 0.25 mg PO DAILY [facility] Last Admin: 08/24/22 08:07 Dose: 0.25 mg Documented By: MARQUIS Docusate Sodium (Docusate Sodium 100 Mg Capsule) 100 mg PO DAILY PRN PRN Reason: Constipation Glucose (Glucose Gel 15 Gm Gel..Gram.) 15 gm PO Q15M PRN; Protocol PRN Reason: per Hypoglycemia Standing Ord. Dextrose (D10) 250 mls @ 750 mls/hr IV Q15M PRN; Protocol PRN Reason: per Hypoglycemia Standing Ord. Insulin Human Lispro (Insulin Lispro 100 Unit/Ml 3 Ml Vial) 0 unit SUBCUT QIDACHS [facility]; Protocol Last Admin: 08/24/22 12:08 Dose: 2 unit Documented By: MARQUIS Levalbuterol HCl (Levalbuterol Hcl 1.25 Mg/3 Ml Vial.Neb) 1.25 mg INHALE RQ4H WHILE AWAKE PRN PRN Reason: Shortness of Breath Levalbuterol HCl (Levalbuterol Hcl 1.25 Mg/3 Ml Vial.Neb) 1.25 mg INHALE RQ6H [facility] Last Admin: 08/24/22 11:24 Dose: 1.25 mg Documented By: BRENDON Lorazepam (Lorazepam 1 Mg Tablet) 1 mg PO Q4H PRN PRN Reason: Breakthrough alcohol withdrawa Stop: 08/27/22 11:06 Lorazepam (Lorazepam 1 Mg Tablet) 1 mg PO Q6H [facility]; Taper Stop: 08/27/22 13:14 Last Admin: 08/24/22 12:08 Dose: 1 mg Documented By: MARQUIS Methylprednisolone Sodium Succinate (Methylprednisolone Sod Succ 40 Mg/Ml Vial) 40 mg IVPUSH Q12H [facility] Last Admin: 08/24/22 12:08 Dose: 40 mg Documented By: MARQUIS Metoprolol Tartrate (Metoprolol Tartrate 50 Mg Tablet) 50 mg PO Q6H [facility]; Protocol Last Admin: 08/24/22 12:07 Dose: 50 mg Documented By: MARQUIS Multivitamins/Vitamin C (Multivitamin Tablet) 1 tab PO DAILY [facility] Last Admin: 08/24/22 08:07 Dose: 1 tab Documented By: MARQUIS Nicotine (Nicotine 21 Mg Patch.Td24) 21 mg TRANSDERMA DAILY [facility] Last Admin: 08/24/22 08:07 Dose: 21 mg Documented By: MARQUIS Non-Formulary Medication (Nusefykojvx-Lmeiztoty-Idpnwcvi [Trelegy Ellipta]) 1 inhalation INHALE DAILY [facility] Ondansetron HCl (Ondansetron Hcl 4 Mg/2 Ml Vial) 4 mg IVPUSH Q8H PRN PRN Reason: Nausea and Vomiting Pharmacy Consult (Consult Rx Perform Med Rec) 1 each MISCELLANE ONCE PRN PRN Reason: Consult order Pharmacy Consult (Consult Rx Etoh Phenob Im/Po) 1 each MISCELLANE ONCE PRN; Protocol PRN Reason: Consult order Sacubitril/Valsartan (Sacubitril/Valsartan 1 Tab Tablet) 1 tab PO BID [facility]; Protocol Last Admin: 08/23/22 21:15 Dose: 1 tab Documented By: AV Sodium Chloride (0.9 % Sodium Chloride Flush 3 Ml Syringe) 3 ml IVFLUSH QSHIFT [facility] Last Admin: 08/24/22 08:08 Dose: 3 ml Documented By: MARQUIS Spironolactone (Spironolactone 25 Mg Tablet) 12.5 mg PO DAILY [facility]; Protocol Last Admin: 08/23/22 07:41 Dose: 12.5 mg Documented By: MARQUIS Labs 08/24/22 05:48 08/24/22 05:47 Labs: Laboratory Results - last 24 hr 08/23/22 08/23/22 08/23/22 06:16 16:01 20:49 MCV MCH MCHC RDW Plt Count MPV Immature Gran % (Auto) Neut % (Auto) Lymph % (Auto) [place] % (Auto) Eos % (Auto) Baso % (Auto) Lymph # (Auto) [place] # (Auto) Eos # (Auto) Baso # (Auto) Abs Immat Gran (auto) Absolute Neuts (auto) Absolute Nucleated RBC Nucleated RBC % (auto) Anion Gap Estim Creat Clear Calc Estimated GFR POC Glucose 252 H 312 H Random Glucose Estimat Average Glucose 143 Hemoglobin A1c % 6.6 Calcium Magnesium B-Natriuretic Peptide 08/24/22 08/24/22 08/24/22 05:47 05:47 05:48 MCV 90.4 MCH 30.4 MCHC 33.6 RDW 13.7 Plt Count 311 D MPV 10.3 Immature Gran % (Auto) 0.7 H Neut % (Auto) 90.0 H Lymph % (Auto) 6.7 L [place] % (Auto) 2.5 Eos % (Auto) 0.0 Baso % (Auto) 0.1 Lymph # (Auto) 1.3 [place] # (Auto) 0.5 Eos # (Auto) 0.0 Baso # (Auto) 0.0 Abs Immat Gran (auto) 0.13 H Absolute Neuts (auto) 17.2 H Absolute Nucleated RBC 0.000 Nucleated RBC % (auto) 0.0 Anion Gap 14 Estim Creat Clear Calc 102.0 Estimated GFR > 60 POC Glucose Random Glucose 243 H Estimat Average Glucose Hemoglobin A1c % Calcium 9.0 Magnesium 2.1 B-Natriuretic Peptide 1007 H 08/24/22 08/24/22 07:37 11:39 MCV MCH MCHC RDW Plt Count MPV Immature Gran % (Auto) Neut % (Auto) Lymph % (Auto) [place] % (Auto) Eos % (Auto) Baso % (Auto) Lymph # (Auto) [place] # (Auto) Eos # (Auto) Baso # (Auto) Abs Immat Gran (auto) Absolute Neuts (auto) Absolute Nucleated RBC Nucleated RBC % (auto) Anion Gap Estim Creat Clear Calc Estimated GFR POC Glucose 391 H* 189 H Random Glucose Estimat Average Glucose Hemoglobin A1c % Calcium Magnesium B-Natriuretic Peptide Assessment and Plan (1) Atrial fibrillation with rapid ventricular response: Status: Acute (2) CHF exacerbation: Status: Acute Plan Pt is a 56-year-old male with a PMH significant for?SVT, paroxysmal AFib not on anticoagulation, alcohol abuse with a hx of withdrawal, non insulin-dependent diabetes type 2, COPD, HFrEF, and current smoker of 1 and half packs per day who presents to the ED from Cardiology office for evaluation of AFib with RVR. Pt will be admitted to the hospital under observation on telemetry for further evaluation and treatment of AFib with RVR. AFib with RVR HR remains uncontrolled. blood pressure low overnight, continues to be soft continue metoprolol, continue digoxin not previously on AC due to etoh, started on Eliquis - will stop aspirin, plavix Cardiology following - due to difficult to control heart rate plan for cardioversion in a.m.. NPO at midnight acute on chronic HFrEF Echocardiogram on 07/18/2022 found EF of 30-35% with moderate global hypokinesis s/p IV bumex, will transition back to home dose of po bumex entreso started 08/23, if bp continues to be soft would change to valsartan aldactone started 08/23, bp low overnight will hold possible etoh withdrawal h/o etoh use disorder pt adamantly denies etoh use for the past month but appears tremulous, anxious and CIWA trending up refusing phenobarbital, will start ativan protocol much less tremulous today (08/24) Acute exacerbation of COPD continue trelegy continue IV solu-medrol xopenex scheduled and prn Nicotine dependence Patient currently smokes 1 and half packs per day continue NRT Smoking cessation advised Unm-dfmyoaa-yldeghewr diabetes sugars elevated likely from steroids Hold metformin Hba1c 6.6 continue Sliding-scale insulin Diabetic diet HTN continue metoprolol hold lisinopril Full Code Attending:?Dr. Hanna DVT Prophylaxis: Jodi patient requires ongoing inpatient hospitalization for management of atrial fibrillation with rapid ventricular response, and IV steroids for COPD exacerbation Time Spent With Patient Time: Total time managing care of this patient today ____ minutes. Quality Stroke Does the patient have a stroke diagnosis?: No VTE Prior VTE?: No VTE Risk Level:: Medical - moderate - high VTE Device Contraindication: Treatment Not Indicated VTE Drug Contraindication: N/A - Med Ordered
[2022-08-24] MEDS: Bumetanide 1 MG TABLET PO (16:25)
[2022-08-24 16:35] LABS: Glucose, Whole Blood 257 mg/dL (60-115)
[2022-08-24 21:04] LABS: Glucose, Whole Blood 238 mg/dL (60-115)
[2022-08-24] MEDS: Sacubitril/Valsartan 24/26 1 TAB TABLET PO (22:08)
[2022-08-25] VITALS (9 sets, daily range): BP systolic 103–131; BP diastolic 68–82; PULSE 71–136; RESP 16–19; TEMP 36.1–36.7; O2SAT 90–98
[2022-08-25] MEDS: levalbuterol HCL 1.25 MG/3 ML VIAL.NEB INHALE (00:07)
[2022-08-25] MEDS: methylPREDNISolone Sod Succ 40 MG/ML VIAL IVPUSH ×2 (00:25→15:11)
[2022-08-25] MEDS: Metoprolol Tartrate 50 MG TABLET PO ×2 (05:33→09:12)
[2022-08-25 07:21] LABS: Glucose, Whole Blood 270 mg/dL (60-115)
[2022-08-25] MEDS: Digoxin 0.25 MG TABLET PO (09:11)
[2022-08-25] MEDS: LORazepam 1 MG TABLET 0.5 MG PO ×3 (09:11→17:46)
[2022-08-25] MEDS: Bumetanide 1 MG TABLET PO ×2 (09:12→17:46)
[2022-08-25] MEDS: Multivitamin TABLET 1 TAB PO (09:12)
[2022-08-25] MEDS: Apixaban 5 MG TABLET PO ×2 (09:12→21:47)
[2022-08-25] MEDS: Insulin Lispro 100 UNIT/ML 3 ML VIAL SUBCUT ×4 (09:12→21:47)
--- NOTE | 2022-08-25 10:19 | PM.PNCARD ---
Subjective Subjective Date of Service: 08/25/22 Principal diagnosis: CHF, atrial fibrillation Interval history: Patient states that he feels okay. No new complaints. No chest pain or shortness of breath or palpitations. Review of Systems Review of Systems Yes all other systems are reviewed and are negative Constitutional: Reports as per HPI and Reports no additional constitutional complaints Eyes: Reports as per HPI and Denies no additional eye complaints Denies system reviewed and no additional complaints, except as documented and Reports as per HPI Cardiovascular: Reports as per HPI, Reports no additional cardiovascular complaints, Denies acrocyanosis, Denies cool extremities, Denies chest pain, Denies leg edema, Denies lightheadedness, Denies palpitations and Denies dyspnea Respiratory: Reports as per HPI, Denies no additional respiratory complaints and Denies dyspnea Gastrointestinal: Reports as per HPI and Denies no additional gastrointestinal complaints Genitourinary: Reports no additional male genitourinary complaints and Reports as per HPI Musculoskeletal: Reports no additional musculoskeletal complaints and Reports as per HPI Skin/Breast: Reports system reviewed and no additional complaints, except as docu Reports system reviewed and no additional complaints, except as documented and Reports as per HPI Psychiatric: Reports no additional psychiatric complaints and Reports as per HPI Endocrine: Reports no additional endocrine complaints, Reports as per HPI and Denies palpitations Hematologic/Lymphatic: Reports no additional hematologic/lymphatic complaints and Reports as per HPI Allergic/Immunologic: Reports no additional allergic/immunologic complaints and Reports as per HPI Physical Exam Vital Signs: Last Vital Signs Temp 97.1 F 08/25/22 07:34 Pulse 81 08/25/22 07:34 Resp 18 08/25/22 07:34 BP 128/74 08/25/22 07:34 Pulse Ox 93 08/25/22 07:34 O2 Del Method Room Air 08/25/22 07:34 O2 Flow Rate 2 08/24/22 11:27 BMI result Body Mass Index 29.1 Const General: comfortable and no acute distress Orientation/consciousness: patient oriented x3 HEENT Other: Unremarkable Head: Yes normal to inspection Neck Neck: Yes normal visual inspection Chest Chest palpation & inspection: normal inspection of the chest Resp Auscultation: wheezes and diminished lung sounds Cardio Palpation: normal PMI Heart sounds: S1 normal heart sound present, S2 normal heart sound present, no gallops, no murmurs and no rubs GI Palpation (GI): Soft to palpation Back/Spine/Pelvis Other: unremarkable Skin General skin exam: no rashes or lesions noted Neuro General: patient oriented x3 Extrem General: Yes normal to inspection Psych Mental Status: mental status grossly normal Objective Labs and Meds 08/24/22 05:48 08/24/22 05:47 Lab results: Laboratory Results - last 24 hr 08/24/22 08/24/22 08/24/22 11:39 16:22 21:00 POC Glucose 189 H 257 H 238 H 08/25/22 07:17 POC Glucose 270 H Progress Note: A&P Assessment and plan (1) Atrial fibrillation with rapid ventricular response: Status: Acute (2) Cardiomyopathy: Status: Acute (3) Alcohol abuse: Status: Acute Plan Echocardiogram shows LVEF of 30-35%. Moderate global hypokinesis. EKG with atrial fibrillation rate of 138/Min. Cannot exclude old septal infarct. Nonspecific ST-T changes. Due to difficulty in controlling rate, he has been scheduled for a YOAV/cardioversion today. Currently remains on metoprolol, digoxin, Eliquis. Postprocedure, possibly short-term amiodarone. Abstinence from alcohol. Will follow up with you. Time Spent With Patient Time: Total time managing care of this patient today ____ minutes. Progress Note: Quality Stroke Does the patient have a stroke diagnosis?: No Procedures Date of Service Date of Service: 08/25/22
[2022-08-25] MEDS: 0.9 % Sodium Chloride Flush 3 ML SYRINGE IVFLUSH ×3 (10:23→19:52)
[2022-08-25] MEDS: Nicotine 21 MG PATCH.TD24 TRANSDERMA (10:23)
--- NOTE | 2022-08-25 10:23 | MHC.SHP ---
Pre-Procedural Eval Section A Date of Service: 08/25/22 The patient is an INPATIENT: Yes Section B Chief Complaint: Afib w/ RVR Allergies: Allergies Allergy/AdvReac Type Severity Reaction Status Date / Time No Known Allergies Allergy Verified 08/21/22 15:35 Plan I have reviewed the history and physical and performed a pertinent physical examination on my patient. No changes have occurred unless specified. Time Spent With Patient Time: Total time managing care of this patient today ____ minutes.
--- NOTE | 2022-08-25 10:23 | HO.CARDIVERS ---
Cardioversion Procedure Note Cardioversion Date of Procedure: 08/25/2022 Ordering Provider: Performing Provider: Indication for Procedure: Atrial fibrillation with rapid ventricular rate Pre-Op Diagnosis: Atrial fibrillation Post-Op Diagnosis: Sinus rhythm YOAV findings (if YOAV Performed): Reported separately History: See consultation Consent: Informed consent obtained. Procedure: After informed consent was obtained, patient was taken to the operating room. He was positioned appropriately. Transesophageal echocardiogram was performed which showed no evidence of left atrial appendage thrombus. Subsequently, 150 joules of synchronized shock was administered. The rhythm converted from atrial fibrillation to sinus rhythm. He remained in sinus rhythm with an the procedure. Complications: None. Impression: Successful cardioversion from atrial fibrillation to sinus rhythm. Recommendations: Start amiodarone. Stop digoxin. Based on the heart rates, may decrease the beta-shauna dosing.
[2022-08-25] MEDS: Sacubitril/Valsartan 24/26 1 TAB TABLET PO (10:26)
--- NOTE | 2022-08-25 11:00 | CA_ITS ---
Transesophageal Echocardiogram Patient (Last, First, Middle): Magdi Carson H Gender: Male Date of : 1965 Age: 56 Procedure Date: 08/25/2022 Procedure Type: Transesophageal Echocardiogram Location: [facility] [place] Height: 172.72 cm Weight: kg Medical Facilities Section Director: HOOD Referring MD: Edi Portillo MD Symptoms: AF/RVR Conclusion: ??? There is no evidence of a thrombus in the left atrial appendage. Findings Procedure Information The patient is being monitored per protocol. The quality of the study was good. Consent was obtained prior to the procedure. Pre YOAV oral cavity was checked and revealed no overcrowding. The adult 3D probe was passed with no difficulty. Left Ventricle Normal left ventricular cavity size. Due to atrial fibrillation with rapid rate, difficult to assess LVEF. Probably moderately reduced. Right Ventricle Normal right ventricular cavity size. Difficult to assess function. Probably reduced. Atria There is no evidence of a thrombus in the left atrial appendage. There is no evidence of interatrial shunt by color Doppler. Diminished velocities in the appendage. Aortic Valve There is a normal trileaflet aortic valve. There is no aortic valve stenosis. There is trace (trivial) aortic valve regurgitation. Mitral Valve The mitral valve appears normal. There is mild mitral valve regurgitation. There is no mitral valve stenosis. Pulmonic Valve The pulmonic valve was not well visualized. Tricuspid Valve There is mild tricuspid valve regurgitation. The right ventricular systolic pressure is not calculated. Great Vessels The asc aorta and aortic arch are normal in size. Pericardium/Pleural There is a trivial pericardial effusion. Prior Study Comparison No significant change compared to prior study dated: 07/18/2022. Updated by Edi Portillo on 04:15 PM with Status of Final Edi Portillo MD electronically signed on 08/25/2022 4:15:56 PM with status of Final
[2022-08-25 11:08] LABS: Glucose, Whole Blood 214 mg/dL (60-115)
--- NOTE | 2022-08-25 11:33 | HO.ANESPROP2 ---
Documented by User: Anna Sen MD 08/25/22 11:53 HPI - Anesthesia Eval Consult details Narrative: 56 yo male patient for YOAV, Cardioversion PMF Active Problems Active Problems: All Active Problems (Updated 08/25/22 @ 11:34 by Anna Sen MD) CHF exacerbation (Acute) Atrial fibrillation with rapid ventricular response (Acute) Atrial fibrillation with RVR (Acute) CHF (congestive heart failure) (Acute) Obesity (BMI 30-39.9) (Acute) Diabetes mellitus (Acute) Open toe wound (Acute) Congestive heart failure (Acute) Disorder of arteries and arterioles, unspecified (Acute) PAD (peripheral artery disease) (Acute) Paroxysmal nocturnal dyspnea (Acute) Obesity (BMI 30-39.9) (Acute) HTN (hypertension) (Acute) Foot pain, right (Acute) Screening for prostate cancer (Acute) Adult general medical exam (Acute) Screening for colon cancer (Acute) Diabetes (Acute) Spondylosis of lumbar spine (Acute) Spondylosis, thoracic (Acute) Low back pain (Acute) Mid back pain (Acute) Muscle spasm (Acute) S/P cardiac catheterization (Acute) Alcohol abuse (Acute) Smoking (Acute) COPD exacerbation (Acute) Dyspnea on exertion (Acute) Cardiomyopathy (Acute) Atrial flutter with rapid ventricular response (Acute) COPD (chronic obstructive pulmonary disease) (Acute) Past Medical History Medical History Alcohol abuse Atrial flutter with rapid ventricular response COPD (chronic obstructive pulmonary disease) Diabetes mellitus HTN (hypertension) Obesity (BMI 30-39.9) Smoking Family History Family History Father Cancer Mother Diabetes Hypertension Brother In good health Sister In good health Son In good health Daughter In good health Family history of problems with anesthesia: No Surgical History Surgical History No pertinent past surgical history History of Problems with Anesthesia: No Social History Social History Household Members: None Housing: Apartment Do you presently have visiting nurse or other home services: No Alcohol intake: current Alcohol intake frequency: former alcohol drinker Alcohol type: beer Patient Tobacco Use Status: Current everyday Tobacco user Tobacco use type: Cigarette Cigarette Packs Per Day: 1 Cigarettes Per Day: 20.0 Years Smoked: 40 +/- Smoked in Last 30 Days: Yes e-Cigarette/Vaping Use: Never Used Patient Interested in Nicotine Replacement: Yes Second Hand Smoke Exposure: No Use of substances other than those prescribed or required for medical reasons: Yes Substance Use Type: Marijuana Substance Use Frequency: Daily Are you DNR?: No Advance Directives: Yes Advance Directives Information Provided: No Advance Directives on File: Yes Advance Directives Date on File: 06/11/20 service: No Current occupational status: retired and disabled Cognitive needs: No Hearing needs: No Vision needs: Yes (reading glasses) Meds Allergies Allergy/AdvReac Type Severity Reaction Status Date / Time No Known Allergies Allergy Verified 08/21/22 15:35 Active Medications: Current Medications Acetaminophen (Acetaminophen 325 Mg Tablet) 650 mg PO Q6H PRN PRN Reason: Pain, Mild (Pain Scale 1-3) Apixaban (Apixaban 5 Mg Tablet) 5 mg PO BID [facility] Last Admin: 08/25/22 09:12 Dose: 5 mg Bumetanide (Bumetanide 1 Mg Tablet) 1 mg PO BID@0800,1700 [facility]; Protocol Last Admin: 08/25/22 09:12 Dose: 1 mg Digoxin (Digoxin 0.25 Mg Tablet) 0.25 mg PO DAILY [facility] Last Admin: 08/25/22 09:11 Dose: 0.25 mg Docusate Sodium (Docusate Sodium 100 Mg Capsule) 100 mg PO DAILY PRN PRN Reason: Constipation Glucose (Glucose Gel 15 Gm Gel..Gram.) 15 gm PO Q15M PRN; Protocol PRN Reason: per Hypoglycemia Standing Ord. Dextrose (D10) 250 mls @ 750 mls/hr IV Q15M PRN; Protocol PRN Reason: per Hypoglycemia Standing Ord. Insulin Human Lispro (Insulin Lispro 100 Unit/Ml 3 Ml Vial) 0 unit SUBCUT QIDACHS [facility]; Protocol Last Admin: 08/25/22 09:12 Dose: 6 unit Levalbuterol HCl (Levalbuterol Hcl 1.25 Mg/3 Ml Vial.Neb) 1.25 mg INHALE RQ4H WHILE AWAKE PRN PRN Reason: Shortness of Breath Levalbuterol HCl (Levalbuterol Hcl 1.25 Mg/3 Ml Vial.Neb) 1.25 mg INHALE RQ6H [facility] Last Admin: 08/25/22 11:21 Dose: Not Given Lorazepam (Lorazepam 1 Mg Tablet) 1 mg PO Q4H PRN PRN Reason: Breakthrough alcohol withdrawa Stop: 08/27/22 11:06 Lorazepam (Lorazepam 1 Mg Tablet) 1 mg PO Q6H [facility]; Taper Stop: 08/27/22 13:14 Last Admin: 08/25/22 09:11 Dose: 1 mg Methylprednisolone Sodium Succinate (Methylprednisolone Sod Succ 40 Mg/Ml Vial) 40 mg IVPUSH Q12H [facility] Last Admin: 08/25/22 00:25 Dose: 40 mg Metoprolol Tartrate (Metoprolol Tartrate 50 Mg Tablet) 50 mg PO Q6H [facility]; Protocol Last Admin: 08/25/22 09:12 Dose: 50 mg Multivitamins/Vitamin C (Multivitamin Tablet) 1 tab PO DAILY [facility] Last Admin: 08/25/22 09:12 Dose: 1 tab Nicotine (Nicotine 21 Mg Patch.Td24) 21 mg TRANSDERMA DAILY [facility] Last Admin: 08/25/22 10:23 Dose: 21 mg Non-Formulary Medication (Giacamypsdh-Fkdwnqfne-Ddfcgpkg [Trelegy Ellipta]) 1 inhalation INHALE DAILY [facility] Ondansetron HCl (Ondansetron Hcl 4 Mg/2 Ml Vial) 4 mg IVPUSH Q8H PRN PRN Reason: Nausea and Vomiting Pharmacy Consult (Consult Rx Perform Med Rec) 1 each MISCELLANE ONCE PRN PRN Reason: Consult order Pharmacy Consult (Consult Rx Etoh Phenob Im/Po) 1 each MISCELLANE ONCE PRN; Protocol PRN Reason: Consult order Sacubitril/Valsartan (Sacubitril/Valsartan 1 Tab Tablet) 1 tab PO BID [facility]; Protocol Last Admin: 08/25/22 10:26 Dose: 1 tab Sodium Chloride (0.9 % Sodium Chloride Flush 3 Ml Syringe) 3 ml IVFLUSH QSHIFT [facility] Last Admin: 08/25/22 10:23 Dose: 3 ml Spironolactone (Spironolactone 25 Mg Tablet) 12.5 mg PO DAILY [facility]; Protocol Last Admin: 08/23/22 07:41 Dose: 12.5 mg Home Medications Medication Instructions Recorded Confirmed Last Taken Type bumetanide 1 mg tablet 1 mg PO BID 08/21/22 08/21/22 08/21/22 History Exam Exam Date and Time: August 25, 2022 1133 Height,Weight and Vital Signs: Height 5 ft 11 in Weight 94.801 kg Last Vital Signs Temp 98.0 F 08/25/22 11:21 Pulse 136 H 08/25/22 11:21 Resp 18 08/25/22 11:21 BP 103/80 08/25/22 11:21 Pulse Ox 94 08/25/22 11:21 O2 Del Method Room Air 08/25/22 11:21 O2 Flow Rate 2 08/24/22 11:27 Pertinent Lab Results Pertinent Lab Results: Laboratory Tests 08/21/22 08/21/22 08/21/22 16:51 16:51 16:51 WBC RBC Hgb Hct MCV MCH MCHC RDW Plt Count MPV Immature Gran % (Auto) Neut % (Auto) Lymph % (Auto) Glasscock % (Auto) Eos % (Auto) Baso % (Auto) Lymph # (Auto) [place]cock # (Auto) Eos # (Auto) Baso # (Auto) Abs Immat Gran (auto) Absolute Neuts (auto) Absolute Nucleated RBC Nucleated RBC % (auto) PT 11.8 INR 1.0 APTT 32.8 Sodium 136 Potassium 4.5 Chloride 95 L Carbon Dioxide 29 Anion Gap 17 BUN 15 Creatinine 1.21 Estim Creat Clear Calc 80.1 Estimated GFR > 60 POC Glucose Random Glucose 131 H Estimat Average Glucose Hemoglobin A1c % Calcium 10.2 D Magnesium 1.7 Total Bilirubin 1.1 H AST 12 ALT 10 Alkaline Phosphatase 83 Troponin I High Sens 5.5 D B-Natriuretic Peptide Total Protein 7.2 Albumin 3.9 Lipase 41 08/21/22 08/21/22 08/21/22 16:51 17:03 20:08 WBC 9.1 RBC 4.66 Hgb 14.3 Hct 42.5 MCV 91.2 MCH 30.7 MCHC 33.6 RDW 13.7 Plt Count 210 D MPV 9.4 Immature Gran % (Auto) 0.2 Neut % (Auto) 65.2 Lymph % (Auto) 26.6 Glasscock % (Auto) 7.3 Eos % (Auto) 0.4 Baso % (Auto) 0.3 Lymph # (Auto) 2.4 Glasscock # (Auto) 0.7 Eos # (Auto) 0.0 Baso # (Auto) 0.0 Abs Immat Gran (auto) 0.02 Absolute Neuts (auto) 5.9 Absolute Nucleated RBC 0.000 Nucleated RBC % (auto) 0.0 PT INR APTT Sodium Potassium Chloride Carbon Dioxide Anion Gap BUN Creatinine Estim Creat Clear Calc Estimated GFR POC Glucose Random Glucose Estimat Average Glucose Hemoglobin A1c % Calcium Magnesium Total Bilirubin AST ALT Alkaline Phosphatase Troponin I High Sens 5.4 B-Natriuretic Peptide 986 H Total Protein Albumin Lipase 08/22/22 08/22/22 08/22/22 06:16 06:16 07:40 WBC 7.1 RBC 4.41 L Hgb 13.4 L Hct 40.4 L MCV 91.6 MCH 30.4 MCHC 33.2 RDW 13.6 Plt Count 202 MPV 10.0 Immature Gran % (Auto) Neut % (Auto) Lymph % (Auto) Glasscock % (Auto) Eos % (Auto) Baso % (Auto) Lymph # (Auto) Glasscock # (Auto) Eos # (Auto) Baso # (Auto) Abs Immat Gran (auto) Absolute Neuts (auto) Absolute Nucleated RBC 0.000 Nucleated RBC % (auto) 0.0 PT INR APTT Sodium 137 Potassium 4.1 Chloride 98 Carbon Dioxide 30 H Anion Gap 13 BUN 13 Creatinine 1.09 Estim Creat Clear Calc 88.9 Estimated GFR > 60 POC Glucose 139 H Random Glucose 123 H Estimat Average Glucose Hemoglobin A1c % Calcium 9.2 D Magnesium Total Bilirubin AST ALT Alkaline Phosphatase Troponin I High Sens B-Natriuretic Peptide Total Protein Albumin Lipase 08/22/22 08/22/22 08/22/22 11:19 15:30 20:11 WBC RBC Hgb Hct MCV MCH MCHC RDW Plt Count MPV Immature Gran % (Auto) Neut % (Auto) Lymph % (Auto) Glasscock % (Auto) Eos % (Auto) Baso % (Auto) Lymph # (Auto) [place]cock # (Auto) Eos # (Auto) Baso # (Auto) Abs Immat Gran (auto) Absolute Neuts (auto) Absolute Nucleated RBC Nucleated RBC % (auto) PT INR APTT Sodium Potassium Chloride Carbon Dioxide Anion Gap BUN Creatinine Estim Creat Clear Calc Estimated GFR POC Glucose 274 H 138 H 384 H* Random Glucose Estimat Average Glucose Hemoglobin A1c % Calcium Magnesium Total Bilirubin AST ALT Alkaline Phosphatase Troponin I High Sens B-Natriuretic Peptide Total Protein Albumin Lipase 08/23/22 08/23/22 08/23/22 06:06 06:16 07:28 WBC RBC Hgb Hct MCV MCH MCHC RDW Plt Count MPV Immature Gran % (Auto) Neut % (Auto) Lymph % (Auto) Glasscock % (Auto) Eos % (Auto) Baso % (Auto) Lymph # (Auto) [place]cock # (Auto) Eos # (Auto) Baso # (Auto) Abs Immat Gran (auto) Absolute Neuts (auto) Absolute Nucleated RBC Nucleated RBC % (auto) PT INR APTT Sodium 135 Potassium 4.1 Chloride 99 Carbon Dioxide 24 Anion Gap 16 BUN 16 Creatinine 0.98 Estim Creat Clear Calc 98.9 Estimated GFR > 60 POC Glucose 258 H Random Glucose 272 H Estimat Average Glucose 143 Hemoglobin A1c % 6.6 Calcium 9.0 Magnesium 1.7 Total Bilirubin AST ALT Alkaline Phosphatase Troponin I High Sens B-Natriuretic Peptide Total Protein Albumin Lipase 08/23/22 08/23/22 08/23/22 11:36 16:01 20:49 WBC RBC Hgb Hct MCV MCH MCHC RDW Plt Count MPV Immature Gran % (Auto) Neut % (Auto) Lymph % (Auto) Glasscock % (Auto) Eos % (Auto) Baso % (Auto) Lymph # (Auto) [place] # (Auto) Eos # (Auto) Baso # (Auto) Abs Immat Gran (auto) Absolute Neuts (auto) Absolute Nucleated RBC Nucleated RBC % (auto) PT INR APTT Sodium Potassium Chloride Carbon Dioxide Anion Gap BUN Creatinine Estim Creat Clear Calc Estimated GFR POC Glucose 327 H 252 H 312 H Random Glucose Estimat Average Glucose Hemoglobin A1c % Calcium Magnesium Total Bilirubin AST ALT Alkaline Phosphatase Troponin I High Sens B-Natriuretic Peptide Total Protein Albumin Lipase 08/24/22 08/24/22 08/24/22 05:47 05:47 05:48 WBC 19.1 H RBC 5.33 D Hgb 16.2 D Hct 48.2 MCV 90.4 MCH 30.4 MCHC 33.6 RDW 13.7 Plt Count 311 D MPV 10.3 Immature Gran % (Auto) 0.7 H Neut % (Auto) 90.0 H Lymph % (Auto) 6.7 L Glasscock % (Auto) 2.5 Eos % (Auto) 0.0 Baso % (Auto) 0.1 Lymph # (Auto) 1.3 Glasscock # (Auto) 0.5 Eos # (Auto) 0.0 Baso # (Auto) 0.0 Abs Immat Gran (auto) 0.13 H Absolute Neuts (auto) 17.2 H Absolute Nucleated RBC 0.000 Nucleated RBC % (auto) 0.0 PT INR APTT Sodium 136 Potassium 3.8 Chloride 100 Carbon Dioxide 26 Anion Gap 14 BUN 24 H Creatinine 0.95 Estim Creat Clear Calc 102.0 Estimated GFR > 60 POC Glucose Random Glucose 243 H Estimat Average Glucose Hemoglobin A1c % Calcium 9.0 Magnesium 2.1 Total Bilirubin AST ALT Alkaline Phosphatase Troponin I High Sens B-Natriuretic Peptide 1007 H Total Protein Albumin Lipase 08/24/22 08/24/22 08/24/22 07:37 11:39 16:22 WBC RBC Hgb Hct MCV MCH MCHC RDW Plt Count MPV Immature Gran % (Auto) Neut % (Auto) Lymph % (Auto) [place]cock % (Auto) Eos % (Auto) Baso % (Auto) Lymph # (Auto) [place] # (Auto) Eos # (Auto) Baso # (Auto) Abs Immat Gran (auto) Absolute Neuts (auto) Absolute Nucleated RBC Nucleated RBC % (auto) PT INR APTT Sodium Potassium Chloride Carbon Dioxide Anion Gap BUN Creatinine Estim Creat Clear Calc Estimated GFR POC Glucose 391 H* 189 H 257 H Random Glucose Estimat Average Glucose Hemoglobin A1c % Calcium Magnesium Total Bilirubin AST ALT Alkaline Phosphatase Troponin I High Sens B-Natriuretic Peptide Total Protein Albumin Lipase 08/24/22 08/25/22 08/25/22 21:00 07:17 11:05 WBC RBC Hgb Hct MCV MCH MCHC RDW Plt Count MPV Immature Gran % (Auto) Neut % (Auto) Lymph % (Auto) [place]cock % (Auto) Eos % (Auto) Baso % (Auto) Lymph # (Auto) [place]cock # (Auto) Eos # (Auto) Baso # (Auto) Abs Immat Gran (auto) Absolute Neuts (auto) Absolute Nucleated RBC Nucleated RBC % (auto) PT INR APTT Sodium Potassium Chloride Carbon Dioxide Anion Gap BUN Creatinine Estim Creat Clear Calc Estimated GFR POC Glucose 238 H 270 H 214 H Random Glucose Estimat Average Glucose Hemoglobin A1c % Calcium Magnesium Total Bilirubin AST ALT Alkaline Phosphatase Troponin I High Sens B-Natriuretic Peptide Total Protein Albumin Lipase Airway Mallampati Class: III TM Dist: >3cm Neck ROM: Full Loose/Missing/Broken Teeth: Yes (Dentures out. Denies broken, loose teeth ) Heart: Irregularly irregular Lungs: Bilateral wheezing Assessment and Plan Assessment Anesthesia Assessment: Chart Reviewed Final Anesthetic Review Family History of Problems with Anesthesia: No History of Problems with Anesthesia: No NPO: Yes ASA Class: IV Assessment/Block/Sedation in SS: Assess/Block/Sedation-SS Documented by User: Farida Bowman MD 08/25/22 11:51 PMFSH Past Medical History Medical History Alcohol abuse Atrial flutter with rapid ventricular response COPD (chronic obstructive pulmonary disease) Diabetes mellitus HTN (hypertension) Obesity (BMI 30-39.9) Smoking Family History Family History Father Cancer Mother Diabetes Hypertension Brother In good health Sister In good health Son In good health Daughter In good health Surgical History Surgical History No pertinent past surgical history Social History Social History Household Members: None Housing: Apartment Do you presently have visiting nurse or other home services: No Alcohol intake: current Alcohol intake frequency: former alcohol drinker Alcohol type: beer Patient Tobacco Use Status: Current everyday Tobacco user Tobacco use type: Cigarette Cigarette Packs Per Day: 1 Cigarettes Per Day: 20.0 Years Smoked: 40 +/- Smoked in Last 30 Days: Yes e-Cigarette/Vaping Use: Never Used Patient Interested in Nicotine Replacement: Yes Second Hand Smoke Exposure: No Use of substances other than those prescribed or required for medical reasons: Yes Substance Use Type: Marijuana Substance Use Frequency: Daily Are you DNR?: No Advance Directives: Yes Advance Directives Information Provided: No Advance Directives on File: Yes Advance Directives Date on File: 06/11/20 service: No Current occupational status: retired and disabled Cognitive needs: No Hearing needs: No Vision needs: Yes (reading glasses) Meds Allergies Allergy/AdvReac Type Severity Reaction Status Date / Time No Known Allergies Allergy Verified 08/21/22 15:35 Home Medications Medication Instructions Recorded Confirmed Last Taken Type bumetanide 1 mg tablet 1 mg PO BID 08/21/22 08/21/22 08/21/22 History Exam Airway Mallampati Class: II TM Dist: >3cm Neck ROM: Full Heart: afib Lungs: wheezing Assessment and Plan Assessment Anesthesia Assessment: Anesthesia Plan Discussed and Smoking Cess. Discussed Final Anesthetic Review ASA Class: III and Emergency Final Preanesthetic Review: No Changes in Pt Med Stat, Meds/Allgs Chart Reviewed, Consent Obtained/Reviewed and Anes Risks/Benef Reviewed Patient Risk: Intermediate Procedure Risk: Low Anesthetic Plan Anesthetic Plan: MAC: Disposition: Standard PACU
[2022-08-25] MEDS: Albuterol Sulfate (0.083%) 2.5 MG/3 ML VIAL.NEB INHALE (11:53)
--- NOTE | 2022-08-25 12:37 | ECG_ITS ---
Test Reason : S/P CARDIOVERSION Blood Pressure : / mmHG Vent. Rate : 082 BPM Atrial Rate : 082 BPM P-R Int : 156 ms QRS Dur : 074 ms QT Int : 368 ms P-R-T Axes : 077 097 108 degrees QTc Int : 429 ms Normal sinus rhythm Rightward axis Septal infarct (cited on or before 17-JUL-2022) ST & T wave abnormality, consider anterolateral ischemia Abnormal ECG When compared with ECG of 21-AUG-2022 16:13, Sinus rhythm has replaced Atrial fibrillation Vent. rate has decreased BY 56 BPM Referred By: Maulik Mohamud Electronically Signed By:MAULIK MOHAMUD
--- NOTE | 2022-08-25 13:07 | MHC.CM.PN ---
PER MD ROUNDS, PT WILL HAVE CARDIOVERSION TODAY. DCP: REMAINS HOME WITH NO SERVICES PT TO ARRANGE TRANSPORT
[2022-08-25] MEDS: Amiodarone HCL 200 MG TABLET 400 MG PO ×2 (13:25→15:11)
[2022-08-25] MEDS: Fluticasone/Umeclidinium/Vilanterol 200/62.5/25 BLST.W.DEV 1 PUFF INHALE (15:02)
[2022-08-25 15:30] LABS: Glucose, Whole Blood 231 mg/dL (60-115)
--- NOTE | 2022-08-25 18:02 | P.PNIM_ITS ---
Subjective Subjective Date of Service: 08/25/22 Interval History: Seen in follow up for CHF, rapid Afib, COPD exacerbation Interval history: s/p cardioversion this morning, maintaining NSR. Still wheezing. No sob, cp, palpiations. Review of Systems Review of Systems: Yes all other systems are reviewed and are negative Physical Exam Vital Signs: Vital Signs: Last Vital Signs Temp 97.0 F 08/25/22 16:00 Pulse 91 08/25/22 16:00 Resp 19 08/25/22 16:00 BP 106/68 08/25/22 16:00 Pulse Ox 90 L 08/25/22 16:00 O2 Del Method Room Air 08/25/22 16:00 O2 Flow Rate 2 08/25/22 13:06 BMI result Body Mass Index 29.1 Constitutional - Awake and Alert, No apparent distress Eyes - PERRLA, EOMI Cardiovascular - S1S2, RRR, No edema Respiratory - Normal lung expansion, Normal respiratory effort, No respiratory distress, bilateraly diffuse rhonchi and expiratory wheezing Gastrointestinal - NT / ND; +BS; No rebound or guarding Extremities - no calf tenderness bilaterally, no swelling Skin - Warm/Dry Neurological - Alert & oriented x3 Psychological - Appropriate affect Objective Data Active Medications Acetaminophen (Acetaminophen 325 Mg Tablet) 650 mg PO Q6H PRN PRN Reason: Pain, Mild (Pain Scale 1-3) Amiodarone HCl (Amiodarone Hcl 200 Mg Tablet) 400 mg PO BID [facility] Last Admin: 08/25/22 15:11 Dose: 400 mg Documented By: GAURANG Apixaban (Apixaban 5 Mg Tablet) 5 mg PO BID [facility] Last Admin: 08/25/22 09:12 Dose: 5 mg Documented By: GAURANG Bumetanide (Bumetanide 1 Mg Tablet) 1 mg PO BID@0800,1700 [facility]; Protocol Last Admin: 08/25/22 17:46 Dose: 1 mg Documented By: GAURANG Docusate Sodium (Docusate Sodium 100 Mg Capsule) 100 mg PO DAILY PRN PRN Reason: Constipation Fluticasone/Umeclidinium/Vilanterol (Fluticasone/Umeclidinium/Vilanterol 200/62.5/25 Blst.W.Dev) 1 puff INHALE RDAILY [facility] Last Admin: 08/25/22 15:02 Dose: 1 puff Documented By: BRENDON Glucose (Glucose Gel 15 Gm Gel..Gram.) 15 gm PO Q15M PRN; Protocol PRN Reason: per Hypoglycemia Standing Ord. Dextrose (D10) 250 mls @ 750 mls/hr IV Q15M PRN; Protocol PRN Reason: per Hypoglycemia Standing Ord. Insulin Human Lispro (Insulin Lispro 100 Unit/Ml 3 Ml Vial) 0 unit SUBCUT QIDACHS [facility]; Protocol Last Admin: 08/25/22 17:46 Dose: 4 unit Documented By: GAURANG Levalbuterol HCl (Levalbuterol Hcl 1.25 Mg/3 Ml Vial.Neb) 1.25 mg INHALE RQ4H WHILE AWAKE PRN PRN Reason: Shortness of Breath Levalbuterol HCl (Levalbuterol Hcl 1.25 Mg/3 Ml Vial.Neb) 1.25 mg INHALE RQ6H [facility] Last Admin: 08/25/22 11:21 Dose: Not Given Documented By: BRENDON Non-Admin Reason: Off Unit: Surgery Lorazepam (Lorazepam 1 Mg Tablet) 1 mg PO Q4H PRN PRN Reason: Breakthrough alcohol withdrawa Stop: 08/27/22 11:06 Lorazepam (Lorazepam 1 Mg Tablet) 0.5 mg PO Q6H [facility]; Taper Stop: 08/27/22 13:14 Last Admin: 08/25/22 17:46 Dose: 0.5 mg Documented By: GAURANG Methylprednisolone Sodium Succinate (Methylprednisolone Sod Succ 40 Mg/Ml Vial) 40 mg IVPUSH Q12H [facility] Last Admin: 08/25/22 15:11 Dose: 40 mg Documented By: GAURANG Metoprolol Succinate (Metoprolol Succinate Er 50 Mg Tab.Er.24h) 50 mg PO BID [facility]; Protocol Multivitamins/Vitamin C (Multivitamin Tablet) 1 tab PO DAILY [facility] Last Admin: 08/25/22 09:12 Dose: 1 tab Documented By: GAURANG Nicotine (Nicotine 21 Mg Patch.Td24) 21 mg TRANSDERMA DAILY [facility] Last Admin: 08/25/22 10:23 Dose: 21 mg Documented By: GAURANG Ondansetron HCl (Ondansetron Hcl 4 Mg/2 Ml Vial) 4 mg IVPUSH Q8H PRN PRN Reason: Nausea and Vomiting Pharmacy Consult (Consult Rx Perform Med Rec) 1 each MISCELLANE ONCE PRN PRN Reason: Consult order Pharmacy Consult (Consult Rx Etoh Phenob Im/Po) 1 each MISCELLANE ONCE PRN; Protocol PRN Reason: Consult order Sacubitril/Valsartan (Sacubitril/Valsartan 1 Tab Tablet) 1 tab PO BID [facility] ; Protocol Last Admin: 08/25/22 10:26 Dose: 1 tab Documented By: GAURANG Sodium Chloride (0.9 % Sodium Chloride Flush 3 Ml Syringe) 3 ml IVFLUSH QSHIFT [facility] Last Admin: 08/25/22 15:12 Dose: 3 ml Documented By: GAURANG Spironolactone (Spironolactone 25 Mg Tablet) 12.5 mg PO DAILY [facility]; Protocol Last Admin: 08/23/22 07:41 Dose: 12.5 mg Documented By: MARQUIS Labs 08/24/22 05:48 08/24/22 05:47 Labs: Laboratory Results - last 24 hr 08/24/22 08/25/22 08/25/22 21:00 07:17 11:05 POC Glucose 238 H 270 H 214 H 08/25/22 15:18 POC Glucose 231 H Assessment and Plan (1) Atrial fibrillation with rapid ventricular response: Status: Acute (2) CHF exacerbation: Status: Acute Plan Pt is a 56-year-old male with a PMH significant for?SVT, paroxysmal AFib not on anticoagulation, alcohol abuse with a hx of withdrawal, non insulin-dependent diabetes type 2, COPD, HFrEF, and current smoker of 1 and half packs per day who presents to the ED from Cardiology office for evaluation of AFib with RVR. Pt will be admitted to the hospital under observation on telemetry for further evaluation and treatment of AFib with RVR. AFib with RVR HR remains uncontrolled. blood pressure continues to be soft YOAV/cardioversion 08/25. Maintaining NSR continue metoprolol- change to home dose toprol 50mg BID Stop dig. Start amiodorone 400mg BID x 14 days (initiated 08/25), then amiodorone 200mg daily not previously on AC due to etoh, started on Eliquis - will stop aspirin, plavix Cardiology following cardiac diet acute on chronic HFrEF Echocardiogram on 07/18/2022 found EF of 30-35% with moderate global hypokinesis s/p IV bumex, will transition back to home dose of po bumex entreso started 08/23- hold due to low bp/single episode hypotension aldactone started 08/23, bp low overnight will hold possible etoh withdrawal h/o etoh use disorder pt adamantly denies etoh use for the past month but appears tremulous, anxious and CIWA trending up refusing phenobarbital, will start ativan protocol much less tremulous Acute exacerbation of COPD continue trelegy continue IV solu-medrol xopenex scheduled and prn Nicotine dependence Patient currently smokes 1 and half packs per day continue NRT Smoking cessation advised [id number] diabetes- glucose levels improved sugars elevated likely from steroids Hold metformin Hba1c 6.6 continue Sliding-scale insulin Diabetic diet HTN continue metoprolol hold lisinopril Full Code Attending:?Dr. Alvarez DVT Prophylaxis: Jodi patient requires ongoing inpatient hospitalization for management of atrial fibrillation with rapid ventricular response requiring cardioversion, and IV steroids for COPD exacerbation still with significant wheezing Time Spent With Patient Time: Total time managing care of this patient today ____ minutes. Quality Stroke Does the patient have a stroke diagnosis?: No VTE Prior VTE?: No VTE Risk Level:: Medical - moderate - high VTE Device Contraindication: Treatment Not Indicated VTE Drug Contraindication: N/A - Med Ordered
[2022-08-25 20:30] LABS: Glucose, Whole Blood 346 mg/dL (60-115)
[2022-08-25] MEDS: Metoprolol Succinate ER 50 MG TAB.ER.24H PO (21:47)
[2022-08-26] MEDS: methylPREDNISolone Sod Succ 40 MG/ML VIAL IVPUSH (00:04)
[2022-08-26] MEDS: LORazepam 1 MG TABLET 0.5 MG PO ×2 (00:11→08:28)
[2022-08-26 03:13] VITALS: BP 126/74; PULSE 88; RESP 20; TEMP 37.1; O2SAT 92
[2022-08-26] MEDS: Acetaminophen 325 MG TABLET 650 MG PO (05:04)
[2022-08-26 06:55] LABS: MANUAL DIFF FLAG NO
[2022-08-26 07:13] LABS: Anion Gap 13 (12-20); Blood Urea Nitrogen 24 mg/dL (9-16); Calcium 8.6 mg/dL (8.4-10.2); Carbon Dioxide 27 mmol/L (22-29); Chloride 101 mmol/L (96-108); Creatinine Clr Calc Pharmacy 112.7; Estimated Glomerular Filt Rate > 60; Glucose Random 250 mg/dL (60-115); Sodium 137 mmol/L (135-145)
[2022-08-26 07:17] LABS: Basophils Percent Auto 0.1 % (0-2); Hematocrit 46.6 % (42.0-52.0); Hemoglobin 15.8 g/dl (14.0-18.0); Imm Gran Abs Auto 0.06 X10*3/uL (0.00-0.03); Imm Gran Pct Auto 0.6 % (0.0-0.4); Lymphocytes Absolute Auto 1.2 X10*3/uL (1.2-4.9); Lymphocytes Percent Auto 11.7 % (20-40); Mean Corpuscular HGB Conc 33.9 g/dl (31.0-36.0); Mean Corpuscular Volume 91.4 fL (80.0-98.0); Mean Platelet Volume 9.9 fL (9.4-12.4); Monocytes Absolute Auto 0.2 X10*3/uL (0.1-1.2); Monocytes Percent Auto 2.3 % (2-11); Neutrophils Absolute Auto 8.5 x10*3/uL (2.0-8.3); Neutrophils Percent Auto 85.3 % (45-73); Platelet Count 292 X10*3/uL (160-400); Red Cell Distribution Width 13.4 % (11.0-16.0)
[2022-08-26 07:26] LABS: Glucose, Whole Blood 242 mg/dL (60-115)
[2022-08-26 07:37] VITALS: BP 146/78; PULSE 65; RESP 18; TEMP 36.7; O2SAT 90
[2022-08-26] MEDS: Fluticasone/Umeclidinium/Vilanterol 200/62.5/25 BLST.W.DEV 1 PUFF INHALE (07:39)
[2022-08-26] MEDS: levalbuterol HCL 1.25 MG/3 ML VIAL.NEB INHALE (07:41)
[2022-08-26 07:42] VITALS: PULSE 78; RESP 18; O2SAT 92
[2022-08-26] MEDS: Bumetanide 1 MG TABLET PO (08:29)
[2022-08-26] MEDS: Amiodarone HCL 200 MG TABLET 400 MG PO (08:29)
[2022-08-26] MEDS: Metoprolol Succinate ER 50 MG TAB.ER.24H PO (08:29)
[2022-08-26] MEDS: Apixaban 5 MG TABLET PO (08:30)
[2022-08-26] MEDS: Insulin Lispro 100 UNIT/ML 3 ML VIAL SUBCUT ×2 (08:30→11:20)
[2022-08-26] MEDS: Nicotine 21 MG PATCH.TD24 TRANSDERMA (08:30)
[2022-08-26] MEDS: 0.9 % Sodium Chloride Flush 3 ML SYRINGE IVFLUSH (08:30)
--- NOTE | 2022-08-26 08:42 | ECG_ITS ---
Test Reason : s/p cardioversion Blood Pressure : / mmHG Vent. Rate : 091 BPM Atrial Rate : 091 BPM P-R Int : 156 ms QRS Dur : 070 ms QT Int : 360 ms P-R-T Axes : 078 095 188 degrees QTc Int : 442 ms Normal sinus rhythm Rightward axis Septal infarct (cited on or before 17-JUL-2022) ST & T wave abnormality, consider inferior ischemia ST & T wave abnormality, consider anterolateral ischemia Abnormal ECG When compared with ECG of 25-AUG-2022 12:47, No significant changes seen Referred By: Maulik Mohamud Electronically Signed By:MAULIK MOHAMUD
--- NOTE | 2022-08-26 09:40 | PM.PNCARD ---
Subjective Subjective Date of Service: 08/26/22 Principal diagnosis: CHF, atrial fibrillation Interval history: Patient underwent YOAV/cardioversion as today. Today, he remains in sinus rhythm. He states he is feeling better. Review of Systems Review of Systems Yes all other systems are reviewed and are negative Constitutional: Reports as per HPI and Reports no additional constitutional complaints Eyes: Reports as per HPI and Denies no additional eye complaints Denies system reviewed and no additional complaints, except as documented and Reports as per HPI Cardiovascular: Reports as per HPI, Reports no additional cardiovascular complaints, Denies acrocyanosis, Denies cool extremities, Denies chest pain, Denies leg edema, Denies lightheadedness, Denies palpitations and Denies dyspnea Respiratory: Reports as per HPI, Denies no additional respiratory complaints and Denies dyspnea Gastrointestinal: Reports as per HPI and Denies no additional gastrointestinal complaints Genitourinary: Reports no additional male genitourinary complaints and Reports as per HPI Musculoskeletal: Reports no additional musculoskeletal complaints and Reports as per HPI Skin/Breast: Reports system reviewed and no additional complaints, except as docu Reports system reviewed and no additional complaints, except as documented and Reports as per HPI Psychiatric: Reports no additional psychiatric complaints and Reports as per HPI Endocrine: Reports no additional endocrine complaints, Reports as per HPI and Denies palpitations Hematologic/Lymphatic: Reports no additional hematologic/lymphatic complaints and Reports as per HPI Allergic/Immunologic: Reports no additional allergic/immunologic complaints and Reports as per HPI Physical Exam Vital Signs: Last Vital Signs Temp 98.0 F 08/26/22 07:37 Pulse 78 08/26/22 07:42 Resp 18 08/26/22 07:42 BP 146/78 H 08/26/22 07:37 Pulse Ox 90 L 08/26/22 07:37 O2 Del Method Room Air 08/26/22 07:37 O2 Flow Rate 2 08/25/22 13:06 BMI result Body Mass Index 29.1 Const General: comfortable and no acute distress Orientation/consciousness: patient oriented x3 HEENT Other: Unremarkable Head: Yes normal to inspection Neck Neck: Yes normal visual inspection Chest Chest palpation & inspection: normal inspection of the chest Resp Auscultation: wheezes and diminished lung sounds Cardio Palpation: normal PMI Heart sounds: S1 normal heart sound present, S2 normal heart sound present, no gallops, no murmurs and no rubs GI Palpation (GI): Soft to palpation Back/Spine/Pelvis Other: unremarkable Skin General skin exam: no rashes or lesions noted Neuro General: patient oriented x3 Extrem General: Yes normal to inspection Psych Mental Status: mental status grossly normal Objective Labs and Meds 08/26/22 06:19 08/26/22 06:19 Lab results: Laboratory Results - last 24 hr 08/25/22 08/25/22 08/25/22 11:05 15:18 20:26 WBC RBC Hgb Hct MCV MCH MCHC RDW Plt Count MPV Immature Gran % (Auto) Neut % (Auto) Lymph % (Auto) [place] % (Auto) Eos % (Auto) Baso % (Auto) Lymph # (Auto) [place] # (Auto) Eos # (Auto) Baso # (Auto) Abs Immat Gran (auto) Absolute Neuts (auto) Absolute Nucleated RBC Nucleated RBC % (auto) Sodium Potassium Chloride Carbon Dioxide Anion Gap BUN Creatinine Estim Creat Clear Calc Estimated GFR POC Glucose 214 H 231 H 346 H Random Glucose Calcium 08/26/22 08/26/22 08/26/22 06:19 06:19 07:19 WBC 10.0 RBC 5.10 Hgb 15.8 Hct 46.6 MCV 91.4 MCH 31.0 MCHC 33.9 RDW 13.4 Plt Count 292 MPV 9.9 Immature Gran % (Auto) 0.6 H Neut % (Auto) 85.3 H Lymph % (Auto) 11.7 L [place] % (Auto) 2.3 Eos % (Auto) 0.0 Baso % (Auto) 0.1 Lymph # (Auto) 1.2 [place] # (Auto) 0.2 Eos # (Auto) 0.0 Baso # (Auto) 0.0 Abs Immat Gran (auto) 0.06 H Absolute Neuts (auto) 8.5 H Absolute Nucleated RBC 0.000 Nucleated RBC % (auto) 0.0 Sodium 137 Potassium 4.0 Chloride 101 Carbon Dioxide 27 Anion Gap 13 BUN 24 H Creatinine 0.86 Estim Creat Clear Calc 112.7 Estimated GFR > 60 POC Glucose 242 H Random Glucose 250 H Calcium 8.6 Progress Note: A&P Assessment and plan (1) Atrial fibrillation with rapid ventricular response: Status: Acute (2) Cardiomyopathy: Status: Acute (3) Alcohol abuse: Status: Acute (4) Encounter for monitoring amiodarone therapy: Status: Acute Plan Status post YOAV/cardioversion performed yesterday. There was no evidence of left atrial appendage thrombus. Hence he underwent cardioversion with 150 joule synchronized shock. He converted to sinus rhythm. Continue Amiodarone. Loading dose followed by maintenance. Continue beta-blockers. Continue anticoagulation. Absolutely should abstain from alcohol and we discussed about this at length today. Quit smoking. Follow-up in clinic. Time Spent With Patient Time: Total time managing care of this patient today 45 minutes. This includes time spent in review of chart, laboratory data, imaging studies, review of telemetry, counseling patient, discussion with hospitalist, RN, documentation, coordination of care. Progress Note: Quality Stroke Does the patient have a stroke diagnosis?: No Procedures Date of Service Date of Service: 08/26/22
[2022-08-26 11:02] LABS: Glucose, Whole Blood 408 mg/dL (60-115)
[2022-08-26] MEDS: predniSONE 20 MG TABLET PO (11:20)
[2022-08-26] MEDS: Multivitamin TABLET 1 TAB PO (11:22)
[2022-08-26 11:44] VITALS: BP 119/68; PULSE 94; RESP 19; TEMP 36.2; O2SAT 95
--- NOTE | 2022-08-26 12:32 | MHC.CM.PN ---
Patient has been medically cleared for dc to home today, self care. IMM addressed with Patient at bedside and original was given to Patient and a copy has been placed on the chart.
--- NOTE | 2022-08-26 12:53 | PM.DS ---
DS: Providers Provider Date of Service: 08/26/22 Date of admission: 08/23/22 15:30 Date of discharge: 08/26/22 Primary care physician: Tamir Lutz MD Admitting clinician: Jesus Powers Attending physician on admission: Nelia Garcia Consults: 08/21/22 21:07 Consult to Cardiology Routine Consulting Provider[place] [facility] [place] [facility] Reason for consultation: AFib with RVR, coming from cardiology office visit Attending physician on discharge: Tyshawn Davila Discharging clinician: Lotus Griffin DS: Diagnosis Discharge Diagnosis (1) Atrial fibrillation with rapid ventricular response: Status: Acute (2) Cardiomyopathy: Status: Acute (3) Alcohol abuse: Status: Acute (4) Encounter for monitoring amiodarone therapy: Status: Acute DS: Summary Hospital Course Hospital Course: HPI on admission 08/21 by Jesus Powers PA-C: Chief Complaint: AFib with RVR Pt is a 56-year-old male with a PMH significant for?SVT, paroxysmal AFib not on anticoagulation, alcohol abuse with a hx of withdrawal, non insulin-dependent diabetes type 2, COPD, HFrEF, and current smoker of 1 and half packs per day who presents to the ED from Cardiology office for evaluation of AFib with RVR.? Patient was recently admitted to the hospital here on 07/17/2022 through 07/18/2022 for similar issues and was treated for AFib with RVR, HFrEF, and alcohol withdrawal.? Today patient was at a follow-up visit with Cardiology when he was noted to be in AFib with RVR in the 140s.? Was sent to the emergency department for further evaluation, where he was noted to be still be in AFib with RVR in 150s.? Patient was largely asymptomatic:? Denies chest pain/pressure, palpitations.? Chronic shortness of breath, no worse than at baseline.? Denies lower leg edema, PND, orthopnea. No fever, chills, nausea, vomiting, abdominal pain.? Patient was treated with diltiazem 20 mg IV, digoxin 0.25 mg IV x2 doses, and diltiazem 10 mg IV.? Patient's HR continue to remain elevated in the 130s to 140s.? Patient then placed on diltiazem drip. Of note patient has not been on anticoagulation secondary to being a high bleeding risk from falling secondary to alcohol use disorder.? However, patient states that he has not drank alcohol since last admission some 33 days ago. In the ED patient was afebrile, tachycardic up to 153, tachypneic to 25, satting at 93% O2 on RA, BP a little soft as low as 96/67. Labs were significant for elevated BNP of 986.? H&H stable.? Electrolytes largely WNL.? Renal function at baseline.? Hepatic function at baseline. CXR showed equivocal early infiltrate in the right lower lobe versus summation artifact from bronchovascular markings.? No evidence of pleural effusions. EKG demonstrated AFib with RVR of [address]ations or depressions. Pt will be admitted to the hospital under observation on telemetry for further evaluation and treatment of AFib with RVR. Hospital Course: Pt admitted for management of AFib with RVR found to have HFrEF with EF 30-35%. Underwent cardioversion 08/25 and maintained NSR following procedure. Digoxin dc'd and started on amiodorone 400mg BID as well as eliquis. Course complicated by steroid induced hyperglycemia which was started for COPD exacerbation, managed with SSI. He completed course of steroids. Presentation was concerning for etoh withdrawal though patient adamantly denies etoh consumption in last month. Was monitored on CIWA and given ativan per protocol. Will discharge on amiodarone, eliquis with outpt follow up with cardiology advised. Was started on entresto during admission but developed low blood pressures so this was held and can be reevaluated by cardiology. Follow up with pcp AFib with RVR HR remains uncontrolled. blood pressure? continues to be soft YOAV/cardioversion 08/25. Maintaining NSR Given metoprolol 50mg QID.- Home dose toprol 50mg BID resumed, continue Stop dig. Start amiodorone 400mg BID x 14 days (initiated 08/25), then amiodorone 200mg daily not previously on AC due to etoh, started on Eliquis - will stop aspirin, plavix Cardiology following cardiac diet acute on chronic HFrEF Echocardiogram on 07/18/2022 found EF of 30-35% with moderate global hypokinesis s/p IV bumex, continue po bumex entreso started 08/23 but held d/t low bps. Resume at discretion of cardiology on outpt basis Resume aldactone on dc possible etoh withdrawal h/o etoh use disorder pt adamantly denies etoh use for the past month but appears tremulous, anxious and CIWA trending up refusing phenobarbital, will start ativan protocol much less tremulous Acute exacerbation of COPD continue trelegy IV solumedrol changed to PO prednisone. Completed course xopenex scheduled and prn Nicotine dependence Patient currently smokes 1 and half packs per day Patches prescribed on DC Smoking cessation advised Rxt-mjxtbee-aobdgebgk diabetes- glucose levels improved sugars elevated likely from steroids Resume metformin on dc at 1000mg BID Hba1c 6.6 continue Sliding-scale insulin prn for hyperglycemia in setting of steroid use Counseled on Diabetic diet HTN continue metoprolol hold lisinopril Time spent discussing smoking cessation with patient: more than 10 minutes Status at Discharge Functional status at discharge: independent ambulation Overall status at discharge: patient is progressing back to baseline Time Spent with Patient Time attestation: Total time managing care of this patient today ____ minutes. Discharge coordination time: Greater than 30 minutes Quality: Safe Use of Opioids Does Pt have an Active Cancer Diagnosis on the Problem List?: No Quality: Stroke Does the patient have a stroke diagnosis?: No Physical Exam Vital Signs: Vital Signs: Last Vital Signs Temp 97.1 F 08/26/22 11:44 Pulse 94 08/26/22 11:44 Resp 19 08/26/22 11:44 BP 119/68 08/26/22 11:44 Pulse Ox 95 08/26/22 11:44 O2 Del Method Room Air 08/26/22 11:44 O2 Flow Rate 2 08/25/22 13:06 BMI result Body Mass Index 29.1 Constitutional - Awake and Alert, No apparent distress Eyes - PERRLA, EOMI Cardiovascular - S1S2, RRR, No edema Respiratory - Normal lung expansion, Normal respiratory effort, No respiratory distress, CTA bilaterally Extremities - no calf tenderness bilaterally, no swelling Skin - Warm/Dry Neurological - Alert & oriented x3 Psychological - Appropriate affect DS: Data Data Completed and Pending Completed studies during hospitalization [Text1]: Procedures Detoxification Services for Substance Abuse Treatment (07/17/22) Labs on day of discharge: Laboratory Results - last 24 hr 08/25/22 08/25/22 08/26/22 15:18 20:26 06:19 WBC 10.0 RBC 5.10 Hgb 15.8 Hct 46.6 MCV 91.4 MCH 31.0 MCHC 33.9 RDW 13.4 Plt Count 292 MPV 9.9 Immature Gran % (Auto) 0.6 H Neut % (Auto) 85.3 H Lymph % (Auto) 11.7 L [place] % (Auto) 2.3 Eos % (Auto) 0.0 Baso % (Auto) 0.1 Lymph # (Auto) 1.2 [place] # (Auto) 0.2 Eos # (Auto) 0.0 Baso # (Auto) 0.0 Abs Immat Gran (auto) 0.06 H Absolute Neuts (auto) 8.5 H Absolute Nucleated RBC 0.000 Nucleated RBC % (auto) 0.0 Sodium Potassium Chloride Carbon Dioxide Anion Gap BUN Creatinine Estim Creat Clear Calc Estimated GFR POC Glucose 231 H 346 H Random Glucose Calcium 08/26/22 08/26/22 08/26/22 06:19 07:19 10:55 WBC RBC Hgb Hct MCV MCH MCHC RDW Plt Count MPV Immature Gran % (Auto) Neut % (Auto) Lymph % (Auto) [place] % (Auto) Eos % (Auto) Baso % (Auto) Lymph # (Auto) [place] # (Auto) Eos # (Auto) Baso # (Auto) Abs Immat Gran (auto) Absolute Neuts (auto) Absolute Nucleated RBC Nucleated RBC % (auto) Sodium 137 Potassium 4.0 Chloride 101 Carbon Dioxide 27 Anion Gap 13 BUN 24 H Creatinine 0.86 Estim Creat Clear Calc 112.7 Estimated GFR > 60 POC Glucose 242 H 408 H* Random Glucose 250 H Calcium 8.6 Discharge Plan Discharge Anticipated Discharge Date/Time: 08/26/22 12:00 Patient Disposition: Home, Self-Care Discharge Diagnosis: atrial fibrillation with rvr, copd exacerbation, uncontrolled dm Referrals: Edi Portillo MD [Physician] - 1 Week Tamir Lutz MD [Primary Care Provider] - 1 Week Discharge Medications: New nicotine 21 mg/24 hr Patch 24 Hour 21 mg transdermal DAILY Qty: 28 1RF Eliquis 5 mg Tablet 5 mg PO BID Qty: 60 0RF amiodarone 200 mg tablet 200 mg PO DAILY Qty: 90 0RF Rx Instructions: Start 200mg daily after completing 400mg BID x 12 days amiodarone 400 mg tablet 400 mg PO BID Qty: 25 0RF spironolactone 25 mg Tablet 12.5 mg PO DAILY Qty: 30 0RF Protocol: Hold for SBP< HOLD for SBP < : 90 insulin lispro [Humalog U-100 Insulin] 100 unit/mL Solution See Protocol subcut QIDACHS Qty: 10 2RF Protocol: Insulin Correction Scale Less than or equal to 110 ---- Give (units): 0 111 to 150 Give (units): 0 151 to 200 Give (units): 2 201 to 250 Give (units): 4 251 to 300 Give (units): 6 301 to 350 Give (units): 8 Greater than 350 Give (units): 10 Call MD if Blood Glucose > : 350 Rx Instructions: Administer insulin per sliding scale: <150- 0 units 151-200 -2 units 201-250- 4 units 251- 300- 6 units 301- 350- 8 units 351- 400- 10 units >401 call MD (DONATO) pen needle, diabetic [Pen Needle] 31 gauge x 3/16 needle See Rx Instructions .Route Qty: 100 2RF Rx Instructions: As directed Continued lisinopril 5 mg tablet 5 mg PO DAILY Qty: 90 3RF Trelegy Ellipta 200-62.5-25 mcg blister with device 1 inh inhalation DAILY 30 Days Qty: 1 6RF albuterol sulfate 90 mcg/actuation HFA aerosol inhaler 2 puff inhalation Q6H PRN (Reason: dyspnea) 30 Days Qty: 1 6RF metoprolol succinate 50 mg tablet extended release 24 hr 50 mg PO BID Qty: 180 1RF bumetanide 1 mg tablet 1 mg PO BID (DME) blood pressure monitor Kit See Rx Instructions .Route Qty: 1 0RF Rx Instructions: As directed Changed metformin 500 mg tablet 1,000 mg PO BID Qty: 180 0RF Discontinued clopidogrel [Plavix] 75 mg tablet 75 mg PO DAILY Qty: 90 3RF aspirin [Adult Aspirin Regimen] 81 mg tablet,delayed release (DR/EC) 81 mg PO DAILY Qty: 90 5RF Discharge Orders: Discharge Order (Routine); Ordered 08/26/22 Ordered By: Lotus Griffin Diet: Diabetic diet Activity on Discharge: As tolerated Stand Alone Forms: Patient Portal Discharge page Care Plan Goals: Compliance with changes in cardiac medications Abstinence from alcohol Abstinence from smoking Better glucose control Health Concerns: Atrial fibrillation with RVR COPD exacerbation History alcohol abuse Cigarette smoking Uncontrolled type 2 diabetes Plan of Treatment: Atrial fibrillation with RVR -successful cardioversion performed 08/25, maintaining normal sinus rhythm -continue Eliquis 5 mg twice daily -continue amiodarone 400 mg twice daily x total 14 days (28 doses)- you have received 3 doses in the hospital, next dose due this evening. After completing 400 mg twice daily, continue 200 mg daily -continue metoprolol 50 mg XR twice daily -follow-up with Cardiology -abstain from alcohol/smoking COPD exacerbation -initially treated with steroids with good improvement in wheezing. However, once trilogy was resumed, significant improvement in symptoms -no further steroids indicated- glucose levels may be elevated for several days related to steroid use -continue inhalers as prescribed Uncontrolled type 2 diabetes -your A1c was 10.9% with goal being less than 7% -I am increasing her metformin to 1000 mg twice daily with meals -you can also continue using Humalog (insulin) on sliding scale defined on prescription with meals and at bedtime to help manage elevated glucose levels as you work to improve diabetic diet -follow-up with PCP Assessment: As above Patient Instructions: A-fib (Atrial Fibrillation) (DC) Discharge Date/Time: 08/26/22 14:03
--- NOTE | 2022-08-26 14:20 | P.CDIM_ITS ---
PROVIDER RESPONSE TEXT: To clarify, the appropriate diagnosis supported by the clinical indicators: Other (explain): Type 2 diabetes with steroid induced hyperglycemia QUERY TEXT: PHYSICIAN'S DOCUMENTATION REQUEST Date of Query: 08/26/2022 10:01 AM EDT Patient Name: Madgi Carson Admit Date: 08/23/2022 Dear Lotus Griffin, A review of the medical record indicates additional documentation may be needed. Please review below and update the documentation accordingly. Clinical Indicators: LAB FINDINGS: Poc glucose 346 H 250 242 Sugars elevated likely from steroids Continue sliding scale insulin Please clarify the lab findings: Diabetes Type 2 with hyperglycemia No complications of DM Other Other (explain)Clinically unable to determine (explain)Thank you, Mihaela Gleason, CCS, CDIS Use of terms such as suspected, likely, concern for, or probable (associated with a specific diagnosi s that is being evaluated, monitored, or treated as if it exists) are acceptable and can be coded in the inpatient se tting, when documented at the time of discharge. Please use your independent medical judgment in providing your response. THIS QUERY IS PART OF THE PERMANENT MEDICAL RECORD
--- NOTE | 2022-08-26 14:39 | HO.POSTANES ---
Post Anesthesia Evaluation Post Anesthesia Evaluation Date of Service: 08/26/22 Vital Signs: Vital Signs Temp Pulse Resp BP Pulse Ox O2 Del Method 08/26/22 11:44 97.1 F 94 19 119/68 95 Room Air 08/26/22 07:42 78 18 08/26/22 07:37 98.0 F 65 18 146/78 H 90 L Room Air 08/26/22 03:13 98.7 F 88 20 126/74 92 Room Air Anesthesia: Monitored Mental Status: Awake Pain Control: Satisfactory Nausea/Vomiting: None Hydration: Adequate Anesthesia-Related Issues: No Anes. Related Issues
[2022-08-28 10:25] LABS: Glucose, Whole Blood 448 mg/dL (60-115)
== END 2022-08-26 14:03 | disposition home or self-care (01) | DRG 291 ==
LOC: HO.ED 19:39 → HO.EDOVER 21:17 → HO.IMC 21:50
PROVIDERS: Internal Medicine; Physician Assistant Medical; Admitting Provider Student in an Organized Health Care Education/Training Program; Emergency Provider Emergency Medicine Emergency Medical Services; PCP Internal Medicine; Visit Provider Physician Assistant
PROC: 5A2204Z Restoration of Cardiac Rhythm, Single (ICD-10-PCS; CPT 93312; principal; 2022-08-25 11:00)
PROC: 5A2204Z Restoration of Cardiac Rhythm, Single (ICD-10-PCS; 2022-08-25 11:00)
DX: I11.0 Hypertensive heart disease with heart failure (principal); I50.23 Acute on chronic systolic (congestive) heart failure; J44.1 Chronic obstructive pulmonary disease with (acute) exacerbation; F10.139 Alcohol abuse with withdrawal, unspecified; I48.0 Paroxysmal atrial fibrillation; E11.65 Type 2 diabetes mellitus with hyperglycemia; F17.210 Nicotine dependence, cigarettes, uncomplicated; T38.0X5A Adverse effect of glucocorticoids and synthetic analogues, initial encounter; I42.9 Cardiomyopathy, unspecified; Z71.6 Tobacco abuse counseling; Z79.51 Long term (current) use of inhaled steroids; Z79.84 Long term (current) use of oral hypoglycemic drugs; Z79.899 Other long term (current) drug therapy
CPT/HCPCS: 36415; 71045; 80048; 80053; 82947; 83036; 83690; 83735; 83880; 84484; 85025; 85027; 85610; 85730; 92960; 93005; 94640; 99212; 99222; 99285; J1160; J1650; J2250; J2370; J2920; J3010; J3475

== ENCOUNTER → 2022-08-27 14:49 | Outpatient (BNVA) | payer MEDICARE, MEDICAID, SELFPAY | PROVIDERS: PCP Internal Medicine; Visit Provider Internal Medicine Pulmonary Disease | DX: J44.1 Chronic obstructive pulmonary disease with (acute) exacerbation (principal); R06.01 Orthopnea; Z79.899 Other long term (current) drug therapy | CPT/HCPCS: 99212 ==

== ENCOUNTER → 2022-09-12 10:25 | Outpatient (BNVA) | payer MEDICARE, MEDICAID, SELFPAY | PROVIDERS: PCP Internal Medicine; Visit Provider Nurse Practitioner Family | DX: I48.91 Unspecified atrial fibrillation (principal); I50.9 Heart failure, unspecified; I42.8 Other cardiomyopathies; F17.210 Nicotine dependence, cigarettes, uncomplicated; Z51.81 Encounter for therapeutic drug level monitoring; Z79.899 Other long term (current) drug therapy; Z98.890 Other specified postprocedural states | CPT/HCPCS: 93005; 99212 ==

== ENCOUNTER 2022-09-15 13:34 | Outpatient (REF) | payer MEDICARE, MEDICAID, SELFPAY ==
[2022-09-15 15:09] LABS: Alanine Aminotransferase 20 U/L (0-40); Albumin Level 4.1 g/dL (3.5-5.0); Alkaline Phosphatase 81 U/L (39-117); Anion Gap 14 (12-20); Aspartate Amino Transferase 14 U/L (5-37); Bilirubin Total 0.7 mg/dL (0.0-1.0); Blood Urea Nitrogen 22 mg/dL (9-16); Calcium 9.9 mg/dL (8.4-10.2); Carbon Dioxide 28 mmol/L (22-29); Chloride 98 mmol/L (96-108); Cholesterol 225 mg/dL; Estimated Glomerular Filt Rate 56; Glucose Random 96 mg/dL (60-115); HDL Cholesterol 61 mg/dL; LDL Cholesterol Calculated 138 mg/dl; Potassium 4.2 mmol/L (3.3-5.1); Sodium 136 mmol/L (135-145); Total Protein 6.9 g/dL (6.5-8.0); Triglycerides 134 mg/dL
[2022-09-15 15:12] LABS: TSH reflex Free T4 1.95 uIU/mL (0.32-4.0)
== END 2022-09-15 13:35 | disposition home or self-care (01) ==
LOC: HO.LAB 13:34
PROVIDERS: PCP Internal Medicine; Visit Provider Nurse Practitioner Family
DX: Z00.00 Encounter for general adult medical examination without abnormal findings (principal); I48.91 Unspecified atrial fibrillation; Z79.899 Other long term (current) drug therapy
CPT/HCPCS: 36415; 80053; 80061; 83880; 84443

== ENCOUNTER → 2022-11-11 13:30 | Outpatient (REF) | payer MEDICARE, MEDICAID, SELFPAY ==
--- NOTE | 2022-11-11 13:35 | CA_ITS ---
Transthoracic Echocardiogram Limited Patient (Last, First, Middle): Magdi Carson H Gender: Male Date of : 1965 Age: 57 Procedure Date: 11/11/2022 Procedure Type: Transthoracic Echocardiogram Limited Location: OP Height: 180.34 cm Weight: 95.71 kg BSA: 2.16 m2 Heart Rate: bpm BP: 124 / 70 mmHg Staffing Director: HOOD Referring MD: Sameera Meza TIMBER CUTTER-C Clinical Practitioner: Greyson Waddell MD Symptoms: I42.8 - Other cardiomyopathies Study Quality: Fair ECG Rhythm: Sinus Conclusions: - Mildly dilated left ventricle with LVEF of 40-45% with pseudonormal filling pattern Findings Procedure Information Contrast agent, definity, is being given per protocol without apparent complications. Left Ventricle Mildly increased left ventricular cavity size. There is mildly increased left ventricular wall thickness. The left ventricular systolic function is mild to moderately decreased. Spectral Doppler is indicative of a pseudonormal filling pattern. E/E prime ratio is between 8 and 15 consistent with indeterminate filling pressures. Prior Study Comparison Changes noted compared to prior study dated: 08/25/2022. LV systolic function has improved Measurements 2D Linear Measurements IVSd: 1.31 0.6-0.9/0.6-1.0 cm LVIDd: 6.16 3.9-5.3/4.2-5.9 cm LVIDd Index: 2.85 2.4-3.2/2.2-3.1 cm/m2 LVIDs: 4.63 2.0-3.6 cm LVPWd: 1.26 0.7-1.1 cm LV Mass: 448.86 67-162/88-224 g LV Mass Index: 207.80 43-95/49-115 g/m2 LVOT Diam: 2.20 3.0+(-)1.3 cm 2D Systolic Function EF 4C: 42.90 >55% EF 2C: 47.00 >55% EF BiP: 43.60 >55% Mitral Valve MV Pk E: 0.96 MV PK A: 0.52 MV Decel Time: 194.00 E/A: 1.80 E'Lateral: 7.83 E'Medial: 6.74 E/E' Med: 14.20 E/E' Lat: 12.30 PHT: 57.00 MVA PHT: 3.86 Decel Riley: 4.96 Aortic Valve AoV Pk Dawit: 1.01 AoV Mn Dawit: 0.69 AoV VTI: 0.28 AoV Pk Grad: 4.00 Aov Mn Grad: 2.00 LVOT LVOT Diam: 2.20 LVOT Area: 3.80 Diastolic Function MV Pk E: 0.96 MV Pk A: 0.52 E/A: 1.80 E'Medial: 6.74 E/E' Med: 14.20 E' Laterial: 7.83 E/E' Lat: 12.30 Right Ventricle TAPSE (mm): 34.00 TVS' Dawit: 11.00 Updated in Other Vendor System with Status of Final Greyson Waddell MD electronically signed on 11/11/2022 4:31:57 PM with status of Final
== END ==
LOC: HO.CARD 13:30
PROVIDERS: PCP Internal Medicine; Visit Provider Nurse Practitioner Family
DX: I42.8 Other cardiomyopathies (principal)
CPT/HCPCS: 93308; Q9957

== ENCOUNTER → 2022-11-11 13:35 | Outpatient (BNV) | payer MEDICARE, MEDICAID, SELFPAY | PROVIDERS: PCP Internal Medicine; Visit Provider Internal Medicine Cardiovascular Disease | DX: I42.8 Other cardiomyopathies (principal) | CPT/HCPCS: 93308 ==

== ENCOUNTER 2022-11-21 14:16 | Outpatient (AMB) | payer MEDICARE, MEDICAID, SELFPAY ==
[2022-11-21 14:25] VITALS: BP 138/64; PULSE 55; O2SAT 98; BMI 31.1
--- NOTE | 2022-11-21 14:25 | A.OFFVIS_ITS ---
Intake Vital Signs 11/21/22 14:25 Height 5 ft 11 in Weight 222 lb 10.67 oz BMI 31.1 BP 138/64 Blood Pressure Location Lt brachial Position Sitting Pulse 55 Pulse Source Doppler Pulse Oximetry (%) 98 Oxygen Delivery Method Room Air Intake Visit Reasons: Cough Allergies No Known Allergies Allergy (Verified 11/21/22 14:28) HPI Cough HPI Details 57-year-old gentleman, active 40+ pack-y ear smoker, followed for COPD and dyspnea on exertion.?? He does have underlying systolic congestive heart failure with EF of 25-30%.? He has had cardiac catheterization that showed no actionable upon blockages and an admission to [facility] for AFib requiring cardioversion. After cardioversion, he is on amiodarone and apixaban. While in normal sinus rhythm and diuresed 30 lb of water patient reports significant improvement in his dyspnea.? He continues on Trelegy, albuterol MDI, and Bumex 1 mg b.i.d.. Today he complains of mild bronchitic exacerbation symptomatic with cough productive of whitish to yellowish sputum. PFSH Medical History Alcohol abuse Atrial flutter with rapid ventricular response COPD (chronic obstructive pulmonary disease) Diabetes mellitus History of cardioversion HTN (hypertension) Obesity (BMI 30-39.9) Smoking Surgical History No pertinent past surgical history Family History Father Cancer Mother Diabetes Hypertension Brother In good health Sister In good health Son In good health Daughter In good health Social History Household Members: None Housing: Apartment Do you presently have visiting nurse or other home services: No Alcohol intake: current Alcohol intake frequency: former alcohol drinker Alcohol type: beer Patient Tobacco Use Status: Current everyday Tobacco user Tobacco use type: Cigarette Cigarette Packs Per Day: 1 Cigarettes Per Day: 20.0 Years Smoked: 40 +/- e-Cigarette/Vaping Use: Never Used Second Hand Smoke Exposure: No Substance Use Type: Marijuana Advance Directives Date on File: 06/11/20 service: No Current occupational status: retired and disabled Cognitive needs: No Hearing needs: No Vision needs: Yes (reading glasses) Review of Systems Const Denies daytime sleepiness, Denies excessive sweating, Denies fatigue, Denies fever(s), Denies lethargy, Denies malaise, Denies night sweats, Denies snoring and Denies weight loss Eyes Denies blurry vision and Denies itchy eyes ENT Denies nasal congestion, Denies post nasal drip, Denies sinus pain, Denies sinus pressure and Denies other ( Thrush) Card Denies chest pain, Denies pedal edema, Denies dyspnea, Denies orthopnea and Denies paroxysmal nocturnal dyspnea Resp Reports cough, Denies hemoptysis, Reports excessive phlegm production, Denies dyspnea, Denies snoring and Denies wheezing GI Denies abdominal pain and Denies heartburn Musc Denies myalgias, Denies arthralgias and Denies joint swelling Skin/Breast Denies rash Neuro Denies memory loss and Denies seizure-like activity Psych Denies abnormal sleep pattern, Denies anxiety and Denies memory loss Endo Denies excessive sweating, Denies fatigue and Denies heat intolerance Donato/Lymph Denies easy bruising Aller/Immun Denies itchy eyes, Denies seasonal rhinorrhea and Denies wheezing Physical Exam Vital Signs: Last Vital Signs Pulse 55 11/21/22 14:25 BP 138/64 11/21/22 14:25 Pulse Ox 98 11/21/22 14:25 Oxygen Delivery Method Room Air 11/21/22 14:25 BMI result Body Mass Index 31.1 Const General: no acute distress and alert Nutritional Appearance: not obese Orientation/consciousness: Other orientation findings ( oriented) HEENT Head: Yes atraumatic Eyes General: appearance normal, both eyes and all related structures Sclerae: sclerae normal EOM: EOMs intact bilaterally Neck Neck: Yes supple Lymphatic: no lymphadenopathy noted Resp Effort & Inspection: normal respiratory effort and no use of accessory muscles Auscultation: clear to auscultation bilaterally Cardio Rate: regular rate Rhythm: regular rhythm Heart sounds: no gallops, no murmurs and no rubs Skin General skin exam: other ( warm) Extrem General: No clubbing, No cyanosis and No edema Assessment & Plan Assessment & Plan (1) Orthopnea: Code(s): R06.01 - Orthopnea Plan: Well controlled on current regimen of Bumex 1 mg twice a day. Continue current regimen. (2) COPD (chronic obstructive pulmonary disease): Code(s): J44.9 - Chronic obstructive pulmonary disease, unspecified Qualifiers: COPD type: COPD with acute exacerbation Qualified Code(s): J44.1 - Chronic obstructive pulmonary disease with (acute) exacerbation Plan: Well controlled on current regimen of Trelegy and albuterol MDI. Continue current regimen. Now with mild bronchitic exacerbation, will treat with a course of azithromycin. Medications: New azithromycin For 250 mg dose pack: take 500 mg today (day 1), then 250 mg for 4 days (days 2-5) PO 6 tabs 0RF Coding Level of Care Code Est Pt Level 4 (85798) Diagnoses Orthopnea R06.01 Chronic obstructive pulmonary disease with acute exacerbation J44.1 COPD type: COPD with acute exacerbation
== END 2022-11-21 14:46 | disposition home or self-care (01) ==
PROVIDERS: PCP Internal Medicine; Visit Provider Internal Medicine Pulmonary Disease
DX: R06.01 Orthopnea (principal); J44.1 Chronic obstructive pulmonary disease with (acute) exacerbation
CPT/HCPCS: 99214

== ENCOUNTER → 2022-11-21 14:16 | Outpatient (BNVA) | payer MEDICARE, MEDICAID, SELFPAY | PROVIDERS: PCP Internal Medicine; Visit Provider Internal Medicine Pulmonary Disease | DX: J44.1 Chronic obstructive pulmonary disease with (acute) exacerbation (principal); R06.01 Orthopnea; Z79.899 Other long term (current) drug therapy | CPT/HCPCS: 99212 ==

== ENCOUNTER 2022-12-04 09:30 | Outpatient (AMB) | payer MEDICARE, MEDICAID, SELFPAY ==
[2022-12-04 09:45] VITALS: BP 132/82; PULSE 56; BMI 29.9
--- NOTE | 2022-12-04 09:45 | A.OFFVIS_ITS ---
Intake Vital Signs 12/04/22 09:45 Height 5 ft 11 in Weight 214 lb 4.629 oz BMI 29.9 BP 132/82 Blood Pressure Location Lt brachial Position Sitting Pulse 56 Intake Visit Reasons: F/U Intake Note: f/u Manager Customer Service Required: No Allergies No Known Allergies Allergy (Verified 12/04/22 09:49) Medication List - Last Reconciled 12/04/22 by GELA Botello albuterol sulfate 90 mcg/actuation 2 puffs inhalation Q6H PRN 30 days amiodarone 200 mg PO DAILY blood pressure monitor As directed blood sugar diagnostic (FreeStyle Lite Strips) As directed blood-glucose meter (FreeStyle Lite Meter kit) As directed hrwmnpukfgp-wdckyxivo-tvotpbjo 200-62.5-25 mcg (Trelegy Ellipta) 1 inh inhalation DAILY 30 days lancets (FreeStyle Lancets) As directed metformin 1,000 mg (2 x 500 mg) PO BID metoprolol succinate ER 50 mg PO BID pen needle, diabetic (Pen Needle) As directed HPI F/U HPI Details Magid is a 57-year-old male past medical history of hypertension, diabetes, alcohol abuse, smokes tobacco abuse, paroxysmal atrial fibrillation, nonischemic cardiomyopathy with EF as low as 25-30% with normalization of EF with prior use of guided directed medical therapy who was recently admitted to [facility] after a fall at home. He was noted to have AFib RVR. Echocardiogram showed EF 30-35%. He was treated with rate control and once st able was discharged. On follow-up visit he was noted to AFib RVR. He was transported to the emergency room where he was then admitted again for heart rate control. He did require a transesophageal echo/cardioversion on 08/25/2022 with successful conversion to sinus rhythm. He was started on amiodarone to help maintain sinus rhythm. He was also treated for decompensated heart failure diuresed and sent home with Bumex 1 mg b.i.d. He recently underwent a repeat echocardiogram showing some improvement in EF and now presents for follow-up. Today he reports that he has been doing well. He continues to not drink alcohol. He no longer smokes marijuana. He continues to smoke cigarettes. He currently has a respiratory ailment and has completed a course of antibiotics but still has some chest congestion. He denies chest pain or pressure. Mild shortness of breath with his current illness otherwise no usual shortness of breath with activity. No palpitations concerning for AFib. No presyncope, syncope, falls. No PND, orthopnea or edema. He is taking the water pill only once daily. He tells me he is not taking Eliquis for unclear reason and is not on Entresto. [facility] Medical History History of cardioversion Obesity (BMI 30-39.9) Diabetes mellitus Alcohol abuse Smoking Atrial flutter with rapid ventricular response HTN (hypertension) COPD (chronic obstructive pulmonary disease) Surgical History No pertinent past surgical history Family History Father Cancer Mother Diabetes Hypertension Brother In good health Sister In good health Son In good health Daughter In good health Social History Household Members: None Housing: Apartment Do you presently have visiting nurse or other home services: No Alcohol intake: current Alcohol intake frequency: former alcohol drinker Alcohol type: beer Patient Tobacco Use Status: Current everyday Tobacco user Tobacco use type: Cigarette Cigarette Packs Per Day: 1 Cigarettes Per Day: 20.0 Years Smoked: 40 +/- e-Cigarette/Vaping Use: Never Used Second Hand Smoke Exposure: No Substance Use Type: Marijuana Advance Directives Date on File: 06/11/20 service: No Current occupational status: retired and disabled Cognitive needs: No Hearing needs: No Vision needs: Yes (reading glasses) Review of Systems Const All systems reviewed & are unremarkable except as noted in HPI and below ENT Denies dizziness Card Details: Chest congestion at this time due to illness Denies chest pain, Denies chest pain at rest, Denies chest pain with activity, Denies rapid heart rate, Denies pedal edema, Denies edema, Denies leg edema, Denies lightheadedness, Denies palpitations, Denies dyspnea, Reports dyspnea on exertion and Denies orthopnea Resp Denies cough, Denies dyspnea and Reports dyspnea on exertion GI Denies hematochezia and Denies change in stool character Musc Denies abnormal gait, Denies limited range of motion, Denies muscle cramps, Denies muscle weakness, Denies numbness, Denies radiating pain into limb, Denies stiffness and Denies tingling Neuro Denies abnormal gait, Denies dizziness, Denies numbness and Denies tingling Endo Denies palpitations Physical Exam Vital Signs: Last Vital Signs BP 132/82 12/04/22 09:45 BMI result Body Mass Index 29.9 Const General: cooperative, healthy appearing, comfortable and no acute distress Orientation/consciousness: patient oriented x3 Neck Neck: Yes normal visual inspection Resp Effort & Inspection: normal respiratory effort Auscultation: clear to auscultation bilaterally, no crackles, no rales, no rhonchi and no wheezes Cardio Jugular venous distension: no JVD Rate: regular rate Rhythm: regular rhythm Heart sounds: S1 normal heart sound present, S2 normal heart sound present, no murmurs and no rubs Neuro General: patient oriented x3 Extrem General: Yes normal to inspection Psych Appearance: grossly normal Mental Status: mental status grossly normal Speech and movement: Normal speech and movement present Office Procedures EKG Details: Today, read by me, sinus bradycardia, lateral infarct, rate 56, QTC 461 millise cond [id number], Complete Assessment & Plan Assessment & Plan (1) Atrial fibrillation with RVR: Code(s): I48.91 - Unspecified atrial fibrillation Plan: Newer finding of atrial fibrillation with rapid ventricular response, spring 2022, with reduction in EF down to 30-35%. 2 recent hospital admissions, initially treated with heart rate control then required YOAV cardioversion on 08/25/2022. He was then put on amiodarone load and is now on maintenance dose. He was started on metoprolol 50 mg b.i.d. and Eliquis 5 mg b.i.d.. He says he quit alcohol use at that time. EKG done today showing normal sinus rhythm, heart rate 56, QTC 461 milliseconds. Today he reports that he is not taking Eliquis for unclear reason. No heart palpitations or concerns about recurrent AFib. Echocardiogram done 11/11/2022 shows EF 40-45%. Will have him restart on 5 mg b.i.d.. Stroke Risk with AFib reviewed. Labs done on 09/15/2022 showed creatinine 1.32, TSH 1.95, AST 14, ALT 20. Cardiology follow-up in 4-5 months, sooner if needed. Applauded on ongoing cessation of alcohol use and encouraged ongoing cessation. (2) CHF exacerbation: Code(s): I50.9 - Heart failure, unspecified Plan: Decompensated heart failure in August 2022 in the setting of AFib RVR. He was diuresed during last hospital admission and discharged with Bumex 1 mg b.i.d.. On examination today he does not appear fluid overloaded. He says he has been taking Bumex only once daily. Will have him continue that dose. Signs and symptoms of heart failure reviewed with him. (3) Cardiomyopathy, nonischemic: Code(s): I42.8 - Other cardiomyopathies Plan: Prior cardiac catheterization 2020 showing normal coronary arteries. History of nonischemic cardiomyopathy with EF as low as 25-30% in the past , thought to be alcohol related, then with normalization of EF with guideline directed medical therapy. More recently with noted reduction in EF in the setting of AFib RVR. Last echo with EF 30-35%. He is now in sinus rhythm. Echo 11/11 with EF 40-45%. Will have him continue on metoprolol and will restart Entresto for neurohormonal modulation. Entresto was ordered last visit but he tells me he is not taking it for unclear reason. (4) S/P cardiac catheterization: Comment: 03/05/2021 showing normal coronary arteries, wedge 16 mmHg, PA readings 54/20, nonischemic cardiomyopathy Code(s): Z98.890 - Other specified postprocedural states (5) Encounter for monitoring amiodarone therapy: Code(s): Z51.81 - Encounter for therapeutic drug level monitoring; Z79.899 - Other customer account technician (current) drug therapy Plan: As above (6) Smoking: Code(s): F17.200 - Nicotine dependence, unspecified, uncomplicated Plan: Continues to smoke daily. He has stop smoking marijuana and stopped alcohol use. Coding Level of Care Code Est Pt Level 4 (86430) Diagnoses Atrial fibrillation with RVR I48.91 CHF exacerbation I50.9 Cardiomyopathy, nonischemic I42.8 S/P cardiac catheterization Z98.890 Encounter for monitoring amiodarone therapy Z51.81; Z79.899 Smoking F17.200 CPT Codes EKG - CPT: 22629-[id number], Complete ([id number]) Time Spent (min) 28
== END 2022-12-04 10:15 | disposition home or self-care (01) ==
PROVIDERS: PCP Internal Medicine; Visit Provider Nurse Practitioner Family
DX: I48.91 Unspecified atrial fibrillation (principal); I50.9 Heart failure, unspecified; I42.8 Other cardiomyopathies; Z98.890 Other specified postprocedural states; Z51.81 Encounter for therapeutic drug level monitoring; Z79.899 Other long term (current) drug therapy; F17.200 Nicotine dependence, unspecified, uncomplicated
CPT/HCPCS: 93010; 99214

== ENCOUNTER → 2022-12-04 09:30 | Outpatient (BNVA) | payer MEDICARE, MEDICAID, SELFPAY | PROVIDERS: PCP Internal Medicine; Visit Provider Nurse Practitioner Family | DX: I48.91 Unspecified atrial fibrillation (principal); I50.9 Heart failure, unspecified; I42.8 Other cardiomyopathies; F17.210 Nicotine dependence, cigarettes, uncomplicated; Z79.01 Long term (current) use of anticoagulants; Z79.899 Other long term (current) drug therapy | CPT/HCPCS: 93005; 99212 ==

== ENCOUNTER 2023-01-22 09:59 | Outpatient (AMB) | payer MEDICARE, MEDICAID, SELFPAY ==
--- NOTE | 2023-01-22 11:04 | MHC.PC.OV ---
Vital Signs 01/22/23 11:05 Height 5 ft 11 in Weight 228 lb 2 oz BMI 31.8 BP 110/66 Blood Pressure Location Lt brachial Position Sitting Pulse 56 Pulse Source Pulse Oximeter Pulse Oximetry (%) 96 Oxygen Delivery Method Room Air Intake Visit Reasons: PE Intake Note: Patient is here today for a physical. Heel Wheeler Required: No Bar Manager: Not Required per policy Accompanied by: Self / Same As Patient Allergies No Known Allergies Allergy (Verified 01/23/23 16:09) Medication List - Last Reconciled 01/23/23 by Tamir Lutz MD albuterol sulfate 90 mcg/actuation 2 puffs inhalation Q6H PRN 30 days amiodarone 200 mg PO DAILY apixaban (Eliquis) 5 mg PO BID 90 days blood pressure monitor As directed blood sugar diagnostic (FreeStyle Lite Strips) As directed blood-glucose meter (FreeStyle Lite Meter kit) As directed bumetanide 1 mg PO DAILY ipfqxlnhscm-vygxrugms-zsjfdgvp 200-62.5-25 mcg (Trelegy Ellipta) 1 inh inhalation DAILY 30 days lancets (FreeStyle Lancets) As directed metformin 1,000 mg (2 x 500 mg) PO BID metoprolol succinate ER 50 mg PO BID pen needle, diabetic (Pen Needle) As directed sacubitril-valsartan 24-26 mg (Entresto) 1 tab PO BID Tobacco use date assessed: 01/22/23 Dental Screening Dental Screen Date: 01/22/23 Did you have a dental visit in the last 12 months?: Yes Did you have a dental problem in the last 6 months where you did not have access to dental care?: No Was dental information given to patient?: Patient has dentist HPI PE HPI Details 57-year-old male presents to the office for an annual physical. [facility], [facility] Medical History History of cardioversion Obesity (BMI 30-39.9) Diabetes mellitus Alcohol abuse Smoking Atrial flutter with rapid ventricular response HTN (hypertension) COPD (chronic obstructive pulmonary disease) Surgical History No pertinent past surgical history Family History Father Cancer Mother Diabetes Hypertension Brother In good health Sister In good health Son In good health Daughter In good health Social History Household Members: None Housing: Apartment Do you presently have visiting nurse or other home services: No Alcohol intake: current Alcohol intake frequency: former alcohol drinker Alcohol type: beer Patient Tobacco Use Status: Current everyday Tobacco user Tobacco use type: Cigarette Cigarette Packs Per Day: 1 Cigarettes Per Day: 20.0 Years Smoked: 40 +/- e-Cigarette/Vaping Use: Never Used Second Hand Smoke Exposure: No Substance Use Type: Marijuana Advance Directives Date on File: 06/11/20 service: No Current occupational status: retired and disabled Cognitive needs: No Hearing needs: No Vision needs: Yes (reading glasses) Questionnaire Thrive Questionnaire Date Thrive assessed: 08/21/22 LENNOX-7 AMB Questionnaire LENNOX-7 Date LENNOX - 7 assessed: 03/11/22 Source: Developed by Drs. Magdi Segovia, Marichuy Tejada, Jose Galloway and colleagues, with an educational yoanna from [employer]. Physical exam (Primary Care) Vital Signs: Last Vital Signs Pulse 56 01/22/23 11:05 BP 110/66 01/22/23 11:05 Pulse Ox 96 01/22/23 11:05 Oxygen Delivery Method Room Air 01/22/23 11:05 Care Plan Goal for BP management: Blood pressure is in range. BMI result Body Mass Index 31.8 BMI Assessment/Plan discussion: High (1 lb per week weight loss suggested.) BMI High, discussed plan: lifestyle, weight reduction and dietary Tobacco/Smoking Status: Tobacco use Status Tobacco use date assessed 01/22/23 01/22/23 11:10 Patient Tobacco Use Status Current everyday Tobacco 01/22/23 11:10 Tobacco use type Cigarette 01/22/23 11:10 e-Cigarette/Vaping Use Never Used 01/22/23 11:10 Thrive Assessment: Date of Thrive Assessment Date Thrive assessed 08/21/22 01/22/23 11:10 Advance Care Planning discussion: Exists, not on file Date of discussion: 01/22/23 Who was present: Patient Forms completed: Health Care Proxy Time spent: 1-15 minutes, not on file Actual minutes spent: 5 Const General: cooperative and healthy appearing Nutritional Appearance: well nourished Orientation/consciousness: patient oriented x3 Limitations: no limitations HENMT Head: Yes normal to inspection Eyes General: appearance normal, both eyes and all related structures Neck Neck: Yes normal visual inspection Chest Chest palpation & inspection: normal palpation of entire chest wall Resp Effort & Inspection: normal respiratory effort Neuro General: patient oriented x3 Results AMB Hemoglobin A1c AMB Hemoglobin A1c 5.9 % Last Edit by RAJ Cee on 01/22/23 11:15 Results Reviewed Results Reviewed: Laboratory Last Values Hgb A1c (Clinic) 5.9 % (4.0-6.0) 01/22/23 11:03 Assessment and Plan Assessment & Plan (1) Annual physical exam: Code(s): Z00.00 - Encounter for general adult medical examination without abnormal findings Plan: Patient declined to get a colonoscopy. He agreed to get a Cologuard. I congratulated him on decreasing his alcohol intake. He agreed to get a lung cancer screening. Blood work reviewed. Orders: Orders AMB Hemoglobin A1c 01/22/23 E11.9 - Type 2 diabetes mellitus without complications Referrals Cologuard Test Z12.11 - Encounter for screening for malignant neoplasm of colon Thoracic Surgery Referral Z12.2 - Encounter for screening for malignant neoplasm of respiratory organs Coding Level of Care Code Est Pt Prev Care 40-64y(39442) Diagnoses Annual physical exam Z00.00 Additional Codes Vital Signs *Quality* - Advance Care Planning discussion: Exists, not on file ([id number]) Vital Signs *Quality* - Time spent: 1-15 minutes, not on file ([id number])
[2023-01-22 11:05] VITALS: BP 110/66; PULSE 56; O2SAT 96; BMI 31.8
== END 2023-01-22 12:28 | disposition home or self-care (01) ==
PROVIDERS: Visit Provider Internal Medicine
DX: E11.9 Type 2 diabetes mellitus without complications (principal)
CPT/HCPCS: 83036; 99396

== ENCOUNTER 2023-04-02 09:55 | Outpatient (AMB) | payer OTHER, SELFPAY ==
--- NOTE | 2023-04-02 08:56 | A.OFFVIS_ITS ---
Intake Intake Visit Reasons: LDCT SD Allergies No Known Allergies Allergy (Verified 01/23/23 16:09) HPI HPI Comments History of Present Illness Details Magdi is a pleasant 57 year old male, current 1ppd smoker with a 46 PYH. Patient has been smoking since age 20 for 37 years at 1-1.5 ppd. Denies marijuana use. Reports possible exposure to asbestos. Reports second hand smoke exposure. Reports paternal uncle withlung cancer. Denies personal history of cancers. Denies recent travel outside the [place]. Admits testing positive for COVID. Admits receiving COVID Vaccine. Denies fever, chills, chest pain, new cough, hemoptysis or unintentional weight loss. Lung Cancer Screening Questionnaire reviewed with patient by provider. Shared Decision Making Completed. Discussed in detail with patient, the risk versus benefit of LDCT screening. Patient in agreement of proceeding with scan. [facility] Medical History History of cardioversion Obesity (BMI 30-39.9) Diabetes mellitus Alcohol abuse Smoking Atrial flutter with rapid ventricular response HTN (hypertension) COPD (chronic obstructive pulmonary disease) Surgical History No pertinent past surgical history Family History Father Cancer Mother Diabetes Hypertension Brother In good health Sister In good health Son In good health Daughter In good health Social History Household Members: None Housing: Apartment Do you presently have visiting nurse or other home services: No Alcohol intake: current Alcohol intake frequency: former alcohol drinker Alcohol type: beer Patient Tobacco Use Status: Current everyday Tobacco user Tobacco use type: Cigarette Cigarette Packs Per Day: 1 Cigarettes Per Day: 20.0 Years Smoked: 40 +/- e-Cigarette/Vaping Use: Never Used Second Hand Smoke Exposure: No Substance Use Type: Marijuana Advance Directives Date on File: 06/11/20 service: No Current occupational status: retired and disabled Cognitive needs: No Hearing needs: No Vision needs: Yes (reading glasses) Assessment & Plan Assessment & Plan (1) Nicotine dependence, cigarettes, uncomplicated: Code(s): F17.210 - Nicotine dependence, cigarettes, uncomplicated Plan Shared decision-making visit completed via telehealth visit. This patient meets criteria for LDCT for lung cancer screening purposes and is asymptomatic. Offered smoking cessation. Patient has been scheduled for a low dose chest CT for screening purposes at [facility]. We discussed how the results will be obtained depending on CT findings. RADS 1 and RADS 2 will receive a letter with results and will follow up for annual LDCT. Patient informed they will be contacted at later date to schedule upcoming LDCT scan. RADS 3 and RADS 4 will receive a telephone call, or an office visit after reviewing case at our Lung Cancer Conference to determine when the next LDCT will be scheduled or further interventions that may be needed. Discussed importance of screening program and compliance with yearly LDCT scan as scheduled. Risks, benefits, and alternatives were discussed in detail and patient agrees to proceed. Risks discussed include but are not limited to: radiation exposure and possibility of additional intervention for benign disease. Benefits include detection of lung cancer at an early stage. A copy of today's visit and LDCT results will be sent to patient's PCP. Incidental findings on LDCT are PCP's responsibility. If there are incidental findings, our office will ensure that PCP office is aware of these findings. All questions were answered and patient is in agreement of plan. Telehealth Telehealth Location of provider rendering services: practice address Location of patient: address on file Patient Identification confirmed using: Name, : Yes Telehealth method: voice only Patient verbally consented to treatment: Yes Patient verbally consented to billing insurance company: Yes Patient informed of any privacy concerns related to visit: Yes Coding Level of Care Code Lung Cancer Screening G0296 Diagnoses Nicotine dependence, cigarettes, uncomplicated F17.210
== END 2023-04-02 10:03 | disposition home or self-care (01) ==
LOC: HO.HPS 09:55
PROVIDERS: PCP Internal Medicine; Referring Provider Internal Medicine; Visit Provider Nurse Practitioner Family
DX: F17.210 Nicotine dependence, cigarettes, uncomplicated (principal)
CPT/HCPCS: G0296

== ENCOUNTER → 2023-04-02 09:55 | Outpatient (BNVA) | payer OTHER, SELFPAY | PROVIDERS: PCP Internal Medicine; Visit Provider Nurse Practitioner Family | DX: F17.210 Nicotine dependence, cigarettes, uncomplicated (principal) | CPT/HCPCS: G0296 ==

== ENCOUNTER 2023-04-06 13:10 | Outpatient (AMB) | payer OTHER, SELFPAY ==
[2023-04-06 13:30] VITALS: BP 132/70; PULSE 55; BMI 33.0
--- NOTE | 2023-04-06 13:30 | MHC.OFFVIS ---
Intake Vital Signs 04/06/23 13:30 Height 5 ft 11 in Weight 236 lb 5.369 oz BMI 33.0 BP 132/70 Blood Pressure Location Lt brachial Position Sitting Pulse 55 Pulse Source Pulse Oximeter Intake Visit Reasons: 4 month follow up Emergency Management Director Required: No Allergies No Known Allergies Allergy (Verified 04/06/23 13:33) Medication List - Last Reconciled 04/06/23 by GELA Botello albuterol sulfate 90 mcg/actuation 2 puffs inhalation Q6H PRN 30 days amiodarone 200 mg PO DAILY apixaban (Eliquis) 5 mg PO BID blood pressure monitor As directed blood sugar diagnostic (FreeStyle Lite Strips) As directed blood-glucose meter (FreeStyle Lite Meter kit) As directed bumetanide 1 mg PO DAILY jeefxcacpgn-yecyqyall-udqiccxv 200-62.5-25 mcg (Trelegy Ellipta) 1 inh inhalation DAILY 30 days lancets (FreeStyle Lancets) As directed metformin 1,000 mg (2 x 500 mg) PO BID metoprolol succinate ER 50 mg PO BID 90 days pen needle, diabetic (Pen Needle) As directed sacubitril-valsartan 24-26 mg (Entresto) 1 tab PO BID HPI 4 month follow up HPI Details Magdi is a 57-year-old male past medical history of hypertension, diabetes, alcohol abuse, tobacco abuse, paroxysmal atrial fibrillation, nonischemic cardiomyopathy with EF as low as 25-30% with normalization of EF with prior use of guided directed medical therapy, newer AFib RVR with drop in EF down to 30-35%. For AFib he was treated with rate control, then on follow-up he was noted to have decompensated heart failure and AFib RVR and did require a transesophageal echo/cardioversion on 08/25/2022 with successful conversion to sinus rhythm. He was started on amiodarone at that time to help maintain sinus rhythm. Follow-up echo showed EF 40-45%. Today he reports he has been feeling generally well since his last visit in November. Has not noticed any rapid heartbeats consistent with AFib. He denies any chest discomfort at rest or with activity. He tells me his breathing is normal. No lightheadedness, presyncope, syncope, falls. No PND, orthopnea or edema. No bleeding issues reported with Eliquis use. He is compliant with his meds. 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 He has been experiencing some fatigue. [facility] Medical History History of cardioversion Obesity (BMI 30-39.9) Diabetes mellitus Alcohol abuse Smoking Atrial flutter with rapid ventricular response HTN (hypertension) COPD (chronic obstructive pulmonary disease) Surgical History No pertinent past surgical history Family History Father Cancer Mother Diabetes Hypertension Brother In good health Sister In good health Son In good health Daughter In good health Social History Household Members: None Housing: Apartment Do you presently have visiting nurse or other home services: No Alcohol intake: current Alcohol intake frequency: former alcohol drinker Alcohol type: beer Patient Tobacco Use Status: Current everyday Tobacco user Tobacco use type: Cigarette Cigarette Packs Per Day: 1 Cigarettes Per Day: 20.0 Years Smoked: 40 +/- e-Cigarette/Vaping Use: Never Used Second Hand Smoke Exposure: No Substance Use Type: Marijuana Advance Directives Date on File: 06/11/20 service: No Current occupational status: retired and disabled Cognitive needs: No Hearing needs: No Vision needs: Yes (reading glasses) Review of Systems Const All systems reviewed & are unremarkable except as noted in HPI and below Reports fatigue ENT Denies dizziness Card Denies chest pain, Denies chest pain at rest, Denies chest pain with activity, Denies rapid heart rate, Denies pedal edema, Denies edema, Denies leg edema, Denies lightheadedness, Denies palpitations, Denies dyspnea, Denies dyspnea on exertion and Denies orthopnea Resp Denies cough, Denies dyspnea and Denies dyspnea on exertion GI Denies hematochezia and Denies change in stool character Musc Denies abnormal gait, Reports limited range of motion, Reports muscle cramps, Denies muscle weakness, Denies numbness, Denies radiating pain into limb, Denies stiffness and Denies tingling Neuro Denies abnormal gait, Denies dizziness, Denies numbness and Denies tingling Endo Reports fatigue and Denies palpitations Physical Exam Vital Signs: Last Vital Signs Pulse 55 04/06/23 13:30 BP 132/70 04/06/23 13:30 BMI result Body Mass Index 33.0 Const General: cooperative, comfortable and no acute distress Orientation/consciousness: patient oriented x3 Neck Neck: Yes normal visual inspection and Yes no JVD Resp Effort & Inspection: normal respiratory effort Auscultation: clear to auscultation bilaterally, no crackles, no rales, no rhonchi and no wheezes Cardio Jugular venous distension: no JVD Rate: regular rate Rhythm: regular rhythm Heart sounds: S1 normal heart sound present, S2 normal heart sound present, no murmurs and no rubs Neuro General: patient oriented x3 Extrem General: Yes normal to inspection, No no pedal edema and No calf tenderness Psych Appearance: grossly normal Mental Status: mental status grossly normal Speech and movement: Normal speech and movement present Office Procedures EKG Details: Today, read by me, sinus bradycardia, right axis deviation, septal Q-wave, unchanged from prior EKG, rate 55, QTC 463 millisecond [id number], Complete Assessment & Plan Assessment & Plan (1) Atrial fibrillation with RVR: Code(s): I48.91 - Unspecified atrial fibrillation Plan: Newer finding of atrial fibrillation with rapid ventricular response, spring 2022, with reduction in EF down to 30-35%. 2 hospital admissions last summer, initially treated with heart rate control then required YOAV cardioversion on 08/25/2022. He was then put on amiodarone at that time and continued on metoprolol 50 mg b.i.d. and Eliquis 5 mg b.i.d.. This past year he has quit alcohol use as well as marijuana use. He continues to smoke cigarettes. EKG done today showing sinus bradycardia, QTC 463 milliseconds, rate 55. He has had no known recurrent atrial fibrillation. He says he quit alcohol use at that time. Echocardiogram done 11/11/2022 showed EF 40-45%. EKG done today showing normal sinus rhythm, heart rate 56, QTC 461 milliseconds. Labs done on 09/15/2022 showed creatinine 1.32, TSH 1.95, AST 14, ALT 20. Will have him update labs at this time including liver tests and TSH for amiodarone monitoring. Will discuss future plan for amiodarone use with his primary it project coordinator. Cardiology follow-up in 4 months, sooner if needed. (2) CHF exacerbation: Code(s): I50.9 - Heart failure, unspecified Qualifiers: Heart failure type: systolic Qualified Code(s): I50.23 - Acute on chronic systolic (congestive) heart failure Plan: Decompensated heart failure in August 2022 in the setting of AFib RVR. He was diuresed during last hospital admission and discharged with Bumex 1 mg b.i.d.. On examination today he does not appear fluid overloaded. He says he has been taking Bumex only once daily. Will have him continue that dose. Signs and symptoms of heart failure reviewed with him. Checking labs as above (3) Cardiomyopathy, nonischemic: Code(s): I42.8 - Other cardiomyopathies Plan: Prior cardiac catheterization 2020 showing normal coronary arteries. History of nonischemic cardiomyopathy with EF as low as 25-30% in the past , thought to be alcohol related, then with normalization of EF with guideline directed medical therapy. More recently with noted reduction in EF down to 30-35% in the setting of AFib RVR. He is now in sinus rhythm. Echo 11/11 with EF 40-45%. Will have him continue on metoprolol, Entresto for neurohormonal modulation. (4) S/P cardiac catheterization: Comment: 03/05/2021 showing normal coronary arteries, wedge 16 mmHg, PA readings 54/20, nonischemic cardiomyopathy Code(s): Z98.890 - Other specified postprocedural states Plan: As above (5) Encounter for monitoring amiodarone therapy: Code(s): Z51.81 - Encounter for therapeutic drug level monitoring; Z79.899 - Other halfway (current) drug therapy Plan: As above - no clinical signs of toxicity. Will be checking labs. (6) Smoking: Code(s): F17.200 - Nicotine dependence, unspecified, uncomplicated Plan: Continues to smoke daily. He has stop smoking marijuana and stopped alcohol use. Plan Time spent on chart review, documentation, interview and assessment Orders: Orders TSH reflex Free T4 04/06/23 I42.8 - Other cardiomyopathies Comprehensive Met. Panel 04/06/23 I42.8 - Other cardiomyopathies Coding Level of Care Code Est Pt Level 4 (72400) Diagnoses Atrial fibrillation with RVR I48.91 Acute on chronic systolic congestive heart failure I50.23 Heart failure type: systolic Cardiomyopathy, nonischemic I42.8 S/P cardiac catheterization Z98.890 Encounter for monitoring amiodarone therapy Z51.81; Z79.899 Smoking F17.200 CPT Codes EKG - CPT: 54622-[id number], Complete ([id number]) Time Spent (min) 28
== END 2023-04-06 14:13 | disposition home or self-care (01) ==
PROVIDERS: PCP Internal Medicine; Visit Provider Nurse Practitioner Family
DX: I48.91 Unspecified atrial fibrillation (principal); I50.23 Acute on chronic systolic (congestive) heart failure; I42.8 Other cardiomyopathies; Z98.890 Other specified postprocedural states
CPT/HCPCS: 93010; 99214

== ENCOUNTER → 2023-04-06 13:10 | Outpatient (BNVA) | payer OTHER, SELFPAY | PROVIDERS: PCP Internal Medicine; Visit Provider Nurse Practitioner Family | DX: I48.91 Unspecified atrial fibrillation (principal); I50.23 Acute on chronic systolic (congestive) heart failure; I42.8 Other cardiomyopathies; Z98.890 Other specified postprocedural states; Z51.81 Encounter for therapeutic drug level monitoring; Z79.899 Other long term (current) drug therapy; F17.210 Nicotine dependence, cigarettes, uncomplicated | CPT/HCPCS: 93005; 99212 ==

== ENCOUNTER 2023-07-20 09:45 | Outpatient (AMB) | payer OTHER, SELFPAY ==
[2023-07-20 10:14] VITALS: BP 128/66; PULSE 60; O2SAT 96; BMI 34.1
--- NOTE | 2023-07-20 10:14 | A.OFFVIS_ITS ---
Vital Signs 07/20/23 10:14 Height 5 ft 11 in Weight 244 lb 11.41 oz BMI 34.1 BP 128/66 Blood Pressure Location Lt brachial Position Sitting Pulse 60 Pulse Source Pulse Oximeter Pulse Oximetry (%) 96 Oxygen Delivery Method Room Air Intake Visit Reasons: 4mnth f/up Allergies No Known Allergies Allergy (Verified 04/06/23 13:33) Medication List - Last Reconciled 07/20/23 by Edi Portillo MD albuterol sulfate 90 mcg/actuation 2 puffs inhalation Q6H PRN 30 days amiodarone 200 mg PO DAILY apixaban (Eliquis) 5 mg PO BID azithromycin For 250 mg dose pack: take 500 mg today (day 1), then 250 mg for 4 days (days 2-5) PO blood pressure monitor As directed blood sugar diagnostic (FreeStyle Lite Strips) As directed blood-glucose meter (FreeStyle Lite Meter kit) As directed bumetanide 1 mg PO DAILY lfblztpfejq-hkqqnryql-qvxyziki 200-62.5-25 mcg (Trelegy Ellipta) 1 inh inhalation DAILY 90 days lancets (FreeStyle Lancets) As directed metformin 1,000 mg (2 x 500 mg) PO BID metoprolol succinate ER 50 mg PO BID 90 days pen needle, diabetic (Pen Needle) As directed prednisone 40 mg (2 x 20 mg) PO DAILY sacubitril-valsartan 24-26 mg (Entresto) 1 tab PO BID HPI HPI 4mnth f/up: Details: Magdi is a 57-year-old male past medical history of hypertension, diabetes, alcohol abuse, tobacco abuse, paroxysmal atrial fibrillation, nonischemic cardiomyopathy with EF as low as 25-30% with normalization of EF with prior use of guided directed medical therapy, then had AFib RVR with drop in EF down to 30-35%. For AFib he was intially treated with rate control, then on follow-up he was noted to have decompensated heart failure and AFib RVR and did require a transesophageal echo/cardioversion on 08/25/2022 with successful conversion to sinus rhythm. He was started on amiodarone at that time to help maintain sinus rhythm. Follow-up echo showed EF 40-45%. Today he reports he has been feeling generally well since his last visit in March. Has not noticed any rapid heartbeats consistent with AFib. He denies any chest discomfort at rest or with activity. He tells me his breathing is normal. No lightheadedness, presyncope, syncope, falls. No PND, orthopnea or edema. No bleeding issues reported with Eliquis use. He is compliant with his meds. 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 [facility] Medical History History of cardioversion Obesity (BMI 30-39.9) Diabetes mellitus Alcohol abuse Smoking Atrial flutter with rapid ventricular response HTN (hypertension) COPD (chronic obstructive pulmonary disease) Surgical History No pertinent past surgical history Family History Father Cancer Mother Diabetes Hypertension Brother In good health Sister In good health Son In good health Daughter In good health Social History Household Members: None Housing: Apartment Do you presently have visiting nurse or other home services: No Alcohol intake: current Alcohol intake frequency: former alcohol drinker Alcohol type: beer Patient Tobacco Use Status: Current everyday Tobacco user Tobacco use type: Cigarette Cigarette Packs Per Day: 1 Cigarettes Per Day: 20.0 Years Smoked: 40 +/- e-Cigarette/Vaping Use: Never Used Second Hand Smoke Exposure: No Substance Use Type: Marijuana Advance Directives Date on File: 06/11/20 service: No Current occupational status: retired and disabled Cognitive needs: No Hearing needs: No Vision needs: Yes (reading glasses) Review of Systems Const All systems reviewed & are unremarkable except as noted in HPI and below Denies weakness ENT Denies dizziness Card Denies chest pain, Denies chest pain with activity, Denies syncope, Denies rapid heart rate, Denies pedal edema, Denies edema, Denies leg edema, Denies lightheadedness, Denies palpitations, Denies dyspnea, Denies dyspnea on exertion and Denies orthopnea Resp Denies cough, Denies dyspnea and Denies dyspnea on exertion GI Denies hematochezia and Denies change in stool character Musc Denies abnormal gait, Denies muscle cramps, Denies muscle weakness, Denies numbness, Denies radiating pain into limb and Denies tingling Neuro Denies abnormal gait, Denies dizziness, Denies syncope, Denies numbness, Denies tingling and Denies weakness Endo Denies palpitations Physical Exam Vital Signs: Last Vital Signs Pulse 60 07/20/23 10:14 BP 128/66 07/20/23 10:14 Pulse Ox 96 07/20/23 10:14 Oxygen Delivery Method Room Air 07/20/23 10:14 BMI result Body Mass Index 34.1 Const General: cooperative, healthy appearing, comfortable and no acute distress Orientation/consciousness: patient oriented x3 Neck Neck: Yes normal visual inspection Resp Effort & Inspection: normal respiratory effort Auscultation: clear to auscultation bilaterally, no crackles, no rales, no rhonchi and no wheezes Cardio Jugular venous distension: no JVD Rate: regular rate Rhythm: regular rhythm Heart sounds: S1 normal heart sound present, S2 normal heart sound present, no murmurs and no rubs Neuro General: patient oriented x3 Extrem General: Yes normal to inspection and No no pedal edema Psych Appearance: grossly normal Mental Status: mental status grossly normal Speech and movement: Normal speech and movement present Office Procedures EKG Details: Today, read by me, sinus bradycardia, septal Q-wave, rate 51, QTC 442 milliseconds [id number], Complete Assessment & Plan Assessment & Plan (1) Atrial fibrillation with RVR: Code(s): I48.91 - Unspecified atrial fibrillation Category: Medical Plan: Newer finding of atrial fibrillation with rapid ventricular response, spring 2022, with reduction in EF down to 30-35%. 2 hospital admissions last summer, initially treated with heart rate control then required YOAV cardioversion on 08/25/2022. He was then put on amiodarone at that time and continued on metoprolol 50 mg b.i.d. and Eliquis 5 mg b.i.d.. This past year he has quit alcohol use as well as marijuana use. He continues to smoke cigarettes. EKG done today showing sinus bradycardia, QTC 442 milliseconds, rate 51. He has had no known recurrent atrial fibrillation. Echocardiogram done 11/11/2022 showed EF 40-45%. Following last visit he was informed he could stop amiodarone and just stay on metoprolol and he was very reluctant. He wanted to stay on amiodarone at that time and he continues on amiodarone presently. Labs done on 09/15/2022 showed creatinine 1.32, TSH 1.95, AST 14, ALT 20. Updated lab orders are in the system and he was reminded to obtain. This will include LFTs and TSH for amiodarone monitoring. He has no clinical signs of amiodarone toxicity. At this time will continue current med management. Will arrange for cardiology follow-up in 4 months, sooner if needed. Stopping amiodarone can be rediscussed at that time. (2) CHF exacerbation: Code(s): I50.9 - Heart failure, unspecified Category: Medical Qualifiers: Heart failure type: systolic Qualified Code(s): I50.23 - Acute on chronic systolic (congestive) heart failure Plan: Decompensated heart failure in August 2022 in the setting of AFib RVR. He was diuresed during last hospital admission and discharged with Bumex 1 mg b.i.d.. He has done well since that time . He is now on Bumex only once daily. He does not have any signs of fluid overload. Signs and symptoms of heart failure reviewed with him. Checking labs as above (3) Cardiomyopathy, nonischemic: Code(s): I42.8 - Other cardiomyopathies Category: Medical Plan: Prior cardiac catheterization 2020 showing normal coronary arteries. History of nonischemic cardiomyopathy with EF as low as 25-30% in the past , thought to be alcohol related, then with normalization of EF with guideline directed medical therapy. More recently with noted reduction in EF down to 30-35% in the setting of AFib RVR. He is now in sinus rhythm. Echo 11/11 with EF 40-45%. Will have him continue on metoprolol, Entresto for neurohormonal modulation. (4) S/P cardiac catheterization: Comment: 03/05/2021 showing normal coronary arteries, wedge 16 mmHg, PA readings 54/20, nonischemic cardiomyopathy Code(s): Z98.890 - Other specified postprocedural states Category: Surgical Plan: As above (5) Encounter for monitoring amiodarone therapy: Code(s): Z51.81 - Encounter for therapeutic drug level monitoring; Z79.899 - Other chcf (current) drug therapy Category: Medical Plan: As above - no clinical signs of toxicity. Will be checking labs. (6) Smoking: Code(s): F17.200 - Nicotine dependence, unspecified, uncomplicated Category: Social Hx Plan: Continues to smoke daily. He has stop smoking marijuana and stopped alcohol use. Plan Time spent on chart review, documentation, interview and assessment Orders: Orders Complete Blood Count Auto Diff Today I48.91 - Unspecified atrial fibrillation Lipid Panel Today E11.9 - Type 2 diabetes mellitus without complications Coding Level of Care Code Est Pt Level 4 (78328) Diagnoses Atrial fibrillation with RVR I48.91 Acute on chronic systolic congestive heart failure I50.23 Heart failure type: systolic Cardiomyopathy, nonischemic I42.8 S/P cardiac catheterization Z98.890 Encounter for monitoring amiodarone therapy Z51.81; Z79.899 Smoking F17.200 CPT Codes EKG - CPT: 61011-[id number], Complete ([id number]) Time Spent (min) 30
== END 2023-07-20 11:04 | disposition home or self-care (01) ==
PROVIDERS: PCP Internal Medicine; Visit Provider Internal Medicine
DX: I48.91 Unspecified atrial fibrillation (principal); I50.23 Acute on chronic systolic (congestive) heart failure; I42.8 Other cardiomyopathies; Z98.890 Other specified postprocedural states; Z51.81 Encounter for therapeutic drug level monitoring; Z79.899 Other long term (current) drug therapy; F17.200 Nicotine dependence, unspecified, uncomplicated
CPT/HCPCS: 93010; 99214

== ENCOUNTER → 2023-07-20 09:45 | Outpatient (BNVA) | payer OTHER, SELFPAY | PROVIDERS: PCP Internal Medicine; Visit Provider Internal Medicine | DX: I48.91 Unspecified atrial fibrillation (principal); I50.23 Acute on chronic systolic (congestive) heart failure; I42.8 Other cardiomyopathies; F17.210 Nicotine dependence, cigarettes, uncomplicated; Z51.81 Encounter for therapeutic drug level monitoring; Z79.899 Other long term (current) drug therapy; Z98.890 Other specified postprocedural states | CPT/HCPCS: 93005; 99212 ==

== ENCOUNTER 2023-09-16 14:51 | Outpatient (AMB) | payer OTHER, SELFPAY ==
[2023-09-16 15:03] VITALS: BP 124/62; PULSE 55; O2SAT 93; BMI 34.7
--- NOTE | 2023-09-16 15:03 | MHC.OFFVIS ---
Vital Signs 09/16/23 15:03 Height 5 ft 11 in Weight 249 lb 1.957 oz BMI 34.7 BP 124/62 Blood Pressure Location Rt brachial Position Sitting Pulse 55 Pulse Source Doppler Pulse Oximetry (%) 93 Oxygen Delivery Method Room Air Intake Visit Reasons: Cough Allergies No Known Allergies Allergy (Verified 09/16/23 15:08) HPI HPI Cough: Details: 57-year-old gentleman, active 40+ pack-year smoker, followed for COPD and dyspnea on exertion.?? He does have underlying systolic congestive heart failure with EF of 25-30%.? He has had cardiac catheterization that showed no actionable upon blockages and an admission to [facility] for AFib requiring cardioversion. After cardioversion, he is on amiodarone and apixaban. He continues on Trelegy, albuterol MDI, and Bumex 1 mg b.i.d.. He denies any recent exacerbations. [facility] Medical History History of cardioversion Obesity (BMI 30-39.9) Diabetes mellitus Alcohol abuse Smoking Atrial flutter with rapid ventricular response HTN (hypertension) COPD (chronic obstructive pulmonary disease) Surgical History No pertinent past surgical history Family History Father Cancer Mother Diabetes Hypertension Brother In good health Sister In good health Son In good health Daughter In good health Social History Household Members: None Housing: Apartment Do you presently have visiting nurse or other home services: No Alcohol intake: current Alcohol intake frequency: former alcohol drinker Alcohol type: beer Patient Tobacco Use Status: Current everyday Tobacco user Tobacco use type: Cigarette Cigarette Packs Per Day: 1 Cigarettes Per Day: 20.0 Years Smoked: 40 +/- e-Cigarette/Vaping Use: Never Used Second Hand Smoke Exposure: No Substance Use Type: Marijuana Advance Directives Date on File: 06/11/20 service: No Current occupational status: retired and disabled Cognitive needs: No Hearing needs: No Vision needs: Yes (reading glasses) Review of Systems Const Denies daytime sleepiness, Denies excessive sweating, Denies fatigue, Denies fever(s), Denies lethargy, Denies malaise, Denies night sweats, Denies snoring and Denies weight loss Eyes Denies blurry vision and Denies itchy eyes ENT Denies nasal congestion, Denies post nasal drip, Denies sinus pain, Denies sinus pressure and Denies other ( Thrush) Card Denies chest pain, Denies pedal edema, Denies dyspnea, Denies orthopnea and Denies paroxysmal nocturnal dyspnea Resp Denies cough, Denies hemoptysis, Denies excessive phlegm production, Denies dyspnea, Denies snoring and Denies wheezing GI Denies abdominal pain and Denies heartburn Musc Denies myalgias, Denies arthralgias and Denies joint swelling Skin/Breast Denies rash Neuro Denies memory loss and Denies seizure-like activity Psych Denies abnormal sleep pattern, Denies anxiety and Denies memory loss Endo Denies excessive sweating, Denies fatigue and Denies heat intolerance Donato/Lymph Denies easy bruising Aller/Immun Denies itchy eyes, Denies seasonal rhinorrhea and Denies wheezing Physical Exam Vital Signs: Last Vital Signs Pulse 55 09/16/23 15:03 BP 124/62 09/16/23 15:03 Pulse Ox 93 09/16/23 15:03 Oxygen Delivery Method Room Air 09/16/23 15:03 BMI result Body Mass Index 34.7 Const General: no acute distress and alert Nutritional Appearance: not obese Orientation/consciousness: Other orientation findings ( oriented) HEENT Head: Yes atraumatic Eyes General: appearance normal, both eyes and all related structures Sclerae: sclerae normal EOM: EOMs intact bilaterally Neck Neck: Yes supple Lymphatic: no lymphadenopathy noted Resp Effort & Inspection: normal respiratory effort and no use of accessory muscles Auscultation: clear to auscultation bilaterally Cardio Rate: regular rate Rhythm: regular rhythm Heart sounds: no gallops, no murmurs and no rubs Skin General skin exam: other ( warm) Extrem General: No clubbing, No cyanosis and No edema Assessment & Plan Assessment & Plan (1) COPD (chronic obstructive pulmonary disease): Code(s): J44.9 - Chronic obstructive pulmonary disease, unspecified Category: Medical Qualifiers: COPD type: COPD with acute exacerbation Qualified Code(s): J44.1 - Chronic obstructive pulmonary disease with (acute) exacerbation Plan: Well controlled on Trelegy and albuterol MDI. Continue current regimen. (2) Nicotine dependence, cigarettes, uncomplicated: Code(s): F17.210 - Nicotine dependence, cigarettes, uncomplicated Category: Medical Plan: Continue with yearly screening, next in March of 2024. Orders: Orders CT lung screening 03/18/24 F17.210 - Nicotine dependence, cigarettes, uncomplicated Coding Level of Care Code Est Pt Level 4 (68324) Diagnoses Chronic obstructive pulmonary disease with acute exacerbation J44.1 COPD type: COPD with acute exacerbation Nicotine dependence, cigarettes, uncomplicated F17.210
== END 2023-09-16 15:28 | disposition home or self-care (01) ==
PROVIDERS: PCP Internal Medicine; Visit Provider Internal Medicine Pulmonary Disease
DX: J44.1 Chronic obstructive pulmonary disease with (acute) exacerbation (principal); F17.210 Nicotine dependence, cigarettes, uncomplicated
CPT/HCPCS: 99214

== ENCOUNTER → 2023-09-16 14:51 | Outpatient (BNVA) | payer OTHER, SELFPAY | PROVIDERS: PCP Internal Medicine; Visit Provider Internal Medicine Pulmonary Disease | DX: J44.1 Chronic obstructive pulmonary disease with (acute) exacerbation (principal); F17.210 Nicotine dependence, cigarettes, uncomplicated | CPT/HCPCS: 99212 ==

== ENCOUNTER 2023-10-06 14:49 | Outpatient (AMB) | payer OTHER, SELFPAY ==
[2023-10-06 15:04] VITALS: BP 124/78; PULSE 62; O2SAT 98; BMI 34.0
--- NOTE | 2023-10-06 15:04 | A.OFFPC_ITS ---
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 Allergies No Known Allergies Allergy (Verified 10/06/23 15:50) Medication List - Last Reconciled 10/06/23 by Tamir Lutz MD albuterol sulfate 90 mcg/actuation 2 puffs inhalation Q6H PRN 30 days amiodarone 200 mg PO DAILY apixaban (Eliquis) 5 mg PO BID azithromycin For 250 mg dose pack: take 500 mg today (day 1), then 250 mg for 4 days (days 2-5) PO blood pressure monitor As directed blood sugar diagnostic (FreeStyle Lite Strips) As directed blood-glucose meter (FreeStyle Lite Meter kit) As directed bumetanide 1 mg PO DAILY qyfufbpyram-smdwedkup-vpuczzww 200-62.5-25 mcg (Trelegy Ellipta) 1 inh inha lation DAILY 90 days lancets (FreeStyle Lancets) As directed metformin 1,000 mg (2 x 500 mg) PO BID metoprolol succinate ER 50 mg PO BID 90 days pen needle, diabetic (Pen Needle) As directed prednisone 40 mg (2 x 20 mg) PO DAILY sacubitril-valsartan 24-26 mg (Entresto) 1 tab PO BID Tobacco use date assessed: 10/06/23 Dental Screening Dental Screen Date: 01/22/23 HPI DM HPI Details 57-year-old male presents to the office to discuss his chronic medical conditions. In the last office visit, patient had agreed to get a Cologuard test done. He still has not completed the test. The box is still sitting at home. Patient has lung disease and is using his inhalers as prescribed. Able to function and do activities of daily living. Compliant with his medications, not following any particular exercise or diet. [facility] Medical History (Updated 10/06/23 @ 15:54 by Tamir Lutz MD) Atypical nevi History of cardioversion Obesity (BMI 30-39.9) Diabetes mellitus Alcohol abuse Smoking Atrial flutter with rapid ventricular response HTN (hypertension) COPD (chronic obstructive pulmonary disease) Surgical History No pertinent past surgical history Family History Father Cancer Mother Diabetes Hypertension Brother In good health Sister In good health Son In good health Daughter In good health Social History Household Members: None Housing: Apartment Do you presently have visiting nurse or other home services: No Alcohol intake: current Alcohol intake frequency: former alcohol drinker Alcohol type: beer Patient Tobacco Use Status: Current everyday Tobacco user Tobacco use type: Cigarette Cigarette Packs Per Day: 1 Cigarettes Per Day: 20.0 Years Smoked: 40 +/- e-Cigarette/Vaping Use: Never Used Second Hand Smoke Exposure: No Substance Use Type: Marijuana Advance Directives Date on File: 06/11/20 service: No Current occupational status: retired and disabled Cognitive needs: No Hearing needs: No Vision needs: Yes (reading glasses) Questionnaire Thrive Questionnaire Date Thrive assessed: 08/21/22 AUDIT C Alcohol Use Questionnaire (AUDIT-C) 1. How often do you have a drink containing alcohol?: 2-3 times a week 2. How many drinks containing alcohol do you have on a typical day when you are drinking?: 1 or 2 3. How often do you have six or more drinks on one occasion?: Never Total Score: 3 Score Reviewed/Action Taken: Yes LENNOX-7 AMB Questionnaire LENNOX-7 Date LENNOX - 7 assessed: 03/11/22 Source: Developed by Drs. Magdi Segovia, Marichuy Tejada, Jose Galloway and colleagues, with an educational yoanna from [employer]. Physical exam (Primary Care) Vital Signs: Last Vital Signs Pulse 62 10/06/23 15:04 BP 124/78 10/06/23 15:04 Pulse Ox 98 10/06/23 15:04 Oxygen Delivery Method Room Air 10/06/23 15:04 Care Plan Goal for BP management: Blood pressure is stable. Continue current medications. BMI result Body Mass Index 34.0 BMI Assessment/Plan discussion: High (1 lb per week weight loss suggested.) BMI High, discussed plan: lifestyle, weight reduction and dietary Tobacco/Smoking Status: Tobacco use Status Tobacco use date assessed 10/06/23 10/06/23 15:09 Patient Tobacco Use Status Current everyday Tobacco 10/06/23 15:06 Tobacco use type Cigarette 10/06/23 15:06 e-Cigarette/Vaping Use Never Used 10/06/23 15:06 Thrive Assessment: Date of Thrive Assessment Date Thrive assessed 08/21/22 10/06/23 15:06 Const General: cooperative and healthy appearing Nutritional Appearance: well nourished Orientation/consciousness: patient oriented x3 Limitations: no limitations HENMT Head: Yes normal to inspection Eyes General: appearance normal, both eyes and all related structures Neck Neck: Yes normal visual inspection Chest Chest palpation & inspection: normal palpation of entire chest wall Resp Other: Scattered wheeze bilaterally. Effort & Inspection: normal respiratory effort Cardio Other: Heart: S1-S2, irregular. Skin Other: Atypical nevi on the back and several skin tags. Neuro General: patient oriented x3 Results AMB Hemoglobin A1c AMB Hemoglobin A1c 5.9 % Last Edit by RAJ Garcia on 10/06/23 15:20 Results Reviewed Results Reviewed: Laboratory Last Values Hgb A1c (Clinic) 5.9 % (4.0-6.0) 10/06/23 15:20 Assessment and Plan Assessment & Plan (1) Atrial fibrillation with rapid ventricular response: Code(s): I48.91 - Unspecified atrial fibrillation Plan: Patient is stable. Continue current medications. 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 Continue medications at same dosage. Blood work has been ordered. (3) HTN (hypertension): Code(s): I10 - Essential (primary) hypertension Plan: Blood pressure is in range. (4) Atypical nevi: Code(s): D22.9 - Melanocytic nevi, unspecified Plan: Dermatology appointment has been requested. Orders: Orders AMB Hemoglobin A1c Today E11.9 - Type 2 diabetes mellitus without complications Medications: Refilled bumetanide 1 mg PO DAILY 90 tabs 1RF Discontinued prednisone Discontinued Reason: Doctor's Order 40 mg (2 x 20 mg) PO DAILY 10 tabs 0RF azithromycin Discontinued Reason: Doctor's Order For 250 mg dose pack: take 500 mg today (day 1), then 250 mg for 4 days (days 2-5) PO 6 tabs 0RF Coding Level of Care Code Est Pt Level 4 (71102) Complex EM visit Add On G2211 Diagnoses Atrial fibrillation with rapid ventricular response I48.91 Type 2 diabetes mellitus without complication, without long-term current use of insulin E11.9 Diabetes mellitus type: type 2 Diabetes mellitus watermelon harvesting supervisor insulin use: without watermelon harvesting supervisor use Diabetes mellitus complication status: without complication HTN (hypertension) I10 Atypical nevi D22.9
== END 2023-10-06 15:49 | disposition home or self-care (01) ==
PROVIDERS: PCP Internal Medicine; Visit Provider Internal Medicine
DX: I48.91 Unspecified atrial fibrillation (principal); E11.9 Type 2 diabetes mellitus without complications; I10 Essential (primary) hypertension; D22.9 Melanocytic nevi, unspecified
CPT/HCPCS: 83036; 99214; G2211

== ENCOUNTER 2023-10-06 15:12 | Outpatient (REF) | payer OTHER, SELFPAY | END 2023-10-06 15:13 | disposition home or self-care (01) | LOC: HO.LAB 15:12 | PROVIDERS: Visit Provider Internal Medicine | DX: Z13.89 Encounter for screening for other disorder (principal) ==

== ENCOUNTER 2024-01-19 12:44 | Emergency (ER) | payer OTHER, SELFPAY ==
--- NOTE | 2024-01-19 | ECG_ITS ---
Test Reason : cp Blood Pressure : / mmHG Vent. Rate : 062 BPM Atrial Rate : 062 BPM P-R Int : 168 ms QRS Dur : 074 ms QT Int : 416 ms P-R-T Axes : 006 -13 016 degrees QTc Int : 422 ms Normal sinus rhythm Inferior infarct , age undetermined Abnormal ECG When compared with ECG of 26-AUG-2022 08:45, Inferior infarct is now Present ST no longer depressed in Anterolateral leads T wave inversion no longer evident in Inferior leads T wave inversion no longer evident in Anterolateral leads Referred By: Generic ED Physician Electronically Signed By:Bobby Hassan
--- NOTE | ~2024-01-19 | XR_ITS ---
EXAMINATION: XR CHEST CLINICAL INFORMATION: Chest pain and dyspnea COMPARISON: 08/24/2022 TECHNIQUE: 2 views of the chest were obtained. FINDINGS: Heart, mediastinum and vascularity within normal limits. Right middle lobe opacity. No effusions. XR/XR chest 2V IMPRESSION: Right middle lobe pneumonia. Radiographic follow-up to resolution recommended. Electronically signed by: Dodie Mcdonald MD 01/19/2024 02:29 PM PENG
--- NOTE | 2024-01-19 13:40 | ED.GENADULT ---
HPI - General Adult General Chief complaint: Chest Pain Stated complaint: CP, sob Related Data Previous Rx's ?Medication ?Instructions ?Recorded blood pressure monitor #1 ea 12/12/21 pen needle, diabetic 31 gauge x #100 ea 08/26/22/16 (Pen Needle) blood sugar diagnostic (FreeStyle #100 ea 09/03/22 Lite Strips) blood-glucose meter (FreeStyle #1 ea 09/03/22 Lite Meter kit) lancets 28 gauge (FreeStyle #100 ea 09/03/22 Lancets) metoprolol succinate 50 mg 50 mg PO BID 90 days #180 tabs 03/23/23 tablet,extended release 24 hr apixaban 5 mg tablet (Eliquis) 5 mg PO BID #180 tabs 05/07/23 sacubitril 24 mg-valsartan 26 mg 1 tab PO BID #60 tabs 07/16/23 tablet (Entresto) amiodarone 200 mg tablet 200 mg PO DAILY #30 tabs 09/18/23 bumetanide 1 mg tablet 1 mg PO DAILY #90 tabs 10/06/23 metformin 500 mg tablet 1,000 mg (2 x 500 mg) PO BID for 12/10/23 diabetes mellitus #180 tabs albuterol sulfate 90 mcg/actuation 2 puff inhalation Q6H PRN dyspnea 01/21/24 aerosol inhaler 30 days #1 ea fluticasone fur. 200 mcg-umeclid 1 inh inhalation DAILY 90 days #3 01/21/24 62.5 mcg-vilant 25 mcg ea inhalat.powder (Trelegy Ellipta) ipratropium 0.5 mg-albuterol 3 mg 3 ml inhalation Q4-6H PRN wheezing 01/21/24 (2.5 mg base)/3 mL nebulization #180 mL soln Allergies Allergy/AdvReac Type Severity Reaction Status Date / Time No Known Allergies Allergy Verified 01/19/24 13:42 [facility] Past Medical History Medical History (Updated 01/20/24 @ 00:01 by Ginger Henao) Atypical nevi History of cardioversion Obesity (BMI 30-39.9) Diabetes mellitus Alcohol abuse Smoking Atrial flutter with rapid ventricular response HTN (hypertension) COPD (chronic obstructive pulmonary disease) Surgical History No pertinent past surgical history Family History Family History Father Cancer Mother Diabetes Hypertension Brother In good health Sister In good health Son In good health Daughter In good health Social History Social History Household Members: None Housing: Apartment Do you presently have visiting nurse or other home services: No Alcohol intake: current Alcohol intake frequency: former alcohol drinker Alcohol type: beer Patient Tobacco Use Status: Current everyday Tobacco user Tobacco use type: Cigarette Cigarette Packs Per Day: 1 Cigarettes Per Day: 20.0 Years Smoked: 40 +/- e-Cigarette/Vaping Use: Never Used Second Hand Smoke Exposure: No Substance Use Type: Marijuana Advance Directives Date on File: 06/11/20 service: No Current occupational status: retired and disabled Cognitive needs: No Hearing needs: No Vision needs: Yes (reading glasses) Physical Exam ED Vital Signs: BMI result Body Mass Index 35.5 Course Course Course Narrative: This is a rapid medical exam performed by Alfredo Shields NP: Additional HPI, ROS, PE not included below will be deferred to primary provider. Patient is a 58-year-old male with history of smoking, CHF, cardiomyopathy, afib on eliquis, DM, COPD, PAD, obesity, HTN, alcohol abuse presenting with complaint of chest pain, dyspnea, dizziness for the past week. Increased work of breathing noted in triage, wheezing throughout. Plan: EKG, labs, CXR Medical Decision Making Lab Data 01/19/24 15:03 01/19/24 15:02 Labs: Lab Results 01/19/24 01/19/24 Range/Units 15:02 15:03 WBC 6.6 (4.8-10.8) X10*3/uL RBC 4.75 (4.60-5.80) X10*6/uL Hgb 14.2 (14.0-18.0) g/dl Hct 41.3 L (42.0-52.0) % MCV 86.9 (80.0-98.0) fL MCH 29.9 (27.0-33.0) pg MCHC 34.4 (31.0-36.0) g/dl RDW 13.3 (11.0-16.0) % Plt Count 239 (160-400) X10*3/uL MPV 9.0 L (9.4-12.4) fL Immature Gran % (Auto) 0.3 (0.0-0.4) % Neut % (Auto) 80.9 H (45-73) % Lymph % (Auto) 8.8 L (20-40) % [place] % (Auto) 8.9 (2-11) % Eos % (Auto) 0.6 (0-4) % Baso % (Auto) 0.5 (0-2) % Lymph # (Auto) 0.6 L (1.2-4.9) X10*3/uL [place] # (Auto) 0.6 (0.1-1.2) X10*3/uL Eos # (Auto) 0.0 (0.0-0.4) X10*3/uL Baso # (Auto) 0.0 (0.0-0.2) X10*3/uL Abs Immat Gran (auto) 0.02 (0.00-0.03) X10*3/uL Absolute Neuts (auto) 5.4 (2.0-8.3) x10*3/uL Absolute Nucleated RBC 0.000 (0.0-0.012) X10*3/uL Nucleated RBC % (auto) 0.0 (0.0-0.2) /100WBC PT 13.6 H (10.9-12.4) SEC INR 1.2 H (0.9-1.1) Sodium 137 (135-145) mmol/L Potassium 4.5 (3.3-5.1) mmol/L Chloride 103 (96-108) mmol/L Carbon Dioxide 27 (22-29) mmol/L Anion Gap 12 (12-20) BUN 20 H (9-16) mg/dL Creatinine 1.28 (0.5-1.4) mg/dL Estim Creat Clear Calc 81.3 Estimated GFR 58 Random Glucose 102 (60-115) mg/dL Calcium 9.7 (8.4-10.2) mg/dL Magnesium 1.7 (1.6-2.6) mg/dL Total Bilirubin 0.4 (0.0-1.0) mg/dL AST 14 (5-37) U/L ALT 13 (0-40) U/L Alkaline Phosphatase 84 (39-117) U/L Troponin I High Sens 4.1 (<3.5-35.0) ng/L B-Natriuretic Peptide 202 H (<100) pg/mL Total Protein 7.2 (6.5-8.0) g/dL Albumin 4.4 (3.5-5.0) g/dL Influenza Type A (PCR) NEGATIVE (Negative) Influenza Type B (PCR) NEGATIVE (Negative) RSV RNA Qual (PCR) NEGATIVE (Negative) SARS-CoV-2 RNA (RT-PCR) POSITIVE A (Negative) Discharge Plan Discharge Clinical Impression: Chest pain Patient Disposition: Left Without Being Seen Discharge Date/Time: 01/19/24 22:17
[2024-01-19 13:41] VITALS: BP 160/52; PULSE 65; RESP 22; TEMP 36.7; O2SAT 99; BMI 35.5
[2024-01-19 15:07] LABS: MANUAL DIFF FLAG NO
[2024-01-19 15:11] LABS: Basophils Percent Auto 0.5 % (0-2); Eosinophils Percent Auto 0.6 % (0-4); Hematocrit 41.3 % (42.0-52.0); Hemoglobin 14.2 g/dl (14.0-18.0); Imm Gran Abs Auto 0.02 X10*3/uL (0.00-0.03); Imm Gran Pct Auto 0.3 % (0.0-0.4); Lymphocytes Absolute Auto 0.6 X10*3/uL (1.2-4.9); Lymphocytes Percent Auto 8.8 % (20-40); Mean Corpuscular HGB Conc 34.4 g/dl (31.0-36.0); Mean Corpuscular Hemoglobin 29.9 pg (27.0-33.0); Mean Corpuscular Volume 86.9 fL (80.0-98.0); Monocytes Absolute Auto 0.6 X10*3/uL (0.1-1.2); Monocytes Percent Auto 8.9 % (2-11); Neutrophils Absolute Auto 5.4 x10*3/uL (2.0-8.3); Neutrophils Percent Auto 80.9 % (45-73); Platelet Count 239 X10*3/uL (160-400); Red Blood Count 4.75 X10*6/uL (4.60-5.80); Red Cell Distribution Width 13.3 % (11.0-16.0); White Blood Count 6.6 X10*3/uL (4.8-10.8)
[2024-01-19 15:14] LABS: INTERNATIONAL NORM RATIO 1.2 (0.9-1.1); Prothrombin Time 13.6 SEC (10.9-12.4)
[2024-01-19 15:26] LABS: Alanine Aminotransferase 13 U/L (0-40); Albumin Level 4.4 g/dL (3.5-5.0); Alkaline Phosphatase 84 U/L (39-117); Anion Gap 12 (12-20); Aspartate Amino Transferase 14 U/L (5-37); Bilirubin Total 0.4 mg/dL (0.0-1.0); Blood Urea Nitrogen 20 mg/dL (9-16); Calcium 9.7 mg/dL (8.4-10.2); Carbon Dioxide 27 mmol/L (22-29); Chloride 103 mmol/L (96-108); Creatinine Clr Calc Pharmacy 81.3; Estimated Glomerular Filt Rate 58; Glucose Random 102 mg/dL (60-115); Magnesium 1.7 mg/dL (1.6-2.6); Potassium 4.5 mmol/L (3.3-5.1); Sodium 137 mmol/L (135-145); Total Protein 7.2 g/dL (6.5-8.0)
[2024-01-19 15:32] LABS: B Type Natriuretic Peptide 202 pg/mL (<100)
[2024-01-19 15:33] LABS: Troponin-I High Sensitivity 4.1 ng/L (<3.5-35.0)
[2024-01-19 15:46] LABS: Influenza A PCR NEGATIVE (Negative); Influenza B PCR NEGATIVE (Negative); Resp Syncy Virus RNA Qual PCR NEGATIVE (Negative); SARS COV2 PCR INHOUSE POSITIVE (Negative)
== END 2024-01-19 22:17 | disposition left against medical advice (07) ==
PROVIDERS: Registered Nurse Emergency; Emergency Provider Emergency Medicine; PCP Internal Medicine
DX: R07.9 Chest pain, unspecified (principal); R06.02 Shortness of breath; E11.9 Type 2 diabetes mellitus without complications; I10 Essential (primary) hypertension; J44.9 Chronic obstructive pulmonary disease, unspecified; I48.91 Unspecified atrial fibrillation; Z79.01 Long term (current) use of anticoagulants; Z79.899 Other long term (current) drug therapy; Z03.818 Encounter for observation for suspected exposure to other biological agents ruled out
CPT/HCPCS: 0241U; 36415; 71046; 80053; 83735; 83880; 84484; 85025; 85610; 93005; 99283

== ENCOUNTER → 2024-01-19 12:44 | Outpatient (BNV) | payer OTHER, SELFPAY | PROVIDERS: PCP Internal Medicine; Visit Provider Internal Medicine Cardiovascular Disease | DX: R07.9 Chest pain, unspecified (principal); R06.02 Shortness of breath; R94.31 Abnormal electrocardiogram [ECG] [EKG] | CPT/HCPCS: 93010 ==

== ENCOUNTER 2024-01-29 12:44 | Outpatient (REF) | payer OTHER, SELFPAY ==
--- NOTE | ~2024-01-29 | XR_ITS ---
EXAMINATION: XR CHEST CLINICAL INFORMATION: Pneumonia. COMPARISON: Most recent chest radiograph dated 01/19/2024. TECHNIQUE: 2 views of the chest were obtained. FINDINGS: Hazy right middle lobe opacity, slightly more prominent when compared to the prior examination, which could represent early pneumonia. No pleural effusion or pneumothorax. Stable cardiomediastinal silhouette. XR/XR chest 2V IMPRESSION: Hazy right middle lobe opacity, slightly more prominent when compared to the prior examination, which could represent early pneumonia. Electronically signed by: Vasquez Dick MD 01/31/2024 06:30 PM PENG
== END 2024-01-29 12:45 | disposition home or self-care (01) ==
LOC: HO.XRAY 12:44
PROVIDERS: PCP Internal Medicine; Visit Provider Nurse Practitioner Family
DX: J18.9 Pneumonia, unspecified organism (principal); I48.91 Unspecified atrial fibrillation; I42.8 Other cardiomyopathies; I50.23 Acute on chronic systolic (congestive) heart failure; F17.200 Nicotine dependence, unspecified, uncomplicated; Z51.81 Encounter for therapeutic drug level monitoring; Z79.01 Long term (current) use of anticoagulants; Z98.890 Other specified postprocedural states; Z79.899 Other long term (current) drug therapy; Z86.16 Personal history of COVID-19
CPT/HCPCS: 71046; 93005; 99212

== ENCOUNTER 2024-01-29 12:44 | Outpatient (AMB) | payer OTHER, SELFPAY ==
[2024-01-29 12:56] VITALS: BP 132/70; PULSE 56; BMI 34.9
--- NOTE | 2024-01-29 12:56 | A.OFFVIS_ITS ---
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 Allergies No Known Allergies Allergy (Verified 01/29/24 12:58) Medication List - Last Reconciled 01/29/24 by GELA Botello albuterol sulfate 90 mcg/actuation 2 puffs inhalation Q6H PRN 30 days amiodarone 200 mg PO DAILY apixaban (Eliquis) 5 mg PO BID blood pressure monitor As directed blood sugar diagnostic (FreeStyle Lite Strips) As directed blood-glucose meter (FreeStyle Lite Meter kit) As directed bumetanide 1 mg PO DAILY uzyloyzsxpi-wyvntvhyg-rhuuthdc 200-62.5-25 mcg (Trelegy Ellipta) 1 inh inhalation DAILY 90 days ipratropium-albuterol 0.5 mg-3 mg(2.5 mg base)/3 mL 3 mL inhalation Q4-6H PRN lancets (FreeStyle Lancets) As directed metformin 1,000 mg (2 x 500 mg) PO BID metoprolol succinate ER 50 mg PO BID 90 days pen needle, diabetic (Pen Needle) As directed sacubitril-valsartan 24-26 mg (Entresto) 1 tab PO BID HPI HPI 4 month f/u [facility] [place] ED 01/19/24: Details: Magdi is a 58-year-old male past medical history of hypertension, diabetes, alcohol abuse, tobacco abuse, paroxysmal atrial fibrillation, nonischemic cardiomyopathy with EF as low as 25-30% with normalization of EF with prior use of guided directed medical therapy, then had AFib RVR with drop in EF down to 30-35%. For AFib he was intially treated with rate control, then on follow-up he was noted to have decompensated heart failure and AFib RVR and did require a transesophageal echo/cardioversion on 08/25/2022 with successful conversion to sinus rhythm. He was started on amiodarone at that time to help maintain sinus rhythm. Follow-up echo showed EF 40-45%. He has stopped all alcohol use. He presented to the emergency room last week with increased shortness of breath. He tested positive for COVID and chest x-ray showed a right middle lobe pneumonia. He left prior to being seen and knowing his test results. Today he reports he had been ill last week with fever, shortness of breath, cough. His symptoms have improved some but he continues to have wheezing, shortness of breath and intermittent cough. Prior to our office visit he was informed that he had tested positive to COVID. He said he did do a home COVID test which came out negative. He says he is not surprised about the pneumonia as he has had issues like this in the past. He says he usually requires steroids yearly for COPD exacerbations. He has not had any issues with chest discomfort at rest or with exertion. He has no heart palpitations, lightheadedness, presyncope, syncope, falls. No PND, orthopnea or edema. No bleeding issues reported with Eliquis use. He is compliant with his meds. He has been sober for over 1 year. 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 [facility] Medical History Atypical nevi History of cardioversion Obesity (BMI 30-39.9) Diabetes mellitus Alcohol abuse Smoking Atrial flutter with rapid ventricular response HTN (hypertension) COPD (chronic obstructive pulmonary disease) Surgical History No pertinent past surgical history Family History Father Cancer Mother Diabetes Hypertension Brother In good health Sister In good health Son In good health Daughter In good health Social History Household Members: None Housing: Apartment Do you presently have visiting nurse or other home services: No Alcohol intake: current Alcohol intake frequency: former alcohol drinker Alcohol type: beer Patient Tobacco Use Status: Current everyday Tobacco user Tobacco use type: Cigarette Cigarette Packs Per Day: 1 Cigarettes Per Day: 20.0 Years Smoked: 40 +/- e-Cigarette/Vaping Use: Never Used Second Hand Smoke Exposure: No Substance Use Type: Marijuana Advance Directives Date on File: 06/11/20 service: No Current occupational status: retired and disabled Cognitive needs: No Hearing needs: No Vision needs: Yes (reading glasses) Review of Systems Const All systems reviewed & are unremarkable except as noted in HPI and below ENT Denies dizziness Card Details: cough, congestion, wheezing Denies chest pain, Denies chest pain at rest, Denies chest pain with activity, Denies rapid heart rate, Denies pedal edema, Denies edema, Denies leg edema, Denies lightheadedness, Denies palpitations, Reports dyspnea, Reports dyspnea on exertion and Denies orthopnea Resp Denies cough, Reports dyspnea and Reports dyspnea on exertion GI Denies hematochezia and Denies change in stool character Musc Denies abnormal gait, Denies limited range of motion, Denies muscle cramps, Denies muscle weakness, Denies numbness, Denies radiating pain into limb, Denies stiffness and Denies tingling Neuro Denies abnormal gait, Denies dizziness, Denies numbness and Denies tingling Endo Denies palpitations Physical Exam Vital Signs: Last Vital Signs Pulse 56 01/29/24 12:56 BP 132/70 01/29/24 12:56 BMI result Body Mass Index 34.9 Const General: cooperative, healthy appearing, comfortable and no acute distress Orientation/consciousness: patient oriented x3 Neck Neck: Yes normal visual inspection Resp Other: congested sounding cough Effort & Inspection: normal respiratory effort and able to speak in complete sentences Auscultation: no crackles, no rales, rhonchi and wheezes (expiratory, left > right) Cardio Jugular venous distension: no JVD Rate: regular rate Rhythm: regular rhythm Heart sounds: S1 normal heart sound present, S2 normal heart sound present, no murmurs and no rubs Neuro General: patient oriented x3 Extrem General: Yes normal to inspection and No no pedal edema Psych Appearance: grossly normal Mental Status: mental status grossly normal Speech and movement: Normal speech and movement present Office Procedures EKG Details: Today, read by me, Sinus bradycardia, rate 56, QTC 430 milliseconds [id number], Complete Assessment & Plan Assessment & Plan (1) Atrial fibrillation with RVR: Code(s): I48.91 - Unspecified atrial fibrillation Category: Medical Plan: Finding of atrial fibrillation with rapid ventricular response, spring 2022, with reduction in EF down to 30-35%. He was initially treated with heart rate control then required YOAV cardioversion on 08/25/2022. He was then put on amioda юлия at that time and continued on metoprolol 50 mg b.i.d. and Eliquis 5 mg b.i.d.. He has since quit alcohol and marijuana use. EKG done today shows sinus bradycardia, rate 56, QTC 430 milliseconds. He denies any heart palpitations. Last visit we talked about stopping amiodarone and he was reluctant. At this time he is having COPD exacerbation and possible active pneumonia. Will have him stop amiodarone as alcohol may have been a trigger for his AFib. Continue metoprolol. Continue Eliquis for anticoagulation. He will get an O2 sat monitor to help check his pulse rates. Will check an echocardiogram and Holter monitor prior to his next visit. Cardiology follow-up 3 months, sooner if needed. (2) CHF exacerbation: Code(s): I50.9 - Heart failure, unspecified Category: Medical Qualifiers: Heart failure type: systolic Qualified Code(s): I50.23 - Acute on chronic systolic (congestive) heart failure Plan: Decompensated heart failure in August 2022 in the setting of AFib RVR. He was diuresed during last hospital admission and discharged with Bumex 1 mg b.i.d.. He has done well since that time without recurrent heart failure. He is now on Bumex 1 mg daily. No signs of fluid overload on examination. His EF remains down. Labs 01/19/2024 showed creatinine 1.28. Signs and symptoms of heart failure reviewed with him. (3) Cardiomyopathy, nonischemic: Code(s): I42.8 - Other cardiomyopathies Category: Medical Plan: Prior cardiac catheterization 2020 showing normal coronary arteries. History of nonischemic cardiomyopathy with EF as low as 25-30% in the past , thought to be alcohol related, then with normalization of EF with guideline directed medical therapy. More recently with noted reduction in EF down to 30-35% in the setting of AFib RVR. Sinus rhythm was restored and repeat echocardiogram 11/11/22 showed EF 40-45%. Will have him continue on metoprolol, Entresto for neurohormonal modulation. Updating echo prior to next visit. (4) S/P cardiac catheterization: Comment: 03/05/2021 showing normal coronary arteries, wedge 16 mmHg, PA readings 54/20, nonischemic cardiomyopathy Code(s): Z98.890 - Other specified postprocedural states Category: Surgical Plan: As above (5) Encounter for monitoring amiodarone therapy: Code(s): Z51.81 - Encounter for therapeutic drug level monitoring; Z79.899 - Other assisted (current) drug therapy Category: Medical Plan: As above - no clinical signs of toxicity. Stopping amiodarone at this time. Holter before next visit. (6) Smoking: Code(s): F17.200 - Nicotine dependence, unspecified, uncomplicated Category: Social Hx Plan: Continues to smoke daily. He has stop smoking marijuana and stopped alcohol use. Has COPD. Follows with pulmonology. (7) Pneumonia: Code(s): J18.9 - Pneumonia, unspecified organism Category: Medical Plan: Chest x-ray from 01/19/24 shows a right middle lobe pneumonia. He also tested positive COVID at that time. Today he has bilateral expiratory wheezes and visible shortness of breath with walking. No distinct rales noted. He denies fever in the last few days. He did have a fever last week. A retest for COVID at home was negative. Will send him for a stat chest x-ray. Call placed to Dr. Garcia and informed him of these findings. He was able to view the chest x-ray from today and states no active pneumonia. He is going to prescribe appropriate med management for this patient. Patient informed. Plan Time spent on chart review, documentation, interview and assessment Orders: Orders XR chest 2V Today J18.9 - Pneumonia, unspecified organism CA echo transthoracic complete 2 Months I42.8 - Other cardiomyopathies Medications: Discontinued amiodarone Discontinued Reason: Doctor's Order 200 mg PO DAILY 30 tabs 6RF Coding Level of Care Code Est Pt Level 4 (66402) Complex EM visit Add On G2211 Diagnoses Atrial fibrillation with RVR I48.91 Acute on chronic systolic congestive heart failure I50.23 Heart failure type: systolic Cardiomyopathy, nonischemic I42.8 S/P cardiac catheterization Z98.890 Encounter for monitoring amiodarone therapy Z51.81; Z79.899 Smoking F17.200 Pneumonia J18.9 CPT Codes EKG - CPT: 39979-[id number], Complete ([id number]) Time Spent (min) 30
== END 2024-01-29 13:26 | disposition home or self-care (01) ==
PROVIDERS: PCP Internal Medicine; Visit Provider Nurse Practitioner Family
DX: I48.91 Unspecified atrial fibrillation (principal); I50.23 Acute on chronic systolic (congestive) heart failure; I42.8 Other cardiomyopathies; Z98.890 Other specified postprocedural states; Z51.81 Encounter for therapeutic drug level monitoring; Z79.899 Other long term (current) drug therapy; F17.200 Nicotine dependence, unspecified, uncomplicated; J18.9 Pneumonia, unspecified organism
CPT/HCPCS: 93010; 99214; G2211

== ENCOUNTER → 2024-03-04 12:36 | Outpatient (REF) | payer OTHER, SELFPAY ==
--- NOTE | 2024-03-04 12:41 | CA_ITS ---
Transthoracic Echocardiogram Patient (Last, First, Middle): Magdi Carson H Gender: Male Date of : 1965 Age: 58 Procedure Date: 03/04/2024 Procedure Type: Transthoracic Echocardiogram Location: OP Height: 180.34 cm Weight: 113.4 kg BSA: 2.32 m2 Heart Rate: 56 bpm BP: 132 / 70 mmHg Merchandise Clerk: SB Referring MD: Sameera Meza TANK CHARGER-C Symptoms: I42.8 - Other cardiomyopathies Study Quality: Adequate w contrast ECG Rhythm: Bradycardia Conclusions: - Normal left ventricular size and systolic function. There is mildly increased left ventricular wall thickness. The visually estimated ejection fraction is between 55-60%. - Normal right ventricular cavity size and systolic function. - There is mild dilatation of the ascending aorta measuring 3.80 cm. Findings Procedure Information Contrast agent, definity, is being given per protocol without apparent complications. The quality of the study was technically difficult. The study quality is limited by patients body habitus and lung artifact. Left Ventricle Normal left ventricular size and systolic function. There is mildly increased left ventricular wall thickness. The visually estimated ejection fraction is between 55-60%. There is no evidence of regional wall motion abnormalities. Abnormal diastolic function is noted. Spectral Doppler is indicative of a pseudonormal filling pattern. E/E prime ratio is between 8 and 15 consistent with indeterminate filling pressures. Right Ventricle Normal right ventricular cavity size and systolic function. Atria The left atrium is normal in size. Aortic Valve Normal aortic valve structure and function. There is no aortic valve stenosis. There is no aortic valve regurgitation. Mitral Valve Normal mitral valve structure and function. There is mild mitral annular calcification. There is no mitral valve regurgitation. There is no mitral valve stenosis. Pulmonic Valve The pulmonic valve is likely normal. Tricuspid Valve Normal tricuspid valve structure. There is no tricuspid valve regurgitation. Tricuspid regurgitation envelope is inadequate for calculation of right ventricular systolic pressure. Normal right atrial pressure. Great Vessels There is mild dilatation of the ascending aorta measuring 3.80 cm. Venous The inferior vena cava is normal in size and collapses greater than 50% with inspiration. Pericardium/Pleural There is no evidence of pericardial effusion. Prior Study Comparison Changes noted compared to prior study dated: 11/11/2022. EF normal 55 to 60%. Measurements 2D Linear Measurements IVSd: 1.19 0.6-0.9/0.6-1.0 cm LVIDd: 5.87 3.9-5.3/4.2-5.9 cm LVIDd Index: 2.53 2.4-3.2/2.2-3.1 cm/m2 LVIDs: 4.34 2.0-3.6 cm LVPWd: 0.98 0.7-1.1 cm LA Diam: 4.10 2.7-3.8/3.0-4.0 cm LAIDs Index: 1.77 1.5-2.3 cm/m2 LV Mass: 330.15 67-162/88-224 g LV Mass Index: 142.31 43-95/49-115 g/m2 LVOT Diam: 2.20 3.0+(-)1.3 cm 2D Systolic Function EF 4C: 62.80 >55% EF 2C: 58.80 >55% EF BiP: 60.30 >55% Mitral Valve MV Pk E: 0.72 MV PK A: 0.59 MV Decel Time: 202.00 E/A: 1.20 E'Lateral: 7.88 E'Medial: 3.98 E/E' Med: 18.00 E/E' Lat: 9.10 PHT: 59.00 MVA PHT: 3.73 Decel [place]: 3.54 Aortic Valve AoV Pk Dawit: 1.11 AoV Pk Grad: 5.00 LANCE: 2.81 LVOT LVOT Pk Daw[place]: 0.92 LVOT Mn Daw[place]: 0.59 LVOT VTI: 0.20 LVOT Pk Grad: 3.00 LVOT Mn Grad: 2.00 LVOT Diam: 2.20 LVOT Area: 3.80 Diastolic Function MV Pk E: 0.72 MV Pk A: 0.59 E/A: 1.20 E'Medial: 3.98 E/E' Med: 18.00 E' Laterial: 7.88 E/E' Lat: 9.10 Right Ventricle TAPSE (mm): 22.50 TVS' Dawit: 10.80 Tricuspid Valve RA Press: 8.00 Great Vessels Aorta Sinus of Valsalva: 3.80 2.0-3.5 cm Ao Asc: 3.80 2.1-3.4 cm Pulmonary Valve PV Pk Dawit: 0.71 Peak PV Grad: 2.00 Updated in Other Vendor System with Status of Final Bobby Hassan MD electronically signed on 03/06/2024 7:29:40 PM with status of Final
== END ==
LOC: HO.CARD 12:36
PROVIDERS: PCP Internal Medicine; Visit Provider Nurse Practitioner Family
DX: I48.92 Unspecified atrial flutter (principal); I42.8 Other cardiomyopathies
CPT/HCPCS: 93242; 93306; Q9957

== ENCOUNTER → 2024-03-04 12:41 | Outpatient (BNV) | payer OTHER, SELFPAY | PROVIDERS: PCP Internal Medicine; Visit Provider Internal Medicine Cardiovascular Disease | DX: I34.81 Nonrheumatic mitral (valve) annulus calcification (principal); I51.89 Other ill-defined heart diseases | CPT/HCPCS: 93306 ==

== ENCOUNTER 2024-04-05 09:50 | Outpatient (AMB) | payer OTHER, SELFPAY ==
[2024-04-05 09:53] VITALS: BP 138/87; PULSE 67; O2SAT 96; BMI 34.9
--- NOTE | 2024-04-05 09:53 | MHC.OFFVIS ---
Vital Signs 04/05/24 09:53 Height 5 ft 11 in Weight 250 lb BMI 34.9 BP 138/87 Blood Pressure Location Lt brachial Position Sitting Pulse 67 Pulse Source Doppler Pulse Oximetry (%) 96 Oxygen Delivery Method Room Air Intake Visit Reasons: Cough Allergies No Known Allergies Allergy (Verified 01/29/24 12:58) HPI HPI Cough : Details: 58-year-old gentleman, active 40+ pack-year smoker, followed for COPD and dyspnea on exertion.?? He does have underlying systolic congestive heart failure with EF of 25-30%.? He has had cardiac catheterization that showed no actionable upon blockages and prior admission to [facility] for AFib requiring cardioversion. After cardioversion, he is on amiodarone and apixaban. He continues on Trelegy, albuterol MDI, and Bumex 1 mg b.i.d.. He denies any recent exacerbations. Though, he does complain of overall worsening symptom control. [facility] Medical History Atypical nevi History of cardioversion Obesity (BMI 30-39.9) Diabetes mellitus Alcohol abuse Smoking Atrial flutter with rapid ventricular response HTN (hypertension) COPD (chronic obstructive pulmonary disease) Surgical History No pertinent past surgical history Family History Father Cancer Mother Diabetes Hypertension Brother In good health Sister In good health Son In good health Daughter In good health Social History Household Members: None Housing: Apartment Do you presently have visiting nurse or other home services: No Alcohol intake: current Alcohol intake frequency: former alcohol drinker Alcohol type: beer Patient Tobacco Use Status: Current everyday Tobacco user Tobacco use type: Cigarette Cigarette Packs Per Day: 1 Cigarettes Per Day: 20.0 Years Smoked: 40 +/- e-Cigarette/Vaping Use: Never Used Second Hand Smoke Exposure: No Substance Use Type: Marijuana Advance Directives Date on File: 06/11/20 service: No Current occupational status: retired and disabled Cognitive needs: No Hearing needs: No Vision needs: Yes (reading glasses) Review of Systems Const Denies daytime sleepiness, Denies excessive sweating, Denies fatigue, Denies fever(s), Denies lethargy, Denies malaise, Denies night sweats, Denies snoring and Denies weight loss Eyes Denies blurry vision and Denies itchy eyes ENT Denies nasal congestion, Denies post nasal drip, Denies sinus pain, Denies sinus pressure and Denies other ( Thrush) Card Denies chest pain, Denies pedal edema, Denies dyspnea, Reports dyspnea on exertion, Denies orthopnea and Denies paroxysmal nocturnal dyspnea Resp Reports cough, Denies hemoptysis, Denies excessive phlegm production, Denies dyspnea, Reports dyspnea on exertion, Denies snoring and Denies wheezing GI Denies abdominal pain and Denies heartburn Musc Denies myalgias, Denies arthralgias and Denies joint swelling Skin/Breast Denies rash Neuro Denies memory loss and Denies seizure-like activity Psych Denies abnormal sleep pattern, Denies anxiety and Denies memory loss Endo Denies excessive sweating, Denies fatigue and Denies heat intolerance Donato/Lymph Denies easy bruising Aller/Immun Denies itchy eyes, Denies seasonal rhinorrhea and Denies wheezing Physical Exam Vital Signs: Last Vital Signs Pulse 67 04/05/24 09:53 BP 138/87 04/05/24 09:53 Pulse Ox 96 04/05/24 09:53 Oxygen Delivery Method Room Air 04/05/24 09:53 BMI result Body Mass Index 34.9 Const General: no acute distress and alert Nutritional Appearance: not obese Orientation/consciousness: Other orientation findings ( oriented) HEENT Head: Yes atraumatic Eyes General: appearance normal, both eyes and all related structures Sclerae: sclerae normal EOM: EOMs intact bilaterally Neck Neck: Yes supple Lymphatic: no lymphadenopathy noted Resp Effort & Inspection: normal respiratory effort and no use of accessory muscles Auscultation: clear to auscultation bilaterally Cardio Rate: regular rate Rhythm: regular rhythm Heart sounds: no gallops, no murmurs and no rubs Skin General skin exam: other ( warm) Extrem General: No clubbing, No cyanosis and No edema Assessment & Plan Assessment & Plan (1) Nicotine dependence, cigarettes, uncomplicated: Code(s): F17.210 - Nicotine dependence, cigarettes, uncomplicated Category: Medical Plan: Lung cancer screening CT chest is pending. (2) COPD (chronic obstructive pulmonary disease): Code(s): J44.9 - Chronic obstructive pulmonary disease, unspecified Category: Medical Qualifiers: COPD type: COPD with acute exacerbation Qualified Code(s): J44.1 - Chronic obstructive pulmonary disease with (acute) exacerbation Plan: On Trelegy, duo nebs, and albuterol MDI with worsening control, will try on Ohtuvayre. Medications: New ensifentrine (Ohtuvayre) 2.5 mL inhalation BID 150 mL 6RF Coding Level of Care Code Est Pt Level 4 (01155) Diagnoses Nicotine dependence, cigarettes, uncomplicated F17.210 Chronic obstructive pulmonary disease with acute exacerbation J44.1 COPD type: COPD with acute exacerbation
--- OUTSIDE RECORDS SUMMARY | 2024-04-05 10:27 | XMS_ITS | Encounter Summary ---
Author Organization [employer] Address [address] [place] [address] Care Team Providers Care Pewter Caster Name Role Phone Unavailable Primary Care Provider Unavailabl e Reason for Visit * Reason Onset Date Comments Appointment 09/03/2022 Encounter Details Date Type Department Care Team (Late st Contact Info) Description 09/03/2022 Telephone [facility] [address] [place] [address] Alhaji Samson DMD [address] [place] [address] Appointment Social History Tobacco Use Types Packs/Day Years Used Date Smoking Tobacco: Every Day Cigarettes Smokeless Tobacco: Never Alcohol Use Standard Drinks/Week Comments Yes 0 (1 standard drink = 0.6 oz pur e alcohol) Sex and Gender Information Value Date Recorded Sex Assigned at Male 01/06/2022 10:39 AM EDT Legal Sex Male 10:39 AM EDT Gender Identity Male 07/23/2022 12:53 PM EDT Sexual Orientation Choose not to disclose 2021 10:39 AM EDT COVID-19 Exposure Response Date Recorded In the last 10 days, have yo u been in contact with someone who was confirmed or suspected to have Coronavirus/COVID-19? No / Unsure 08/05/2022 7:50 AM EDT documented as of this encounter Miscellaneous Notes * Telephone Encounter - Nimisha Hampton - 09/03/2022 9:54 AM EDT Pt missed a comp appt after having extractions done due to being hospitalized. We do not set comp appt in call center . Can someone reach out to schedule appt . documented in this encounter Plan of Treatment Not on file documented as of this encounter Visit Diagnoses Not on filedocumented in this encounter
--- OUTSIDE RECORDS SUMMARY | 2024-04-05 10:27 | XMS_ITS | Encounter Summary ---
Author Organization [employer] Address [address] [facility] [address] [place] [address] Care Team Providers Care Rehabilitation Nurse Name Role Phone Unavailable Primary Care Provider Unavailabl e Reason for Visit * Reason Onset Date Comments hospitalization cancel appt 08/18/2022 Encounter Details Date Type Department Care Team (Late st Contact Info) Description 08/18/2022 Refill [facility] ADULT DENTAL [address] [place] [address] Alhaji Samson, SHAE [address] [place], [place] [id number] History of tooth extraction, unspecified edentulism class Social History Tobacco Use Types Packs/Day Years [...] * Telephone Encounter - Nimisha Hampton - 08/22/2022 8:51 AM EDT Patient called in to report he was admitted to the hospital last night and will not make his appt today for comp exam. He is hoping to be able to reschedule * Telephone Encounter - Alhaji Samson DMD - 08/20/2022 8:19 AM EDT Approving, but needs appt for additional refills. documented in this encounter Plan of Treatment Not on file documented as of this encounter Visit Diagnoses Diagnosis History of tooth extraction, unspecified edentulism class documented in this encounter
--- OUTSIDE RECORDS SUMMARY | 2024-04-05 10:27 | XMS_ITS | Encounter Summary ---
Author Organization [employer] [facility] Address [address] [facility] [address] [place] [address] Care Team Providers Care Airborne Operations Name Role Phone Unavailable Primary Care Provider Unavailabl e Encounter Details Date Type Department Care Team (Late st Contact Info) Description 12/31/2022 Abstract [facility] ADULT DENTAL [address] [place], [place] [phone] Zelda Miranda [address] [place] [address] Social History Tobacco Use Types Packs/Day Years [...] not to disclose 2021 10:39 AM EDT documented as of this encounter Plan of Treatment Not on file documented as of this encounter Visit Diagnoses Not on filedocumented in this encounter
--- OUTSIDE RECORDS SUMMARY | 2024-04-05 10:27 | XMS_ITS | Clinical Summary ---
Author Organization [employer] Address [address] [facility] [address] [place] [address] Care Team Providers Care Solar Engineer Name Role Phone Unavailable Primary Care Provider Unavailabl e Allergies No known active allergies Medications ibuprofen 600 MG tabletIndication s:History of tooth extraction, unspecified edentulism class TAKE 1 TABLET (600 MG) BY MOUTH EVERY 6 (SIX) HOURS IF NEEDED FOR MILD PAIN FOR UP TO 20 DOSES. 20 tablet 3 Active Ventolin HFA 108 (90 Base) MCG/ACT inhaler TAKE 2 PUFFS INHALED EVERY 6 HOURS NEEDED FOR DYSPNEA 3 Active amiodarone (Pacerone) 200 MG tablet TAKE 1 TABLET BY MOUTH EVERY DAY AFTER COMPLETING 400MG TWICE DAILY FOR 12 DAYS 3 Active Eliquis 5 MG tablet 3 Active bumetanide (Bumex) 1 MG tablet 3 Active Trelegy Ellipta 200-62.5-25 MCG/ACT aerosol powder TAKE 1 INHALTION INHALED DAILY FOR 30 DAYS 3 Active metFORMIN (Glucophage) 500 MG tablet 3 Active metoprolol succinate XL (Toprol-XL) 50 MG 24 hr tablet Take 50 mg by mouth 2 times daily. 3 Active Entresto 24-26 MG tablet 3 Active spironolactone (Aldactone) 25 MG tablet 3 Active Active Problems Problem Noted Date Diagnosed Date Dental calculus 12/08/2022 Periodontal disease 12/08/2022 Generalized gingival recession 12/08/2022 Immunizations Name Administration Dates Next Due Influenza injectable quadriv alent preservative free 12/05/2022,12/12/2021,01/08/2021,02/14 Pfizer Covid-19 Vaccine 12+ 12/05/2022 Pneumococcal Polysaccharide PPSV23 02/15/2020 Social History Tobacco Use Types Packs/Day Years Used Date Smoking Tobacco: Every Day Cigarettes Smokeless Tobacco: Never Tobacco Cessation:Ready to Q uit: Not Asked; Counseling Given: Not Answered Alcohol Use Standard Drinks/Week Comments Yes 0 (1 standard drink = 0.6 oz pur e alcohol) Sex and Gender Information Value Date Recorded Sex Assigned at Male 01/06/2022 10:39 AM EDT Legal Sex Male 10:39 AM EDT Gender Identity Male 07/23/2022 12:53 PM EDT Sexual Orientation Choose not to disclose 2021 10:39 AM EDT Last Filed Vital Signs Vital Sign Reading Time Taken Comments Blood Pressure 120/64 01/13/2023 9:17 AM EST Pulse 74 12/08/2022 10:12 AM EDT Temperature - - Respiratory Rate - - Oxygen Saturation - - Inhaled Oxygen Concentration - - Weight - - Height - - Body Mass Index - - Plan of Treatment Health Maintenance Due Date Last Done Comments CT Colonography 1965 Colonoscopy 1965 Colorectal Cancer Screening 1965 Depression Screening 1965 FIT DNA/Cologuard 1965 FIT 1965 FOBT 1965 HIV Screening 1965 Lipid Panel 1965 SDOH Screening 1965 Sigmoidoscopy 1965 Alcohol/Substance Use Screening 1977 Hepatitis C Screening 10/08/1983 DTaP/Tdap/Td Vaccines (1 - Tdap) 1984 Hepatitis B Vaccines (1 of 3 - 19+ 3-dose series) 1984 Zoster Vaccines (1 of 2) 10/08/2015 Pneumococcal Vaccine: Pediatrics (0 to 5 Years) and At-Risk Patients (6 to 64 Years) (2 of 2 - PCV) 02/14/2021 02/15/2020 Dental Oral Exam 03/28/2023 09/24/2022 Dental Prophylaxis 06/10/2023 12/08/2022 Dental X-Ray: Bitewings 09/26/2023 09/24/2022 COVID-19 Vaccine ( season) 2023 12/05/2022, 02/26/2021, 07/18/2020, Additional history exists Influenza Vaccine (#1) 2023 3, 12/12/2021, 01/08/2021, Additional history exists Tobacco Screening 03/31/2024 03/31/2023 Dental X-Ray: Full Mouth 09/25/2025 09/24/2022 RSV Patients and Patients Aged 60 years or older (1 - 1-dose 75+ series) 2040 HIB Vaccines Aged Out No longer eligi ble based on patient's age to complete this topic HPV Vaccines Aged Out No longer eligi ble based on patient's age to complete this topic Hepatitis A Vaccines Aged Out No long er eligible based on patient's age to complete this topic IPV Vaccines Aged Out No longer eligi ble based on patient's age to complete this topic Meningococcal Vaccine Aged Out No dagoberto john eligible based on patient's age to complete this topic RSV under 20 months Aged Out No longe r eligible based on patient's age to complete this topic Rotavirus Vaccines Aged Out No longer eligible based on patient's age to complete this topic Procedures Procedure Name Priority Date/Time Associated Diagnosis Comments PROPHYLAXIS - ADULT Routine 12/08/2022 1 0:00 AM EDT Dental calculus Periodontal disease Generalized gingival recession DIAGNOSTIC - DIAGNOSTIC IMAGING - INTRAORAL - COMPREHENSIVE SERIES OF RADIOGRAPHIC IMAGES Routine 09/24/2022 10:30 AM EDT Partial edentulism, class III Dental caries COMPREHENSIVE ORAL EVALUATION - NEW OR ESTABLISHED PATIENT Routine 09/24/2022 10:30 AM EDT Partial edentulism, class III Dental caries from Last 3 Months or Most Recently Relevant to Health Maintenance Insurance [place] [address] [place] [phone] [facility] Member Subscriber Plan / Payer (Ef fective 2022-Present) Name:Magdi Carson Relation to Subscriber:Self Name:Magdi Carson Payer ID:Not on file Group ID:Not on file Type:Medicaid Address: [facility] [id number] [place] [id number] [facility] MEDICAID STAND ADULT
== END 2024-04-05 10:14 | disposition home or self-care (01) ==
PROVIDERS: PCP Internal Medicine; Visit Provider Internal Medicine Pulmonary Disease
DX: F17.210 Nicotine dependence, cigarettes, uncomplicated (principal); J44.1 Chronic obstructive pulmonary disease with (acute) exacerbation
CPT/HCPCS: 99214

== ENCOUNTER → 2024-04-05 09:50 | Outpatient (BNVA) | payer OTHER, SELFPAY | PROVIDERS: PCP Internal Medicine; Visit Provider Internal Medicine Pulmonary Disease | DX: J44.1 Chronic obstructive pulmonary disease with (acute) exacerbation (principal); F17.210 Nicotine dependence, cigarettes, uncomplicated | CPT/HCPCS: 99212 ==

== ENCOUNTER 2024-05-26 09:35 | Outpatient (AMB) | payer OTHER, SELFPAY ==
--- NOTE | 2024-05-26 09:54 | A.OFFPC_ITS ---
Vital Signs 05/26/24 09:57 Height 5 ft 11 in Weight 255 lb 4 oz BMI 35.6 BP 132/72 Blood Pressure Location Lt brachial Position Sitting Pulse 50 Pulse Source Pulse Oximeter Temp 97.1 F Temp Source Temporal Artery Scan Pulse Oximetry (%) 96 Oxygen Delivery Method Room Air Intake Visit Reasons: 6 month f/u Intake Note: Patient is here to follow up on DM, CHF, HTN. 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: Not Required per policy Accompanied by: Self / Same As Patient Allergies No Known Allergies Allergy (Verified 05/26/24 10:13) Medication List - Last Reconciled 05/26/24 by Blaire Watson PA-C albuterol sulfate 90 mcg/actuation 2 puffs inhalation Q6H PRN 30 days apixaban (Eliquis) 5 mg PO BID blood pressure monitor As directed blood sugar diagnostic (FreeStyle Lite Strips) As directed blood-glucose meter (FreeStyle Lite Meter kit) As directed bumetanide 1 mg PO DAILY ensifentrine (Ohtuvayre) 2.5 mL inhalation BID ylginlsbwkr-kwrbdhihq-fvdbmsnn 200-62.5-25 mcg (Trelegy Ellipta) 1 inh inhalation DAILY 90 days ipratropium-albuterol 0.5 mg-3 mg(2.5 mg base)/3 mL 3 mL inhalation Q4-6H PRN lancets (FreeStyle Lancets) As directed levofloxacin 750 mg PO DAILY metformin 1,000 mg (2 x 500 mg) PO BID metoprolol succinate ER 50 mg PO BID 90 days pen needle, diabetic (Pen Needle) As directed prednisone 40 mg (2 x 20 mg) PO DAILY sacubitril-valsartan 24-26 mg (Entresto) 1 tab PO BID Tobacco use date assessed: 05/26/24 Dental Screening Dental Screen Date: 05/26/24 Did you have a dental visit in the last 12 months?: No Did you have a dental problem in the last 6 months where you did not have access to dental care?: No Was dental information given to patient?: No [facility] Medical History (Updated 05/26/24 @ 10:21 by Blaire Watson PA-C) Type 2 diabetes mellitus with hemoglobin A1c goal of less than 7.0% Atypical nevi History of cardioversion Obesity (BMI 30-39.9) Diabetes mellitus Alcohol abuse Smoking Atrial flutter with rapid ventricular response HTN (hypertension) COPD (chronic obstructive pulmonary disease) Surgical History No pertinent past surgical history Family History Father Cancer Mother Diabetes Hypertension Brother In good health Sister In good health Son In good health Daughter In good health Social History Household Members: None Housing: Apartment Do you presently have visiting nurse or other home services: No Alcohol intake: current Alcohol intake frequency: former alcohol drinker Alcohol type: beer Patient Tobacco Use Status: Current everyday Tobacco user Tobacco use type: Cigarette Cigarette Packs Per Day: 1 Cigarettes Per Day: 20.0 Years Smoked: 40 +/- e-Cigarette/Vaping Use: Never Used Second Hand Smoke Exposure: Yes Substance Use Type: Marijuana Advance Directives Date on File: 06/11/20 service: No Current occupational status: retired and disabled Cognitive needs: No Hearing needs: No Vision needs: Yes (reading glasses) Questionnaire PHQ-9 Over the last 2 weeks, how often have you been bothered by any of the following problems? 1. Little interest or pleasure in doing things: not at all 2. Feeling down, depressed, or hopeless: not at all 3. Trouble falling or staying asleep, or sleeping too much: not at all 4. Feeling tired or having little energy: not at all 5. Poor appetite or overeating: not at all 6. Feeling bad about yourself - or that you are a failure or have let yourself or your family down: not at all 7. Trouble concentrating on things, such as reading the newspaper or watching television: not at all 8. Moving or speaking so slowly that other people could have noticed. Or the opposite - being so fidgety or restless that you have been moving around a lot more than usual: not at all 9. Thoughts that you would be better off or of hurting yourself in some way: not at all Total score: 0 Depression Screening Interpretation: Negative Depression Screening Done: Yes 92187 - PHQ-9 Billing: Yes Source: Developed by Drs. Magdi Segovia, Jose Butterfield and colleagues, with an educational yoanna from [employer]. Thrive Questionnaire Date Thrive assessed: 05/26/24 I am a: Patient What is your living situation today?: I have a steady place to live Within the past 12 months, did the food you bought not last and you didn't have the money to get more?: Never true Within the past 12 months, did you worry whether your food would run out before you got money to buy more?: Never true Do you have trouble paying for medicines?: No Do you have trouble getting transportation to medical appointments?: No Do you have trouble paying your heating and electricity bill?: No Do you have trouble taking care of your child, family member or friend?: No Do you have trouble with day-to-day activities such as bathing, preparing meals, shopping, managing finances, etc.?: No Are you currently unemployed and looking for a job?: No Are you interested in more education?: No Please select the resources that you would like help with: None Currently or been in a relationship where the following occur: No concerns reported THRIVE Score: 0 AUDIT C Alcohol Use Questionnaire (AUDIT-C) 1. How often do you have a drink containing alcohol?: 2-3 times a week 2. How many drinks containing alcohol do you have on a typical day when you are drinking?: 1 or 2 Total Score: 3 Score Reviewed/Action Taken: No LENNOX-7 AMB Questionnaire LENNOX-7 Date LENNOX - 7 assessed: 05/26/24 Feeling nervous, anxious, or on edge: 0 = Not at all Not being able to stop or control worryin = Not at all Worrying too much about different things: 0 = Not at all Trouble relaxin = Not at all Being so restless that it is hard to sit still: 0 = Not at all Becoming easily annoyed or irritable: 0 = Not at all Feeling afraid as if something awful might happen: 0 = Not at all Total LENNOX-7 score (0-4 normal; 5-9 mild; 10-14 moderate; 15-21 severe): 0 Source: Developed by Marichuy Norton Kurt Kroenke and colleagues, with an educational yoanna from [employer]. LENNOX-7 Assessment Billing LENNOX-7 Assessment Tool: LENNOX-7 Assessment 44797 Physical exam (Primary Care) Vital Signs: Last Vital Signs Temp 97.1 F 05/26/24 09:57 Pulse 50 05/26/24 09:57 BP 132/72 05/26/24 09:57 Pulse Ox 96 05/26/24 09:57 Oxygen Delivery Method Room Air 05/26/24 09:57 Care Plan Goal for BP management: <130/80 at goal BMI result Body Mass Index 35.6 BMI Assessment/Plan discussion: High BMI High, discussed plan: lifestyle, weight reduction, dietary and physical activity Tobacco/Smoking Status: Tobacco use Status Tobacco use date assessed 05/26/24 05/26/24 10:04 Patient Tobacco Use Status Current everyday Tobacco 05/26/24 10:03 Tobacco use type Cigarette 05/26/24 10:03 e-Cigarette/Vaping Use Never Used 05/26/24 10:03 PHQ-9: PHQ-9 Score PHQ-9: Total score 0 05/26/24 10:04 Depression Screening Interpretation: Negative Thrive Assessment: Date of Thrive Assessment Date Thrive assessed 05/26/24 05/26/24 10:04 Currently or been in a relationship where the following occur: No concerns reported Results AMB Hemoglobin A1c AMB Hemoglobin A1c 6.4 % Last Edit by RAJ Cee on 05/26/24 10:09 Results Reviewed Results Reviewed: Laboratory Last Values Hgb A1c (Clinic) 6.4 % (4.0-6.0) H 05/26/24 09:54 Coding Level of Care Code Est Pt Level 4 (83593) Complex EM visit Add On G2211 Diagnoses Chronic obstructive pulmonary disease with acute exacerbation J44.1 COPD type: COPD with acute exacerbation Smoking F17.200 Cardiomyopathy, unspecified type I42.9 Cardiomyopathy type: unspecified S/P cardiac catheterization Z98.890 Type 2 diabetes mellitus with hemoglobin A1c goal of less than 7.0% E11.9 Cardiomyopathy, nonischemic I42.8 CHF (congestive heart failure) I50.9 Obesity (BMI 30-39.9) E66.9 PAD (peripheral artery disease) I73.9 Paroxysmal nocturnal dyspnea R06.00 Disorder of arteries and arterioles, unspecified I77.9 Additional Codes PHQ-9 - 78268 - PHQ-9 Billing: Yes ([id number]) LENNOX-7 Assessment Billing - LENNOX-7 Assessment Tool: LENNOX-7 Assessment 59814 ([id number]) Assessment & Plan Assessment & Plan (1) COPD (chronic obstructive pulmonary disease): Code(s): J44.9 - Chronic obstructive pulmonary disease, unspecified Category: Medical Qualifiers: COPD type: COPD with acute exacerbation Qualified Code(s): J44.1 - Chronic obstructive pulmonary disease with (acute) exacerbation Plan: Patient currently being followed by pulmonology. Currently on albuterol inhaler. Trelegy Ellipta, ipratropium-albuterol for nebs, Levofloxacin 750mg daily, prednisone 40mg daily. Condition is chronic and stable will continue to monitor. (2) Smoking: Comment: 1ppd daily Code(s): F17.200 - Nicotine dependence, unspecified, uncomplicated Category: Social Hx Plan: Patient educated on smoking cessation. Condition is chronic (3) Cardiomyopathy: Code(s): I42.9 - Cardiomyopathy, unspecified Category: Medical Qualifiers: Cardiomyopathy type: unspecified Qualified Code(s): I42.9 - Cardiomyopathy, unspecified Plan: Currently being followed by Cardiology. Last seen 01/27/2024. By APRN. Julia Hogue the stroke patient currently on Entresto 24-26 mg twice daily, metoprolol extended release 50 mg p.o. b.i.d., vitamin 1 mg p.o. daily, Eliquis 5 mg p.o. b.i.d.. Condition is chronic and stable continue to monitor. (4) S/P cardiac catheterization: Comment: 03/05/2021 showing normal coronary arteries, wedge 16 mmHg, PA readings 54/20, nonischemic cardiomyopathy Code(s): Z98.890 - Other specified postprocedural states Category: Surgical Plan: Currently being followed by Cardiology. Last seen 01/27/2024. By APRN. Julia Hogue the stroke patient currently on Entresto 24-26 mg twice daily, metoprolol extended release 50 mg p.o. b.i.d., vitamin 1 mg p.o. daily, Eliquis 5 mg p.o. b.i.d.. Condition is chronic and stable continue to monitor. (5) Type 2 diabetes mellitus with hemoglobin A1c goal of less than 7.0%: Code(s): E11.9 - Type 2 diabetes mellitus without complications Category: Medical Plan: Go A1c level less than 7.0. A1c level today is 6.4. Patient to continue metformin 1000 mg p.o. b.i.d.. Condition is chronic and stable continue to monitor. (6) Cardiomyopathy, nonischemic: Code(s): I42.8 - Other cardiomyopathies Category: Medical Plan: Currently being followed by Cardiology. Last seen 01/27/2024. By Sameera Meza APRN. A sudden the stroke patient currently on Entresto 24-26 mg twice daily, metoprolol extended release 50 mg p.o. b.i.d., vitamin 1 mg p.o. daily, Eliquis 5 mg p.o. b.i.d.. Condition is chronic and stable continue to monitor. (7) CHF (congestive heart failure): Code(s): I50.9 - Heart failure, unspecified Category: Medical Plan: Currently being followed by Cardiology. Last seen 01/27/2024. By Sameera Meza APRN. A sudden the stroke patient currently on Entresto 24-26 mg twice daily, metoprolol extended release 50 mg p.o. b.i.d., vitamin 1 mg p.o. daily, Eliquis 5 mg p.o. b.i.d.. Condition is chronic and stable continue to monitor. (8) Obesity (BMI 30-39.9): Code(s): E66.9 - Obesity, unspecified Category: Medical Plan: Patient to improve his diet and exercise regimen. Condition is chronic and stable continue to monitor. (9) PAD (peripheral artery disease): Code(s): I73.9 - Peripheral vascular disease, unspecified Category: Medical Plan: Patient to continue Eliquis 5 mg p.o. b.i.d. along with antihypertensive medications and regular follow-ups with cardiology. Condition is chronic and stable continue to monitor. (10) Paroxysmal nocturnal dyspnea: Code(s): R06.00 - Dyspnea, unspecified Category: Medical Plan: Patient to continue being followed by pulmonology. Continue inhalers, prednisone, levofloxacin daily. Condition is chronic and stable continue to monitor. (11) Disorder of arteries and arterioles, unspecified: Code(s): I77.9 - Disorder of arteries and arterioles, unspecified Category: Medical Plan: Currently being followed by Cardiology. Last seen 01/27/2024. By APRN. Julia Hogue sudden the stroke patient currently on Entresto 24-26 mg twice daily, metoprolol extended release 50 mg p.o. b.i.d., vitamin 1 mg p.o. daily, Eliquis 5 mg p.o. b.i.d.. Condition is chronic and stable continue to monitor. Plan Plan Patient was informed and verbally consented to the use of an ambient scribe for clinic note documentation during this visit. 1. Atrial Fibrillation The patient's atrial fibrillation management continues with scheduled monitoring without changes in current therapy. 2. Diabetes Mellitus Type 2 Maintain control through current medication and dietary monitoring, with diabetes well-managed at present. 3. Essential Hypertension Continue to manage blood pressure via lifestyle and dietary adjustments. 4. Copd The patient manages COPD with existing treatments, monitoring is advised to prevent exacerbations. 5. Cardiomyopathy And Congestive Heart Failure He continues use of medication with adjustments based on daily activities and travel. 6. Peripheral Vascular Disease Ongoing observation recommended to directly address peripheral symptoms. Discussion Notes I discussed the management of his chronic conditions, with attention to atrial fibrillation, COPD, cardiomyopathy, congestive heart failure, diabetes mellitus type 2, peripheral vascular disease, and essential hypertension. I emphasized the importance of maintaining current treatment regimens and lifestyle adjustments to address his chronic conditions. For COPD management, follow-up with pulmonology is essential. I highlighted current well-controlled diabetes, advising on maintaining dietary changes, referenced HgbA1c, and discussed the metabolic panel that needs fasting. I commended his abstinence from alcohol for the past two years and stressed the significance of smoking cessation. Orders: Orders AMB Hemoglobin A1c Today E11.9 - Type 2 diabetes mellitus without complications Patient Instructions: Patient Instructions - Continue all current medications as prescribed. - Maintain a healthy diet, focusing on low-fat and low-cholesterol foods. - Complete all pending lab work as previously discussed, with attention to fasting requirements. - Monitor symptoms of COPD and report any exacerbations. - Follow-up with the coat check attendant as scheduled. - Consider smoking cessation strategies. - Schedule a follow-up appointment in three months and complete lab work before the visit. - Complete the Cologuard kit and proceed with recommended colorectal screening. Scribe Plan - Not visible on output: History of Present Illness The patient is a 58-year-old male presenting with a six-month follow-up for management of chronic conditions. He has a history of multiple chronic illnesses, including atrial fibrillation, managed with regular monitoring. The patient has a history of COPD, with reported exacerbations during wet weather, and has demonstrated controlled symptoms using a nebulizer. He also has a history of heart disease, specifically cardiomyopathy and congestive heart failure, and manages swelling with butamine, though limited by his ability to access a bathroom frequently. Diabetes type 2 is another concern, with management achieved through metformin and a demonstrated A1c level of 6.4, indicating good control. The patient continues to smoke but quit alcohol consumption two years ago. He has not yet completed recommended colorectal cancer screening and has been advised to continue monitoring due to previously noted high cholesterol levels. 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 - Cardiovascular: Denies current leg swelling or pain. - Endocrine: Denies complications related to diabetes; A1c level at 6.4. Physical Exam Appearance: Alert. Oriented X3. No acute distress. Head: Normal external exam. Normocephalic. Atraumatic. Eyes: Pupils are equal, round, and reactive to light. Extraocular movements intact. Conjunctiva and sclera normal. Eyelids normal. Throat: Pharynx normal. Uvula midline. Moist mucous membranes. Neck: Normal inspection. Neck supple. Full range of motion. Cardiovascular: Normal heart rate and rhythm. Heart sound normal. No murmurs noted. Pulses normal throughout. Respiratory: No respiratory distress. Painless inspiration. Breath sounds with a little wheezing noted. No rales/rhonchi noted. Chest nontender. No accessory muscle usage noted or decreased air movement noted. Abdomen: Soft and nontender. Bowel sounds normal in all 4 quadrants. No distention noted. No organomegaly noted. No visible injury noted. Back: No costovertebral angle tenderness. Full range of motion noted. Skin: Skin warm and dry. Normal skin color. Normal skin turgor. No rashes/lesions/lacerations noted. Extremities: No lower extremity edema. Extremities exhibit normal range of motion. Extremities nontender. Neuro: Oriented X 3. No motor deficit. No sensory deficit. Reflexes normal. Results - Labs: Hemoglobin A1c at 6.4 - Tests: Cholesterol in 2022: Total cholesterol 225 mg/dL, LDL 138 mg/dL, HDL 61 mg/dL, Triglycerides 134 mg/dL
[2024-05-26 09:57] VITALS: BP 132/72; PULSE 50; TEMP 36.2; O2SAT 96; BMI 35.6
--- OUTSIDE RECORDS SUMMARY | 2024-05-26 10:33 | XMS_ITS | Clinical Summary ---
Author Organization [employer] Address [address] [address] [place] [address] Care Team Providers Care Personal Banking Advisor Name Role Phone Unavailable Primary Care Provider [...] Vaccines (1 of 2) 10/08/2015 Pneumococcal Vaccine: 50+ Years (2 of 2 - PCV) 02/14/2021 02/15/2020 Pneumococcal Vaccine: Pediatrics (0 to 5 Years) and At-Risk Patients (6 to 49) Years) (2 of 2 - PCV) 02/14/2021 02/15/2020 Dental Oral Exam 03/28/2023 09/24/2022 Dental Prophylaxis 06/10/2023 12/08/2022 Dental X-Ray: Bitewings 09/26/2023 09/24/2022 COVID-19 Vaccine ( - 2023- season) 2023 12/05/2022, 02/26/2021, 07/18/2020, Additional history exists Influenza Vaccine (#1) 2023 , 12/12/2021, 01/08/2021, Additional history exists Tobacco Screening [...] Dental calculus Periodontal disease Generalized gingival recession INTRAORAL - COMPLETE SERIES OF RADIOGRAPHIC IMAGES Routine 09/24/2022 10:30 AM EDT Partial edentulism, class III Dental caries COMPREHENSIVE ORAL EVALUATION - NEW OR ESTABLISHED PATIENT Routine 09/24/2022 10:30 AM EDT Partial edentulism, class III Dental caries from Last 3 Months or Most Recently Relevant to Health Maintenance Insurance [facility] [address] [facility] [place] [facility] MEDICAID STAND ADULT
--- OUTSIDE RECORDS SUMMARY | 2024-05-26 10:33 | XMS_ITS | Encounter Summary ---
Author Organization [employer] Address [address] [facility] [address] [place] [address] Care Team Providers Care Supervisor Stave Finishing Name Role Phone Unavailable Primary Care Provider Unavailabl e Reason for Visit * Reason Onset Date Comments Appointment 09/03/2022 Encounter Details Date Type Department Care Team (Late st Contact Info) Description 09/03/2022 Telephone [facility] [address] [place] [address] Alhaji Samson DMD [address] [place] [address] Appointment Social History Tobacco Use Types Packs/Day [...]
--- OUTSIDE RECORDS SUMMARY | 2024-05-26 10:33 | XMS_ITS | Encounter Summary ---
Author Organization [employer] [facility] Address [address] [facility] [address] [place] [address] Care Team Providers Care Regional Property Manager Name Role Phone Unavailable Primary Care Provider Unavailabl e Encounter Details Date Type Department Care Team (Late st Contact Info) Description 12/31/2022 Abstract [facility] AD[facility] D[facility] [address] [place], [place] [phone] Zelda Miranda [address] [place] [address] Social History Tobacco Use Types Packs/Day Years [...]
--- OUTSIDE RECORDS SUMMARY | 2024-05-26 10:34 | XMS_ITS | Encounter Summary ---
Author Organization [employer] Address [address] [facility] [address] [place] [address] Care Team Providers Care Mechanical Design Engineer Name Role Phone Unavailable Primary Care Provider Unavailabl e Reason for Visit * Reason Onset Date Comments hospitalization cancel appt 08/18/2022 Encounter Details Date Type Department Care Team (Late st Contact Info) Description 08/18/2022 Refill [facility] ADULT DENT[facility] [address] [place] [address] Alhaji Samson, SHAE [address] [place], [place] [phone] History of tooth extraction, unspecified edentulism class [...]
== END 2024-05-26 10:20 | disposition home or self-care (01) ==
LOC: HO.HMCH 09:35
PROVIDERS: PCP Internal Medicine; Visit Provider Physician Assistant Medical
DX: E11.9 Type 2 diabetes mellitus without complications (principal)

== ENCOUNTER → 2024-05-26 09:35 | Outpatient (BNVA) | payer OTHER, SELFPAY | PROVIDERS: PCP Internal Medicine; Visit Provider Physician Assistant Medical | DX: J44.1 Chronic obstructive pulmonary disease with (acute) exacerbation (principal); I42.9 Cardiomyopathy, unspecified; E11.9 Type 2 diabetes mellitus without complications; I42.8 Other cardiomyopathies; I50.9 Heart failure, unspecified; E66.9 Obesity, unspecified; I73.9 Peripheral vascular disease, unspecified; R06.00 Dyspnea, unspecified; I77.9 Disorder of arteries and arterioles, unspecified; F17.200 Nicotine dependence, unspecified, uncomplicated; Z71.6 Tobacco abuse counseling; Z98.890 Other specified postprocedural states | CPT/HCPCS: 83036; 96127; 99212 ==

== ENCOUNTER 2024-09-07 09:58 | Outpatient (AMB) | payer OTHER, SELFPAY ==
--- NOTE | 2024-09-07 10:06 | MHC.OFFVIS ---
Vital Signs 09/07/24 10:13 Height 5 ft 11 in Weight 255 lb BMI 35.6 BP 147/72 H Blood Pressure Location Rt brachial Position Sitting Pulse 63 Intake Visit Reasons: mass on ribcage Intake Note: Patient scheduled today's visit for mass/ lesion on rt ribcage. Present for 2yrs. Patient c/o: itchy, bleeding when picked on. 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: No Accompanied by: Self / Same As Patient Allergies No Known Allergies Allergy (Verified 09/07/24 10:11) Medication List - Last Reconciled 09/07/24 by Chema Babb MD albuterol sulfate 90 mcg/actuation 2 puffs inhalation Q6H PRN 30 days apixaban (Eliquis) 5 mg PO BID blood pressure monitor As directed blood sugar diagnostic (FreeStyle Lite Strips) As directed blood-glucose meter (FreeStyle Lite Meter kit) As directed bumetanide 1 mg PO DAILY ensifentrine (Ohtuvayre) 2.5 mL inhalation BID msqskfpioeg-clgqetzjc-cahnsbsp 200-62.5-25 mcg (Trelegy Ellipta) 1 inh inhalation DAILY 90 days ipratropium-albuterol 0.5 mg-3 mg(2.5 mg base)/3 mL 3 mL inhalation Q4-6H PRN lancets (FreeStyle Lancets) As directed metformin 1,000 mg (2 x 500 mg) PO BID metoprolol succinate ER 50 mg PO BID 90 days pen needle, diabetic (Pen Needle) As directed sacubitril-valsartan 24-26 mg (Entresto) 1 tab PO BID HPI HPI mass on ribcage: Details: 58-year-old male referred for a skin lesion on the right flank area. He says he has had this for about 2 years. He says this is my have increased in size. He denies any bleeding. He wants this removed. [facility] Medical History (Updated 09/07/24 @ 10:21 by Chema Babb MD) Skin lesion of back Type 2 diabetes mellitus with hemoglobin A1c goal of less than 7.0% Atypical nevi History of cardioversion Obesity (BMI 30-39.9) Diabetes mellitus Alcohol abuse Smoking Atrial flutter with rapid ventricular response HTN (hypertension) COPD (chronic obstructive pulmonary disease) Surgical History No pertinent past surgical history Family History Father Cancer Mother Diabetes Hypertension Brother In good health Sister In good health Son In good health Daughter In good health Social History Household Members: None Housing: Apartment Do you presently have visiting nurse or other home services: No Alcohol intake: current Alcohol intake frequency: former alcohol drinker Alcohol type: beer Patient Tobacco Use Status: Current everyday Tobacco user Tobacco use type: Cigarette Cigarette Packs Per Day: 1 Cigarettes Per Day: 20.0 Years Smoked: 40 +/- e-Cigarette/Vaping Use: Never Used Second Hand Smoke Exposure: Yes Substance Use Type: Marijuana Advance Directives Date on File: 06/11/20 service: No Current occupational status: retired and disabled Cognitive needs: No Hearing needs: No Vision needs: Yes (reading glasses) Review of Systems Const Denies chills and Denies fever(s) Card Denies chest pain, Denies dyspnea and Reports dyspnea on exertion Resp Denies cough, Denies dyspnea and Reports dyspnea on exertion GI Denies hematochezia and Denies change in bowel habits Denies hematuria and Denies difficulty urinating Musc Denies back pain and Denies limited range of motion Neuro Denies focal weakness and Denies convulsions Psych Denies depression and Denies mood swings Physical Exam Vital Signs: Last Vital Signs Pulse 63 09/07/24 10:13 BP 147/72 H 09/07/24 10:13 BMI result Body Mass Index 35.6 Const General: comfortable and no acute distress Resp Other: Some diffuse wheezing Cardio Rate: regular rate GI Palpation (GI): Soft to palpation Skin Other: Skin lesion in the right flank area, with well-defined margins, about 3.2 cm in widest dimension, pigmented flat Assessment & Plan Assessment & Plan (1) Skin lesion of back: Code(s): L98.9 - Disorder of the skin and subcutaneous tissue, unspecified Category: Medical Plan: He has this skin lesion described above. He wants this removed. I explained the technique of excision under local anesthesia. I reviewed the risks including but not limited to bleeding and infections, as well as the benefits and alternatives. He wants to proceed This will be done on his next visit here in the office. He does not need to stop his Eliquis. Coding Level of Care Code New Pt Level 3 (79648) Diagnoses Skin lesion of back L98.9
[2024-09-07 10:13] VITALS: BP 147/72; PULSE 63; BMI 35.6
--- OUTSIDE RECORDS SUMMARY | 2024-09-07 10:22 | XMS_ITS | Clinical Summary ---
Author Organization [employer] Address [address] [facility] [address] [place] [address] Care Team Providers Care Telegraphic Service Dispatcher Name Role Phone Unavailable Primary Care Provider [...] disease 12/08/2022 Generalized gingival recession 12/08/2022 Immunizations Immunization Administration Dates Next Due Influenza injectable quadriv [...] Panel 1965 SDOH Screening 1965 Sigmoidoscopy 1965 Disability Screening 1965 Alcohol/Substance Use Screening 1977 Hepatitis C [...] 2023 12/05/2022, 02/26/2021, 07/18/2020, Additional history exists Tobacco Screening 03/31/2024 03/31/2023 Influenza Vaccine (Season Ended) 2024 12/05/2022, 12/12/2021, 01/08/2021, Additional history exists Dental X-Ray: Full Mouth 09/25/2025 09/24/2022 RSV [...] patient's age to complete this topic Meningococcal B Vaccine Aged Out No l onger eligible based on patient's age to complete [...] Recently Relevant to Health Maintenance Insurance MEDICARE [facility] ONE CARE < 65 DENTAL-[facility] MEDICAID STAND ADULT
== END 2024-09-07 10:25 | disposition home or self-care (01) ==
LOC: HO.HGS 09:58
PROVIDERS: PCP Internal Medicine; Visit Provider Surgery
DX: L98.9 Disorder of the skin and subcutaneous tissue, unspecified (principal)
CPT/HCPCS: 99203

== ENCOUNTER → 2024-09-07 09:58 | Outpatient (BNVA) | payer OTHER, SELFPAY | PROVIDERS: PCP Internal Medicine; Visit Provider Surgery | DX: L98.9 Disorder of the skin and subcutaneous tissue, unspecified (principal) | CPT/HCPCS: 99202 ==

== ENCOUNTER 2024-09-16 12:45 | Outpatient (REF) | payer OTHER, SELFPAY | END 2024-09-16 12:46 | disposition home or self-care (01) | LOC: HO.LNP 12:45 | PROVIDERS: PCP Internal Medicine; Visit Provider Surgery | DX: L98.9 Disorder of the skin and subcutaneous tissue, unspecified (principal) | CPT/HCPCS: 11604; 88304; 88305 ==

== ENCOUNTER 2024-09-16 12:45 | Outpatient (AMB) | payer OTHER, SELFPAY ==
--- OUTSIDE RECORDS SUMMARY | 2024-09-16 12:49 | XMS_ITS | Clinical Summary ---
Author Organization [employer] Address [address] [facility] [address] [place] [address] Care Team Providers Care Gas Plant Specialist Name Role Phone Unavailable Primary Care Provider [...] exists Tobacco Screening 03/31/2024 03/31/2023 Influenza Vaccine (#1) 2024 3, 12/12/2021, 01/08/2021, Additional history exists Dental X-Ray: [...] Recently Relevant to Health Maintenance Insurance MEDICARE [facility] ONE CARE < 65 DENTAL-[facility] MEDICAID STAND ADULT
--- NOTE | 2024-09-16 13:01 | MHC.OFFVIS ---
Vital Signs 09/16/24 13:04 Height 5 ft 11 in Weight 253 lb 8.505 oz BMI 35.4 Intake Visit Reasons: excision skin tag Intake Note: Patient is seen in office for office procedure, excision of mass. Pt c/o: no changes since last visit, here for removal of mass Allergies No Known Allergies Allergy (Verified 09/07/24 10:11) HPI HPI excision skin tag: Details: He is here for excision of a skin lesion. [facility] Medical History (Updated 09/07/24 @ 10:21 by Chema Babb MD) Skin lesion of back Type 2 diabetes mellitus with hemoglobin A1c goal of less than 7.0% Atypical nevi History of cardioversion Obesity (BMI 30-39.9) Diabetes mellitus Alcohol abuse Smoking Atrial flutter with rapid ventricular response HTN (hypertension) COPD (chronic obstructive pulmonary disease) Surgical History No pertinent past surgical history Family History Father Cancer Mother Diabetes Hypertension Brother In good health Sister In good health Son In good health Daughter In good health Social History Household Members: None Housing: Apartment Do you presently have visiting nurse or other home services: No Alcohol intake: current Alcohol intake frequency: former alcohol drinker Alcohol type: beer Patient Tobacco Use Status: Current everyday Tobacco user Tobacco use type: Cigarette Cigarette Packs Per Day: 1 Cigarettes Per Day: 20.0 Years Smoked: 40 +/- e-Cigarette/Vaping Use: Never Used Second Hand Smoke Exposure: Yes Substance Use Type: Marijuana Advance Directives Date on File: 06/11/20 service: No Current occupational status: retired and disabled Cognitive needs: No Hearing needs: No Vision needs: Yes (reading glasses) Physical Exam Vital Signs: BMI result Body Mass Index 35.4 Office Procedures Excision Details: He was in left lateral decubitus position. The skin lesion in the right flank was prepped and draped in the usual sterile fashion. Lidocaine 1% was used for local anesthesia. I made an elliptical incision of the skin around this lesion with a blade 15. And this carried down through the full-thickness of the skin and subcutaneous fat. The entire lesion was excised completely. The lesion measured about 3.5 x 1.8 cm. The incision was closed with full-thickness nylon 3-0 simple interrupted sutures. Dressings were applied. The procedure was completed. He tolerated procedure well. There were no immediate complications. 17443-llhuc/arms/legs 3.1-4cm Procedure code (CPT) selection complete Assessment & Plan Assessment & Plan (1) Skin lesion of back: Code(s): L98.9 - Disorder of the skin and subcutaneous tissue, unspecified Category: Medical Plan: Excision was done in the office. He tolerated procedure well. I will see him in the office in about 2 weeks to remove the sutures. Can take Tylenol and ibuprofen for pain. Coding Level of Care Code Procedure Only Diagnoses Skin lesion of back L98.9 CPT Codes Trunk/Arms/Legs - CPT: 92097-wrcpn/arms/legs 3.1-4cm ([id number])
[2024-09-16 13:04] VITALS: BMI 35.4
== END 2024-09-16 13:24 | disposition home or self-care (01) ==
LOC: HO.HGS 12:46
PROVIDERS: PCP Internal Medicine; Visit Provider Surgery
DX: C43.59 Malignant melanoma of other part of trunk (principal)
CPT/HCPCS: 11604

== ENCOUNTER 2024-09-26 13:08 | Outpatient (AMB) | payer OTHER, SELFPAY ==
--- OUTSIDE RECORDS SUMMARY | 2024-09-26 13:54 | XMS_ITS | Clinical Summary ---
Author Organization [employer] Address [address] [facility] [address] [place] [address] Care Team Providers Care Sql Ssis Developer Name Role Phone Unavailable Primary Care Provider [...] Recently Relevant to Health Maintenance Insurance MEDICARE [facility] ONE CARE < 65 DENTAL-[facility] MEDICAID STAND ADULT
[2024-09-26 14:06] VITALS: BP 120/72; PULSE 59; BMI 35.8
--- NOTE | 2024-09-26 14:06 | MHC.OFFVIS ---
Vital Signs 09/26/24 14:06 Height 5 ft 11 in Weight 256 lb 9.889 oz BMI 35.8 BP 120/72 Blood Pressure Location Lt brachial Position Sitting Pulse 59 Pulse Source Monitor Intake Visit Reasons: Follow up Conservation Of Resources Commissioner Required: No Allergies No Known Allergies Allergy (Verified 09/26/24 14:08) Medication List - Last Reconciled 09/26/24 by Sameera Meza, TELETYPE CLERK-C albuterol sulfate 90 mcg/actuation 2 puffs inhalation Q6H PRN 30 days apixaban (Eliquis) 5 mg PO BID blood pressure monitor As directed blood sugar diagnostic (FreeStyle Lite Strips) As directed blood-glucose meter (FreeStyle Lite Meter kit) As directed bumetanide 1 mg PO DAILY ensifentrine (Ohtuvayre) 2.5 mL inhalation BID eivzxywrhcu-srbgplkrc-kxdfljfu 200-62.5-25 mcg (Trelegy Ellipta) 1 inh inhalation DAILY 90 days ipratropium-albuterol 0.5 mg-3 mg(2.5 mg base)/3 mL 3 mL inhalation Q4-6H PRN lancets (FreeStyle Lancets) As directed metformin 1,000 mg (2 x 500 mg) PO BID metoprolol succinate ER 50 mg PO BID 90 days pen needle, diabetic (Pen Needle) As directed sacubitril-valsartan 24-26 mg (Entresto) 1 tab PO BID HPI HPI Follow up: Details: Magdi is a 58-year-old male past medical history of hypertension, diabetes, prior alcohol abuse, tobacco abuse, paroxysmal atrial fibrillation, nonischemic cardiomyopathy, PAF with cardioversion 08/2022, presents for follow-up. His last prior visit to our office was 01/29/2024. Today he reports he has been doing well since his last visit. He does have some shortness of breath with exertion, walking up hills but believes this is related to his smoking. He has no PND, orthopnea or edema. No chest discomfort at rest or with activity. No heart palpitations, lightheadedness, presyncope, syncope. He takes Bumex only PRN. He is compliant with all medications. He plays golf routinely and says he tolerates it well. Remain sober. [facility] Medical History Skin lesion of back Type 2 diabetes mellitus with hemoglobin A1c goal of less than 7.0% Atypical nevi History of cardioversion Obesity (BMI 30-39.9) Diabetes mellitus Alcohol abuse Smoking Atrial flutter with rapid ventricular response HTN (hypertension) COPD (chronic obstructive pulmonary disease) Surgical History No pertinent past surgical history Family History Father Cancer Mother Diabetes Hypertension Brother In good health Sister In good health Son In good health Daughter In good health Social History Household Members: None Housing: Apartment Do you presently have visiting nurse or other home services: No Alcohol intake: current Alcohol intake frequency: former alcohol drinker Alcohol type: beer Patient Tobacco Use Status: Current everyday Tobacco user Tobacco use type: Cigarette Cigarette Packs Per Day: 1 Cigarettes Per Day: 20.0 Years Smoked: 40 +/- e-Cigarette/Vaping Use: Never Used Second Hand Smoke Exposure: Yes Substance Use Type: Marijuana Advance Directives Date on File: 06/11/20 service: No Current occupational status: retired and disabled Cognitive needs: No Hearing needs: No Vision needs: Yes (reading glasses) Review of Systems Const All systems reviewed & are unremarkable except as noted in HPI and below ENT Denies dizziness Card Denies chest pain, Denies chest pain at rest, Denies chest pain with activity, Denies rapid heart rate, Denies pedal edema, Denies edema, Denies leg edema, Denies lightheadedness, Denies palpitations, Denies dyspnea, Reports dyspnea on exertion and Denies orthopnea Resp Denies cough, Denies dyspnea and Reports dyspnea on exertion GI Denies hematochezia and Denies change in stool character Musc Denies abnormal gait, Reports limited range of motion, Reports muscle cramps, Denies muscle weakness, Denies numbness, Denies radiating pain into limb, Denies stiffness and Denies tingling Neuro Denies abnormal gait, Denies dizziness, Denies numbness and Denies tingling Endo Denies palpitations Physical Exam Vital Signs: Last Vital Signs Pulse 59 09/26/24 14:06 BP 120/72 09/26/24 14:06 BMI result Body Mass Index 35.8 Const General: cooperative, healthy appearing, comfortable and no acute distress Orientation/consciousness: patient oriented x3 Neck Neck: Yes normal visual inspection and Yes no JVD Resp Effort & Inspection: normal respiratory effort Auscultation: no rales, no rhonchi and wheezes Cardio Rate: regular rate Rhythm: regular rhythm Heart sounds: S1 normal heart sound present, S2 normal heart sound present, no gallops, no murmurs and no rubs Neuro General: patient oriented x3 Extrem General: Yes normal to inspection and No no pedal edema Psych Appearance: grossly normal Mental Status: mental status grossly normal Speech and movement: Normal speech and movement present Office Procedures EKG Details: Today, read by me, sinus bradycardia, septal Q-wave, rate 59, QTC 411 milliseconds [id number], Complete Assessment & Plan Assessment & Plan (1) Atrial fibrillation with RVR: Code(s): I48.91 - Unspecified atrial fibrillation Category: Medical Plan: History of atrial fibrillation with RVR and reduction in EF, the YOAV cardioversion 08/2022. He had been on amiodarone which has since been stopped without documented reoccurrence. His PAF was thought to be related to his excess alcohol intake. He has since stopped all alcohol intake. EKG done today showing sinus bradycardia, septal Q-wave, rate 59. Labs 01/19/2024 showed hematocrit 41.3, creatinine 1.28. Orders for repeat labs in system. Continue Eliquis 5 mg b.i.d.. Continue metoprolol XL 50 mg b.i.d.. (2) Cardiomyopathy, nonischemic: Code(s): I42.8 - Other cardiomyopathies Category: Medical Plan: Prior cardiac catheterization 2020 showing normal coronary arteries. History of nonischemic cardiomyopathy with EF as low as 25-30% in the past , thought to be alcohol related, then with normalization of EF with guideline directed medical therapy. In 2022 had reduction in EF down to 30-35% in the setting of AFib RVR. Sinus rhythm was restored and repeat echocardiogram 11/11/22 showed EF 40-45%. He then stopped all alcohol intake. Last echo 03/04/2024 showed EF 55-60%. Continue metoprolol and Entresto for neurohormonal modulation. Cardiology follow-up 6 months, sooner if needed (3) S/P cardiac catheterization: Comment: 03/05/2021 showing normal coronary arteries, wedge 16 mmHg, PA readings 54/20, nonischemic cardiomyopathy Code(s): Z98.890 - Other specified postprocedural states Category: Surgical Plan: As above (4) Smoking: Comment: 1ppd daily Code(s): F17.200 - Nicotine dependence, unspecified, uncomplicated Category: Social Hx Plan: Continues to smoke daily. He has stop smoking marijuana and stopped alcohol use. Has COPD. Follows with pulmonology. Plan I discussed with the patient the importance of continuing his current medications to maintain heart function and prevent fluid buildup. We talked about the need to take Bumex as needed, especially if he notices signs of fluid overload. I advised him on the benefits of reducing tobacco use. We agreed on a follow-up in 6 months, with the option to come in sooner if his symptoms change. Patient Instructions: - Continue taking Eliquis, metoprolol, and Entresto as prescribed. - Take Bumex as needed for swelling or shortness of breath. - Aim to reduce smoking, with a goal to quit - Schedule a follow-up in nine months or sooner if symptoms change. Patient was informed and verbally consented to the use of an ambient scribe for clinic note documentation during this visit. Visit time spent on chart review, interview, assessment, orders, documentation. Coding Level of Care Code Est Pt Level 4 (76253) Complex EM visit Add On G2211 Diagnoses Atrial fibrillation with RVR I48.91 Cardiomyopathy, nonischemic I42.8 S/P cardiac catheterization Z98.890 Smoking F17.200 CPT Codes EKG - CPT: 87828-[id number], Complete ([id number]) Time Spent (min) 32
== END 2024-09-26 14:42 | disposition home or self-care (01) ==
LOC: HO.HCS 13:09
PROVIDERS: PCP Internal Medicine; Visit Provider Nurse Practitioner Family
DX: I48.91 Unspecified atrial fibrillation (principal); I42.8 Other cardiomyopathies; Z98.890 Other specified postprocedural states; F17.200 Nicotine dependence, unspecified, uncomplicated
CPT/HCPCS: 93010; 99214; G2211

== ENCOUNTER → 2024-09-26 13:08 | Outpatient (BNVA) | payer OTHER, SELFPAY | PROVIDERS: PCP Internal Medicine; Visit Provider Nurse Practitioner Family | DX: Z01.810 Encounter for preprocedural cardiovascular examination (principal); I48.91 Unspecified atrial fibrillation; I42.8 Other cardiomyopathies; F17.200 Nicotine dependence, unspecified, uncomplicated; R06.02 Shortness of breath | CPT/HCPCS: 93005; 99212 ==

== ENCOUNTER 2024-09-30 09:02 | Outpatient (AMB) | payer OTHER, SELFPAY ==
--- NOTE | 2024-09-30 09:12 | A.OFFVIS_ITS ---
Vital Signs 09/30/24 09:21 Height 5 ft 11 in Weight 254 lb BMI 35.4 BP 128/69 Blood Pressure Location Rt brachial Position Sitting Pulse 63 Intake Visit Reasons: S/P excision skin tag/suture removal Intake Note: Patient here s/p excision on back. Seven sutures removed without incident. Patient c/o: no concerns. Reports incision healing well. WLE (): 09-16-2024 Web Site Manager Required: No Accompanied by: Self / Same As Patient Allergies No Known Allergies Allergy (Verified 09/30/24 09:21) HPI HPI S/P excision skin tag/suture removal: Details: Mr. Carson presents for suture removal today. He underwent excision of skin lesion in the right flank on 09/16/24 in the office with Dr. Babb. He had some mild discomfort following the excision but denies any currently pain. C/o itching at excision site. No other concerns. [facility] Medical History (Updated 09/30/24 @ 12:41 by Rossana Shrestha PA-C) Skin lesion of back Type 2 diabetes mellitus with hemoglobin A1c goal of less than 7.0% Atypical nevi History of cardioversion Obesity (BMI 30-39.9) Diabetes mellitus Alcohol abuse Smoking Atrial flutter with rapid ventricular response HTN (hypertension) COPD (chronic obstructive pulmonary disease) Surgical History (Updated 09/30/24 @ 08:35 by RAJ Sol) Hx of surgical procedure (09/16/24) No pertinent past surgical history Family History Father Cancer Mother Diabetes Hypertension Brother In good health Sister In good health Son In good health Daughter In good health Social History Household Members: None Housing: Apartment Do you presently have visiting nurse or other home services: No Alcohol intake: current Alcohol intake frequency: former alcohol drinker Alcohol type: beer Patient Tobacco Use Status: Current everyday Tobacco user Tobacco use type: Cigarette Cigarette Packs Per Day: 1 Cigarettes Per Day: 20.0 Years Smoked: 40 +/- e-Cigarette/Vaping Use: Never Used Second Hand Smoke Exposure: Yes Substance Use Type: Marijuana Advance Directives Date on File: 06/11/20 service: No Current occupational status: retired and disabled Cognitive needs: No Hearing needs: No Vision needs: Yes (reading glasses) Review of Systems Const Denies chills and Denies fever(s) ENT Denies dizziness Card Denies chest pain, Denies palpitations and Reports dyspnea on exertion (occasional, able to walk up flight of stairs, golf ) Resp Reports cough and Reports dyspnea on exertion (occasional, able to walk up flight of stairs, golf ) Skin/Breast Reports as per HPI Neuro Denies dizziness Endo Denies palpitations Physical Exam Vital Signs: Last Vital Signs Pulse 63 09/30/24 09:21 BP 128/69 09/30/24 09:21 BMI result Body Mass Index 35.4 Const General: comfortable, no acute distress and alert Nutritional Appearance: obese Orientation/consciousness: patient oriented x3 Resp Effort & Inspection: normal respiratory effort, able to speak in complete sentences, audible wheezes, Actively coughing and not tachypneic Skin Other: right mid flank excision site, sutures removed, excision site is well healing, small separation of skin edges at posterior aspect and steri strips placed, small amount of erythema surrounding prior suture sites, no edema Neuro General: patient oriented x3 and moves all extremities Results Reviewed Results Reviewed: Skin, back, excision: - Melanoma, superficial spreading type, invasive to 1 mm; margins negative (less than 1 mm to peripheral margin). - pT1b NX (AJCC Stage 8th ed.) Assessment & Plan Assessment & Plan (1) Melanoma: Code(s): C43.9 - Malignant melanoma of skin, unspecified Category: Medical (2) Skin lesion of back: Code(s): L98.9 - Disorder of the skin and subcutaneous tissue, unspecified Category: Medical Plan 58 year old male who underwent excision of skin lesion in the right flank on 09/16/24. The excision site is healing well without evidence of infection. There is a small skin separation of the posterior aspect and therefore steri strips were placed. Unfortunately the pathology revealed Melanoma with margins negative however less than 1mm. Discussed pathology results with the patient and the need to proceed with wide excision of the malignant melanoma of his right flank. No sentinel lymph node biopsy is indicated given the depth of 1mm. Will also refer to oncology. He understands the diagnosis and the plan. Will arrange for wide excision of the right flank melanoma in the OR through [facility]. Coding Level of Care Code Est Pt Level 3 (51236) Diagnoses Melanoma C43.9 Skin lesion of back L98.9
--- OUTSIDE RECORDS SUMMARY | 2024-09-30 09:20 | XMS_ITS | Clinical Summary ---
Author Organization [employer] Address [address] [facility] [address] [place] [address] Care Team Providers Care Wheel Grinder Name Role Phone Unavailable Primary Care Provider [...] Recently Relevant to Health Maintenance Insurance MEDICARE [facility] ONE CARE < 65 DENTAL-[facility] MEDICAID STAND ADULT
[2024-09-30 09:21] VITALS: BP 128/69; PULSE 63; BMI 35.4
== END 2024-09-30 09:38 | disposition home or self-care (01) ==
LOC: HO.HGS 09:03
PROVIDERS: PCP Internal Medicine
DX: C43.9 Malignant melanoma of skin, unspecified (principal); L98.9 Disorder of the skin and subcutaneous tissue, unspecified
CPT/HCPCS: 99213

== ENCOUNTER → 2024-09-30 09:02 | Outpatient (BNVA) | payer OTHER, SELFPAY | PROVIDERS: PCP Internal Medicine | DX: Z48.02 Encounter for removal of sutures (principal); C43.59 Malignant melanoma of other part of trunk; L98.9 Disorder of the skin and subcutaneous tissue, unspecified | CPT/HCPCS: 99212 ==

== ENCOUNTER 2024-10-10 13:10 | Outpatient (AMB) | payer OTHER, SELFPAY ==
--- OUTSIDE RECORDS SUMMARY | 2024-10-10 13:29 | XMS_ITS | Clinical Summary ---
Author Organization [employer] Address [address] [facility] [address] [place] [address] Care Team Providers Care Sound Recordist Name Role Phone Unavailable Primary Care Provider [...] Relevant to Health Maintenance Insurance MEDICARE [facility] ONE CARE < 65 DENTAL-[facility] MEDICAID STAND ADULT
[2024-10-10 13:56] VITALS: BP 122/62; PULSE 70; O2SAT 95; BMI 21.8
--- NOTE | 2024-10-10 13:56 | A.OFFVIS_ITS ---
Vital Signs 10/10/24 13:56 Height 5 ft 11 in Weight 156 lb BMI 21.8 BP 122/62 Blood Pressure Location Rt brachial Position Sitting Pulse 70 Pulse Source Pulse Oximeter Pulse Oximetry (%) 95 Oxygen Delivery Method Room Air Intake Visit Reasons: 10/14 Allergies No Known Allergies Allergy (Verified 09/30/24 09:21) HPI HPI 10/14: Details: 59-year-old gentleman, active 40+ pack-year smoker, followed for COPD and dyspnea on exertion.?? He does have underlying systolic congestive heart failure with EF of 25-30%.? He has had cardiac catheterization that showed no actionable upon blockages and prior admission to [facility] for AFib requiring cardioversion. After cardioversion, he is on amiodarone and apixaban. He continues on Trelegy, albuterol MDI, and Bumex. He denies any recent exacerbations. Patient is scheduled for reexcision of skin melanoma on his right flank. [facility] Medical History (Updated 10/10/24 @ 14:08 by Victor Manuel Garcia MD) Skin lesion of back Type 2 diabetes mellitus with hemoglobin A1c goal of less than 7.0% Atypical nevi History of cardioversion Obesity (BMI 30-39.9) Diabetes mellitus Alcohol abuse Smoking Atrial flutter with rapid ventricular response HTN (hypertension) COPD (chronic obstructive pulmonary disease) Surgical History (Updated 09/30/24 @ 08:35 by RAJ Sol) Hx of surgical procedure (09/16/24) No pertinent past surgical history Family History Father Cancer Mother Diabetes Hypertension Brother In good health Sister In good health Son In good health Daughter In good health Social History Household Members: None Housing: Apartment Do you presently have visiting nurse or other home services: No Alcohol intake: current Alcohol intake frequency: former alcohol drinker Alcohol type: beer Patient Tobacco Use Status: Current everyday Tobacco user Tobacco use type: Cigarette Cigarette Packs Per Day: 1 Cigarettes Per Day: 20.0 Years Smoked: 40 +/- e-Cigarette/Vaping Use: Never Used Second Hand Smoke Exposure: Yes Substance Use Type: Marijuana Advance Directives Date on File: 06/11/20 service: No Current occupational status: retired and disabled Cognitive needs: No Hearing needs: No Vision needs: Yes (reading glasses) Review of Systems Const Denies daytime sleepiness, Denies excessive sweating, Denies fatigue, Denies fever(s), Denies lethargy, Denies malaise, Denies night sweats, Denies snoring and Denies weight loss Eyes Denies blurry vision and Denies itchy eyes ENT Denies nasal congestion, Denies post nasal drip, Denies sinus pain, Denies sinus pressure and Denies other ( Thrush) Card Denies chest pain, Denies pedal edema, Denies dyspnea, Denies orthopnea and Denies paroxysmal nocturnal dyspnea Resp Denies cough, Denies hemoptysis, Denies excessive phlegm production, Denies dyspnea, Denies snoring and Denies wheezing GI Denies abdominal pain and Denies heartburn Musc Denies myalgias, Denies arthralgias and Denies joint swelling Skin/Breast Denies rash Neuro Denies memory loss and Denies seizure-like activity Psych Denies abnormal sleep pattern, Denies anxiety and Denies memory loss Endo Denies excessive sweating, Denies fatigue and Denies heat intolerance Odnato/Lymph Denies easy bruising Aller/Immun Denies itchy eyes, Denies seasonal rhinorrhea and Denies wheezing Physical Exam Vital Signs: Last Vital Signs Pulse 70 10/10/24 13:56 BP 122/62 10/10/24 13:56 Pulse Ox 95 10/10/24 13:56 Oxygen Delivery Method Room Air 10/10/24 13:56 BMI result Body Mass Index 21.8 Const General: no acute distress and alert Nutritional Appearance: obese Orientation/consciousness: Other orientation findings ( oriented) HEENT Head: Yes atraumatic Eyes General: appearance normal, both eyes and all related structures Sclerae: sclerae normal EOM: EOMs intact bilaterally Neck Neck: Yes supple Lymphatic: no lymphadenopathy noted Resp Effort & Inspection: normal respiratory effort and no use of accessory muscles Auscultation: clear to auscultation bilaterally Cardio Rate: regular rate Rhythm: regular rhythm Heart sounds: no gallops, no murmurs and no rubs Skin General skin exam: other ( warm) Extrem General: No clubbing, No cyanosis and No edema Assessment & Plan Assessment & Plan (1) COPD (chronic obstructive pulmonary disease): Code(s): J44.9 - Chronic obstructive pulmonary disease, unspecified Category: Medical Qualifiers: COPD type: COPD with acute exacerbation Qualified Code(s): J44.1 - Chronic obstructive pulmonary disease with (acute) exacerbation Plan: Well controlled on current regimen of Trelegy, duo nebs, and albuterol MDI. Continue current regimen. (2) Nicotine dependence, cigarettes, uncomplicated: Code(s): F17.210 - Nicotine dependence, cigarettes, uncomplicated Category: Medical Plan: Continue lung cancer screening, next CT in March of 2025. (3) Preop pulmonary/respiratory exam: Code(s): Z01.811 - Encounter for preprocedural respiratory examination Category: Medical Plan: At this time patient is at low risk for pulmonary perioperative complications for the proposed melanoma excision on the right flank under general anesthesia. Coding Level of Care Code Est Pt Level 4 (59742) Complex EM visit Add On G2211 Diagnoses Chronic obstructive pulmonary disease with acute exacerbation J44.1 COPD type: COPD with acute exacerbation Nicotine dependence, cigarettes, uncomplicated F17.210 Preop pulmonary/respiratory exam Z01.811
== END 2024-10-10 14:08 | disposition home or self-care (01) ==
LOC: HO.HPS 13:10
PROVIDERS: PCP Internal Medicine; Visit Provider Internal Medicine Pulmonary Disease
DX: J44.1 Chronic obstructive pulmonary disease with (acute) exacerbation (principal); F17.210 Nicotine dependence, cigarettes, uncomplicated; Z01.811 Encounter for preprocedural respiratory examination
CPT/HCPCS: 99214; G2211

== ENCOUNTER → 2024-10-10 13:10 | Outpatient (BNVA) | payer OTHER, SELFPAY | PROVIDERS: PCP Internal Medicine; Visit Provider Internal Medicine Pulmonary Disease | DX: Z01.811 Encounter for preprocedural respiratory examination (principal); F17.210 Nicotine dependence, cigarettes, uncomplicated; J44.1 Chronic obstructive pulmonary disease with (acute) exacerbation | CPT/HCPCS: 99212 ==

== ENCOUNTER 2024-10-14 10:46 | Day surgery (SDC) | payer OTHER, SELFPAY ==
--- OUTSIDE RECORDS SUMMARY | 2024-10-06 09:39 | XMS_ITS | Clinical Summary ---
Author Organization [employer] Address [address] [facility] [address] [place] [address] Care Team Providers Care Job Printer Apprentice Name Role Phone Unavailable Primary Care Provider [...] Relevant to Health Maintenance Insurance MEDICARE [facility] ONE CARE < 65 DENTAL-[facility] MEDICAID STAND ADULT
[2024-10-11 15:28] VITALS: BMI 35.6
--- NOTE | 2024-10-12 13:00 | HO.ANESPROP2 ---
HPI - Anesthesia Eval Consult details Narrative: 59yo M for Right Wide Excision of Flank Melanoma Cardiac optimized. Follows [facility] for PAF which is suppressed and nonischemic CMP with normalization of EF at on last echo. Stable at last office eval 09/2024. Some CENTENO thought r/t smoking. -Holter notes 1 x 5 beats run of wide complex that could represent excellent idioventricular rhythm Pulmo optimized. Follows [facility] for active 40+ pack-year smoker, followed for COPD and dyspnea on exertion. Stable at last office eval 10/2024 without exacerbations. [facility] Active Problems Active Problems: All Active Problems Preop pulmonary/respiratory exam (Acute) Melanoma (Acute) Pneumonia (Acute) Nicotine dependence, cigarettes, uncomplicated (Acute) Cardiomyopathy, nonischemic (Acute) Orthopnea (Acute) Encounter for monitoring amiodarone therapy (Acute) CHF exacerbation (Acute) Atrial fibrillation with rapid ventricular response (Acute) CHF (congestive heart failure) (Acute) Atrial fibrillation with RVR (Acute) Open toe wound (Acute) Congestive heart failure (Acute) Disorder of arteries and arterioles, unspecified (Acute) PAD (peripheral artery disease) (Acute) Paroxysmal nocturnal dyspnea (Acute) Obesity (BMI 30-39.9) (Acute) Foot pain, right (Acute) Screening for prostate cancer (Acute) Adult general medical exam (Acute) Screening for colon cancer (Acute) Diabetes (Acute) Spondylosis of lumbar spine (Acute) Spondylosis, thoracic (Acute) Low back pain (Acute) Mid back pain (Acute) Muscle spasm (Acute) S/P cardiac catheterization (Acute) COPD exacerbation (Acute) Dyspnea on exertion (Acute) Cardiomyopathy (Acute) Skin lesion of back (Acute) Type 2 diabetes mellitus with hemoglobin A1c goal of less than 7.0% (Acute) Atypical nevi (Acute) Obesity (BMI 30-39.9) (Acute) Diabetes mellitus (Acute) HTN (hypertension) (Acute) Alcohol abuse (Acute) Smoking (Acute) Atrial flutter with rapid ventricular response (Acute) COPD (chronic obstructive pulmonary disease) (Acute) Past Medical History Medical History (Updated 10/20/24 @ 13:30 by Karthikeyan Murguia MD) CHF (congestive heart failure) Cardiomyopathy CENTENO (dyspnea on exertion) History of snoring Hx of undescended testicle (1973) Skin lesion of back Type 2 diabetes mellitus with hemoglobin A1c goal of less than 7.0% Atypical nevi History of cardioversion Obesity (BMI 30-39.9) Diabetes mellitus Alcohol abuse Smoking Atrial flutter with rapid ventricular response HTN (hypertension) COPD (chronic obstructive pulmonary disease) Family History Family History Father Cancer Mother Diabetes Hypertension Brother In good health Sister In good health Son In good health Daughter In good health Family history of problems with anesthesia: No Surgical History Surgical History (Updated 10/20/24 @ 13:30 by Karthikeyan Murguia MD) History of testicular surgery (1973) Hx of appendectomy Hx of surgical procedure (09/16/24) History of Problems with Anesthesia: No Social History Social History Household Members: None Housing: Apartment Are you a primary career technical education instructor to a significant other at home: No Do you presently have visiting nurse or other home services: No Alcohol intake: current Alcohol intake frequency: former alcohol drinker Alcohol type: beer Patient Tobacco Use Status: Current everyday Tobacco user Tobacco use type: Cigarette Cigarette Packs Per Day: 1 Years Smoked: 40 +/- e-Cigarette/Vaping Use: Never Used Second Hand Smoke Exposure: Yes Substance Use Type: Marijuana Advance Directives Date on File: 06/11/20 service: No Current occupational status: retired and disabled Cognitive needs: No Hearing needs: No Vision needs: Yes (reading glasses) Meds Allergies Allergy/AdvReac Type Severity Reaction Status Date / Time No Known Allergies Allergy Verified 10/20/24 13:24 Exam Height,Weight and Vital Signs: Height 5 ft 11 in Weight 115.666 kg Pertinent Lab Results Pertinent Lab Results: Laboratory Tests 01/19/24 01/19/24 15:02 15:03 WBC 6.6 Hgb 14.2 Hct 41.3 L Plt Count 239 Sodium 137 Potassium 4.5 Chloride 103 Carbon Dioxide 27 BUN 20 H Creatinine 1.28 Narrative Narrative: EKG 09/2024 sinus bradycardia, septal Q-wave, rate 59, QTC 411 milliseconds ECHO 02/2024 Conclusions: - Normal left ventricular size and systolic function. There is mildly increased left ventricular wall thickness. The visually estimated ejection fraction is between 55-60%. - Normal right ventricular cavity size and systolic function. - There is mild dilatation of the ascending aorta measuring 3.80 cm. Holter 02/2024 1. Patient was monitored for total period of 3 days 2. Baseline was normal sinus rhythm with average heart of 63 beats per minute 3. Occasional PACs noted without sustained arrhythmias 4. Rare PVCs noted with 1. Patient was monitored for total period of 3 days 2. Baseline was normal sinus rhythm with average heart of 63 beats per minute 3. Occasional PACs noted without sustained arrhythmias 4. Rare PVCs noted with 1 5 beats run of wide complex that could represent excellent idioventricular rhythm 5. No patient reported events 5. No patient reported events Assessment and Plan Assessment Anesthesia Assessment: Chart Reviewed Final Anesthetic Review Family History of Problems with Anesthesia: No History of Problems with Anesthesia: No
[2024-10-14] VITALS (7 sets, daily range): BP systolic 144–158; BP diastolic 72–83; PULSE 57–63; RESP 10–18; TEMP 36.6–37.2; O2SAT 93–97
[2024-10-14] MEDS: Lactated Ringers 1,000 ML 50 ML IVCONT (12:00)
[2024-10-14] MEDS: Albuterol Sulfate (0.083%) 2.5 MG/3 ML VIAL.NEB INHALE (12:06)
[2024-10-14 12:51] LABS: Glucose, Whole Blood 108 mg/dL (60-115)
--- NOTE | 2024-10-14 14:05 | MHC.SHP ---
Pre-Procedural Eval Section A - 24 Hr Update-Section A only Date of Service: 10/14/24 The patient is an INPATIENT: No Changes since office visit: No Cold of Flu in the past 2 weeks, No New Medical Problems, No Changes in Medication and No Patient answered all questions The patient has been examined within 24 hours of the surgical procedure. The History & Physical has been completed within 30 days and I have reviewed it.: Yes Section B - Complete if H&P > 30 days Chief Complaint: Malignant melanoma of skin,malignant melanoma Allergies: Allergies Allergy/AdvReac Type Severity Reaction Status Date / Time No Known Allergies Allergy Verified 10/14/24 11:41 Plan I have reviewed the history and physical and performed a pertinent physical examination on my patient. No changes have occurred unless specified. Time Spent With Patient Time: Total time managing care of this patient today ____ minutes.
--- NOTE | 2024-10-14 14:54 | W.PM.OPN ---
Operative Note Operative Note Date of Service: 10/14/24 Narrative: Preop diagnosis: Status post excision of melanoma, right flank for re-excision for wider margins Postop diagnosis: The same Procedure: Re-excision for wider margins of a melanoma right flank Surgeon: Chema Babb MD cardiology physician assistant: TJ Oneal The patient is a 59-year-old male who had a skin lesion removed from the right flank area under local anesthesia in the office. The path report however showed a melanoma with a thickness of 1 mm. The margins were negative but closest peripheral margins were less than 1 mm . Initial size of the mass lesion was 3.5 and 1.9 cm He understood the technique of re-excision for wider margins. He was aware of the risks, benefits, and alternatives. He was brought to the operating room. He was placed in left lateral was position under general anesthesia via laryngeal mask airway. The excision site on the right flank was prepped and draped. Lidocaine 1% was used for local anesthesia. I have marked additional margins of at least 1 cm all around the scar. I infiltrated this planned line of incision with lidocaine 1%. I made the incision with a blade 15. This carried down through the full-thickness of the skin and full-thickness of the subcutaneous fat electrocautery up to the fascial level. I used electrocautery to excise this entire full-thickness of the subcutaneous fat above the fascia all around. I marked the superior and posterior margins with sutures . The excised area was about 10 cm by 4 cm. I then proceeded to ensure hemostasis with electrocautery. I irrigated. The subcutaneous layer was reapposed with multiple Polysorb 3-0 simple interrupted sutures Skin closure was achieved with multiple simple interrupted nylon 3-0 sutures. The area was infiltrated with Marcaine 0.5% for postop analgesia. Dressings were applied and the procedure was completed The patient tolerated the procedure well. There were no immediate complications. Initial and final counts of sponges and instruments were correct. Estimated blood loss was about 25 cc The patient is extubated without difficulty and transferred to the recovery room with stable vital signs.
== END 2024-10-14 15:44 | disposition home or self-care (01) ==
PROVIDERS: PCP Internal Medicine; Visit Provider Surgery
PROC: (CPT 11606; principal; 2024-10-14 12:50)
DX: L90.5 Scar conditions and fibrosis of skin (principal); Z85.820 Personal history of malignant melanoma of skin; Z98.890 Other specified postprocedural states; I48.0 Paroxysmal atrial fibrillation; I42.8 Other cardiomyopathies; I10 Essential (primary) hypertension; E11.9 Type 2 diabetes mellitus without complications; J44.9 Chronic obstructive pulmonary disease, unspecified; R06.09 Other forms of dyspnea; F10.11 Alcohol abuse, in remission; Z79.01 Long term (current) use of anticoagulants; Z79.51 Long term (current) use of inhaled steroids; Z79.84 Long term (current) use of oral hypoglycemic drugs; Z79.899 Other long term (current) drug therapy; F17.210 Nicotine dependence, cigarettes, uncomplicated
CPT/HCPCS: 11606; 82947; 88305; 94640; J1100; J2003; J2405; J2704; J2795; J3010

== ENCOUNTER → 2024-10-14 10:46 | Outpatient (BNV) | payer OTHER, SELFPAY | PROVIDERS: PCP Internal Medicine; Visit Provider Surgery | DX: C43.59 Malignant melanoma of other part of trunk (principal) | CPT/HCPCS: 11606 ==

== ENCOUNTER → 2024-10-20 13:01 | Outpatient (BNV) | payer OTHER, SELFPAY | PROVIDERS: Visit Provider Internal Medicine Medical Oncology | DX: C43.59 Malignant melanoma of other part of trunk (principal) | CPT/HCPCS: 99204 ==

== ENCOUNTER 2024-10-26 12:47 | Outpatient (AMB) | payer OTHER, SELFPAY ==
--- NOTE | 2024-10-26 12:48 | A.OFFVIS_ITS ---
Vital Signs 10/26/24 12:56 Height 5 ft 11 in Weight 257 lb BMI 35.8 BP 129/61 Blood Pressure Location Rt brachial Position Sitting Pulse 69 Intake Visit Reasons: S/P excision Rt. flank melanoma Intake Note: Patient here s/p re- excision melanoma on Rt flank. Patient c/o: reports incision healing well. Keeping incision area covered with bandage. WLE: 10-14-2024 Furnace Builder Required: No Accompanied by: Self / Same As Patient Allergies No Known Allergies Allergy (Verified 10/26/24 12:56) HPI HPI S/P excision Rt. flank melanoma: Details: He underwent re-excision for wider margins of a melanoma on the right flank area last October 14, 2024. He tolerated procedure well. He currently denies significant complaints. [facility] Medical History CHF (congestive heart failure) Cardiomyopathy CENTENO (dyspnea on exertion) History of snoring Hx of undescended testicle (1973) Skin lesion of back Type 2 diabetes mellitus with hemoglobin A1c goal of less than 7.0% Atypical nevi History of cardioversion Obesity (BMI 30-39.9) Diabetes mellitus Alcohol abuse Smoking Atrial flutter with rapid ventricular response HTN (hypertension) COPD (chronic obstructive pulmonary disease) Surgical History History of testicular surgery (1973) Hx of appendectomy Hx of surgical procedure (09/16/24) Family History Father Cancer Mother Diabetes Hypertension Brother In good health Sister In good health Son In good health Daughter In good health Social History Household Members: None Caregiver staying overnight: No Housing: Apartment Are you a primary healthcare insurance sales agent to a significant other at home: No Do you presently have visiting nurse or other home services: No 75 years or older and lives alone: No Alcohol intake: current Alcohol intake frequency: former alcohol drinker Alcohol type: beer Patient Tobacco Use Status: Current everyday Tobacco user Tobacco use type: Cigarette Cigarette Packs Per Day: 1 Years Smoked: 40 +/- e-Cigarette/Vaping Use: Never Used Second Hand Smoke Exposure: Yes Substance Use Type: Marijuana Advance Directives Date on File: 06/11/20 service: No Current occupational status: retired and disabled Cognitive needs: No Hearing needs: No Vision needs: Yes (reading glasses) Review of Systems Const Denies chills and Denies fever(s) Physical Exam Vital Signs: Last Vital Signs Pulse 69 10/26/24 12:56 BP 129/61 10/26/24 12:56 BMI result Body Mass Index 35.8 Const General: comfortable and no acute distress Back/Spine/Pelvis Other: Right flank area excision sites well healed, not infected, sutures intact Assessment & Plan Assessment & Plan (1) Melanoma: Code(s): C43.9 - Malignant melanoma of skin, unspecified Category: Medical Plan: Status post re-excision for wider margins. His incision is well healed. I removed all his sutures. I applied Steri-Strips His path report shows no residual melanoma on wider re-excision. He can follow up on a p.r.n. basis. Coding Level of Care Code Global (28979) Diagnoses Melanoma C43.9
[2024-10-26 12:56] VITALS: BP 129/61; PULSE 69; BMI 35.8
--- OUTSIDE RECORDS SUMMARY | 2024-10-26 13:37 | XMS_ITS | Clinical Summary ---
Author Organization [employer] Address [address] [place] [address] Care Team Providers Care Absorption Operator Name Role Phone Unavailable Primary Care Provider [...] Recently Relevant to Health Maintenance Insurance MEDICARE [facility]ARE < 65 [facility] MEDICAID STAND ADULT
== END 2024-10-26 13:13 | disposition home or self-care (01) ==
LOC: HO.HGS 12:47
PROVIDERS: PCP Internal Medicine; Visit Provider Surgery
DX: C43.9 Malignant melanoma of skin, unspecified (principal)
CPT/HCPCS: 99024

== ENCOUNTER → 2024-10-26 12:47 | Outpatient (BNVA) | payer OTHER, SELFPAY | PROVIDERS: PCP Internal Medicine; Visit Provider Surgery | DX: C43.59 Malignant melanoma of other part of trunk (principal) | CPT/HCPCS: 99212 ==

== ENCOUNTER 2025-01-23 09:18 | Outpatient (AMB) | payer OTHER, SELFPAY ==
[2025-01-23 09:27] VITALS: BP 138/77; PULSE 80; O2SAT 92; BMI 36.3
--- NOTE | 2025-01-23 09:27 | MHC.OFFVIS ---
Vital Signs 01/23/25 09:27 Height 5 ft 11 in Weight 260 lb BMI 36.3 BP 138/77 Blood Pressure Location Rt brachial Position Sitting Pulse 80 Pulse Source Pulse Oximeter Pulse Oximetry (%) 92 Oxygen Delivery Method Room Air Intake Visit Reasons: COPD Allergies No Known Allergies Allergy (Verified 01/23/25 09:32) HPI HPI COPD: Details: 59-year-old gentleman, active 40+ pack-year smoker, followed for COPD and dyspnea on exertion.?? He does have underlying systolic congestive heart failure with EF of 25-30%.? He has had cardiac catheterization that showed no actionable upon blockages and prior admission to [facility] for AFib requiring cardioversion. After cardioversion, he is on amiodarone and apixaban. He continues on Trelegy, albuterol MDI, and Bumex. Today patient is presenting for sick visit complaining of a bronchitic symptoms. He was started on Augmentin over the weekend and now reports some improvement in the symptoms. [facility] Medical History CHF (congestive heart failure) Cardiomyopathy CENTENO (dyspnea on exertion) History of snoring Hx of undescended testicle (1973) Skin lesion of back Type 2 diabetes mellitus with hemoglobin A1c goal of less than 7.0% Atypical nevi History of cardioversion Obesity (BMI 30-39.9) Diabetes mellitus Alcohol abuse Smoking Atrial flutter with rapid ventricular response HTN (hypertension) COPD (chronic obstructive pulmonary disease) Surgical History History of testicular surgery (1973) Hx of appendectomy Hx of surgical procedure (09/16/24) Family History Father Cancer Mother Diabetes Hypertension Brother In good health Sister In good health Son In good health Daughter In good health Social History Household Members: None Caregiver staying overnight: No Housing: Apartment Are you a primary acute care registered nurse to a significant other at home: No Do you presently have visiting nurse or other home services: No 75 years or older and lives alone: No Alcohol intake: current Alcohol intake frequency: former alcohol drinker Alcohol type: beer Patient Tobacco Use Status: Current everyday Tobacco user Tobacco use type: Cigarette Cigarette Packs Per Day: 1 Years Smoked: 40 +/- e-Cigarette/Vaping Use: Never Used Second Hand Smoke Exposure: Yes Substance Use Type: Marijuana Advance Directives Date on File: 06/11/20 service: No Current occupational status: retired and disabled Cognitive needs: No Hearing needs: No Vision needs: Yes (reading glasses) Review of Systems Const Denies daytime sleepiness, Denies excessive sweating, Denies fatigue, Denies fever(s), Denies lethargy, Denies malaise, Denies night sweats, Denies snoring and Denies weight loss Eyes Denies blurry vision and Denies itchy eyes ENT Denies nasal congestion, Denies post nasal drip, Denies sinus pain, Denies sinus pressure and Denies other ( Thrush) Card Denies chest pain, Denies pedal edema, Denies dyspnea, Denies orthopnea and Denies paroxysmal nocturnal dyspnea Resp Reports cough, Denies hemoptysis, Reports excessive phlegm production, Denies dyspnea, Denies snoring and Denies wheezing GI Denies abdominal pain and Denies heartburn Musc Denies myalgias, Denies arthralgias and Denies joint swelling Skin/Breast Denies rash Neuro Denies memory loss and Denies seizure-like activity Psych Denies abnormal sleep pattern, Denies anxiety and Denies memory loss Endo Denies excessive sweating, Denies fatigue and Denies heat intolerance Donato/Lymph Denies easy bruising Aller/Immun Denies itchy eyes, Denies seasonal rhinorrhea and Denies wheezing Physical Exam Vital Signs: Last Vital Signs Pulse 80 01/23/25 09:27 BP 138/77 01/23/25 09:27 Pulse Ox 92 01/23/25 09:27 Oxygen Delivery Method Room Air 01/23/25 09:27 BMI result Body Mass Index 36.3 Const General: no acute distress and alert Nutritional Appearance: obese Orientation/consciousness: Other orientation findings ( oriented) HEENT Head: Yes atraumatic Eyes General: appearance normal, both eyes and all related structures Sclerae: sclerae normal EOM: EOMs intact bilaterally Neck Neck: Yes supple Lymphatic: no lymphadenopathy noted Resp Effort & Inspection: normal respiratory effort and no use of accessory muscles Auscultation: clear to auscultation bilaterally Cardio Rate: regular rate Rhythm: regular rhythm Heart sounds: no gallops, no murmurs and no rubs Skin General skin exam: other ( warm) Extrem General: No clubbing, No cyanosis and No edema Assessment & Plan Assessment & Plan (1) COPD (chronic obstructive pulmonary disease): Code(s): J44.9 - Chronic obstructive pulmonary disease, unspecified Category: Medical Qualifiers: COPD type: COPD with acute exacerbation Qualified Code(s): J44.1 - Chronic obstructive pulmonary disease with (acute) exacerbation Plan: Baseline controlled on Trelegy, duo nebs, and albuterol MDI. Continue current regimen. (2) Nicotine dependence, cigarettes, uncomplicated: Code(s): F17.210 - Nicotine dependence, cigarettes, uncomplicated Category: Medical Plan: Follow-up lung cancer screening CT chest is pending for March of 2025. (3) Bronchitis: Code(s): J40 - Bronchitis, not specified as acute or chronic Category: Medical Plan: Now with acute bronchitic symptoms, continue with the current regimen of Augmentin and prednisone. Coding Level of Care Code Est Pt Level 4 (35933) Complex EM visit Add On G2211 Diagnoses Chronic obstructive pulmonary disease with acute exacerbation J44.1 COPD type: COPD with acute exacerbation Nicotine dependence, cigarettes, uncomplicated F17.210 Bronchitis J40
== END 2025-01-23 09:39 | disposition home or self-care (01) ==
LOC: HO.HPS 09:19
PROVIDERS: PCP Internal Medicine; Visit Provider Internal Medicine Pulmonary Disease
DX: J44.1 Chronic obstructive pulmonary disease with (acute) exacerbation (principal); F17.210 Nicotine dependence, cigarettes, uncomplicated; J40 Bronchitis, not specified as acute or chronic
CPT/HCPCS: 99214; G2211

== ENCOUNTER → 2025-01-23 09:18 | Outpatient (BNVA) | payer OTHER, SELFPAY | PROVIDERS: PCP Internal Medicine; Visit Provider Internal Medicine Pulmonary Disease | DX: J44.1 Chronic obstructive pulmonary disease with (acute) exacerbation (principal); J40 Bronchitis, not specified as acute or chronic; F17.210 Nicotine dependence, cigarettes, uncomplicated | CPT/HCPCS: 99212 ==